=== PATIENT | male | born 1970 | race Caucasian/White ===

== ENCOUNTER 2018-03-13 22:00 | Inpatient (IN) | payer OTHER ==
[2018-03-13] MEDS ORDERED: FUROSEMIDE 40 MG/4 ML INJECTABLE VIAL IVPUSH ONE ×2 (22:33→23:25)
--- NOTE | 2018-03-13 22:40 | PDOC ---
Attending Attestation - HPI HPI: 03/13/18 23:46 The patient is a 47 year old male with past medical history of CHF (dx 4 years ago, not compliant with medication for the past 1 month), COPD (not compliant with treatment for the past 2 days), HTN, HLD, and DM, currently homeless and lives in a skilled nursing for 4 months now presents to the emergency department via EMS with shortness of breath. The patient reports his CHF symptoms are exacerbated during the winter times. The patient indicates the symptoms present 3 days ago, as chest tightness that feels like his muscles getting cold and freezing, that is localized. The patient reports his symptoms were aggravated earlier today when he was walking downhill. The patient reports after that episode, he had a small lunch then was en route to the skilled nursing. The patient reports he was having shortness of breath, and he had to stop after 10 steps to catch his breath then resume walking. The patient reports the symptoms are associated with abdominal discomfort, states he feels like a grapefruit is sitting in his abdomen. Denies productive cough fever, chills, urinary symptoms or changes in bowel habit. Allergies: NKA Social history: None reported. PCP: Samuel Lozano MD - Physicial Exam PE: 03/13/18 23:46 GENERAL: The patient is in no acute distress. Awake, alert, disheveled and malodorous. LUNGS: Bibasilar crackles. Breath sounds equal, clear to auscultation bilaterally. No Wheezes. HEART:Regular rate and rhythm, normal S1 and S2 without murmur, rub or gallop. ABDOMEN: +anasarca. Soft, nontender. No guarding, no rebound. No masses palpable. EXTREMITIES: 3+pitting edema. No clubbing or cyanosis. No erythema, or tenderness. - Medical Decision Making 03/13/18 23:46 Documentation prepared by Estelle Lopez, acting as internist medical doctor md for Jeannine Bagley MD. <Estelle Lopez - Last Filed: 03/13/18 23:46> - Resident Resident Name: Wild Olsen - ED Attending Attestation I have performed the following: I have examined & evaluated the patient, The case was reviewed & discussed with the resident, I agree w/resident's findings & plan, Exceptions are as noted - Critical Care Time Total Critical Care Time: 35 Critical Care Statement: The care of this patient involved high complexity decision making to prevent further life threatening deterioration of the patient 's condition and/or to evaluate & treat vital organ system(s) failure or risk of failure. - Medical Decision Making 03/13/18 23:41 EKG - NSR rate of 83 bpm, right axis deviation, T wave inversion inferiorly and v2-v4 CXR - Cardiomegaly, pulmonary congestion Laboratory Tests 03/13/18 03/13/18 03/13/18 22:28 22:28 22:28 WBC 8.6 Hgb 20.1 H* Hct 60.3 H Plt Count 135 INR 1.08 VBG pH POC VBG pCO2 POC VBG pO2 Sodium 144 Potassium 3.8 Chloride 104 Carbon Dioxide 36 H BUN 19 H Creatinine 1.2 Random Glucose 108 H Creatine Kinase 172 Troponin I 0.06 H B-Natriuretic Peptide 2290.2 H 03/13/18 22:28 WBC Hgb Hct Plt Count INR VBG pH 7.27 L POC VBG pCO2 87.3 H* POC VBG pO2 18.1 L* Sodium Potassium Chloride Carbon Dioxide BUN Creatinine Random Glucose Creatine Kinase Troponin I B-Natriuretic Peptide Lasix ordered Pt placed on BiPAP - hypercarbic + CHF <Jeannine Bagley - Last Filed: 03/17/18 10:55>
[2018-03-13 22:41] LABS: BASO % 0.4 % (0-2.0); EOS % 2.1 % (0-4.5); HEMATOCRIT 60.3 % (35.4-49); LYMPH % 16.9 % (8-40); MCH 31.6 pg (25.7-33.7); MCHC 33.3 g/dl (32.0-35.9); MEAN CELL VOLUME 94.8 fl (80-96); MEAN PLT VOLUME 10.1 fl (7.5-11.1); MONO % 10.2 % (3.8-10.2); NEUT % 70.4 % (42.8-82.8); PLATELET COUNT 135 K/MM3 (134-434); RBC 6.36 M/mm3 (4.00-5.60); RDW 15.4 % (11.9-15.9); WHITE BLOOD COUNT 8.6 K/mm3 (4.0-10.0)
[2018-03-13 22:44] LABS: HEMOGLOBIN 20.1 GM/dL (11.7-16.9)
[2018-03-13 22:45] LABS: VENOUS PH 7.27 (7.32-7.42)
[2018-03-13 22:46] LABS: VENOUS PC02 87.3 mmHg (38-52); VENOUS PO2 18.1 mmHg (28-48)
--- NOTE | 2018-03-13 22:47 | PDOC ---
History of Present Illness - General Chief Complaint: Chest Pain Stated Complaint: chest pain Time Seen by Provider: 03/13/18 22:12 History Source: Patient Exam Limitations: No Limitations - History of Present Illness Initial Comments: 03/13/18 22:38 The patient is a 47M with a PMH of HTN, HLD, DM, CHF who presents to the ER with complaints of worsening SOB. The patient states that for the last month, he has had worsening SOB, especially with exertion. The patient states that he has not taken any of his medications for one month because he has "given up on medication, doctors, and the system". He denies any CP, but admits to productive cough with white sputum and SOB with swelling in his b/l LE and abdomen. He denies any fever, chills, nausea, vomiting, numbness, tingling, and weakness. Past History - Suicide/Smoking/Psychosocial Hx Smoking History: Never smoked Have you smoked in the past 12 months: No Information on smoking cessation initiated: No Hx Alcohol Use: No Drug/Substance Use Hx: No Review of Systems - Review of Systems Able to Perform ROS?: Yes Comments:: 03/13/18 23:03 GENERAL/CONSTITUTIONAL: No fever or chills. No weakness. HEAD, EYES, EARS, NOSE AND THROAT: No change in vision. No ear pain or discharge. No sore throat. CARDIOVASCULAR: No chest pain, palpitations, or lightheadedness. RESPIRATORY: Positive for dyspnea, especially on exertion. No cough, wheezing, or hemoptysis. GASTROINTESTINAL: No nausea, vomiting, diarrhea, constipation, or abdominal pain. GENITOURINARY: No dysuria, frequency, hematuria, or change in urination. MUSCULOSKELETAL: No joint or muscle swelling or pain. No neck or back pain. SKIN: No rash or lesions. NEUROLOGIC: No headache, numbness, tingling, focal weakness, loss of consciousness, or change in strength/sensation. Is the patient limited Hebrew proficient: No *Physical Exam - Vital Signs Last Vital Signs Temp Pulse Resp BP Pulse Ox 97.5 F L 88 22 H 147/85 90 L 03/13/18 22:05 03/13/18 22:05 03/13/18 22:05 03/13/18 22:05 03/13/18 22:05 - Physical Exam Comments: 03/13/18 23:04 GENERAL: Well developed, well nourished. Awake and alert. No acute distress. HEENT: Normocephalic, atraumatic. Hearing grossly normal. Moist mucous membranes. PERRLA, EOMI. No conjunctival pallor. Sclera are non-icteric. NECK: Supple. Full ROM. No JVD. Carotid pulses 2+ and symmetric, without bruits. No thyromegaly. No lymphadenopathy. CARDIOVASCULAR: Regular rate and rhythm. No murmurs, rubs, or gallops. PULMONARY: No evidence of respiratory distress. B/l crackles in lower lobes. ABDOMINAL: Soft. Non-tender. Non-distended. No rebound or guarding. No organomegaly. Normoactive bowel sounds. GENITOURINARY: No CVA tenderness bilaterally. MUSCULOSKELETAL: Normal range of motion at all joints. No bony deformities or tenderness. EXTREMITIES: No cyanosis. No clubbing. 3-4+ pitting edema in b/l LE. No calf tenderness or swelling. SKIN: Warm and dry. Normal capillary refill. No rashes. No jaundice. NEUROLOGICAL: Alert, awake, appropriate. Cranial nerves 2-12 intact. Normal speech. Gait is normal without ataxia. PSYCHIATRIC: Cooperative. Good eye contact. Appropriate mood and affect. Moderate Sedation - Procedure Monitoring Vital Signs: Procedure Monitoring Vital Signs Temperature 97.5 F L 03/13/18 22:05 Pulse Rate 88 03/13/18 22:05 Respiratory Rate 22 H 03/13/18 22:05 Blood Pressure 147/85 03/13/18 22:05 O2 Sat by Pulse Oximetry (%) 90 L 03/13/18 22:05 Heart Score/ECG Review - History History: Moderately suspicious - Electrocardiogram EKG: Non specific repolarization disturbance - Age Age: 45-65 - Risk Factors Risk Factors Heart Score: Yes Hx Hypercholesterolemia, Yes Hx Hypertension, Yes Hx Diabetes Based on the list above the patient has:: >/=3 risk factors or Hx atherosclerotic disease #1 General ECG Interpretation: Normal Rate Compared to previous ECG there are: Previous ECG unavail 03/13/18 23:07 NSR vent rate 80 ND 152 QRS 102 QTc 481 No STD or BESSY T wave inversions in V1-V4 L posterior fascicular block No priors ED Treatment Course - LABORATORY CBC & Chemistry Diagram: 03/13/18 22:28 03/13/18 22:28 - RADIOLOGY Radiology Studies Ordered: Category Date Time Status CHEST X-RAY PORTABLE* [RAD] Stat Radiology 03/13/18 22:19 Taken Medical Decision Making - Medical Decision Making 03/13/18 23:08 The patient is a 47M with MMP, not on medications, who presents to the ER with worsening SOB, especially on exertion concerning for CHF exacerbation vs ACS. Pending labs. CBC significant for hgb of 20.1, likely 2/2 chronic obstructive sleep apnea and hypoxia. Pt is nondomicile and disheveled appearing. Pending troponin. Pt is noted to be hypoxic, not responsive to NC, will place pt on bipap and give lasix. VBG notable for pCO2 of 87.3 and pO2 of 18.1, indicative of hypercapnic respiratory failure. 03/13/18 23:12 Preliminary read of CXR shows cephalization without consolidations or effusions. 03/13/18 23:18 BNP in the s. Will microblog for admission. 03/13/18 23:19 I have endorsed the patient to Dr. Schrader for admission. *DC/Admit/Observation/Transfer Diagnosis at time of Disposition: Acute exacerbation of CHF (congestive heart failure) Qualifiers: Heart failure type: unspecified Qualified Code(s): I50.9 - Heart failure, unspecified Respiratory failure with hypoxia and hypercapnia Qualifiers: Chronicity: unspecified Qualified Code(s): J96.91 - Respiratory failure, unspecified with hypoxia; J96.92 - Respiratory failure, unspecified with hypercapnia - Discharge Dispostion Condition at time of disposition: Guarded Decision to Admit order: Yes - Referrals Referrals: Samuel Hu MD [Primary Care Provider] - - Patient Instructions - Post Discharge Activity
[2018-03-13 22:53] LABS: INR 1.08 (0.83-1.09); PROTHROMBIN TIME (PATIENT) 12.7 SEC (9.7-13.0)
[2018-03-13 23:14] LABS: ALBUMIN 3.3 g/dl (3.4-5.0); ALK PHOS 63 U/L (45-117); ANION GAP 5 MMOL/L (8-16); BILIRUBIN,TOTAL 0.5 mg/dL (0.2-1); BLOOD UREA NITROGEN 19 mg/dL (7-18); CALCIUM 8.5 mg/dL (8.5-10.1); CHLORIDE 104 mmol/L (98-107); CO2 36 mmol/L (21-32); CREATININE 1.2 mg/dL (0.55-1.3); GLUCOSE,RANDOM 108 mg/dL (74-106); N-TERMINAL BNP 2290.2 pg/ml (5-125); POTASSIUM 3.8 mmol/L (3.5-5.1); SGOT/AST 36 U/L (15-37); SGPT/ALT 64 U/L (13-61); SODIUM 144 mmol/L (136-145); TOT PROT 6.3 g/dl (6.4-8.2)
[2018-03-13] MEDS ORDERED: CARVEDILOL 3.125 MG TABLET (FP) PO ONE (23:32)
--- NOTE | 2018-03-13 23:34 | HP ---
CHIEF COMPLAINT: shortness of breath PCP: none HISTORY OF PRESENT ILLNESS: This is a 47 year old male with a history of systolic heart failure as per patient, htn, who is homeless, presenting with worsening shortness of breath and increased bilateal leg swelling and abdominal swelling. He states that he has been prescribed lasix in the past, but has not taken it in a few weeks. HE is a daily smoker, denies alcohol use. Patient is obese, he waked up multipl times throughout the night due to choking sensation, and snoring. HE has never had a sleep study. Denies headache, fever, chills, cough, sputum production, chest pain, abdominal pain, changed in GI or . ER course was notable for:elevated bnp 22,000; trop 0.06; Recent Travel: home less PAST MEDICAL HISTORY: htn, chf PAST SURGICAL HISTORY: Social History: Smoking:yes daily Alcohol:denies Drugs: denies Family History: HOME MEDICATIONS: REVIEW OF SYSTEMS CONSTITUTIONAL: Absent: fever, chills, diaphoresis, generalized weakness, malaise, loss of appetite, weight change HEENT: Absent: rhinorrhea, nasal congestion, throat pain, throat swelling, difficulty swallowing, mouth swelling, ear pain, eye pain, visual changes CARDIOVASCULAR: Positive: peripheral edema Absent: chest pain, syncope, palpitations, irregular heart rate, lightheadedness RESPIRATORY: Ositivel sob; orthopnea ,dyspnea with exertion, Absent: cough, , wheezing, stridor, hemoptysis GASTROINTESTINAL: POSitive: abdominal swelling Absent: abdominal pain, abdominal distension, nausea, vomiting, diarrhea, constipation, melena, hematochezia GENITOURINARY: Absent: dysuria, frequency, urgency, hesitancy, hematuria, flank pain, genital pain MUSCULOSKELETAL: Absent: myalgia, arthralgia, joint swelling, back pain, neck pain SKIN: Absent: rash, itching, pallor HEMATOLOGIC/IMMUNOLOGIC: Absent: easy bleeding, easy bruising, lymphadenopathy, frequent infections ENDOCRINE: Absent: unexplained weight gain, unexplained weight loss, heat intolerance, cold intolerance NEUROLOGIC: Absent: headache, focal weakness or paresthesias, dizziness, unsteady gait, seizure, mental status changes, bladder or bowel incontinence PSYCHIATRIC: Absent: anxiety, depression, suicidal or homicidal ideation, hallucinations. PHYSICAL EXAMINATION Vital Signs - 24 hr 03/13/18 03/13/18 22:05 23:12 Temperature 97.5 F L Pulse Rate 88 Respiratory 22 H Rate Blood Pressure 147/85 O2 Sat by Pulse 90 L 96 Oximetry (%) GENERAL: Obese Awake, alert, and fully oriented, on BiPAP HEAD: Normal with no signs of trauma. LUNGS: decreased breath sounds; bibasilar crackles bases HEART: Regular rate and rhythm, normal S1 and S2 without murmur, rub or gallop. ABDOMEN: obese; with RLQ and LLQ edema UPPER EXTREMITIES: 2+ pulses, warm, well-perfused. No cyanosis. No clubbing. No peripheral edema. LOWER EXTREMITIES: 2+ pulses, warm, well-perfused. No calf tenderness. No peripheral edema. NEUROLOGICAL: Cranial nerves II-XII intact. Normal speech. [id number] Laboratory Results - last 24 hr 03/13/18 03/13/18 03/13/18 22:28 22:28 22:28 WBC 8.6 RBC 6.36 H Hgb 20.1 H* Hct 60.3 H MCV 94.8 MCH 31.6 MCHC 33.3 RDW 15.4 Plt Count 135 MPV 10.1 Absolute Neuts (auto) 6.1 Neutrophils % 70.4 Lymphocytes % 16.9 Monocytes % 10.2 Eosinophils % 2.1 Basophils % 0.4 Nucleated RBC % 0 PT with INR 12.70 INR 1.08 VBG pH POC VBG pCO2 POC VBG pO2 Mixed VBG HCO3 Sodium 144 Potassium 3.8 Chloride 104 Carbon Dioxide 36 H Anion Gap 5 L BUN 19 H Creatinine 1.2 Creat Clearance w eGFR > 60 Random Glucose 108 H Calcium 8.5 Total Bilirubin 0.5 AST 36 ALT 64 H Alkaline Phosphatase 63 Creatine Kinase 172 Creatine Kinase Index 2.3 CK-MB (CK-2) 4.0 H Troponin I 0.06 H B-Natriuretic Peptide 2290.2 H Total Protein 6.3 L Albumin 3.3 L 03/13/18 22:28 WBC RBC Hgb Hct MCV MCH MCHC RDW Plt Count MPV Absolute Neuts (auto) Neutrophils % Lymphocytes % Monocytes % Eosinophils % Basophils % Nucleated RBC % PT with INR INR VBG pH 7.27 L POC VBG pCO2 87.3 H* POC VBG pO2 18.1 L* Mixed VBG HCO3 38.8 H Sodium Potassium Chloride Carbon Dioxide Anion Gap BUN Creatinine Creat Clearance w eGFR Random Glucose Calcium Total Bilirubin AST ALT Alkaline Phosphatase Creatine Kinase Creatine Kinase Index CK-MB (CK-2) Troponin I B-Natriuretic Peptide Total Protein Albumin ASSESSMENT/PLAN: This is a 47 year old obese male that is homeless, who presents to the emergency room with shortness breath and bilateral leg swelling, also with abdominal swelling, in acute exacerbation of CHF with acute respiratory failure. Acute on chronic exacerbation of CHF Acute on chronic hypercapniec respiratory failure Respiratory acidosis with metabolic compensation Obesity -hypoventilation syndrome HTN Tobacco use -120mg IV lasix given in ER and was placed on BiPAP -continue with 80mg IVP bid -vbg with ph 7.27; CO2 in 80s; with elevated HCO3 -stat ABG ; adjust BiPAP acordingly -no hx of COPD,not wheezing; pfts eval as outpatient -bnp, echocardiogram -trend troponin -monitor bmp due to lasix; emelina/arb when appropriate -smoking cessation counseling -most likely MODESTA; obesity hypoventilation; outpatient sleep study --cardio and pulmary consult VTE ppl heparin sq Disposition: monitor tele Visit type - Emergency Visit Emergency Visit: Yes ED Registration Date: 03/13/18 Care time: The patient presented to the Emergency Department on the above date and was hospitalized for further evaluation of their emergent condition. - New Patient This patient is new to me today: Yes Date on this admission: 03/14/18 - Critical Care Critical Care patient: No
--- NOTE | 2018-03-14 00:10 | PN ---
Teaching Attending Note Name of Resident: Belkys Edmondson ATTENDING PHYSICIAN STATEMENT I saw and evaluated the patient. I reviewed the resident's note and discussed the case with the resident. I agree with the resident's findings and plan as documented. SUBJECTIVE: patient admitted for worsening SOB with exertion and anasarca OBJECTIVE: s1 and s2 rrr +4 pitting edema good air entry with bibasilar crackles abdomen obese distended non-tender ASSESSMENT AND PLAN: acute on chronic HFrEF exacerbation: - give 120mg stat of furosemide - then 80mg twice a day of furosemide - adjust dose according to the BUN/Cr ratio switch to oral if patient is improving clinically - cardiology consultation - start carvedilol 3.125mg twice a day - titrate the beta-abdirahman to achieve HR 60-70 - patient might benefit from an MARY-I/ARB - obtain an echocardiogram - smoking cessation encouraged acute Hypercapnic hypoxemic respiratory failure 2/2 CHF exacerbation and obesity hypoventilation syndrome - bipap - pulmonary evaluation Polycythemia: possible 2/2 to smoking hypoxia 2/2 to obesity obesity class II - diet and life style encourage
[2018-03-14] MEDS ORDERED: FUROSEMIDE 40 MG/4 ML INJECTABLE VIAL IVPUSH SCH (06:00)
[2018-03-14] MEDS: HEPARIN NA (PORCINE) 5,000 UNITS/ML 1ML VIAL SQ SCH ×3 (06:25→22:44)
[2018-03-14 07:30] LABS: BASO % 0.7 % (0-2.0); EOS % 2.8 % (0-4.5); HEMATOCRIT 56.4 % (35.4-49); MCH 30.8 pg (25.7-33.7); MEAN CELL VOLUME 96.1 fl (80-96); MEAN PLT VOLUME 10.4 fl (7.5-11.1); MONO % 10.8 % (3.8-10.2); NEUT % 71.7 % (42.8-82.8); PLATELET COUNT 120 K/MM3 (134-434); RBC 5.87 M/mm3 (4.00-5.60); RDW 14.7 % (11.9-15.9); WHITE BLOOD COUNT 8.4 K/mm3 (4.0-10.0)
[2018-03-14 07:41] LABS: INR 1.12 (0.83-1.09); PROTHROMBIN TIME (PATIENT) 13.2 SEC (9.7-13.0)
[2018-03-14 08:03] LABS: ALBUMIN 2.9 g/dl (3.4-5.0); ALK PHOS 60 U/L (45-117); ANION GAP 6 MMOL/L (8-16); BILIRUBIN,TOTAL 0.5 mg/dL (0.2-1); BLOOD UREA NITROGEN 17 mg/dL (7-18); CALCIUM 7.7 mg/dL (8.5-10.1); CHLORIDE 104 mmol/L (98-107); CHOLESTEROL 120 mg/dL (50-200); CO2 35 mmol/L (21-32); GLUCOSE,RANDOM 109 mg/dL (74-106); HDL CHOLESTEROL 23 mg/dL (40-60); PHOSPHOROUS 6.4 mg/dL (2.5-4.9); POTASSIUM 3.7 mmol/L (3.5-5.1); SGOT/AST 33 U/L (15-37); SGPT/ALT 54 U/L (13-61); SODIUM 145 mmol/L (136-145); TOT PROT 5.4 g/dl (6.4-8.2); TRIGLYCERIDES 255 mg/dL (0-150)
--- NOTE | 2018-03-14 10:23 | PN ---
Progress Note (short form) - Note Progress Note: Subjective: No fever of chills. feels his breathing is better. reports Cp yesterday but none today. chest pain feels like pressure across his chest especially right side. no WEBSTER till past 2 days . Objective: Vital Signs: Last Vital Signs Temp Pulse Resp BP Pulse Ox 98.2 F 64 20 146/82 97 03/14/18 04:00 03/14/18 04:00 03/14/18 04:00 03/14/18 04:00 03/14/18 07:35 Laboratory Results - last 24 hr 03/13/18 03/13/18 03/13/18 22:28 22:28 22:28 WBC 8.6 RBC 6.36 H Hgb 20.1 H* Hct 60.3 H MCV 94.8 MCH 31.6 MCHC 33.3 RDW 15.4 Plt Count 135 MPV 10.1 Absolute Neuts (auto) 6.1 Neutrophils % 70.4 Lymphocytes % 16.9 Monocytes % 10.2 Eosinophils % 2.1 Basophils % 0.4 Nucleated RBC % 0 PT with INR 12.70 INR 1.08 VBG pH POC VBG pCO2 POC VBG pO2 Mixed VBG HCO3 Sodium 144 Potassium 3.8 Chloride 104 Carbon Dioxide 36 H Anion Gap 5 L BUN 19 H Creatinine 1.2 Creat Clearance w eGFR > 60 Random Glucose 108 H Hemoglobin A1c % Calcium 8.5 Phosphorus Magnesium Total Bilirubin 0.5 AST 36 ALT 64 H Alkaline Phosphatase 63 Creatine Kinase 172 Creatine Kinase Index 2.3 CK-MB (CK-2) 4.0 H Troponin I 0.06 H B-Natriuretic Peptide 2290.2 H Total Protein 6.3 L Albumin 3.3 L Triglycerides Cholesterol Total LDL Cholesterol HDL Cholesterol 03/13/18 03/14/18 03/14/18 22:28 06:00 06:00 WBC 8.4 RBC 5.87 H Hgb 18.0 H Hct 56.4 H MCV 96.1 H MCH 30.8 MCHC 32.0 RDW 14.7 Plt Count 120 L MPV 10.4 Absolute Neuts (auto) 6.0 Neutrophils % 71.7 Lymphocytes % 14.0 Monocytes % 10.8 H Eosinophils % 2.8 Basophils % 0.7 Nucleated RBC % 0 PT with INR 13.20 H INR 1.12 H VBG pH 7.27 L POC VBG pCO2 87.3 H* POC VBG pO2 18.1 L* Mixed VBG HCO3 38.8 H Sodium Potassium Chloride Carbon Dioxide Anion Gap BUN Creatinine Creat Clearance w eGFR Random Glucose Hemoglobin A1c % Calcium Phosphorus Magnesium Total Bilirubin AST ALT Alkaline Phosphatase Creatine Kinase Creatine Kinase Index CK-MB (CK-2) Troponin I B-Natriuretic Peptide Total Protein Albumin Triglycerides Cholesterol Total LDL Cholesterol HDL Cholesterol 03/14/18 03/14/18 03/14/18 06:00 06:00 06:00 WBC RBC Hgb Hct MCV MCH MCHC RDW Plt Count MPV Absolute Neuts (auto) Neutrophils % Lymphocytes % Monocytes % Eosinophils % Basophils % Nucleated RBC % PT with INR INR VBG pH POC VBG pCO2 POC VBG pO2 Mixed VBG HCO3 Sodium 145 Potassium 3.7 Chloride 104 Carbon Dioxide 35 H Anion Gap 6 L BUN 17 Creatinine 1.0 Creat Clearance w eGFR > 60 Random Glucose 109 H Hemoglobin A1c % 7.7 H Calcium 7.7 L Phosphorus 6.4 H Magnesium 2.0 Total Bilirubin 0.5 AST 33 ALT 54 Alkaline Phosphatase 60 Creatine Kinase Creatine Kinase Index CK-MB (CK-2) Troponin I 0.05 Cancelled B-Natriuretic Peptide Total Protein 5.4 L Albumin 2.9 L Triglycerides 255 H Cholesterol 120 Total LDL Cholesterol 80 HDL Cholesterol 23 L I&O: Intake & Output 03/11/18 03/12/18 03/13/18 03/14/18 23:59 23:59 23:59 23:59 Intake Total 200 Output Total 800 Balance -600 Weight 275 lb 316 lb 4 oz Physical Exam: NAD awake, alert, oriented. took BIPAP off and can speak in full sentences HEENT: MMM Cv: RRR, no MRG Lungs: decreased breath sounds throughout. Abd: obese, soft, ND, TTP in suprapubic area, edematous kin in lower abdomen Ext : 4+ edema on LE . slight erythema. fungal infection in interdigital web 3 on L side Imaging: cxray reviewed. Assessment/Plan: 47 y/o man with h/o CHF, and DM who presented with SOB , he was found to have acute CHF exacerbation 1- Acute hypoxic hypercapnic resp failure due to acute CHF exacerbation, unclear type. - received lasix 120 then 80. - will place on lasix 40 BID though IV, and monitor response. if needed can increased dose - add lisinopril - echo pending - In case he has systolic heart failure, hold off BB pending echo and improvement in volume status. will start later - weight and I&O - dc BIPAP now and check ABG in 15 min - BIPAP PRN and HS . - card eval pending. 2- ELevated trop : likely demand. unable to find EKG. chest pressure resolved. will follow . 3- DM : old. A1c 7.7 - place on SSI - at dc can place on oral agents. avoid metformn in setting of heart failure 4- DVT PX Visit type - Emergency Visit Emergency Visit: Yes ED Registration Date: 03/13/18 Care time: The patient presented to the Emergency Department on the above date and was hospitalized for further evaluation of their emergent condition. - New Patient This patient is new to me today: Yes Date on this admission: 03/14/18 - Critical Care Critical Care patient: No
[2018-03-14 10:49] LABS: ARTERIAL BLD GAS O2 SATURATION 96.6 % (90-98.9); ARTERIAL BLOOD GAS BASE EXCESS 10.6 meq/l (-2-2); ARTERIAL BLOOD GAS PO2 86.7 mmHg (80-100); ARTERIAL BLOOD GAS pH 7.36 (7.35-7.45)
[2018-03-14 10:54] LABS: ALLENS TEST POSITIVE
[2018-03-14 10:57] LABS: ARTERIAL BLOOD GAS PCO2 73.4 mmHg (35-45)
--- NOTE | 2018-03-14 11:02 | CON.CARD ---
Consult Consult Specialty:: Cardiology Referred by:: Hospitalist Medicine Reason for Consultation:: Volume overlad - History of Present Illness Chief Complaint: WEBSTER, anasarca History of Present Illness: This is a 47 year old male with a history of systolic heart failure, htn, who is homeless, presenting with worsening shortness of breath, chest pressure, increased bilateral leg swelling, orthopnea, PND and abdominal swelling. He states that he has been prescribed lasix in the past, but has not taken it in a few weeks. HE is a daily smoker, denies alcohol use. HE has never had a sleep study. Denies headache, fever, chills, cough, sputum production, abdominal pain , changed in GI or . ER course was notable for:elevated bnp 22,000; trop 0.06; - History Source History Provided By: Patient Limitations to Obtaining History: No Limitations - Alcohol/Substance Use Hx Alcohol Use: No - Smoking History Smoking history: Never smoked Have you smoked in the past 12 months: No Home Medications - Allergies Allergies/Adverse Reactions: Allergies Allergy/AdvReac Type Severity Reaction Status Date / Time Penicillins Allergy Hives Verified 03/13/18 23:58 strawberry Allergy Verified 03/13/18 23:58 - Home Medications Home Medications: Ambulatory Orders NK [No Known Home Medication] 03/14/18 Review of Systems - Review of Systems Cardiovascular: reports: Edema, Shortness of Breath Respiratory: reports: Orthopnea, PND, SOB, SOB on Exertion Vital Signs: Vital Signs Temperature 98.2 F 03/14/18 04:00 Pulse Rate 64 03/14/18 04:00 Respiratory Rate 20 03/14/18 04:00 Blood Pressure 146/82 03/14/18 04:00 O2 Sat by Pulse Oximetry (%) 97 03/14/18 07:35 Constitutional: Yes: No Distress, Calm Neck: Yes: Supple Respiratory: Yes: Regular, Diminished, On Nasal O2 Gastrointestinal: Yes: Normal Bowel Sounds, Soft, Abdomen, Obese Cardiovascular: Yes: Regular Rate and Rhythm JVD: No Carotid Bruit: No Heart Sounds: Yes: S1, S2 Edema: Yes Edema: LLE: 2+, RLE: 2+ - Other Data Labs, Other Data: CBC, BMP 03/14/18 06:00 03/14/18 06:00 INR, PTT INR 1.12 (0.83-1.09) H 03/14/18 06:00 Troponin, BNP 03/13/1818 03/14/18 22:28 06:00 06:00 Troponin I 0.06 H 0.05 Cancelled B-Natriuretic Peptide 2290.2 H Troponin, BNP 03/13/1818 03/14/18 22:28 06:00 06:00 Troponin I 0.06 H 0.05 Cancelled B-Natriuretic Peptide 2290.2 H Unavailable for review Imaging - Results Chest X-ray: Report Reviewed (NAD) Problem List - Problems (1) Homelessness Code(s): Z59.0 - HOMELESSNESS (2) Acute exacerbation of CHF (congestive heart failure) Code(s): I50.9 - HEART FAILURE, UNSPECIFIED Qualifiers: Heart failure type: combined systolic and diastolic Qualified Code(s): I50.43 - 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) heart failure (3) Respiratory failure with hypoxia and hypercapnia Code(s): J96.91 - RESPIRATORY FAILURE, UNSPECIFIED WITH HYPOXIA; J96.92 - RESPIRATORY FAILURE, UNSPECIFIED WITH HYPERCAPNIA Qualifiers: Chronicity: acute on chronic Qualified Code(s): J96.21 - Acute and chronic respiratory failure with hypoxia; J96.22 - Acute and chronic respiratory failure with hypercapnia (4) Polycythemia Code(s): D75.1 - SECONDARY POLYCYTHEMIA Assessment/Plan 1. Acute on chronic hypercapneic/hypoxemic respiratory failure 2. Acute on chronic systolic heart failure 3. Polycythemia ? chronic hypoxia 4. Obesity 5. Homelessness P:1. IV diuresis with monitor diuretic response, renal fxn and electrolytes, f/ u echo results 2. Agree with carvedilol 3.125 bid and lisinopril 5 qd with uptitration as tolerated 3. Smoking cessation 4. Homelessness and unstable living situation may preclude us from offering guideline-based therapy long-term, SW consult 5. Thank you for consultative opportunity
--- NOTE | 2018-03-14 12:04 | PN ---
Progress Note (short form) - Note Progress Note: PULMONARY CONSULTATION DICTATED 03/14/18 IMP ACUTE ON CHRONIC HYPOXEMIC/HYPERCAPNEIC RESPIRATORY FAILURE ACUTE ON CHRONIC CHF COPD LIKELY PULMONARY HTN LIKELY OSAS ? OHS SECONDARY ERYTHROCYTOSIS HTN DM TOBACCO ABUSE PLAN IV LASIX O2 NIPPV NEEDED AND Hr SLEEP INHALED BRONCHODILATORS DAILY WT CONSIDER PHLEBOTOMY MONITOR CBC,H+H CHEST CT ECHO OUTPATIENT SLEEP STUDIES PFTS OUTPATIENT F/U ABGS PT WILL LIKELY REQUIRE HOME O2 CHECK O2 SAT PRIOR TO DISCHARGE TO DETERMINE IF PT IS A CANDIDATE FOR HOME O2 SMOKING CESSATION COUNSELED SOCIAL SERVICE CONSULT DR WILDER Problem List - Problems (1) Acute on chronic respiratory failure with hypoxia and hypercapnia Code(s): J96.21 - ACUTE AND CHRONIC RESPIRATORY FAILURE WITH HYPOXIA; J96.22 - ACUTE AND CHRONIC RESPIRATORY FAILURE WITH HYPERCAPNIA (2) Acute exacerbation of CHF (congestive heart failure) Code(s): I50.9 - HEART FAILURE, UNSPECIFIED Qualifiers: Heart failure type: combined systolic and diastolic Qualified Code(s): I50.43 - 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) heart failure (3) Homelessness Code(s): Z59.0 - HOMELESSNESS (4) Polycythemia Code(s): D75.1 - SECONDARY POLYCYTHEMIA (5) Pulmonary HTN Code(s): I27.20 - PULMONARY HYPERTENSION, UNSPECIFIED (6) HTN (hypertension) Code(s): I10 - ESSENTIAL (PRIMARY) HYPERTENSION (7) Diabetes Code(s): E11.9 - TYPE 2 DIABETES MELLITUS WITHOUT COMPLICATIONS (8) Tobacco abuse Code(s): Z72.0 - TOBACCO USE (9) Tobacco abuse counseling Code(s): Z71.6 - TOBACCO ABUSE COUNSELING
[2018-03-14] MEDS: CARVEDILOL 3.125 MG TABLET (FP) PO SCH ×2 (12:19→22:43)
[2018-03-14] MEDS: INSULIN SLIDING SCALE (NOVOLOG) 1 VIAL SQ SCH ×2 (12:45→16:33)
--- NOTE | 2018-03-14 13:32 | CONS ---
DATE OF CONSULTATION: 03/14/2018 REFERRING PHYSICIAN: Mao Abad MD The patient is a 47-year-old white male with past medical history of congestive heart failure, hypertension, longstanding history of tobacco use, approximately 3 packs per day for 30 years, stopped approximately 2 days ago, admitted to [facility] with a complaint of 2-day history of increasing shortness of breath and dyspnea on exertion. Patient states, for the past week or so, he has been developing increasing shortness of breath. Yesterday, he says, when he was ambulating, he developed severe dyspnea, at which time he presented to the emergency room. In the ER, he was note to have an elevated BNP. He was also noted to be hypercapnic on venous blood gas. He was transferred to the telemetry unit for further management and started on BiPAP. Of note, he states that, for the past few days, he has had increasing bilateral lower extremity edema as well as abdominal bloating. He has taken Lasix in the past, but has not taken it in a few weeks. 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 He denies any recent travel. There is no history of DVT or PE in the past. PAST MEDICAL HISTORY: Congestive heart failure, hypertension, diabetes. REVIEW OF SYSTEMS: Shortness of breath with exertion, positive chest tightness. No cough, no hemoptysis. Positive abdominal bloating, positive lower extremity edema. SOCIAL HISTORY: He is currently unemployed and homeless. History of tobacco use, 3 packs per day for 30 years, stopped 3 days ago. No EtOH. CURRENT MEDICATIONS: Heparin; Prinivil; Tylenol; NovoLog; and Lasix. PHYSICAL EXAMINATION: General: The patient is an obese male, awake, alert, in no acute distress. Vital Signs: He is currently afebrile. Blood pressure is 134/79, respiratory rate is 20, O2 saturation is 97%. HEENT: Normocephalic, atraumatic. Neck: Supple. Heart: Regular, S1, S2. Chest: Scattered wheezes. Abdomen: Soft. Bowel sounds are positive. Extremities: Bilateral lower extremity edema. LABORATORIES: Blood gas pH of 7.36, pCO2 of 73, pO2 of 86, bicarbonate of 40, and a saturation of 96 on an unknown quantity of oxygen. Initial WBC is 8.6, hemoglobin 20.1, hematocrit 60.3 with a platelet count of 135,000. Repeat today, WBCs 8.4, hemoglobin 18, hematocrit 56.4 with a platelet count of 120,000. Chemistry: BUN 17, creatinine 1.0. Hemoglobin A1c is 7.7. BNP is 2290. Chest x-ray reveals cardiomegaly with prominent pulmonary arteries. No significant congestion. IMPRESSION: [id number] hypoxemic, hypercapnic respiratory failure secondary to multiple factors. 1. Mild decompensated congestive heart failure. 2. Chronic obstructive pulmonary disease with exacerbation. 3. Likely pulmonary hypertension. 4. Likely obstructive sleep apnea,OHS 5. Secondary erythrocytosis. 6. Hypertension. 7. Diabetes. PLAN: Supplemental O2 and BiPAP as needed and hours of sleep. Continue Lasix, inhaled bronchodilators. Monitor CBC. Consider a Hematology evaluation for possible phlebotomy. Also evaluate patient prior to discharge for home oxygen therapy. Obtain, also, a CT scan of the chest as well as echocardiogram. NORA WILDER M.D. [id number] MTDD
[2018-03-14] MEDS ORDERED: ALBUTEROL SO4 2.5/IPRATROPIUM 0.5 INH SOL 3 ML VIAL.NEB. NEB ONE (13:48)
[2018-03-14] MEDS: FUROSEMIDE 40 MG/4 ML INJECTABLE VIAL IVPUSH SCH (15:49)
[2018-03-15] MEDS: ACETAMINOPHEN 325 MG TABLET (FP) PO PRN (04:05)
[2018-03-15] MEDS: HEPARIN NA (PORCINE) 5,000 UNITS/ML 1ML VIAL SQ SCH ×3 (05:30→21:13)
[2018-03-15] MEDS: FUROSEMIDE 40 MG/4 ML INJECTABLE VIAL IVPUSH SCH ×2 (05:30→13:23)
[2018-03-15] MEDS: ALBUTEROL SO4 2.5/IPRATROPIUM 0.5 INH SOL 3 ML VIAL.NEB. NEB PRN (05:43)
[2018-03-15] MEDS: INSULIN SLIDING SCALE (NOVOLOG) 1 VIAL SQ SCH ×3 (06:20→17:40)
[2018-03-15 06:44] LABS: BASO % 0.4 % (0-2.0); EOS % 3.1 % (0-4.5); HEMATOCRIT 56.7 % (35.4-49); HEMOGLOBIN 17.8 GM/dL (11.7-16.9); LYMPH % 16.6 % (8-40); MCH 30.2 pg (25.7-33.7); MCHC 31.5 g/dl (32.0-35.9); MEAN CELL VOLUME 95.8 fl (80-96); MEAN PLT VOLUME 10.3 fl (7.5-11.1); MONO % 8.8 % (3.8-10.2); NEUT % 71.1 % (42.8-82.8); PLATELET COUNT 106 K/MM3 (134-434); RBC 5.91 M/mm3 (4.00-5.60); RDW 14.6 % (11.9-15.9); WHITE BLOOD COUNT 6.8 K/mm3 (4.0-10.0)
--- NOTE | 2018-03-15 06:57 | PN ---
Physical Exam: SUBJECTIVE: Patient seen and examined at bedside. No acute events overnight. Pt complaining of headache is requesting something stronger than Tylenol. Also admits to persistent substernal chest pain radiating to R side, but unchanged in nature throughout hospital stay. Denies fever/chills, nausea/vomiting, sob. Has good appetite, but no BM yet. Denies urinary symptoms. OBJECTIVE: Vital Signs Period Temp Pulse Resp BP Sys/Garza Pulse Ox Last 24 Hr 97 F-98.5 F 55-67 19-20 120-161/58-100 96-99 GENERAL: NAD. AAOx3. HEENT: AT/NC. EOMI. DELMY. Moist mucus membranes. NECK: Supple, nontender. LUNGS: Decreased breath sounds b/l HEART: Regular rate and rhythm, S1, S2 without murmur, rub or gallop. ABDOMEN: Obese. Soft, ND. mild RUQ tenderness. EXTREMITIES: 2+ pedal edema b/l. NEUROLOGICAL: Facial symmetry noted. Facial muscles intact. PSYCH: Normal mood, normal affect. CBCD WBC 8.4 K/mm3 (4.0-10.0) 03/14/18 06:00 RBC 5.87 M/mm3 (4.00-5.60) H 03/14/18 06:00 Hgb 18.0 GM/dL (11.7-16.9) H 03/14/18 06:00 Hct 56.4 % (35.4-49) H 03/14/18 06:00 MCV 96.1 fl (80-96) H 03/14/18 06:00 MCHC 32.0 g/dl (32.0-35.9) 03/14/18 06:00 RDW 14.7 % (11.9-15.9) 03/14/18 06:00 Plt Count 120 K/MM3 (134-434) L 03/14/18 06:00 MPV 10.4 fl (7.5-11.1) 03/14/18 06:00 CMP Sodium 145 mmol/L (136-145) 03/14/18 06:00 Potassium 3.7 mmol/L (3.5-5.1) 03/14/18 06:00 Chloride 104 mmol/L (98-107) 03/14/18 06:00 Carbon Dioxide 35 mmol/L (21-32) H 03/14/18 06:00 Anion Gap 6 MMOL/L (8-16) L 03/14/18 06:00 BUN 17 mg/dL (7-18) 03/14/18 06:00 Creatinine 1.0 mg/dL (0.55-1.3) 03/14/18 06:00 Creat Clearance w eGFR > 60 (>60) 03/14/18 06:00 Calcium 7.7 mg/dL (8.5-10.1) L 03/14/18 06:00 Total Bilirubin 0.5 mg/dL (0.2-1) 03/14/18 06:00 AST 33 U/L (15-37) 03/14/18 06:00 ALT 54 U/L (13-61) 03/14/18 06:00 Alkaline Phosphatase 60 U/L (45-117) 03/14/18 06:00 Total Protein 5.4 g/dl (6.4-8.2) L 03/14/18 06:00 Albumin 2.9 g/dl (3.4-5.0) L 03/14/18 06:00 Active Medications Acetaminophen (Tylenol -) 650 mg PO Q6H PRN PRN Reason: HEADACHE Last Admin: 03/15/18 04:05 Dose: 650 mg Albuterol/Ipratropium (Duoneb -) 1 amp NEB Q6H PRN PRN Reason: SHORTNESS OF BREATH Last Admin: 03/15/18 05:43 Dose: 1 amp Carvedilol (Coreg -) 3.125 mg PO BID [facility] Last Admin: 03/14/18 22:43 Dose: 3.125 mg Furosemide (Lasix Injection -) 40 mg IVPUSH BID@0600,1400 [facility] Last Admin: 03/15/18 05:30 Dose: 40 mg Heparin Sodium (Porcine) (Heparin -) 5,000 unit SQ TID [facility] Last Admin: 03/15/18 05:30 Dose: 5,000 unit Insulin Aspart (Novolog Vial Sliding Scale -) 1 vial SQ TIDAC [facility]; Protocol Last Admin: 03/15/18 06:20 Dose: Not Given Lisinopril (Prinivil) 5 mg PO DAILY [facility] Pulm- Dr. Kunz Cardio- Dr. Iraida Che- Dr. Lynn ASSESSMENT/PLAN: 47M w/ pmhx of CHF, DM, COPD, erythrycytosis, daily tobacco user who presented with worsening sob, increased b/l leg swelling. #Acute Hypoxic Respiratory Failure; likely 2/2 acute CHF exacerbation, unknown etiology vs. ? MODESTA -Carvedilol 3.125 mg PO BID -Lisinopril 5 PO QD -Lasix 40 mg IVP BID -Duonebs Q6H PRN -O2 NC -Echo ordered; Pt presented with worsening sob, and increased b/l leg swelling, abd swelling. May be component of CHF. Pt states he was previously on Lasix, but has not taken it in a couple of weeks. -Chest CT ordered -Sleep studies outpatient as pt is obese, ABG showed increased pCO2; may have underlying MODESTA -Smoke cessation #Erythrocytosis -Possible phlebotomy needed -Heme consulted, await recs #DM -BGMs TIDAC -ISS TIDAC #Hx of tobacco use -smoking cessation counseling -Chest CT done; pending final results -Duonebs PRN #Prophylaxis DVT: Heparin 5000 SQ TID FEN -no IVfs needed -recheck lytes in AM -Sodium-controlled diet dispo -cont to monitor on med-surg -Pt is homeless. D/w case mgmt regarding dispo Visit type - Emergency Visit Emergency Visit: Yes ED Registration Date: 03/13/18 Care time: The patient presented to the Emergency Department on the above date and was hospitalized for further evaluation of their emergent condition. - New Patient This patient is new to me today: Yes Date on this admission: 03/15/18 - Critical Care Critical Care patient: No
[2018-03-15 07:04] LABS: ANION GAP 4 MMOL/L (8-16); BLOOD UREA NITROGEN 14 mg/dL (7-18); CALCIUM 7.7 mg/dL (8.5-10.1); CHLORIDE 101 mmol/L (98-107); CO2 38 mmol/L (21-32); GLUCOSE,RANDOM 105 mg/dL (74-106); MAGNESIUM 2.3 mg/dL (1.8-2.4); PHOSPHOROUS 4.2 mg/dL (2.5-4.9); POTASSIUM 3.9 mmol/L (3.5-5.1); SODIUM 143 mmol/L (136-145)
[2018-03-15] MEDS ORDERED: LISINOPRIL 5 MG TABLET (FP) PO SCH (10:00)
[2018-03-15] MEDS: CARVEDILOL 3.125 MG TABLET (FP) PO SCH ×2 (10:05→21:13)
--- NOTE | 2018-03-15 10:59 | PN ---
Progress Note, Physician History of Present Illness: Left leg swelling, orthopnea, PND and abdominal swelling improving with diuresis. Reports reproducible constochondral chest tenderness. - Current Medication List Current Medications: Active Medications Acetaminophen (Tylenol -) 650 mg PO Q6H PRN PRN Reason: HEADACHE Last Admin: 03/15/18 04:05 Dose: 650 mg Albuterol/Ipratropium (Duoneb -) 1 amp NEB Q6H PRN PRN Reason: SHORTNESS OF BREATH Last Admin: 03/15/18 05:43 Dose: 1 amp Carvedilol (Coreg -) 3.125 mg PO BID [facility] Last Admin: 03/15/18 10:05 Dose: 3.125 mg Furosemide (Lasix Injection -) 40 mg IVPUSH BID@0600,1400 [facility] Last Admin: 03/15/18 05:30 Dose: 40 mg Heparin Sodium (Porcine) (Heparin -) 5,000 unit SQ TID [facility] Last Admin: 03/15/18 05:30 Dose: 5,000 unit Insulin Aspart (Novolog Vial Sliding Scale -) 1 vial SQ TIDAC [facility]; Protocol Last Admin: 03/15/18 06:20 Dose: Not Given Lisinopril (Prinivil) 5 mg PO DAILY [facility] Last Admin: 03/15/18 10:05 Dose: 5 mg - Objective Vital Signs: Vital Signs Temperature 98.1 F 03/15/18 04:53 Pulse Rate 59 L 03/15/18 04:53 Respiratory Rate 20 03/15/18 04:53 Blood Pressure 137/76 03/15/18 04:53 O2 Sat by Pulse Oximetry (%) 97 03/15/18 08:28 Constitutional: Yes: No Distress, Calm Neck: Yes: Supple Cardiovascular: Yes: Regular Rate and Rhythm Respiratory: Yes: Regular, Diminished Gastrointestinal: Yes: Normal Bowel Sounds, Soft Edema: Yes Edema: LLE: 1+, RLE: 1+ Labs: CBC, BMP 03/15/18 05:30 03/15/18 05:30 INR, PTT INR 1.12 (0.83-1.09) H 03/14/18 06:00 Problem List - Problems (1) Homelessness Code(s): Z59.0 - HOMELESSNESS (2) Acute exacerbation of CHF (congestive heart failure) Code(s): I50.9 - HEART FAILURE, UNSPECIFIED Qualifiers: Heart failure type: combined systolic and diastolic Qualified Code(s): I50.43 - 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) heart failure (3) Respiratory failure with hypoxia and hypercapnia Code(s): J96.91 - RESPIRATORY FAILURE, UNSPECIFIED WITH HYPOXIA; J96.92 - RESPIRATORY FAILURE, UNSPECIFIED WITH HYPERCAPNIA Qualifiers: Chronicity: acute on chronic Qualified Code(s): J96.21 - Acute and chronic respiratory failure with hypoxia; J96.22 - Acute and chronic respiratory failure with hypercapnia (4) Polycythemia Code(s): D75.1 - SECONDARY POLYCYTHEMIA Assessment/Plan 1. Acute on chronic hypercapneic/hypoxemic respiratory failure 2. Acute on chronic systolic heart failure 3. Polycythemia ? chronic hypoxia 4. Obesity with OSAS/OHS 5. Homelessness P:1. IV diuresis with monitor diuretic response, renal fxn and electrolytes, f/ u echo results 2. Agree with carvedilol 3.125 bid and increase lisinopril 10 qd with uptitration as tolerated 3. Smoking cessation, f/u chest CT 4. Homelessness and unstable living situation may preclude us from offering guideline-based therapy long-term, SW consult
[2018-03-15] MEDS ORDERED: LISINOPRIL 5 MG TABLET (FP) PO ONE (11:10)
--- NOTE | 2018-03-15 11:14 | PN ---
Progress Note, Physician History of Present Illness: PULMONARY ALERT,FEELING BETTER,LESS DYSPNEIC - Current Medication List Current Medications: Active Medications Acetaminophen (Tylenol -) 650 mg PO Q6H PRN PRN Reason: HEADACHE Last Admin: 03/15/18 04:05 Dose: 650 mg Albuterol/Ipratropium (Duoneb -) 1 amp NEB Q6H PRN PRN Reason: SHORTNESS OF BREATH Last Admin: 03/15/18 05:43 Dose: 1 amp Carvedilol (Coreg -) 3.125 mg PO BID [facility] Last Admin: 03/15/18 10:05 Dose: 3.125 mg Furosemide (Lasix Injection -) 40 mg IVPUSH BID@0600,1400 [facility] Last Admin: 03/15/18 05:30 Dose: 40 mg Heparin Sodium (Porcine) (Heparin -) 5,000 unit SQ TID [facility] Last Admin: 03/15/18 05:30 Dose: 5,000 unit Insulin Aspart (Novolog Vial Sliding Scale -) 1 vial SQ TIDAC [facility]; Protocol Last Admin: 03/15/18 06:20 Dose: Not Given Lisinopril (Prinivil) 5 mg PO DAILY [facility] Last Admin: 03/15/18 10:05 Dose: 5 mg - Objective Vital Signs: Vital Signs Temperature 98.1 F 03/15/18 04:53 Pulse Rate 59 L 03/15/18 04:53 Respiratory Rate 20 03/15/18 04:53 Blood Pressure 137/76 03/15/18 04:53 O2 Sat by Pulse Oximetry (%) 97 03/15/18 08:28 Constitutional: Yes: Well Nourished, Calm Eyes: Yes: WNL HENT: Yes: WNL Neck: Yes: WNL Cardiovascular: Yes: Regular Rate and Rhythm, S1, S2 Respiratory: Yes: Diminished Gastrointestinal: Yes: Normal Bowel Sounds, Soft Extremities: Yes: WNL Edema: Yes Labs: CBC, BMP 03/15/18 05:30 03/15/18 05:30 INR, PTT INR 1.12 (0.83-1.09) H 03/14/18 06:00 Problem List - Problems (1) Acute on chronic respiratory failure with hypoxia and hypercapnia Code(s): J96.21 - ACUTE AND CHRONIC RESPIRATORY FAILURE WITH HYPOXIA; J96.22 - ACUTE AND CHRONIC RESPIRATORY FAILURE WITH HYPERCAPNIA (2) Acute exacerbation of CHF (congestive heart failure) Code(s): I50.9 - HEART FAILURE, UNSPECIFIED Qualifiers: Qualified Code(s): I50.43 - Acute on chronic combined systolic (congestive) and diastolic (congestive) heart failure (3) Homelessness Code(s): Z59.0 - HOMELESSNESS (4) Polycythemia Code(s): D75.1 - SECONDARY POLYCYTHEMIA (5) Pulmonary HTN Code(s): I27.20 - PULMONARY HYPERTENSION, UNSPECIFIED (6) HTN (hypertension) Code(s): I10 - ESSENTIAL (PRIMARY) HYPERTENSION (7) Diabetes Code(s): E11.9 - TYPE 2 DIABETES MELLITUS WITHOUT COMPLICATIONS (8) Tobacco abuse Code(s): Z72.0 - TOBACCO USE (9) Tobacco abuse counseling Code(s): Z71.6 - TOBACCO ABUSE COUNSELING Assessment/Plan IMP ACUTE ON CHRONIC HYPOXEMIC/HYPERCAPNEIC RESPIRATORY FAILURE CLINICALLY IMPROVING ACUTE ON CHRONIC CHF CLINICALLY IMPROVING COPD LIKELY PULMONARY HTN LIKELY OSAS ? OHS SECONDARY ERYTHROCYTOSIS HTN DM TOBACCO ABUSE PLAN IV LASIX O2 NIPPV NEEDED AND Hr SLEEP INHALED BRONCHODILATORS DAILY WT CONSIDER PHLEBOTOMY MONITOR CBC,H+H ECHO PENDING OUTPATIENT SLEEP STUDIES PFTS OUTPATIENT F/U ABGS PT WILL LIKELY REQUIRE HOME O2 CHECK O2 SAT PRIOR TO DISCHARGE TO DETERMINE IF PT IS A CANDIDATE FOR HOME O2 SMOKING CESSATION COUNSELED DR WILDER Problem List - Problems (1) Acute on chronic respiratory failure with hypoxia and hypercapnia Code(s): J96.21 - ACUTE AND CHRONIC RESPIRATORY FAILURE WITH HYPOXIA; J96.22 - ACUTE AND CHRONIC RESPIRATORY FAILURE WITH HYPERCAPNIA (2) Acute exacerbation of CHF (congestive heart failure) Code(s): I50.9 - HEART FAILURE, UNSPECIFIED Qualifiers: Heart failure type: combined systolic and diastolic Qualified Code(s): I50.43 - 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) heart failure (3) Homelessness Code(s): Z59.0 - HOMELESSNESS (4) Polycythemia Code(s): D75.1 - SECONDARY POLYCYTHEMIA (5) Pulmonary HTN Code(s): I27.20 - PULMONARY HYPERTENSION, UNSPECIFIED (6) HTN (hypertension) Code(s): I10 - ESSENTIAL (PRIMARY) HYPERTENSION (7) Diabetes Code(s): E11.9 - TYPE 2 DIABETES MELLITUS WITHOUT COMPLICATIONS (8) Tobacco abuse Code(s): Z72.0 - TOBACCO USE (9) Tobacco abuse counseling Code(s): Z71.6 - TOBACCO ABUSE COUNSELING
--- NOTE | 2018-03-15 12:50 | PN ---
Teaching Attending Note Name of Resident: Diana Field ATTENDING PHYSICIAN STATEMENT I saw and evaluated the patient. I reviewed the resident's note and discussed the case with the resident. I agree with the resident's findings and plan as documented. SUBJECTIVE: No fever or chills. SOB is slightly better . LE edema is better and he was ambulating . sued BIPAP all night last night OBJECTIVE: NAD Cv: RRR, no MRG Lungs: decreased breath sounds at bases Abd: obese, soft, ND, TTP in suprapubic area, edematous skin in lower abdomen Ext : 3+ edema on LE . slight erythema. Assessment/Plan: 47 y/o man with h/o CHF, and DM who presented with SOB , he was found to have acute CHF exacerbation 1- Acute hypoxic hypercapnic resp failure due to acute CHF exacerbation - cont lasix , > 1 L net neg yesterday . cvolume status improved - cont ACEI, dose increased. - cont coreg - BIPAP at night - echo pending 2- DM : - cont SSI 3- chromic smoking : - CT of chest reviewed, final read pendign . - Nebs as needed 4- DVT PX
--- NOTE | 2018-03-15 14:12 | ECHO ---
Name: EMILIANO BATRES Exam:Adult Echocardiogram Study Date: 03/15/2018 08:34 AM Age: 47 yrs Reason For Study: acute respiratory failure Height: 72 in Weight: 305 lb BSA: 2.5 m2 MMode/2D Measurements & Calculations IVSd: 1.2 cm Ao root diam: 4.0 cm LVIDd: 6.8 cm LA dimension: 4.2 cm LVIDs: 4.2 cm ACS: 2.0 cm LVPWd: 1.1 cm IVSs: 1.6 cm LVPWs: 1.4 cm EDV(Teich): 243.2 ml ESV(Roberto): 77.6 ml LVOT diam: 2.4 cm Doppler Measurements & Calculations MV E max eddie: 87.1 cm/sec Ao V2 max: 184.2 cm/sec MV A max eddie: 82.4 cm/sec Ao max P.6 mmHg MV E/A: 1.1 Ao V2 mean: 123.8 cm/sec Ao mean P.9 mmHg Ao V2 VTI: 34.5 cm JANN(I,D): 3.1 cm2 JANN(V,D): 2.8 cm2 LV V1 max P.6 mmHg SV(LVOT): 107.2 ml LV V1 mean P.1 mmHg LV V1 max: 118.5 cm/sec LV V1 mean: 79.8 cm/sec LV V1 VTI: 24.7 cm TR max eddie: 288.6 cm/sec Med Peak E' Eddie: 5.3 cm/sec TR max P.4 mmHg Med E/e': 16.6 Lat Peak E' Eddie: 4.8 cm/sec Lat E/e': 18.1 Procedure A complete two-dimensional transthoracic echocardiogram was performed (2D, M-mode, Doppler and color flow Doppler). Left Ventricle The left ventricle is normal in size. There is mild concentric left ventricular hypertrophy. Left guilherme tricular systolic function is normal. Ejection Fraction = 60-65%. Diastolic dysfunction, Grade II, consistent with elevated left atrial pressure. No regional wall motion abnormalities noted. Right Ventricle The right ventricle is normal size. The right ventricular systolic function is normal. Atria The left atrium is mildly dilated. Right atrial size is normal. Mitral Valve The mitral valve is normal in structure and function. There is no mitral regurgitation noted. Tricuspid Valve The tricuspid valve is normal in structure and function. There is mild tricuspid regurgitation. Pulmo nary artery systolic pressure is at least 65 mmHg assuming RA pressure of 15 mmHg (dilated IVC and <50% co llapse). Aortic Valve The aortic valve is normal in structure and function. No aortic regurgitation is present. Pulmonic Valve The pulmonic valve is not well visualized. Great Vessels Mild aortic root dilatation. Pericardium/Pleura There is no pericardial effusion. Interpretation Summary The left ventricle is normal in size. There is mild concentric left ventricular hypertrophy. Left ventricular systolic function is normal. No regional wall motion abnormalities noted. Ejection Fraction = 60-65%. Diastolic dysfunction, Grade II, consistent with elevated left atrial pressure. The right ventricular systolic function is normal. The left atrium is mildly dilated. Right atrial size is normal. There is mild tricuspid regurgitation. Pulmonary artery systolic pressure is at least 65 mmHg assuming RA pressure of 15 mmHg (dilated IVC a nd <50% collapse) Mild aortic root dilatation. There is no pericardial effusion. Previous study is not available for comparison Gerardo Khoury MD 03/15/2018 02:12 PM
[2018-03-15] MEDS ORDERED: SODIUM CHLORIDE 0.9% 500 ML INFUS.BAG IV ONE (16:37)
--- NOTE | 2018-03-15 16:44 | PROC ---
Procedure Note Procedure: Phlebotomy - consent obtained - left upper arm cleaned with chlorhexadine - 17G needle inserted and 50cc of blood drawn, 14G catheter inserted and additional 350cc of blood drawn, total 400cc removed BP prior to procedure: 41935, HR 67 BP durin/89, HR 76 BP post procedure: 36208, HR 77 ordered 250cc of NS @125cc/hr post procedure Patient tolerated procedure well.
--- NOTE | 2018-03-15 18:44 | PN ---
Teaching Attending Note Name of Resident: Seamus Ramos ATTENDING PHYSICIAN STATEMENT I saw and evaluated the patient. I reviewed the resident's note and discussed the case with the resident. I agree with the resident's findings and plan as documented. ASSESSMENT AND PLAN: 47 y/o with HTN, CHF, smoker, comes in with SOB. Being diuresed for dCHF. ??? COPD Erythrocytosis --? secondary check LDH/uric acid/erythropoietin level. will check JAK2 mutation phlebotomized 400ml blood for HCT cof 57%
[2018-03-15] MEDS ORDERED: PT OWN MED DRAWER 7, Y5N ONE (20:46)
[2018-03-15] MEDS: NYSTATIN 100,000 UNIT/GM TOPICAL CREAM 15 GM TUBE TP SCH (21:13)
[2018-03-16] MEDS: HEPARIN NA (PORCINE) 5,000 UNITS/ML 1ML VIAL SQ SCH ×3 (05:54→21:36)
[2018-03-16] MEDS: FUROSEMIDE 40 MG/4 ML INJECTABLE VIAL IVPUSH SCH ×2 (05:54→13:16)
[2018-03-16] MEDS: ACETAMINOPHEN 325 MG TABLET (FP) PO PRN (05:59)
[2018-03-16] MEDS: ALBUTEROL SO4 2.5/IPRATROPIUM 0.5 INH SOL 3 ML VIAL.NEB. NEB PRN (06:13)
[2018-03-16] MEDS: INSULIN SLIDING SCALE (NOVOLOG) 1 VIAL SQ SCH ×3 (06:28→17:05)
[2018-03-16 07:02] LABS: BASO % 0.5 % (0-2.0); EOS % 2.7 % (0-4.5); HEMATOCRIT 53.9 % (35.4-49); HEMOGLOBIN 18.5 GM/dL (11.7-16.9); LYMPH % 18.2 % (8-40); MCH 31.7 pg (25.7-33.7); MCHC 34.4 g/dl (32.0-35.9); MEAN CELL VOLUME 92.2 fl (80-96); MEAN PLT VOLUME 10.1 fl (7.5-11.1); MONO % 9.5 % (3.8-10.2); NEUT % 69.1 % (42.8-82.8); PLATELET COUNT 125 K/MM3 (134-434); RBC 5.85 M/mm3 (4.00-5.60); RDW 14.6 % (11.9-15.9); WHITE BLOOD COUNT 7.1 K/mm3 (4.0-10.0)
[2018-03-16 07:47] LABS: ALK PHOS 59 U/L (45-117); ANION GAP 4 MMOL/L (8-16); BILIRUBIN,TOTAL 0.7 mg/dL (0.2-1); BLOOD UREA NITROGEN 13 mg/dL (7-18); CALCIUM 7.8 mg/dL (8.5-10.1); CHLORIDE 100 mmol/L (98-107); CO2 38 mmol/L (21-32); GLUCOSE,RANDOM 113 mg/dL (74-106); LDH 192 U/L (87-246); POTASSIUM 3.5 mmol/L (3.5-5.1); SGOT/AST 33 U/L (15-37); SGPT/ALT 55 U/L (13-61); SODIUM 142 mmol/L (136-145); TOT PROT 5.8 g/dl (6.4-8.2)
[2018-03-16] MEDS ORDERED: ALBUTEROL SO4 8 GM HFA INHALER IH PRN (08:53)
--- NOTE | 2018-03-16 09:00 | PN ---
Teaching Attending Note Name of Resident: Lizz Damon ATTENDING PHYSICIAN STATEMENT I saw and evaluated the patient. I reviewed the resident's note and discussed the case with the resident. I agree with the resident's findings and plan as documented. SUBJECTIVE: No fever or chills . SOB has not changed. does not like DuoNebs and wants albuterol inhaler OBJECTIVE: NAD Cv: RRR, no MRG Lungs: decreased breath sounds at bases Ext : 3+ edema on LE . varicose veins Assessment/Plan: 47 y/o man with h/o CHF, and DM who presented with SOB , he was found to have acute CHF exacerbation 1- Acute hypoxic hypercapnic resp failure due to acute CHF exacerbation - net neg for 300 cc yesterday only. no weight this am . - increase lasix to 60 BID . will d/w card - cont ACEI - cont coreg - BIPAP at night - echo reviewed. severe pulm hypertension . might need oxygen and further treatment 2- Tobacco abuse: - declines duo-Nebs . will change to inhaler -add advair - pre-post close to dc - CT chest pending 3- Erythrocytosis: likey secondary to smoking . s/p 400 cc phlebotomy yesterday - cont to monitor - follow heme blood work 4- DM : - cont SSI 5- DVT PX dispo : HLOC
[2018-03-16] MEDS: NYSTATIN 100,000 UNIT/GM TOPICAL CREAM 15 GM TUBE TP SCH ×2 (09:24→21:37)
[2018-03-16] MEDS: LISINOPRIL 5 MG TABLET (FP) PO SCH (09:25)
[2018-03-16] MEDS: CARVEDILOL 3.125 MG TABLET (FP) PO SCH ×2 (09:25→21:36)
--- NOTE | 2018-03-16 11:21 | PN ---
Physical Exam: SUBJECTIVE: Patient seen and examined a bedside. Pt complains of R sided headache only in the morning after waking up. Pt also says he is able to ambulate alone, but still with sob. Admits to persistent substernal chest pain radiating to the R side that worsens with positional changes; unchanged throughout hospital stay. Tolerating PO intake. Denies dizziness, lightheadedness, abd pain, urinary/bowel symptoms. Per nurse, no acute events overnight. Pt tolerating BiPAP at night. OBJECTIVE: Vital Signs Temperature 98 F 03/16/18 09:00 Pulse Rate 56 L 03/16/18 09:00 Respiratory Rate 18 03/16/18 09:00 Blood Pressure 150/76 03/16/18 09:00 O2 Sat by Pulse Oximetry (%) 92 L 03/16/18 09:00 GENERAL: NAD. AAOx3. HEENT: AT/NC. EOMI. DELMY. Moist mucus membranes. NECK: Supple, nontender. LUNGS: Decreased breath sounds b/l. B/l crackles. HEART: Regular rate and rhythm, S1, S2 without murmur, rub or gallop. ABDOMEN: Obese. Soft, ND. mild RUQ tenderness. EXTREMITIES: 2+ pedal edema b/l. NEUROLOGICAL: Facial symmetry noted. Facial muscles intact. PSYCH: Normal mood, normal affect. CBCD WBC 7.1 K/mm3 (4.0-10.0) 03/16/18 05:50 RBC 5.85 M/mm3 (4.00-5.60) H 03/16/18 05:50 Hgb 18.5 GM/dL (11.7-16.9) H 03/16/18 05:50 Hct 53.9 % (35.4-49) H 03/16/18 05:50 MCV 92.2 fl (80-96) 03/16/18 05:50 MCHC 34.4 g/dl (32.0-35.9) 03/16/18 05:50 RDW 14.6 % (11.9-15.9) 03/16/18 05:50 Plt Count 125 K/MM3 (134-434) L 03/16/18 05:50 MPV 10.1 fl (7.5-11.1) 03/16/18 05:50 CMP Sodium 142 mmol/L (136-145) 03/16/18 05:50 Potassium 3.5 mmol/L (3.5-5.1) 03/16/18 05:50 Chloride 100 mmol/L (98-107) 03/16/18 05:50 Carbon Dioxide 38 mmol/L (21-32) H 03/16/18 05:50 Anion Gap 4 MMOL/L (8-16) L 03/16/18 05:50 BUN 13 mg/dL (7-18) 03/16/18 05:50 Creatinine 1.0 mg/dL (0.55-1.3) 03/16/18 05:50 Creat Clearance w eGFR > 60 (>60) 03/16/18 05:50 Calcium 7.8 mg/dL (8.5-10.1) L 03/16/18 05:50 Total Bilirubin 0.7 mg/dL (0.2-1) 03/16/18 05:50 AST 33 U/L (15-37) 03/16/18 05:50 ALT 55 U/L (13-61) 03/16/18 05:50 Alkaline Phosphatase 59 U/L (45-117) 03/16/18 05:50 Total Protein 5.8 g/dl (6.4-8.2) L 03/16/18 05:50 Albumin 3.0 g/dl (3.4-5.0) L 03/16/18 05:50 Active Medications Acetaminophen (Tylenol -) 650 mg PO Q6H PRN PRN Reason: HEADACHE Last Admin: 03/16/18 05:59 Dose: 650 mg Albuterol Sulfate (Ventolin Hfa Inhaler -) 2 puff IH Q4H PRN PRN Reason: SHORT OF BREATH/WHEEZING Carvedilol (Coreg -) 3.125 mg PO BID [facility] Last Admin: 03/16/18 09:25 Dose: 3.125 mg Furosemide (Lasix Injection -) 60 mg IVPUSH BID@0600,1400 [facility] Heparin Sodium (Porcine) (Heparin -) 5,000 unit SQ TID [facility] Last Admin: 03/16/18 05:54 Dose: 5,000 unit Insulin Aspart (Novolog Vial Sliding Scale -) 1 vial SQ TIDAC [facility]; Protocol Last Admin: 03/16/18 06:28 Dose: Not Given Lisinopril (Prinivil) 10 mg PO DAILY [facility] Last Admin: 03/16/18 09:25 Dose: 10 mg Nystatin (Mycostatin Cream -) 1 applic TP BID [facility] Last Admin: 03/16/18 09:24 Dose: 1 applic Sodium Chloride (Normal Saline -) 250 ml IV ONCE ONE Stop: 03/15/18 16:38 CONSULT: Chinedu- Dr. Lynn Pulm- Dr. Kunz Cardio- Dr. Khoury IMAGING: * CXR (03/13/18): lungs are clear, angles are sharp, bones and soft tissues are intact. * Chest CT: Mild chronic lung dz w/ R lung nodularity for which [address] followup is now recommended. No acute pathology seen within chest. * ECHO: (03/15/18): LV normal in size. Mild concentric LVH. No regional wall abnormalities noted. EF 60-65%. Diastolic dysfxn, grade II, c/w elevated L atrial pressure. RV systolic fxn normal. LA mildly dilated. RA size is normal. Mild TR. Pulm artery systolic pressure is at least 65 mmHg assuming RA pressure of 15 mmHg. Mild aortic root dilatation. No pericardial effusion. ASSESSMENT/PLAN: 47M w/ pmhx of CHF, DM, COPD, erythrycytosis, daily tobacco user who presented with worsening sob, increased b/l leg swelling. #Acute Hypoxic Respiratory Failure; likely 2/2 acute CHF exacerbation, w/ preserved EF 60-65% vs. Pulm HTN vs. ? MODESTA -Carvedilol 3.125 mg PO BID -Lisinopril 5 PO QD -Increase dosage to Lasix 60 mg IVP BID; monitor strict I/Os closely -Duonebs Q6H PRN -Ventolin Q4H PRN -Echo showed EF 60-65%, diastolic dysfxn, grade II. Pulm artery systolic pressure is 65 mmHg. -Sleep studies outpatient as pt is obese, ABG showed increased pCO2; may have underlying MODESTA -BiPAP at night -Tylenol 650 mg PO Q6H PRN for headache #Erythrocytosis; likely due to significant smoking hx, ddx also includes polycythemia vera -Hgb 18.5 after phlebotomy, 400mL removed on 03/15; prior Hgb was 17.8 -Heme following; JAK2 mutation ordered to assess for polycythemia vera #DM -BGMs TIDAC -ISS TIDAC #Hx of tobacco use -smoking cessation counseling -Chest CT results showed R lung nodularity. F/u outpatient for repeat CT in 6 months. -Pt declining Duonebs at this time. Symbicort inhaler ordered as alternative. -Per pulm, Solumedrol 40 mg IVP Q6H -Check O2 sat prior to d/c to see if pt is candidate for home O2 #Prophylaxis DVT: Heparin 5000 SQ TID FEN -no IVfs needed -recheck lytes in AM -Sodium-controlled diet dispo -cont to monitor on med-surg -Pt is homeless. D/w case mgmt regarding dispo Visit type - Emergency Visit Emergency Visit: Yes ED Registration Date: 03/13/18 Care time: The patient presented to the Emergency Department on the above date and was hospitalized for further evaluation of their emergent condition. - New Patient This patient is new to me today: No - Critical Care Critical Care patient: No
--- NOTE | 2018-03-16 12:22 | PN ---
Progress Note, Physician History of Present Illness: [id number] ALERT,+ COUGH,LESS DYSPNEIC - Current Medication List Current Medications: Active Medications Acetaminophen (Tylenol -) 650 mg PO Q6H PRN PRN Reason: HEADACHE Last Admin: 03/16/18 05:59 Dose: 650 mg Albuterol Sulfate (Ventolin Hfa Inhaler -) 2 puff IH Q4H PRN PRN Reason: SHORT OF BREATH/WHEEZING Carvedilol (Coreg -) 3.125 mg PO BID [facility] Last Admin: 03/16/18 09:25 Dose: 3.125 mg Furosemide (Lasix Injection -) 60 mg IVPUSH BID@0600,1400 [facility] Heparin Sodium (Porcine) (Heparin -) 5,000 unit SQ TID [facility] Last Admin: 03/16/18 05:54 Dose: 5,000 unit Insulin Aspart (Novolog Vial Sliding Scale -) 1 vial SQ TIDAC [facility]; Protocol Last Admin: 03/16/18 12:06 Dose: Not Given Lisinopril (Prinivil) 10 mg PO DAILY [facility] Last Admin: 03/16/18 09:25 Dose: 10 mg Nystatin (Mycostatin Cream -) 1 applic TP BID [facility] Last Admin: 03/16/18 09:24 Dose: 1 applic Sodium Chloride (Normal Saline -) 250 ml IV ONCE ONE Stop: 03/15/18 16:38 - Objective Vital Signs: Vital Signs Temperature 98 F 03/16/18 09:00 Pulse Rate 56 L 03/16/18 09:00 Respiratory Rate 18 03/16/18 09:00 Blood Pressure 150/76 03/16/18 09:00 O2 Sat by Pulse Oximetry (%) 92 L 03/16/18 09:00 Constitutional: Yes: Calm, Obese Eyes: Yes: WNL HENT: Yes: WNL Neck: Yes: WNL Cardiovascular: Yes: Regular Rate and Rhythm, S1, S2 Respiratory: Yes: Wheezes (SCATTERED FARRAH WHEEZES) Gastrointestinal: Yes: Normal Bowel Sounds, Soft Extremities: Yes: WNL Edema: Yes Labs: CBC, BMP 03/16/18 05:50 03/16/18 05:50 INR, PTT INR 1.12 (0.83-1.09) H 03/14/18 06:00 Problem List - Problems (1) Acute on chronic respiratory failure with hypoxia and hypercapnia Code(s): J96.21 - ACUTE AND CHRONIC RESPIRATORY FAILURE WITH HYPOXIA; J96.22 - ACUTE AND CHRONIC RESPIRATORY FAILURE WITH HYPERCAPNIA (2) Acute exacerbation of CHF (congestive heart failure) Code(s): I50.9 - HEART FAILURE, UNSPECIFIED Qualifiers: Heart failure type: combined systolic and diastolic Qualified Code(s): I50.43 - 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) heart failure (3) Homelessness Code(s): Z59.0 - HOMELESSNESS (4) Polycythemia Code(s): D75.1 - SECONDARY POLYCYTHEMIA (5) Pulmonary HTN Code(s): I27.20 - PULMONARY HYPERTENSION, UNSPECIFIED (6) HTN (hypertension) Code(s): I10 - ESSENTIAL (PRIMARY) HYPERTENSION (7) Diabetes Code(s): E11.9 - TYPE 2 DIABETES MELLITUS WITHOUT COMPLICATIONS (8) Tobacco abuse Code(s): Z72.0 - TOBACCO USE (9) Tobacco abuse counseling Code(s): Z71.6 - TOBACCO ABUSE COUNSELING Assessment/Plan IMP ACUTE ON CHRONIC HYPOXEMIC/HYPERCAPNEIC RESPIRATORY FAILURE CLINICALLY IMPROVING ACUTE ON CHRONIC CHF CLINICALLY IMPROVING COPD LIKELY PULMONARY HTN LIKELY OSAS ? OHS SECONDARY ERYTHROCYTOSIS HTN DM TOBACCO ABUSE PLAN IV LASIX O2 NIPPV NEEDED AND Hr SLEEP INHALED BRONCHODILATORS SYMBICORT MEDROL X 24HRS DAILY WT MONITOR CBC,H+H OUTPATIENT SLEEP STUDIES PFTS OUTPATIENT F/U ABGS PT WILL LIKELY REQUIRE HOME O2 CHECK O2 SAT PRIOR TO DISCHARGE TO DETERMINE IF PT IS A CANDIDATE FOR HOME O2 SMOKING CESSATION COUNSELED DR WILDER Problem List - Problems (1) Acute on chronic respiratory failure with hypoxia and hypercapnia Code(s): J96.21 - ACUTE AND CHRONIC RESPIRATORY FAILURE WITH HYPOXIA; J96.22 - ACUTE AND CHRONIC RESPIRATORY FAILURE WITH HYPERCAPNIA (2) Acute exacerbation of CHF (congestive heart failure) Code(s): I50.9 - HEART FAILURE, UNSPECIFIED Qualifiers: Heart failure type: combined systolic and diastolic Qualified Code(s): I50.43 - 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) heart failure (3) Homelessness Code(s): Z59.0 - HOMELESSNESS (4) Polycythemia Code(s): D75.1 - SECONDARY POLYCYTHEMIA (5) Pulmonary HTN Code(s): I27.20 - PULMONARY HYPERTENSION, UNSPECIFIED (6) HTN (hypertension) Code(s): I10 - ESSENTIAL (PRIMARY) HYPERTENSION (7) Diabetes Code(s): E11.9 - TYPE 2 DIABETES MELLITUS WITHOUT COMPLICATIONS (8) Tobacco abuse Code(s): Z72.0 - TOBACCO USE (9) Tobacco abuse counseling Code(s): Z71.6 - TOBACCO ABUSE COUNSELING
--- NOTE | 2018-03-16 12:56 | PN ---
Progress Note, Physician Chief Complaint: Events noted Intermittent dyspnea with exertion History of Present Illness: Patient was seen and examined. Awake and alert. Chart was reviewed Denies chest pain or palpitations. Intermittent SOB. - Current Medication List Current Medications: Active Medications Acetaminophen (Tylenol -) 650 mg PO Q6H PRN PRN Reason: HEADACHE Last Admin: 03/16/18 05:59 Dose: 650 mg Albuterol Sulfate (Ventolin Hfa Inhaler -) 2 puff IH Q4H PRN PRN Reason: SHORT OF BREATH/WHEEZING Budesonide/Formoterol Fumarate (Symbicort 160/4.5mcg -) 2 puff IH BID [facility] Carvedilol (Coreg -) 3.125 mg PO BID [facility] Last Admin: 03/16/18 09:25 Dose: 3.125 mg Furosemide (Lasix Injection -) 60 mg IVPUSH BID@0600,1400 [facility] Heparin Sodium (Porcine) (Heparin -) 5,000 unit SQ TID [facility] Last Admin: 03/16/18 05:54 Dose: 5,000 unit Insulin Aspart (Novolog Vial Sliding Scale -) 1 vial SQ TIDAC [facility]; Protocol Last Admin: 03/16/18 12:06 Dose: Not Given Lisinopril (Prinivil) 10 mg PO DAILY [facility] Last Admin: 03/16/18 09:25 Dose: 10 mg Methylprednisolone Sodium Succinate (Solu-Medrol -) 40 mg IVPUSH Q6H-IV [facility] Nystatin (Mycostatin Cream -) 1 applic TP BID [facility] Last Admin: 03/16/18 09:24 Dose: 1 applic Sodium Chloride (Normal Saline -) 250 ml IV ONCE ONE Stop: 03/15/18 16:38 - Objective Vital Signs: Vital Signs Temperature 98 F 03/16/18 09:00 Pulse Rate 56 L 03/16/18 09:00 Respiratory Rate 18 03/16/18 09:00 Blood Pressure 150/76 03/16/18 09:00 O2 Sat by Pulse Oximetry (%) 92 L 03/16/18 09:00 Eyes: Yes: PERRL HENT: Yes: Atraumatic Neck: Yes: Supple Cardiovascular: Yes: Regular Rate and Rhythm, S1, S2 Respiratory: Yes: Diminished Gastrointestinal: Yes: Normal Bowel Sounds, Soft. No: Tenderness Edema: Yes Edema: LLE: Trace, RLE: Trace Labs: CBC, BMP 03/16/18 05:50 03/16/18 05:50 INR, PTT INR 1.12 (0.83-1.09) H 03/14/18 06:00 Problem List - Problems (1) Acute exacerbation of CHF (congestive heart failure) Code(s): I50.9 - HEART FAILURE, UNSPECIFIED Qualifiers: Heart failure type: combined systolic and diastolic Qualified Code(s): I50.43 - 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) heart failure (2) Acute on chronic respiratory failure with hypoxia and hypercapnia Code(s): J96.21 - ACUTE AND CHRONIC RESPIRATORY FAILURE WITH HYPOXIA; J96.22 - ACUTE AND CHRONIC RESPIRATORY FAILURE WITH HYPERCAPNIA (3) Diabetes Code(s): E11.9 - TYPE 2 DIABETES MELLITUS WITHOUT COMPLICATIONS (4) HTN (hypertension) Code(s): I10 - ESSENTIAL (PRIMARY) HYPERTENSION (5) Homelessness Code(s): Z59.0 - HOMELESSNESS (6) Polycythemia Code(s): D75.1 - SECONDARY POLYCYTHEMIA (7) Pulmonary HTN Code(s): I27.20 - PULMONARY HYPERTENSION, UNSPECIFIED (8) Respiratory failure with hypoxia and hypercapnia Code(s): J96.91 - RESPIRATORY FAILURE, UNSPECIFIED WITH HYPOXIA; J96.92 - RESPIRATORY FAILURE, UNSPECIFIED WITH HYPERCAPNIA Qualifiers: Chronicity: acute on chronic Qualified Code(s): J96.21 - Acute and chronic respiratory failure with hypoxia; J96.22 - Acute and chronic respiratory failure with hypercapnia Assessment/Plan 1. Acute on chronic hypercapneic/hypoxemic respiratory failure 2. Acute on chronic systolic heart failure 3. Polycythemia ? chronic hypoxia 4. Obesity with OSAS 5. Social issue with homelessness PLAN: 1. IV diuresis with monitor renal function and electrolytes 2. Echocardiography reviewed 3. Continue Carvedilol 3.125 bid and Lisinopril 10 qd with uptitration as tolerated 4. Smoking cessation 5. Social work evaluation and assistance Further plans are to follow Gerardo Khoury MD
[2018-03-16] MEDS: methylPREDNISolone NA SUCC 40 MG/1 ML VIAL IVPUSH SCH ×3 (13:16→21:36)
[2018-03-16] MEDS: BUDESONIDE/FORMETEROL FUMARATE 160/4.5 mcg INHALER IH SCH ×2 (14:43→21:37)
[2018-03-16] MEDS: NICOTINE 21 MG/24 HOURS TOPICAL PATCH TD SCH (14:44)
[2018-03-17] MEDS: methylPREDNISolone NA SUCC 40 MG/1 ML VIAL IVPUSH SCH ×4 (03:15→22:15)
[2018-03-17] MEDS: HEPARIN NA (PORCINE) 5,000 UNITS/ML 1ML VIAL SQ SCH ×3 (06:22→22:15)
[2018-03-17] MEDS: FUROSEMIDE 40 MG/4 ML INJECTABLE VIAL IVPUSH SCH ×2 (06:22→15:00)
[2018-03-17] MEDS: INSULIN SLIDING SCALE (NOVOLOG) 1 VIAL SQ SCH ×3 (06:23→17:58)
[2018-03-17 06:44] LABS: HEMATOCRIT 57.7 % (35.4-49); HEMOGLOBIN 18.4 GM/dL (11.7-16.9); MCH 29.8 pg (25.7-33.7); MCHC 31.8 g/dl (32.0-35.9); MEAN CELL VOLUME 93.5 fl (80-96); MEAN PLT VOLUME 10.3 fl (7.5-11.1); PLATELET COUNT 116 K/MM3 (134-434); RBC 6.17 M/mm3 (4.00-5.60); RDW 14.6 % (11.9-15.9); WHITE BLOOD COUNT 8.3 K/mm3 (4.0-10.0)
[2018-03-17 07:34] LABS: ANION GAP 6 MMOL/L (8-16); BLOOD UREA NITROGEN 12 mg/dL (7-18); CALCIUM 8.3 mg/dL (8.5-10.1); CHLORIDE 100 mmol/L (98-107); CO2 36 mmol/L (21-32); CREATININE 0.9 mg/dL (0.55-1.3); GLUCOSE,RANDOM 174 mg/dL (74-106); POTASSIUM 4.1 mmol/L (3.5-5.1); SODIUM 142 mmol/L (136-145)
--- NOTE | 2018-03-17 08:16 | PN ---
Physical Exam: SUBJECTIVE: Patient seen and examined at bedside. No acute events overnight. Pt states he only slept a few hours overnight due to commotion in the hallway. Otherwise, no other complaints. Headache is improved from yesterday. Tolerating PO intake. Denies f/c, n/v, abd pain, urinary/bowel symptoms. +BM overnight, nonbloody. OBJECTIVE: Vital Signs Temp 98.2 F 03/17/18 05:00 Pulse 55 L 03/17/18 05:00 Resp 18 03/17/18 05:00 BP 146/65 03/17/18 05:00 Pulse Ox 96 03/16/18 22:21 Intake & Output 03/16/18 03/17/18 03/17/18 23:59 11:59 23:59 Intake Total 20 20 Output Total 1200 Balance -1180 20 Weight 133.81 kg Intake: IVPB 20 20 Output: Urine 1200 Void 1200 Other: Voiding Method Urinal Weight Measurement Method Standing Scale GENERAL: NAD. AAOx3. HEENT: AT/NC. EOMI. DELMY. Moist mucus membranes. NECK: Supple, nontender. LUNGS: Decreased breath sounds b/l. B/l wheezes. HEART: Regular rate and rhythm, S1, S2 without murmur, rub or gallop. ABDOMEN: Obese. Soft, NT/ND. +BS in all 4Qs. EXTREMITIES: 1+ pedal edema b/l, improved. 5/5 muscle strength in u/l b/l extremities. NEUROLOGICAL: Normal speech. Facial symmetry noted. Facial muscles intact. Responds to commands. PSYCH: Normal mood, normal affect. CBCD WBC 8.3 K/mm3 (4.0-10.0) 03/17/18 05:30 RBC 6.17 M/mm3 (4.00-5.60) H 03/17/18 05:30 Hgb 18.4 GM/dL (11.7-16.9) H 03/17/18 05:30 Hct 57.7 % (35.4-49) H 03/17/18 05:30 MCV 93.5 fl (80-96) 03/17/18 05:30 MCHC 31.8 g/dl (32.0-35.9) L 03/17/18 05:30 RDW 14.6 % (11.9-15.9) 03/17/18 05:30 Plt Count 116 K/MM3 (134-434) L 03/17/18 05:30 MPV 10.3 fl (7.5-11.1) 03/17/18 05:30 CMP Sodium 142 mmol/L (136-145) 03/17/18 05:30 Potassium 4.1 mmol/L (3.5-5.1) 03/17/18 05:30 Chloride 100 mmol/L (98-107) 03/17/18 05:30 Carbon Dioxide 36 mmol/L (21-32) H 03/17/18 05:30 Anion Gap 6 MMOL/L (8-16) L 03/17/18 05:30 BUN 12 mg/dL (7-18) 03/17/18 05:30 Creatinine 0.9 mg/dL (0.55-1.3) 03/17/18 05:30 Creat Clearance w eGFR > 60 (>60) 03/17/18 05:30 Calcium 8.3 mg/dL (8.5-10.1) L 03/17/18 05:30 Total Bilirubin 0.7 mg/dL (0.2-1) 03/16/18 05:50 AST 33 U/L (15-37) 03/16/18 05:50 ALT 55 U/L (13-61) 03/16/18 05:50 Alkaline Phosphatase 59 U/L (45-117) 03/16/18 05:50 Total Protein 5.8 g/dl (6.4-8.2) L 03/16/18 05:50 Albumin 3.0 g/dl (3.4-5.0) L 03/16/18 05:50 Active Medications Acetaminophen (Tylenol -) 650 mg PO Q6H PRN PRN Reason: HEADACHE Last Admin: 03/16/18 05:59 Dose: 650 mg Albuterol Sulfate (Ventolin Hfa Inhaler -) 2 puff IH Q4H PRN PRN Reason: SHORT OF BREATH/WHEEZING Budesonide/Formoterol Fumarate (Symbicort 160/4.5mcg -) 2 puff IH BID [facility] Last Admin: 03/16/18 21:37 Dose: 2 puff Carvedilol (Coreg -) 3.125 mg PO BID [facility] Last Admin: 03/16/18 21:36 Dose: 3.125 mg Furosemide (Lasix Injection -) 60 mg IVPUSH BID@0600,1400 [facility] Last Admin: 03/17/18 06:22 Dose: 60 mg Heparin Sodium (Porcine) (Heparin -) 5,000 unit SQ TID [facility] Last Admin: 03/17/18 06:22 Dose: 5,000 unit Insulin Aspart (Novolog Vial Sliding Scale -) 1 vial SQ TIDAC [facility]; Protocol Last Admin: 03/17/18 06:23 Dose: 6 unit Lisinopril (Prinivil) 10 mg PO DAILY [facility] Last Admin: 03/16/18 09:25 Dose: 10 mg Methylprednisolone Sodium Succinate (Solu-Medrol -) 40 mg IVPUSH Q6H-IV [facility] Last Admin: 03/17/18 03:15 Dose: 40 mg Nicotine (Nicoderm Patch -) 21 mg TD DAILY [facility] Last Admin: 03/16/18 14:44 Dose: 21 mg Nystatin (Mycostatin Cream -) 1 applic TP BID [facility] Last Admin: 03/16/18 21:37 Dose: 1 applic Sodium Chloride (Normal Saline -) 250 ml IV ONCE ONE Stop: 03/15/18 16:38 CONSULT: Chinedu- Dr. Lynn Pulm- Dr. Kunz Cardio- Dr. Khoury IMAGING: * CXR (03/13/18): lungs are clear, angles are sharp, bones and soft tissues are intact. * Chest CT: Mild chronic lung dz w/ R lung nodularity for which [address] followup is now recommended. No acute pathology seen within chest. * ECHO: (03/15/18): LV normal in size. Mild concentric LVH. No regional wall abnormalities noted. EF 60-65%. Diastolic dysfxn, grade II, c/w elevated L atrial pressure. RV systolic fxn normal. LA mildly dilated. RA size is normal. Mild TR. Pulm artery systolic pressure is at least 65 mmHg assuming RA pressure of 15 mmHg. Mild aortic root dilatation. No pericardial effusion. ASSESSMENT/PLAN: 47M w/ pmhx of CHF, DM, COPD, erythrycytosis, daily tobacco user who presented with worsening sob, increased b/l leg swelling. #Acute Hypoxic Respiratory Failure; likely 2/2 acute CHF exacerbation, w/ preserved EF 60-65% vs. Pulm HTN vs. ? MODESTA -Carvedilol 3.125 mg PO BID -Lisinopril 5 PO QD -cont Lasix 60 mg IVP BID; monitor strict I/Os closely. 139 kg > today 133 kg. Cont to monitor weights to assess adequate diuresis. -Duonebs Q6H PRN -Ventolin Q4H PRN -Echo showed EF 60-65%, diastolic dysfxn, grade II. Pulm artery systolic pressure is 65 mmHg. -Sleep studies outpatient as pt is obese, ABG showed increased pCO2; may have underlying MODESTA -BiPAP at night -Tylenol 650 mg PO Q6H PRN for headache -Pre and post ordered #Erythrocytosis; likely due to significant smoking hx, ddx also includes polycythemia vera -Hgb 18.5 after phlebotomy, 400mL removed on 03/15; prior Hgb was 17.8 -Heme following; JAK2 mutation ordered to assess for polycythemia vera -F/u heme recs, if phlebotomy needed again #DM -BGMs TIDAC -ISS TIDAC #Hx of tobacco use -smoking cessation counseling -Chest CT results showed R lung nodularity. F/u outpatient for repeat CT in 6 months. -Pt declining Duonebs at this time. Symbicort inhaler ordered as alternative. -Per pulm, Solumedrol 40 mg IVP Q6H -Check O2 sat prior to d/c to see if pt is candidate for home O2 #Prophylaxis DVT: Heparin 5000 SQ TID FEN -no IVfs needed -recheck lytes in AM -Sodium-controlled diet dispo -cont to monitor on med-surg -Pt currently lives in a [facility]. D/w case mgmt regarding dispo.. Visit type - Emergency Visit Emergency Visit: Yes ED Registration Date: 03/13/18 Care time: The patient presented to the Emergency Department on the above date and was hospitalized for further evaluation of their emergent condition. - New Patient This patient is new to me today: No - Critical Care Critical Care patient: No
--- NOTE | 2018-03-17 08:30 | PN ---
Teaching Attending Note Name of Resident: Lizz Damon ATTENDING PHYSICIAN STATEMENT I saw and evaluated the patient. I reviewed the resident's note and discussed the case with the resident. I agree with the resident's findings and plan as documented. SUBJECTIVE: Patient is feeling better with no acute distress. No shortness of breath, no chest pain. OBJECTIVE: Vital Signs Temperature 98.2 F 03/17/18 05:00 Pulse Rate 55 L 03/17/18 05:00 Respiratory Rate 18 03/17/18 05:00 Blood Pressure 146/65 03/17/18 05:00 O2 Sat by Pulse Oximetry (%) 96 03/16/18 22:21 GENERAL: NAD. AAOx3. HEENT: AT/NC. EOMI. DELMY. Moist mucus membranes. NECK: Supple, nontender. LUNGS: Decreased breath sounds b/l. B/l wheezes. HEART: Regular rate and rhythm, S1, S2 without murmur, rub or gallop. ABDOMEN: Obese. Soft, ND. NT. EXTREMITIES: 1 plus edema b/l. NEUROLOGICAL: Facial symmetry noted. Facial muscles are intact. PSYCH: Normal mood, normal affect. CBCD WBC 8.3 K/mm3 (4.0-10.0) 03/17/18 05:30 RBC 6.17 M/mm3 (4.00-5.60) H 03/17/18 05:30 Hgb 18.4 GM/dL (11.7-16.9) H 03/17/18 05:30 Hct 57.7 % (35.4-49) H 03/17/18 05:30 MCV 93.5 fl (80-96) 03/17/18 05:30 MCHC 31.8 g/dl (32.0-35.9) L 03/17/18 05:30 RDW 14.6 % (11.9-15.9) 03/17/18 05:30 Plt Count 116 K/MM3 (134-434) L 03/17/18 05:30 MPV 10.3 fl (7.5-11.1) 03/17/18 05:30 CMP Sodium 142 mmol/L (136-145) 03/17/18 05:30 Potassium 4.1 mmol/L (3.5-5.1) 03/17/18 05:30 Chloride 100 mmol/L (98-107) 03/17/18 05:30 Carbon Dioxide 36 mmol/L (21-32) H 03/17/18 05:30 Anion Gap 6 MMOL/L (8-16) L 03/17/18 05:30 BUN 12 mg/dL (7-18) 03/17/18 05:30 Creatinine 0.9 mg/dL (0.55-1.3) 03/17/18 05:30 Creat Clearance w eGFR > 60 (>60) 03/17/18 05:30 Random Glucose 174 mg/dL (74-106) H 03/17/18 05:30 Calcium 8.3 mg/dL (8.5-10.1) L 03/17/18 05:30 Total Bilirubin 0.7 mg/dL (0.2-1) 03/16/18 05:50 AST 33 U/L (15-37) 03/16/18 05:50 ALT 55 U/L (13-61) 03/16/18 05:50 Alkaline Phosphatase 59 U/L (45-117) 03/16/18 05:50 Total Protein 5.8 g/dl (6.4-8.2) L 03/16/18 05:50 Albumin 3.0 g/dl (3.4-5.0) L 03/16/18 05:50 CARDIAC ENZYMES Creatine Kinase 172 IU/L (26-308) 03/13/18 22:28 Troponin I 0.05 ng/ml (0.00-0.05) 03/14/18 06:00 Current Medications Generic Name Dose Route Start Last Admin Trade Name Freq PRN Reason Stop Dose Admin Acetaminophen 650 mg 03/14/18 10:14 03/16/18 05:59 Tylenol - PO 650 mg Q6H PRN Administration HEADACHE Albuterol Sulfate 2 puff 03/16/18 08:53 Ventolin Hfa Inhaler - IH Q4H PRN SHORT OF BREATH/WHEEZING Budesonide/Formoterol Fumarate 2 puff 03/16/18 12:30 03/16/18 21:37 Symbicort 160/4.5mcg - IH 2 puff BID [facility] Administration Carvedilol 3.125 mg 03/14/18 11:15 03/16/18 21:36 Coreg - PO 3.125 mg BID [facility] Administration Furosemide 60 mg 03/16/18 09:01 03/17/18 06:22 Lasix Injection - IVPUSH 60 mg BID@0600,1400 [facility] Administration Heparin Sodium (Porcine) 5,000 unit 03/14/18 06:00 03/17/18 06:22 Heparin - SQ 5,000 unit TID [facility] Administration Insulin Aspart 1 vial 03/14/18 11:00 03/17/18 06:23 Novolog Vial Sliding Scale - SQ 6 unit TIDAC [facility] Administration Protocol Lisinopril 10 mg 03/15/18 11:10 03/16/18 09:25 Prinivil PO 10 mg DAILY [facility] Administration Methylprednisolone Sodium Succinate 40 mg 03/16/18 12:30 03/17/18 03:15 Solu-Medrol - IVPUSH 40 mg Q6H-IV [facility] Administration Nicotine 21 mg 03/16/18 14:15 03/16/18 14:44 Nicoderm Patch - TD 21 mg DAILY [facility] Administration Nystatin 1 applic 03/15/18 22:00 03/16/18 21:37 Mycostatin Cream - TP 1 applic BID [facility] Administration Sodium Chloride 250 ml 03/15/18 16:37 Normal Saline - IV 03/15/18 16:38 ONCE ONE Home Medications Medication Instructions Recorded NK [No Known Home Medication] 03/14/18 Examination of the mediastinum demonstrates slightly enlarged lymph nodes scattered throughout the mediastinal chains. The largest node is in the anterior mediastinum measuring 1.7 cm. There are additional 11 and 12 mm lymph nodes in the right paratracheal chain. The etiology and significance of this mild adenopathy is uncertain. The heart is slightly enlarged with a small pericardial effusion present. The lung peacock are free of pulmonary masses, areas of acute consolidation or pleural effusions. There are increased interstitial markings diffusely indicative of chronic lung disease. There are also a few scattered nodules within the right lung. The largest of these measures 5 mm with in the right middle lobe anteriorly. Six-month CT follow-up is now recommended. Evaluation of the upper abdomen demonstrates no acute abnormalities. There is no evidence of acute bony pathology. IMPRESSION: Mild chronic lung disease with right lung nodularity for which [address] follow-up is now recommended. No acute pathology within the chest. Please see above discussion. Reported By: Fredis Tyler MD 03/16/18 2198 ASSESSMENT AND PLAN: Patient is a 47 yo man with hx of diastolic of CHF, and DM who presented with SOB , he was found to have acute diastolic CHF exacerbation # Acute hypoxic hypercapnic respiratory failure due to acute exacerbation of diastolic CHF. continue with lasix to 60 BID . cont ACEI/coreg BIPAP at night. echo reviewed. severe pulm hypertension+ 65mmhg . continue current therapy, Inhalers continue # Tobacco abuse: cessation of tobacco suggested. Nicoderm patch daily. # Mild chronic lung disease with right lung nodularity. 6 months follow up is needed. Pulmonary on the case. # Erythrocytosis:trending down, likely secondary to smoking s/p 400 cc phlebotomy yesterday. cont to monitor # T2DM : cont SSI DVT PX: Heparin sq
[2018-03-17 10:28] LABS: ARTERIAL BLD GAS O2 SATURATION 93.8 % (90-98.9); ARTERIAL BLOOD GAS BASE EXCESS 9.7 meq/l (-2-2); ARTERIAL BLOOD GAS PCO2 54.7 mmHg (35-45); ARTERIAL BLOOD GAS PO2 70.5 mmHg (80-100); ARTERIAL BLOOD GAS pH 7.44 (7.35-7.45)
[2018-03-17 10:31] LABS: ALLENS TEST POSITIVE
[2018-03-17] MEDS: NYSTATIN 100,000 UNIT/GM TOPICAL CREAM 15 GM TUBE TP SCH ×2 (10:39→22:16)
[2018-03-17] MEDS: NICOTINE 21 MG/24 HOURS TOPICAL PATCH TD SCH (10:39)
[2018-03-17] MEDS: CARVEDILOL 3.125 MG TABLET (FP) PO SCH ×2 (10:39→22:15)
[2018-03-17] MEDS: LISINOPRIL 5 MG TABLET (FP) PO SCH (10:39)
[2018-03-17] MEDS: BUDESONIDE/FORMETEROL FUMARATE 160/4.5 mcg INHALER IH SCH ×2 (10:40→22:16)
--- NOTE | 2018-03-17 10:44 | PN ---
Progress Note, Physician History of Present Illness: Dyspnea, LE swelling, orthopnea, PND and abdominal swelling improving with diuresis. - Current Medication List Current Medications: Active Medications Acetaminophen (Tylenol -) 650 mg PO Q6H PRN PRN Reason: HEADACHE Last Admin: 03/16/18 05:59 Dose: 650 mg Albuterol Sulfate (Ventolin Hfa Inhaler -) 2 puff IH Q4H PRN PRN Reason: SHORT OF BREATH/WHEEZING Budesonide/Formoterol Fumarate (Symbicort 160/4.5mcg -) 2 puff IH BID [facility] Last Admin: 03/16/18 21:37 Dose: 2 puff Carvedilol (Coreg -) 3.125 mg PO BID [facility] Last Admin: 03/16/18 21:36 Dose: 3.125 mg Furosemide (Lasix Injection -) 60 mg IVPUSH BID@0600,1400 [facility] Last Admin: 03/17/18 06:22 Dose: 60 mg Heparin Sodium (Porcine) (Heparin -) 5,000 unit SQ TID [facility] Last Admin: 03/17/18 06:22 Dose: 5,000 unit Insulin Aspart (Novolog Vial Sliding Scale -) 1 vial SQ TIDAC [facility]; Protocol Last Admin: 03/17/18 06:23 Dose: 6 unit Lisinopril (Prinivil) 10 mg PO DAILY [facility] Last Admin: 03/16/18 09:25 Dose: 10 mg Methylprednisolone Sodium Succinate (Solu-Medrol -) 40 mg IVPUSH Q6H-IV [facility] Last Admin: 03/17/18 03:15 Dose: 40 mg Nicotine (Nicoderm Patch -) 21 mg TD DAILY [facility] Last Admin: 03/16/18 14:44 Dose: 21 mg Nystatin (Mycostatin Cream -) 1 applic TP BID [facility] Last Admin: 03/16/18 21:37 Dose: 1 applic Sodium Chloride (Normal Saline -) 250 ml IV ONCE ONE Stop: 03/15/18 16:38 - Objective Vital Signs: Vital Signs Temperature 98.2 F 03/17/18 05:00 Pulse Rate 55 L 03/17/18 05:00 Respiratory Rate 18 03/17/18 05:00 Blood Pressure 146/65 03/17/18 05:00 O2 Sat by Pulse Oximetry (%) 96 03/16/18 22:21 Constitutional: Yes: No Distress, Calm Neck: Yes: Supple Cardiovascular: Yes: Regular Rate and Rhythm Respiratory: Yes: Regular, Diminished, On Nasal O2 Gastrointestinal: Yes: Normal Bowel Sounds, Soft Edema: Yes Edema: LLE: Trace, RLE: Trace Labs: CBC, BMP 03/17/18 05:30 03/17/18 05:30 INR, PTT INR 1.12 (0.83-1.09) H 03/14/18 06:00 Problem List - Problems (1) Homelessness Code(s): Z59.0 - HOMELESSNESS (2) Acute exacerbation of CHF (congestive heart failure) Code(s): I50.9 - HEART FAILURE, UNSPECIFIED Qualifiers: Heart failure type: combined systolic and diastolic Qualified Code(s): I50.43 - 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) heart failure (3) Respiratory failure with hypoxia and hypercapnia Code(s): J96.91 - RESPIRATORY FAILURE, UNSPECIFIED WITH HYPOXIA; J96.92 - RESPIRATORY FAILURE, UNSPECIFIED WITH HYPERCAPNIA Qualifiers: Chronicity: acute on chronic Qualified Code(s): J96.21 - Acute and chronic respiratory failure with hypoxia; J96.22 - Acute and chronic respiratory failure with hypercapnia (4) Polycythemia Code(s): D75.1 - SECONDARY POLYCYTHEMIA Assessment/Plan 03/15/2018 Echo: Normal LV szie with mild cLVHwith normal LV fxn LVEF 60-65%, Grade II diastolic dysfunction c/w increased LA pressire, mild LAE, mild TR, RVSP 65 mmHg, mild ao dilatation 03/14/[address]: Mild lung dz with right lung nodularity 1. Acute on chronic hypercapneic/hypoxemic respiratory failure 2. Acute on chronic diastolic heart failure 3. Polycythemia ? chronic hypoxia 4. Obesity with OSAS/OHS 5. Homelessness P:1. Decrease IV diuresis with monitor diuretic response, renal fxn and electrolytes 2. Agree with carvedilol 3.125 bid and lisinopril 10 qd with uptitration as tolerated 3. Smoking cessation, f/u chest CT 6 months 4. Homelessness and unstable living situation may preclude us from offering guideline-based therapy long-term, SW consult
--- NOTE | 2018-03-17 10:45 | PN ---
Progress Note, Physician History of Present Illness: pulmonary alert,feeling better,less dyspneic. echo - Severe Pulmonary Htn 65mmhg - Current Medication List Current Medications: Active Medications Acetaminophen (Tylenol -) 650 mg PO Q6H PRN PRN Reason: HEADACHE Last Admin: 03/16/18 05:59 Dose: 650 mg Albuterol Sulfate (Ventolin Hfa Inhaler -) 2 puff IH Q4H PRN PRN Reason: SHORT OF BREATH/WHEEZING Budesonide/Formoterol Fumarate (Symbicort 160/4.5mcg -) 2 puff IH BID [facility] Last Admin: 03/16/18 21:37 Dose: 2 puff Carvedilol (Coreg -) 3.125 mg PO BID [facility] Last Admin: 03/16/18 21:36 Dose: 3.125 mg Furosemide (Lasix Injection -) 60 mg IVPUSH BID@0600,1400 [facility] Last Admin: 03/17/18 06:22 Dose: 60 mg Heparin Sodium (Porcine) (Heparin -) 5,000 unit SQ TID [facility] Last Admin: 03/17/18 06:22 Dose: 5,000 unit Insulin Aspart (Novolog Vial Sliding Scale -) 1 vial SQ TIDAC [facility]; Protocol Last Admin: 03/17/18 06:23 Dose: 6 unit Lisinopril (Prinivil) 10 mg PO DAILY [facility] Last Admin: 03/16/18 09:25 Dose: 10 mg Methylprednisolone Sodium Succinate (Solu-Medrol -) 40 mg IVPUSH Q6H-IV [facility] Last Admin: 03/17/18 03:15 Dose: 40 mg Nicotine (Nicoderm Patch -) 21 mg TD DAILY [facility] Last Admin: 03/16/18 14:44 Dose: 21 mg Nystatin (Mycostatin Cream -) 1 applic TP BID [facility] Last Admin: 03/16/18 21:37 Dose: 1 applic Sodium Chloride (Normal Saline -) 250 ml IV ONCE ONE Stop: 03/15/18 16:38 - Objective Vital Signs: Vital Signs Temperature 98.2 F 03/17/18 05:00 Pulse Rate 55 L 03/17/18 05:00 Respiratory Rate 18 03/17/18 05:00 Blood Pressure 146/65 03/17/18 05:00 O2 Sat by Pulse Oximetry (%) 96 03/16/18 22:21 Constitutional: Yes: Well Nourished, Calm Eyes: Yes: WNL HENT: Yes: WNL Neck: Yes: WNL Cardiovascular: Yes: Regular Rate and Rhythm, S1, S2 Respiratory: Yes: Wheezes (scattered rowan wheezes) Gastrointestinal: Yes: Normal Bowel Sounds, Soft Extremities: Yes: WNL Edema: Yes Labs: CBC, BMP 03/17/18 05:30 03/17/18 05:30 INR, PTT INR 1.12 (0.83-1.09) H 03/14/18 06:00 Laboratory Tests 03/17/18 09:14 ABG pH 7.44 ABG pCO2 at Pt Temp 54.7 H D ABG pO2 at Pt Temp 70.5 L ABG HCO3 36.3 H ABG O2 Sat (Measured) 93.8 Problem List - Problems (1) Acute on chronic respiratory failure with hypoxia and hypercapnia Code(s): J96.21 - ACUTE AND CHRONIC RESPIRATORY FAILURE WITH HYPOXIA; J96.22 - ACUTE AND CHRONIC RESPIRATORY FAILURE WITH HYPERCAPNIA (2) Acute exacerbation of CHF (congestive heart failure) Code(s): I50.9 - HEART FAILURE, UNSPECIFIED Qualifiers: Heart failure type: combined systolic and diastolic Qualified Code(s): I50.43 - 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) heart failure (3) Homelessness Code(s): Z59.0 - HOMELESSNESS (4) Polycythemia Code(s): D75.1 - SECONDARY POLYCYTHEMIA (5) Pulmonary HTN Code(s): I27.20 - PULMONARY HYPERTENSION, UNSPECIFIED (6) HTN (hypertension) Code(s): I10 - ESSENTIAL (PRIMARY) HYPERTENSION (7) Diabetes Code(s): E11.9 - TYPE 2 DIABETES MELLITUS WITHOUT COMPLICATIONS (8) Tobacco abuse Code(s): Z72.0 - TOBACCO USE (9) Tobacco abuse counseling Code(s): Z71.6 - TOBACCO ABUSE COUNSELING Assessment/Plan IMP ACUTE ON CHRONIC HYPOXEMIC/HYPERCAPNEIC RESPIRATORY FAILURE CLINICALLY IMPROVING ACUTE ON CHRONIC CHF CLINICALLY IMPROVING COPD SEVERE PULMONARY HTN LIKELY OSAS SECONDARY ERYTHROCYTOSIS HTN DM TOBACCO ABUSE PLAN IV LASIX O2 NIPPV NEEDED AND Hr SLEEP INHALED BRONCHODILATORS SYMBICORT MEDROL X 24HRS DAILY WT MONITOR CBC,H+H OUTPATIENT SLEEP STUDIES PFTS OUTPATIENT PHLEBOTOMY PT WILL LIKELY REQUIRE HOME O2 CHECK O2 SAT PRIOR TO DISCHARGE TO DETERMINE IF PT IS A CANDIDATE FOR HOME O2 SMOKING CESSATION COUNSELED CONSIDER TRILOGY DEVICE POST DISCHARGE DR WILDER Problem List - Problems (1) Acute on chronic respiratory failure with hypoxia and hypercapnia Code(s): J96.21 - ACUTE AND CHRONIC RESPIRATORY FAILURE WITH HYPOXIA; J96.22 - ACUTE AND CHRONIC RESPIRATORY FAILURE WITH HYPERCAPNIA (2) Acute exacerbation of CHF (congestive heart failure) Code(s): I50.9 - HEART FAILURE, UNSPECIFIED Qualifiers: Heart failure type: combined systolic and diastolic Qualified Code(s): I50.43 - 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) heart failure (3) Homelessness Code(s): Z59.0 - HOMELESSNESS (4) Polycythemia Code(s): D75.1 - SECONDARY POLYCYTHEMIA (5) Pulmonary HTN Code(s): I27.20 - PULMONARY HYPERTENSION, UNSPECIFIED (6) HTN (hypertension) Code(s): I10 - ESSENTIAL (PRIMARY) HYPERTENSION (7) Diabetes Code(s): E11.9 - TYPE 2 DIABETES MELLITUS WITHOUT COMPLICATIONS (8) Tobacco abuse Code(s): Z72.0 - TOBACCO USE (9) Tobacco abuse counseling Code(s): Z71.6 - TOBACCO ABUSE COUNSELING
--- NOTE | 2018-03-17 13:35 | EKG ---
Test Reason : Blood Pressure : / mmHG Vent. Rate : 080 BPM Atrial Rate : 080 BPM P-R Int : 142 ms QRS Dur : 102 ms QT Int : 408 ms P-R-T Axes : 048 117 -77 degrees QTc Int : 470 ms NORMAL SINUS RHYTHM LEFT POSTERIOR FASCICULAR BLOCK ANTERIOR INFARCT , AGE UNDETERMINED ABNORMAL ECG NO PREVIOUS ECGS AVAILABLE Confirmed by ANA RODRIGUEZ MD ([id number]) on 03/17/2018 1:35:21 PM Referred By: Confirmed By:ANA RODRIGUEZ MD
[2018-03-18] MEDS: methylPREDNISolone NA SUCC 40 MG/1 ML VIAL IVPUSH SCH ×3 (02:36→15:19)
[2018-03-18] MEDS: FUROSEMIDE 40 MG/4 ML INJECTABLE VIAL IVPUSH SCH ×2 (05:40→13:00)
[2018-03-18] MEDS: HEPARIN NA (PORCINE) 5,000 UNITS/ML 1ML VIAL SQ SCH ×3 (05:43→21:22)
[2018-03-18] MEDS: INSULIN SLIDING SCALE (NOVOLOG) 1 VIAL SQ SCH ×3 (06:00→17:50)
[2018-03-18 06:46] LABS: BASO % 0.1 % (0-2.0); HEMATOCRIT 56.9 % (35.4-49); HEMOGLOBIN 19.3 GM/dL (11.7-16.9); LYMPH % 4.4 % (8-40); MCH 31.5 pg (25.7-33.7); MCHC 33.9 g/dl (32.0-35.9); MEAN CELL VOLUME 92.9 fl (80-96); MEAN PLT VOLUME 11.2 fl (7.5-11.1); MONO % 2.7 % (3.8-10.2); NEUT % 92.8 % (42.8-82.8); PLATELET COUNT 125 K/MM3 (134-434); RBC 6.13 M/mm3 (4.00-5.60); RDW 14.7 % (11.9-15.9); WHITE BLOOD COUNT 11.5 K/mm3 (4.0-10.0)
[2018-03-18 07:16] LABS: ALBUMIN 3.3 g/dl (3.4-5.0); ALK PHOS 62 U/L (45-117); ANION GAP 6 MMOL/L (8-16); BILIRUBIN,TOTAL 0.7 mg/dL (0.2-1); BLOOD UREA NITROGEN 19 mg/dL (7-18); CALCIUM 8.9 mg/dL (8.5-10.1); CHLORIDE 100 mmol/L (98-107); CO2 34 mmol/L (21-32); GLUCOSE,RANDOM 240 mg/dL (74-106); POTASSIUM 4.1 mmol/L (3.5-5.1); SGOT/AST 36 U/L (15-37); SGPT/ALT 63 U/L (13-61); SODIUM 140 mmol/L (136-145); TOT PROT 6.3 g/dl (6.4-8.2)
--- NOTE | 2018-03-18 08:55 | PN ---
Teaching Attending Note Name of Resident: Lizz Damon ATTENDING PHYSICIAN STATEMENT I saw and evaluated the patient. I reviewed the resident's note and discussed the case with the resident. I agree with the resident's findings and plan as documented. SUBJECTIVE: Parient is comfortable on 2L oxygen. Has facial flushing, turns red. OBJECTIVE: Vital Signs Temperature 97.7 F 03/18/18 05:00 Pulse Rate 65 03/18/18 05:00 Respiratory Rate 17 03/18/18 05:00 Blood Pressure 162/80 03/18/18 05:00 O2 Sat by Pulse Oximetry (%) 93 L 03/17/18 21:00 GENERAL: NAD. AAOx3. HEENT: AT/NC. EOMI. DELMY. Moist mucus membranes. NECK: Supple, nontender. LUNGS: Decreased breath sounds b/l. B/l wheezes improved since yesterday. HEART: Regular rate and rhythm, S1, S2 without murmur, rub or gallop. ABDOMEN: Obese. Soft, ND. NT. EXTREMITIES: trace edema b/l. NEUROLOGICAL: Facial symmetry noted. Facial muscles are intact. PSYCH: Normal mood, normal affect.CBCD WBC 8.3 K/mm3 (4.0-10.0) 03/17/18 05:30 RBC 6.17 M/mm3 (4.00-5.60) H 03/17/18 05:30 Hgb 18.4 GM/dL (11.7-16.9) H 03/17/18 05:30 Hct 57.7 % (35.4-49) H 03/17/18 05:30 MCV 93.5 fl (80-96) 03/17/18 05:30 MCHC 31.8 g/dl (32.0-35.9) L 03/17/18 05:30 RDW 14.6 % (11.9-15.9) 03/17/18 05:30 Plt Count 116 K/MM3 (134-434) L 03/17/18 05:30 MPV 10.3 fl (7.5-11.1) 03/17/18 05:30 CMP Sodium 140 mmol/L (136-145) 03/18/18 05:30 Potassium 4.1 mmol/L (3.5-5.1) 03/18/18 05:30 Chloride 100 mmol/L (98-107) 03/18/18 05:30 Carbon Dioxide 34 mmol/L (21-32) H 03/18/18 05:30 Anion Gap 6 MMOL/L (8-16) L 03/18/18 05:30 BUN 19 mg/dL (7-18) H 03/18/18 05:30 Creatinine 1.0 mg/dL (0.55-1.3) 03/18/18 05:30 Creat Clearance w eGFR > 60 (>60) 03/18/18 05:30 Random Glucose 240 mg/dL (74-106) H 03/18/18 05:30 Calcium 8.9 mg/dL (8.5-10.1) 03/18/18 05:30 Total Bilirubin 0.7 mg/dL (0.2-1) 03/18/18 05:30 AST 36 U/L (15-37) 03/18/18 05:30 ALT 63 U/L (13-61) H 03/18/18 05:30 Alkaline Phosphatase 62 U/L (45-117) 03/18/18 05:30 Total Protein 6.3 g/dl (6.4-8.2) L 03/18/18 05:30 Albumin 3.3 g/dl (3.4-5.0) L 03/18/18 05:30 CARDIAC ENZYMES Creatine Kinase 172 IU/L (26-308) 03/13/18 22:28 Troponin I 0.05 ng/ml (0.00-0.05) 03/14/18 06:00 Current Medications Generic Name Dose Route Start Last Admin Trade Name Freq PRN Reason Stop Dose Admin Acetaminophen 650 mg 03/14/18 10:14 03/16/18 05:59 Tylenol - PO 650 mg Q6H PRN Administration HEADACHE Albuterol Sulfate 2 puff 03/16/18 08:53 Ventolin Hfa Inhaler - IH Q4H PRN SHORT OF BREATH/WHEEZING Budesonide/Formoterol Fumarate 2 puff 03/16/18 12:30 03/17/18 22:16 Symbicort 160/4.5mcg - IH 2 puff BID [facility] Administration Carvedilol 3.125 mg 03/14/18 11:15 03/17/18 22:15 Coreg - PO 3.125 mg BID [facility] Administration Furosemide 60 mg 03/16/18 09:01 03/18/18 05:40 Lasix Injection - IVPUSH 60 mg BID@0600,1400 [facility] Administration Heparin Sodium (Porcine) 5,000 unit 03/14/18 06:00 03/18/18 05:43 Heparin - SQ 5,000 unit TID [facility] Administration Insulin Aspart 1 vial 03/14/18 11:00 03/18/18 06:00 Novolog Vial Sliding Scale - SQ 4 unit TIDAC [facility] Administration Protocol Lisinopril 10 mg 03/15/18 11:10 03/17/18 10:39 Prinivil PO 10 mg DAILY [facility] Administration Methylprednisolone Sodium Succinate 40 mg 03/16/18 12:30 03/18/18 02:36 Solu-Medrol - IVPUSH 40 mg Q6H-IV [facility] Administration Nicotine 21 mg 03/16/18 14:15 03/17/18 10:39 Nicoderm Patch - TD 21 mg DAILY [facility] Administration Nystatin 1 applic 03/15/18 22:00 03/17/18 22:16 Mycostatin Cream - TP 1 applic BID [facility] Administration Sodium Chloride 250 ml 03/15/18 16:37 Normal Saline - IV 03/15/18 16:38 ONCE ONE Home Medications Medication Instructions Recorded NK [No Known Home Medication] 03/14/18 Examination of the mediastinum demonstrates slightly enlarged lymph nodes scattered throughout the mediastinal chains. The largest node is in the anterior mediastinum measuring 1.7 cm. There are additional 11 and 12 mm lymph nodes in the right paratracheal chain. The etiology and significance of this mild adenopathy is uncertain. The heart is slightly enlarged with a small pericardial effusion present. The lung peacock are free of pulmonary masses, areas of acute consolidation or pleural effusions. There are increased interstitial markings diffusely indicative of chronic lung disease. There are also a few scattered nodules within the right lung. The largest of these measures 5 mm with in the right middle lobe anteriorly. Six-month CT follow-up is now recommended. Evaluation of the upper abdomen demonstrates no acute abnormalities. There is no evidence of acute bony pathology. IMPRESSION: Mild chronic lung disease with right lung nodularity for which [address] follow-up is now recommended. No acute pathology within the chest. Please see above discussion. Reported By: Fredis Tyler MD 03/16/18 1078 ASSESSMENT AND PLAN: Patient is a 47 yo man with hx of diastolic of CHF, and DM who presented with SOB , he was found to have acute diastolic CHF exacerbation # Acute hypoxic hypercapnic respiratory failure due to acute exacerbation of diastolic CHF. continue with lasix IV 60 BID . cont ACEI/coreg BIPAP at night. echo reviewed. severe pulm hypertension+ 65mmhg . continue current therapy, Inhalers continue.Pulmonary and cardio on the case. # Tobacco abuse: cessation of tobacco suggested. Nicoderm patch daily. # Mild chronic lung disease with right lung nodularity. 6 months follow up is needed. Pulmonary on the case. # Erythrocytosis: trending down, likely secondary to smoking s/p 400 cc phlebotomy yesterday. cont to monitor, cannot r/o Polycytemia vera, fely get Hematology consult. Laboratory Tests 03/13/18 03/14/18 03/15/18 22:28 06:00 05:30 Hgb 20.1 H* 18.0 H 17.8 H Erythropoietin 03/16/18 03/16/18 03/17/18 05:50 05:50 05:30 Hgb 18.5 H 18.4 H Erythropoietin 3.9 # T2DM : cont SSI DVT PX: Heparin sq
--- NOTE | 2018-03-18 10:00 | PN ---
Progress Note, Physician History of Present Illness: Dyspnea, LE swelling, orthopnea, PND and abdominal swelling improving with diuresis. - Current Medication List Current Medications: Active Medications Acetaminophen (Tylenol -) 650 mg PO Q6H PRN PRN Reason: HEADACHE Last Admin: 03/16/18 05:59 Dose: 650 mg Albuterol Sulfate (Ventolin Hfa Inhaler -) 2 puff IH Q4H PRN PRN Reason: SHORT OF BREATH/WHEEZING Budesonide/Formoterol Fumarate (Symbicort 160/4.5mcg -) 2 puff IH BID [facility] Last Admin: 03/17/18 22:16 Dose: 2 puff Carvedilol (Coreg -) 3.125 mg PO BID [facility] Last Admin: 03/17/18 22:15 Dose: 3.125 mg Furosemide (Lasix Injection -) 60 mg IVPUSH BID@0600,1400 [facility] Last Admin: 03/18/18 05:40 Dose: 60 mg Heparin Sodium (Porcine) (Heparin -) 5,000 unit SQ TID [facility] Last Admin: 03/18/18 05:43 Dose: 5,000 unit Insulin Aspart (Novolog Vial Sliding Scale -) 1 vial SQ TIDAC [facility]; Protocol Last Admin: 03/18/18 06:00 Dose: 4 unit Lisinopril (Prinivil) 10 mg PO DAILY [facility] Last Admin: 03/17/18 10:39 Dose: 10 mg Methylprednisolone Sodium Succinate (Solu-Medrol -) 40 mg IVPUSH Q6H-IV [facility] Last Admin: 03/18/18 02:36 Dose: 40 mg Nicotine (Nicoderm Patch -) 21 mg TD DAILY [facility] Last Admin: 03/17/18 10:39 Dose: 21 mg Nystatin (Mycostatin Cream -) 1 applic TP BID [facility] Last Admin: 03/17/18 22:16 Dose: 1 applic Sodium Chloride (Normal Saline -) 250 ml IV ONCE ONE Stop: 03/15/18 16:38 - Objective Vital Signs: Vital Signs Temperature 97.7 F 03/18/18 05:00 Pulse Rate 65 03/18/18 05:00 Respiratory Rate 17 03/18/18 05:00 Blood Pressure 162/80 03/18/18 05:00 O2 Sat by Pulse Oximetry (%) 93 L 03/17/18 21:00 Constitutional: Yes: No Distress, Calm Neck: Yes: Supple Cardiovascular: Yes: Regular Rate and Rhythm Respiratory: Yes: Regular, Diminished, On Nasal O2 Gastrointestinal: Yes: Normal Bowel Sounds, Soft Edema: No Labs: CBC, BMP 03/18/18 05:30 03/18/18 05:30 INR, PTT INR 1.12 (0.83-1.09) H 03/14/18 06:00 - ....Imaging EKG: Report Reviewed (Tele: NSR) Problem List - Problems (1) Homelessness Code(s): Z59.0 - HOMELESSNESS (2) Acute exacerbation of CHF (congestive heart failure) Code(s): I50.9 - HEART FAILURE, UNSPECIFIED Qualifiers: Heart failure type: combined systolic and diastolic Qualified Code(s): I50.43 - 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) heart failure (3) Respiratory failure with hypoxia and hypercapnia Code(s): J96.91 - RESPIRATORY FAILURE, UNSPECIFIED WITH HYPOXIA; J96.92 - RESPIRATORY FAILURE, UNSPECIFIED WITH HYPERCAPNIA Qualifiers: Chronicity: acute on chronic Qualified Code(s): J96.21 - Acute and chronic respiratory failure with hypoxia; J96.22 - Acute and chronic respiratory failure with hypercapnia (4) Polycythemia Code(s): D75.1 - SECONDARY POLYCYTHEMIA Assessment/Plan 03/15/2018 Echo: Normal LV szie with mild cLVHwith normal LV fxn LVEF 60-65%, Grade II diastolic dysfunction c/w increased LA pressire, mild LAE, mild TR, RVSP 65 mmHg, mild ao dilatation 03/14/[address]: Mild lung dz with right lung nodularity 1. Acute on chronic hypercapneic/hypoxemic respiratory failure 2. Acute on chronic diastolic heart failure 3. Polycythemia ? chronic hypoxia 4. Obesity with OSAS/OHS 5. Homelessness P:1. Decrease IV diuresis with monitor diuretic response, renal fxn and electrolytes 2. Increase carvedilol 6.25 bid and lisinopril 10 qd with uptitration as tolerated 3. Smoking cessation, f/u chest CT 6 months 4. Homelessness and unstable living situation may preclude us from offering guideline-based therapy long-term, SW input appreciated
[2018-03-18] MEDS: NICOTINE 21 MG/24 HOURS TOPICAL PATCH TD SCH (10:12)
[2018-03-18] MEDS: LISINOPRIL 5 MG TABLET (FP) PO SCH (10:12)
[2018-03-18] MEDS: CARVEDILOL 3.125 MG TABLET (FP) PO SCH ×3 (10:15→21:24)
[2018-03-18] MEDS: NYSTATIN 100,000 UNIT/GM TOPICAL CREAM 15 GM TUBE TP SCH ×2 (11:18→21:29)
[2018-03-18] MEDS: BUDESONIDE/FORMETEROL FUMARATE 160/4.5 mcg INHALER IH SCH ×2 (11:18→21:27)
[2018-03-18] MEDS: ACETAMINOPHEN 325 MG TABLET (FP) PO PRN (12:06)
[2018-03-18 12:19] LABS: ANISOCYTOSIS 1+; MACROCYTOSIS 1+; PLATELET ESTIMATE DECREASED; TEAR DROP CELLS 1+
--- NOTE | 2018-03-18 12:19 | PN ---
Progress Note (short form) - Note Progress Note: PULMONARY States breathing is improving with diuresis. Had episode of chest pain earlier now resolved. Occasional nonproductive cough. Vital Signs Period Temp Pulse Resp BP Sys/Garza Pulse Ox Last 24 Hr 97.7 F-98.3 F 59-65 17-20 130-162/64-88 93 Gen: NAD at rest Heart: RRR Lung: decreased breath sounds at the bases Abd: soft, nontender Ext: trace edema CBC, BMP 03/18/18 05:30 03/18/18 05:30 Active Medications Acetaminophen (Tylenol -) 650 mg PO Q6H PRN PRN Reason: HEADACHE Last Admin: 03/18/18 12:06 Dose: 650 mg Albuterol Sulfate (Ventolin Hfa Inhaler -) 2 puff IH Q4H PRN PRN Reason: SHORT OF BREATH/WHEEZING Budesonide/Formoterol Fumarate (Symbicort 160/4.5mcg -) 2 puff IH BID [facility] Last Admin: 03/18/18 11:18 Dose: 2 puff Carvedilol (Coreg -) 6.25 mg PO BID [facility] Last Admin: 03/18/18 12:06 Dose: 6.25 mg Furosemide (Lasix Injection -) 40 mg IVPUSH BID@0600,1400 [facility] Heparin Sodium (Porcine) (Heparin -) 5,000 unit SQ TID [facility] Last Admin: 03/18/18 05:43 Dose: 5,000 unit Insulin Aspart (Novolog Vial Sliding Scale -) 1 vial SQ TIDAC [facility]; Protocol Last Admin: 03/18/18 06:00 Dose: 4 unit Lisinopril (Prinivil) 10 mg PO DAILY [facility] Last Admin: 03/18/18 10:12 Dose: 10 mg Methylprednisolone Sodium Succinate (Solu-Medrol -) 40 mg IVPUSH Q6H-IV [facility] Last Admin: 03/18/18 10:12 Dose: 40 mg Nicotine (Nicoderm Patch -) 21 mg TD DAILY [facility] Last Admin: 03/18/18 10:12 Dose: 21 mg Nystatin (Mycostatin Cream -) 1 applic TP BID [facility] Last Admin: 03/18/18 11:18 Dose: 1 applic Sodium Chloride (Normal Saline -) 250 ml IV ONCE ONE Stop: 03/15/18 16:38 A/P Acute on Chronic Hypoxic and Hypercapneic Respiratory Failure Acute on Chronic Diastolic Heart Failure Pulmonary HTN COPD Morbid Obesity Likely MODESTA/OHS Polycythemia likely from Chronic Hypoxia Lung Nodules - continue lasix - monitor urine output, creatinine - O2 to keep SpO2 >90% - inhaled bronchodilators - can d/c steroids - PFTs, PSG as outpt - outpt f/u of CT chest - DVT prophylaxis - when ready for discharge, will need to check ambulatory SpO2 on room air to assess for home O2 and ABG to assess for home PAP device
[2018-03-18] MEDS ORDERED: INSULIN (NOVOLOG) ASPART 100 UNITS/ML 10ML VIAL ONE (13:03)
--- NOTE | 2018-03-18 17:14 | PN ---
Physical Exam: SUBJECTIVE: Patient seen and examined at bedside. No acute events overnight. Pt states headache is resolved. Oneal PO diet. Still has persistent chest pain, sob, but unchanged. OBJECTIVE: Vital Signs Temperature 98.6 F 03/18/18 15:20 Pulse Rate 78 03/18/18 15:20 Respiratory Rate 22 H 03/18/18 15:20 Blood Pressure 150/86 03/18/18 15:20 O2 Sat by Pulse Oximetry (%) 93 L 03/17/18 21:00 GENERAL: NAD. AAOx3. HEENT: AT/NC. EOMI. DELMY. Moist mucus membranes. NECK: Supple, nontender. LUNGS: Decreased breath sounds b/l. B/l wheezes. HEART: Regular rate and rhythm, S1, S2 without murmur, rub or gallop. ABDOMEN: Obese. Soft, NT/ND. +BS in all 4Qs. EXTREMITIES: 1+ pedal edema b/l, improved. 5/5 muscle strength in u/l b/l extremities. NEUROLOGICAL: Normal speech. Facial symmetry noted. Facial muscles intact. Responds to commands. PSYCH: Normal mood, normal affect. CBCD WBC 11.5 K/mm3 (4.0-10.0) H 03/18/18 05:30 RBC 6.13 M/mm3 (4.00-5.60) H 03/18/18 05:30 Hgb 19.3 GM/dL (11.7-16.9) H 03/18/18 05:30 Hct 56.9 % (35.4-49) H 03/18/18 05:30 MCV 92.9 fl (80-96) 03/18/18 05:30 MCHC 33.9 g/dl (32.0-35.9) 03/18/18 05:30 RDW 14.7 % (11.9-15.9) 03/18/18 05:30 Plt Count 125 K/MM3 (134-434) L 03/18/18 05:30 MPV 11.2 fl (7.5-11.1) H 03/18/18 05:30 CMP Sodium 140 mmol/L (136-145) 03/18/18 05:30 Potassium 4.1 mmol/L (3.5-5.1) 03/18/18 05:30 Chloride 100 mmol/L (98-107) 03/18/18 05:30 Carbon Dioxide 34 mmol/L (21-32) H 03/18/18 05:30 Anion Gap 6 MMOL/L (8-16) L 03/18/18 05:30 BUN 19 mg/dL (7-18) H 03/18/18 05:30 Creatinine 1.0 mg/dL (0.55-1.3) 03/18/18 05:30 Creat Clearance w eGFR > 60 (>60) 03/18/18 05:30 Calcium 8.9 mg/dL (8.5-10.1) 03/18/18 05:30 Total Bilirubin 0.7 mg/dL (0.2-1) 03/18/18 05:30 AST 36 U/L (15-37) 03/18/18 05:30 ALT 63 U/L (13-61) H 03/18/18 05:30 Alkaline Phosphatase 62 U/L (45-117) 03/18/18 05:30 Total Protein 6.3 g/dl (6.4-8.2) L 03/18/18 05:30 Albumin 3.3 g/dl (3.4-5.0) L 03/18/18 05:30 Active Medications Acetaminophen (Tylenol -) 650 mg PO Q6H PRN PRN Reason: HEADACHE Last Admin: 03/18/18 12:06 Dose: 650 mg Albuterol Sulfate (Ventolin Hfa Inhaler -) 2 puff IH Q4H PRN PRN Reason: SHORT OF BREATH/WHEEZING Budesonide/Formoterol Fumarate (Symbicort 160/4.5mcg -) 2 puff IH BID [facility] Last Admin: 03/18/18 11:18 Dose: 2 puff Carvedilol (Coreg -) 6.25 mg PO BID [facility] Last Admin: 03/18/18 12:06 Dose: 6.25 mg Furosemide (Lasix Injection -) 40 mg IVPUSH BID@0600,1400 [facility] Last Admin: 03/18/18 13:00 Dose: 40 mg Heparin Sodium (Porcine) (Heparin -) 5,000 unit SQ TID [facility] Last Admin: 03/18/18 13:46 Dose: 5,000 unit Insulin Aspart (Novolog Vial Sliding Scale -) 1 vial SQ TIDAC [facility]; Protocol Last Admin: 03/18/18 13:08 Dose: 4 unit Lisinopril (Prinivil) 10 mg PO DAILY [facility] Last Admin: 03/18/18 10:12 Dose: 10 mg Methylprednisolone Sodium Succinate (Solu-Medrol -) 40 mg IVPUSH Q6H-IV [facility] Last Admin: 03/18/18 15:19 Dose: 40 mg Nicotine (Nicoderm Patch -) 21 mg TD DAILY [facility] Last Admin: 03/18/18 10:12 Dose: 21 mg Nystatin (Mycostatin Cream -) 1 applic TP BID [facility] Last Admin: 03/18/18 11:18 Dose: 1 applic Sodium Chloride (Normal Saline -) 250 ml IV ONCE ONE Stop: 03/15/18 16:38 CONSULTS: Heme- Dr. Lynn Pulm- Dr. Kunz Cardio- Dr. Khoury IMAGING: * CXR (03/13/18): lungs are clear, angles are sharp, bones and soft tissues are intact. * Chest CT: Mild chronic lung dz w/ R lung nodularity for which [address] followup is now recommended. No acute pathology seen within chest. * ECHO: (03/15/18): LV normal in size. Mild concentric LVH. No regional wall abnormalities noted. EF 60-65%. Diastolic dysfxn, grade II, c/w elevated L atrial pressure. RV systolic fxn normal. LA mildly dilated. RA size is normal. Mild TR. Pulm artery systolic pressure is at least 65 mmHg assuming RA pressure of 15 mmHg. Mild aortic root dilatation. No pericardial effusion. ASSESSMENT/PLAN: 47M w/ pmhx of CHF, DM, COPD, erythrycytosis, daily tobacco user who presented with worsening sob, increased b/l leg swelling. #Acute Hypoxic Respiratory Failure; likely 2/2 acute CHF exacerbation, w/ preserved EF 60-65% vs. Pulm HTN vs. ? MODESTA -Increase Carvedilol 3.125 mg PO BID to Carvedilol 6.5 mg PO BID -Lisinopril 5 PO QD -Decrease Lasix 60 mg IVP BID to Lasix 40 mg BID; monitor strict I/Os closely. 139 kg > 133 kg > 131 today. Cont to monitor weights to assess adequate diuresis. -Duonebs Q6H PRN -Ventolin Q4H PRN -Echo showed EF 60-65%, diastolic dysfxn, grade II. Pulm artery systolic pressure is 65 mmHg. -Sleep studies outpatient as pt is obese, ABG showed increased pCO2; may have underlying MODESTA; PFTs and PSG as outpatient as well -BiPAP at night -Tylenol 650 mg PO Q6H PRN for headache -Pre- and post showed pt desat at 87% during ambulation; will need home O2. #Erythrocytosis; likely due to significant smoking hx, ddx also includes polycythemia vera -Hgb 18.5 after phlebotomy, 400mL removed on 03/15; prior Hgb was 17.8 -Heme following; JAK2 mutation ordered to assess for polycythemia vera -D/w heme. Repeat phlebotomy not indicated at this time; recommended weekly during outpatient followup. #DM -BGMs TIDAC -ISS TIDAC #Hx of tobacco use -smoking cessation counseling -Chest CT results showed R lung nodularity. F/u outpatient for repeat CT in 6 months. -Symbicort -d/c Solumedrol per pulm recs #Prophylaxis DVT: Heparin 5000 SQ TID [facility] -no IVfs needed -recheck lytes in AM -Sodium-controlled diet dispo -cont to monitor on med-surg -Pt currently lives in a correction. D/w case mgmt regarding dispo.. Visit type - Emergency Visit Emergency Visit: Yes ED Registration Date: 03/13/18 Care time: The patient presented to the Emergency Department on the above date and was hospitalized for further evaluation of their emergent condition. - New Patient This patient is new to me today: No - Critical Care Critical Care patient: No
--- NOTE | 2018-03-18 19:16 | PN ---
Progress Note (short form) - Note Progress Note: PAtient seen and examined Still with some shortness of breath AFVSS Cor: RSR, No murmurs, No gallops Lungs:b/l scattered wheezes Abd: Soft, Normal bowel sounds, No organomegaly Ext:No significant edema LAbs/MEds reviewed A/P 47 y/o with HTN, CHF, smoker, comes in with SOB. Being diuresed for dCHF. ?? COPD Erythrocytosis --most likely secondary due to lung disease Erythropoietin level is 3.9 normal. LDH normal will check JAK2 mutation/bcr;abl phlebotomized 400ml blood for HCT cof 57% on 03/15/18 home O2 evaluation
[2018-03-18 19:41] VITALS: BMI 38.2
[2018-03-19] MEDS: FUROSEMIDE 40 MG/4 ML INJECTABLE VIAL IVPUSH SCH (06:04)
[2018-03-19] MEDS: HEPARIN NA (PORCINE) 5,000 UNITS/ML 1ML VIAL SQ SCH ×2 (06:04→14:47)
[2018-03-19 07:27] LABS: HEMATOCRIT 57.8 % (35.4-49); HEMOGLOBIN 19.2 GM/dL (11.7-16.9); MCH 31.1 pg (25.7-33.7); MCHC 33.3 g/dl (32.0-35.9); MEAN CELL VOLUME 93.3 fl (80-96); MEAN PLT VOLUME 10.7 fl (7.5-11.1); PLATELET COUNT 127 K/MM3 (134-434); RBC 6.19 M/mm3 (4.00-5.60); RDW 14.6 % (11.9-15.9); WHITE BLOOD COUNT 11.5 K/mm3 (4.0-10.0)
[2018-03-19 07:51] LABS: ANION GAP 6 MMOL/L (8-16); BLOOD UREA NITROGEN 23 mg/dL (7-18); CALCIUM 8.8 mg/dL (8.5-10.1); CHLORIDE 96 mmol/L (98-107); CO2 37 mmol/L (21-32); CREATININE 1.1 mg/dL (0.55-1.3); GLUCOSE,RANDOM 215 mg/dL (74-106); SODIUM 139 mmol/L (136-145); URIC ACID 5.3 mg/dL (2.6-7.2)
--- NOTE | 2018-03-19 09:53 | PN ---
Teaching Attending Note Name of Resident: Lizz Damon ATTENDING PHYSICIAN STATEMENT I saw and evaluated the patient. I reviewed the resident's note and discussed the case with the resident. I agree with the resident's findings and plan as documented. SUBJECTIVE: Patient is doing better with no acute distress. OBJECTIVE: Vital Signs Temperature 97.9 F 03/19/18 02:00 Pulse Rate 55 L 03/19/18 02:00 Respiratory Rate 20 03/19/18 02:00 Blood Pressure 152/93 03/19/18 02:00 O2 Sat by Pulse Oximetry (%) 93 L 03/17/18 21:00 GENERAL: NAD. AAOx3. HEENT: AT/NC. EOMI. DELMY. Moist mucus membranes. NECK: Supple, nontender. LUNGS: Decreased breath sounds b/l. B/l wheezes improved HEART: Regular rate and rhythm, S1, S2 without murmur, rub or gallop. ABDOMEN: Obese. Soft, ND. NT. EXTREMITIES: trace edema b/l. NEUROLOGICAL: Facial symmetry noted. Facial muscles are intact. PSYCH: Normal mood, normal affect. CBCD WBC 11.5 K/mm3 (4.0-10.0) H 03/19/18 06:28 RBC 6.19 M/mm3 (4.00-5.60) H 03/19/18 06:28 Hgb 19.2 GM/dL (11.7-16.9) H 03/19/18 06:28 Hct 57.8 % (35.4-49) H 03/19/18 06:28 MCV 93.3 fl (80-96) 03/19/18 06:28 MCHC 33.3 g/dl (32.0-35.9) 03/19/18 06:28 RDW 14.6 % (11.9-15.9) 03/19/18 06:28 Plt Count 127 K/MM3 (134-434) L 03/19/18 06:28 MPV 10.7 fl (7.5-11.1) 03/19/18 06:28 CMP Sodium 139 mmol/L (136-145) 03/19/18 06:28 Potassium 4.0 mmol/L (3.5-5.1) 03/19/18 06:28 Chloride 96 mmol/L (98-107) L 03/19/18 06:28 Carbon Dioxide 37 mmol/L (21-32) H 03/19/18 06:28 Anion Gap 6 MMOL/L (8-16) L 03/19/18 06:28 BUN 23 mg/dL (7-18) H 03/19/18 06:28 Creatinine 1.1 mg/dL (0.55-1.3) 03/19/18 06:28 Creat Clearance w eGFR > 60 (>60) 03/19/18 06:28 Random Glucose 215 mg/dL (74-106) H 03/19/18 06:28 Calcium 8.8 mg/dL (8.5-10.1) 03/19/18 06:28 Total Bilirubin 0.7 mg/dL (0.2-1) 03/18/18 05:30 AST 36 U/L (15-37) 03/18/18 05:30 ALT 63 U/L (13-61) H 03/18/18 05:30 Alkaline Phosphatase 62 U/L (45-117) 03/18/18 05:30 Total Protein 6.3 g/dl (6.4-8.2) L 03/18/18 05:30 Albumin 3.3 g/dl (3.4-5.0) L 03/18/18 05:30 CARDIAC ENZYMES Creatine Kinase 172 IU/L (26-308) 03/13/18 22:28 Troponin I 0.05 ng/ml (0.00-0.05) 03/14/18 06:00 Home Medications Medication Instructions Recorded NK [No Known Home Medication] 03/14/18 Examination of the mediastinum demonstrates slightly enlarged lymph nodes scattered throughout the mediastinal chains. The largest node is in the anterior mediastinum measuring 1.7 cm. There are additional 11 and 12 mm lymph nodes in the right paratracheal chain. The etiology and significance of this mild adenopathy is uncertain. The heart is slightly enlarged with a small pericardial effusion present. The lung peacock are free of pulmonary masses, areas of acute consolidation or pleural effusions. There are increased interstitial markings diffusely indicative of chronic lung disease. There are also a few scattered nodules within the right lung. The largest of these measures 5 mm with in the right middle lobe anteriorly. Six-month CT follow-up is now recommended. Evaluation of the upper abdomen demonstrates no acute abnormalities. There is no evidence of acute bony pathology. IMPRESSION: Mild chronic lung disease with right lung nodularity for which [address] follow-up is now recommended. No acute pathology within the chest. Please see above discussion. Reported By: Fredis Tyler MD 03/16/18 [id number] ASSESSMENT AND PLAN: Patient is a 47 yo man with hx of diastolic of CHF, and DM who presented with SOB , he was found to have acute diastolic CHF exacerbation # Acute hypoxic hypercapnic respiratory failure due to acute exacerbation of diastolic CHF. IV lasix changed to po lasix 40mg po daily. cont ACEI/coreg BIPAP at night. echo reviewed. severe pulm hypertension+ 65mmhg . continue current therapy, Inhalers continue.Pulmonary and cardio on the case. # Erythrocytosis: trending down, likely secondary to smoking s/p 400 cc phlebotomy . follow with in a week. cannot r/o Polycytemia vera, patient needs to follow up with Hematology consult. # Tobacco abuse: cessation of tobacco suggested. Nicoderm patch daily. # Mild chronic lung disease with right lung nodularity. 6 months follow up is needed. Pulmonary on the case. patient is going to snf
--- NOTE | 2018-03-19 10:04 | PN ---
Progress Note, Physician History of Present Illness: Dyspnea, LE swelling, orthopnea, PND and abdominal swelling improving with diuresis. - Current Medication List Current Medications: Active Medications Acetaminophen (Tylenol -) 650 mg PO Q6H PRN PRN Reason: HEADACHE Last Admin: 03/18/18 12:06 Dose: 650 mg Albuterol Sulfate (Ventolin Hfa Inhaler -) 2 puff IH Q4H PRN PRN Reason: SHORT OF BREATH/WHEEZING Budesonide/Formoterol Fumarate (Symbicort 160/4.5mcg -) 2 puff IH BID [facility] Last Admin: 03/18/18 21:27 Dose: 2 puff Carvedilol (Coreg -) 6.25 mg PO BID [facility] Last Admin: 03/18/18 21:24 Dose: 6.25 mg Furosemide (Lasix Injection -) 40 mg IVPUSH BID@0600,1400 [facility] Last Admin: 03/19/18 06:04 Dose: 40 mg Heparin Sodium (Porcine) (Heparin -) 5,000 unit SQ TID [facility] Last Admin: 03/19/18 06:04 Dose: 5,000 unit Insulin Aspart (Novolog Vial Sliding Scale -) 1 vial SQ TIDAC [facility]; Protocol Last Admin: 03/18/18 17:50 Dose: 6 unit Lisinopril (Prinivil) 10 mg PO DAILY [facility] Last Admin: 03/18/18 10:12 Dose: 10 mg Nicotine (Nicoderm Patch -) 21 mg TD DAILY [facility] Last Admin: 03/18/18 10:12 Dose: 21 mg Nystatin (Mycostatin Cream -) 1 applic TP BID [facility] Last Admin: 03/18/18 21:29 Dose: 1 applic Sodium Chloride (Normal Saline -) 250 ml IV ONCE ONE Stop: 03/15/18 16:38 - Objective Vital Signs: Vital Signs Temperature 97.9 F 03/19/18 02:00 Pulse Rate 55 L 03/19/18 02:00 Respiratory Rate 20 03/19/18 02:00 Blood Pressure 152/93 03/19/18 02:00 O2 Sat by Pulse Oximetry (%) 93 L 03/17/18 21:00 Constitutional: Yes: No Distress, Calm Neck: Yes: Supple, Tenderness Respiratory: Yes: Regular, Diminished Gastrointestinal: Yes: Normal Bowel Sounds, Soft Edema: No Labs: CBC, BMP 03/19/18 06:28 03/19/18 06:28 INR, PTT INR 1.12 (0.83-1.09) H 03/14/18 06:00 Problem List - Problems (1) Homelessness Code(s): Z59.0 - HOMELESSNESS (2) Acute exacerbation of CHF (congestive heart failure) Code(s): I50.9 - HEART FAILURE, UNSPECIFIED Qualifiers: Heart failure type: combined systolic and diastolic Qualified Code(s): I50.43 - 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) heart failure (3) Respiratory failure with hypoxia and hypercapnia Code(s): J96.91 - RESPIRATORY FAILURE, UNSPECIFIED WITH HYPOXIA; J96.92 - RESPIRATORY FAILURE, UNSPECIFIED WITH HYPERCAPNIA Qualifiers: Chronicity: acute on chronic Qualified Code(s): J96.21 - Acute and chronic respiratory failure with hypoxia; J96.22 - Acute and chronic respiratory failure with hypercapnia (4) Polycythemia Code(s): D75.1 - SECONDARY POLYCYTHEMIA Assessment/Plan 03/15/2018 Echo: Normal LV szie with mild cLVHwith normal LV fxn LVEF 60-65%, Grade II diastolic dysfunction c/w increased LA pressire, mild LAE, mild TR, RVSP 65 mmHg, mild ao dilatation 03/14/[address]: Mild lung dz with right lung nodularity 1. Acute on chronic hypercapneic/hypoxemic respiratory failure 2. Acute on chronic diastolic heart failure 3. Polycythemia ? chronic hypoxia 4. Obesity with OSAS/OHS, lung nodules 5. Homelessness P:1. Change to oral diuresis with monitor diuretic response, renal fxn and electrolytes 2. Continue carvedilol 6.25 bid and lisinopril 10 qd with uptitration as tolerated 3. Smoking cessation, f/u chest CT 6 months 4. Homelessness and unstable living situation may preclude us from offering guideline-based therapy long-term, SW input appreciated
[2018-03-19] MEDS: LISINOPRIL 5 MG TABLET (FP) PO SCH (10:17)
[2018-03-19] MEDS: NICOTINE 21 MG/24 HOURS TOPICAL PATCH TD SCH (10:17)
[2018-03-19] MEDS: CARVEDILOL 3.125 MG TABLET (FP) PO SCH (10:17)
[2018-03-19] MEDS: BUDESONIDE/FORMETEROL FUMARATE 160/4.5 mcg INHALER IH SCH (10:17)
[2018-03-19] MEDS: NYSTATIN 100,000 UNIT/GM TOPICAL CREAM 15 GM TUBE TP SCH (10:18)
[2018-03-19] MEDS: INSULIN SLIDING SCALE (NOVOLOG) 1 VIAL SQ SCH (12:14)
[2018-03-19 14:07] VITALS: BP 135/70; PULSE 59; TEMP 98.3
[2018-03-20] MEDS ORDERED: FUROSEMIDE 40 MG TABLET (FP) PO SCH (10:00)
--- NOTE | 2018-03-22 17:36 | PATH ---
Surgical Pathology Report Patient Name: EMILIANO BATRES III [facility]. Rec. #: [id number] /Age/Gender: 1970 (Age: 47) / M Account: [id number] Location: 4 W TELEMETRY U Taken: 03/19/2018 Received: 03/19/2018 Reported: 03/22/2018 Physicians: Mamie Osuna M.D. Specimen(s) Received 2 LAVENDER & 2 GREEN TOP TUBES Clinical History Erythrocytosis Final Diagnosis MYELODYSPLASIA FISH PANEL performed and interpreted at [place], [place] ([id number]) shows the following: INTERPRETATION: No evidence of deletion 7q or monosomy 7 is present. No evidence of trisomy 8 (+8) is present. No evidence of deletion 20q12 is present No BCR/ABL1 t(9;22) translocation is detected. BCR-ABL Gene Rearrangement (IS) Analysis performed and interpreted at [place], [place] ([id number]) shows the following: RESULTS: Negative BCR/ABL Major breakpoints (b2a2 and b3a2): Not Detected BCR/ABL Minor breakpoint (e1a2): Not Detected INTERPRETATION: No BCR-ABL translocation was detected in this sample. See [facility] report ([id number] and [id number]) for additional details. Electronically Signed Abraham Schuler M.D. Addendum Reported: 03/24/2018 Addendum Diagnosis COMPREHENSIVE FLOW PANEL performed and interpreted at [facility] [place], [place] ([id number]) shows the following: INTERPRETATION: In the samples analyzed, there is no evidence of B or T-cell proliferative disorders or increased blasts. COMMENT: Correlation with the results of the molecular studies (JAK2, CALR) is essential in order to assess for peripheral blood involvement by a myeloproliferative process. See [facility] report ([id number]) for additional details. Abraham Schuler M.D. Addendum Reported: 03/26/2018 Addendum Diagnosis JAK2 (V617F) MUTATION ANALYSIS BY PCR performed and interpreted at [facility] [place], [place] ([id number]) shows the following: RESULTS: Only the wild-type JAK2 sequence was detected. INTERPRETATION: Negative for JAK2 (V617F) Mutation. See [facility] report ([id number]) for additional details. Loree Carlos M.D.
--- NOTE | 2018-03-26 07:10 | DS ---
Physical Exam: SUBJECTIVE: Patient seen and examined at bedside, no acute events overnight. OBJECTIVE: PHYSICAL EXAM GENERAL: NAD. AAOx3. HEENT: AT/NC. EOMI. DELMY. Moist mucus membranes. NECK: Supple, nontender. LUNGS: Decreased breath sounds b/l. B/l wheezes. HEART: Regular rate and rhythm, S1, S2 without murmur, rub or gallop. ABDOMEN: Obese. Soft, NT/ND. +BS in all 4Qs. EXTREMITIES: 1+ pedal edema b/l, improved. 5/5 muscle strength in u/l b/l extremities. NEUROLOGICAL: Normal speech. Facial symmetry noted. Facial muscles intact. Responds to commands. PSYCH: Normal mood, normal affect. LABS HOSPITAL COURSE: Date of Admission:03/13/18 IMAGING: * CXR (03/13/18): lungs are clear, angles are sharp, bones and soft tissues are intact. * Chest CT: Mild chronic lung dz w/ R lung nodularity for which [address] followup is now recommended. No acute pathology seen within chest. * ECHO: (03/15/18): LV normal in size. Mild concentric LVH. No regional wall abnormalities noted. EF 60-65%. Diastolic dysfxn, grade II, c/w elevated L atrial pressure. RV systolic fxn normal. LA mildly dilated. RA size is normal. Mild TR. Pulm artery systolic pressure is at least 65 mmHg assuming RA pressure of 15 mmHg. Mild aortic root dilatation. No pericardial effusion. 47M w/ pmhx systolic HF and HTN presented to the hospital with complaints of worsening sob, b/l leg swelling, and abdominal swelling admitted for acute on chronic CHF exacerbation. Pt was given Lasix, Coreg, Lisinopril, and put on BiPAP due to acute hypoxic resp failure. Pt's O2 sat was found to be low on RA and as a result, pulm was consulted. Upon pulm eval, pulm recommended outpatient sleep studies to assess for MODESTA, with likely need for pt to require home oxygen. Echo was done that showed normal EF 60-65%, with severe diastolic dysfxn, grade II. Labs were done that showed significantly elevated H/H after which heme was subsequently consulted. Pt was phlebotomized and H/H trended. Pt' s symptoms of sob, and b/l leg and abd swelling improved throughout the duration of the hospital stay. Due to pt's homelessness, social work arranged placement at [facility] for pt in order to obtain home oxygen. Pt's symptoms improved markedly and was discharged to SNF and advised to take Lasix, Coreg, Lisinopril, Albuterol, Symbicort. He was also advised to see his PCP, bottoming machine operator to assess lung function, and glass mould cleaner for repeat blood work to assess CBC. Date of Discharge: 03/19/18 Minutes to complete discharge: 40 Discharge Summary Reason For Visit: ACUTE ON CHRONIC CONGESTIVE HEART FAILURE Current Active Problems COPD exacerbation (Acute) Scrotal abscess (Acute) Condition: Improved - Instructions Diet, Activity, Other Instructions: You were seen in the hospital for complaints of worsening shortness of breath and lower extremity edema. In the hospital, you were evaluated by a automation and controls instructor. An echocardiogram was done and you were found to have congestive heart failure. You were given diuretics to treat this condition. Additionally, you were seen by the bottoming machine operator (lung doctor) to assess your breathing. You were found to have lung disease that also has been affecting your breathing. Throughout your hospital stay, your symptoms improved. [facility] are being [facility] for [facility] of care. MEDICAL RECOMMENDATIONS Please take the following medications as prescribed: Lasix 40 mg by mouth daily Carvedilol 6.25 mg by mouth daily Lisinopril 10 mg by mouth daily Albuterol Inhaler 2 puff every 4 hours as needed. Symbicort inhaler 2 puffs twice a day as needed. It is also important that you stop smoking as this can cause worsening breathing problems and can negatively affect your heart. Potential complications that can result from tobacco use can be very debilitating. Please repeat CBC twice weekly to check hemoglobin and hematocrit levels. Please continue using a nicotine patch daily and use nicotine gum as needed. [address] follow-up is recommended since you have lung nodules on CT scan that was done in the hospital. repeat CBC with in a week period. CONSULT RECOMMENDATIONS Please follow up with your primary care physician within 1 week. You have been given a referral to make an appointment at the [facility] residency clinic. You may make an appointment with Dr. Lizz Damon. Please follow up with your bottoming machine operator, Dr. Kunz to further evaluation of your sleep apnea. You will need sleep studies during your outpatient follow up. You were also need further studies to evaluate your lung function. Please follow up with Dr. Mamie Fitch within 2 weeks. You will need further evaluation of your high red blood cell count and may need phlebotomy treatments in the future. If you experience worsening shortness of breath, difficulty breathing, persistent chest pain, difficulty walking or other associated symptoms, please proceed to your nearest emergency room immediately. [place] [facility] [facility] [Provider Group] - 1 Week Lizz Damon RES [Resident] - 1 Week Dayton Kunz MD [Staff Physician] - 1 Week Mamie Osuna MD [Staff Physician] - 1 Week Samuel Hu MD [Staff Physician] - 1 Week Disposition: ALF FACILITY - Home Medications Comprehensive Discharge Medication List: Ambulatory Orders Albuterol Sulfate Inhaler - [Ventolin HFA Inhaler -] 2 puff IH Q4H PRN inhaler 03/19/18 Budesonide/Formeterol Fumarate [SYMBICORT 160/4.5mcg -] 2 puff IH BID inhaler 03/19/18 Carvedilol [Coreg -] 6.25 mg PO BID tablet 03/19/18 Furosemide [Lasix -] 40 mg PO DAILY tablet 03/19/18 Lisinopril [Prinivil] 10 mg PO DAILY tablet 03/19/18 Nicotine Patch [Nicoderm Patch -] 21 mg TD DAILY patch 03/19/18 Nystatin Cream [Mycostatin Cream -] 1 applic TP BID applic 03/19/18 This patient is new to me today: No Emergency Visit: Yes ED Registration Date: 03/13/18 Care time: The patient presented to the Emergency Department on the above date and was hospitalized for further evaluation of their emergent condition. Critical Care patient: No - Discharge Referral Referred to [facility] No
== END 2018-03-19 15:54 | DRG 133 ==
LOC: JER 22:00 → JERBED 23:22 → J4W 03-14 01:30
PROVIDERS: ADMIT Internal Medicine; ATTEND Internal Medicine
PROC: 5A09557 Assistance with Respiratory Ventilation, Greater than 96 Consecutive Hours, Continuous Positive Airway Pressure (ICD-10-PCS; principal; 2018-03-13)
DX: J96.02 Acute respiratory failure with hypercapnia (principal); J96.21 Acute and chronic respiratory failure with hypoxia; E87.2 Acidosis; I11.0 Hypertensive heart disease with heart failure; I50.23 Acute on chronic systolic (congestive) heart failure; E66.2 Morbid (severe) obesity with alveolar hypoventilation; J44.1 Chronic obstructive pulmonary disease with (acute) exacerbation; D75.1 Secondary polycythemia; I27.20 Pulmonary hypertension, unspecified; E11.9 Type 2 diabetes mellitus without complications; Z91.14 Patient's other noncompliance with medication regimen; Z59.0 Homelessness; J96.22 Acute and chronic respiratory failure with hypercapnia; Z88.0 Allergy status to penicillin; E78.5 Hyperlipidemia, unspecified; Z68.38 Body mass index [BMI] 38.0-38.9, adult; R91.1 Solitary pulmonary nodule
CPT/HCPCS: 36415; 36600; 71045-TC-FY; 71250-TC; 80048; 80053; 80061; 82550; 82553; 82668; 82803; 82962; 83036; 83615; 83721; 83735; 83880; 84100; 84443; 84484; 84550; 85025; 85027; 85610; 88300-TC; 93005; 93010; 93306-TC; 94640; 94660; 94761; 97116-GP; 97161-GP; 99283-25; J1644

== ENCOUNTER 2018-03-25 23:28 | Inpatient (IN) | payer OTHER ==
--- NOTE | 2018-03-25 23:48 | PDOC ---
History of Present Illness - General History Source: Patient Exam Limitations: No Limitations - History of Present Illness Initial Comments: 03/26/18 00:11 The patient is a 47 year old male with a significant past medical history of HTN , HLD, DM, CHF who presents to the ED with complaints of chest pain, shortness of breath and bilateral ankle swelling and pain. He states he signed himself out of [facility] yesterday and has been living in a senior living since. He states he was walking to the bus in [facility] today when he developed 7/10, sharp, chest pain requiring him to sit on the sit down. He states the pain is now a 2/ 10. He denies pain radiation. He states he has been increasingly more short of breath since leaving [facility] and not having O2. He also reports his bilateral ankles have been swelling more and reports intense pain to his medial ankles bilaterally with pressure and weight bearing. Secondarily, he reports a tingling numbness to his inner right thigh. The patient denies headache and dizziness. The patient denies fever, chills, nausea, vomit, diarrhea and constipation. The patient denies dysuria, frequency , urgency and hematuria. Allergies: Penicillins Social history: current daily tobacco. <Juanis Mckeon - Last Filed: 03/26/18 01:44> <Leisa Gonsalez - Last Filed: 03/26/18 01:59> - General Chief Complaint: Shortness of Breath Stated Complaint: DIFFICULTY BREATHING Time Seen by Provider: 03/25/18 23:46 Past History <Juanis Mckeon - Last Filed: 03/26/18 01:44> - Past Medical History Diabetes: Yes HTN: Yes Hypercholesterolemia: Yes - Suicide/Smoking/Psychosocial Hx Smoking History: Unknown if ever smoked Have you smoked in the past 12 months: No Hx Alcohol Use: No Drug/Substance Use Hx: No Substance Use Type: None Hx Substance Use Treatment: No <Leisa Gonsalez - Last Filed: 03/26/18 01:59> - Past Medical History Allergies/Adverse Reactions: Allergies Allergy/AdvReac Type Severity Reaction Status Date / Time Penicillins Allergy Hives Verified 03/13/18 23:58 strawberry Allergy Verified 03/13/18 23:58 Home Medications: Ambulatory Orders Albuterol Sulfate Inhaler - [Ventolin HFA Inhaler -] 2 puff IH Q4H PRN inhaler 03/19/18 Budesonide/Formeterol Fumarate [SYMBICORT 160/4.5mcg -] 2 puff IH BID inhaler 03/19/18 Carvedilol [Coreg -] 6.25 mg PO BID tablet 03/19/18 Furosemide [Lasix -] 40 mg PO DAILY tablet 03/19/18 Lisinopril [Prinivil] 10 mg PO DAILY tablet 03/19/18 Nicotine Patch [Nicoderm Patch -] 21 mg TD DAILY patch 03/19/18 Nystatin Cream [Mycostatin Cream -] 1 applic TP BID applic 03/19/18 Review of Systems - Review of Systems Able to Perform ROS?: Yes Comments:: 03/26/18 00:12 GENERAL/CONSTITUTIONAL: No fever or chills. No weakness. HEAD, EYES, EARS, NOSE AND THROAT: No change in vision. No ear pain or discharge. No sore throat. GASTROINTESTINAL: No nausea, vomiting, diarrhea or constipation. GENITOURINARY: No dysuria, frequency, or change in urination. CARDIOVASCULAR: (+) chest pain, shortness of breath. RESPIRATORY: No cough, wheezing, or hemoptysis. MUSCULOSKELETAL: (+) bilateral ankle pain and swelling. No neck or back pain. SKIN: No rash NEUROLOGIC: No headache, vertigo, loss of consciousness, or change in strength/ sensation. ENDOCRINE: No increased thirst. No abnormal weight change. HEMATOLOGIC/LYMPHATIC: No anemia, easy bleeding, or history of blood clots. ALLERGIC/IMMUNOLOGIC: No hives or skin allergy. <Juanis Mckeon - Last Filed: 03/26/18 01:44> *Physical Exam - Vital Signs Last Vital Signs Temp Pulse Resp BP Pulse Ox 98.9 F 86 22 H 110/76 92 L 03/25/18 23:39 03/25/18 23:39 03/25/18 23:39 03/25/18 23:39 03/25/18 23:39 - Physical Exam Comments: 03/26/18 00:11 Constitutional: Awake, alert, oriented. No acute distress. Head: Normocephalic. Atraumatic Eyes: PERRL. EOMI. Conjunctivae are not pale. ENT: Mucous membranes are moist and intact. Posterior pharynx without exudates or erythema. Uvula midline. Neck: Supple. Full ROM. No lymphadenopathy. Cardiovascular: Regular rate. Regular rhythm. S1, S2 regular. Distal pulses are 2+ and symmetric. Pulmonary/Chest: (+) Diminished breath sounds at bases, end expiratory wheezes to upper lung peacock. No evidence of respiratory distress. Clear to auscultation bilaterally No wheezing, rales or rhonchi. Abdominal: Soft and non-distended. There is no tenderness. No rebound, guarding or rigidity. No organomegaly. No palpable masses. Good bowel sounds. Back: No CVA tenderness. Musculoskeletal: (+) 1+ pitting edema to bilateral lower extremities. Bilateral medial malleolus pain. Pedial pulses intact. Negative anterior drawer of the ankles. No cyanosis. No clubbing. Full range of motion in all extremities. Nocalf tenderness. Radial/pedal pulses are intact and 2+ bilaterally Skin: Skin is warm and dry. No petechiae. No purpura. Neurological: Alert and oriented to person, place, and time. Cranial nerves II -XII are grossly intact. Normal speech. Strength is grossly symmetric. No sensory deficits. Psychiatric: Good eye contact. Normal interaction, affect and behavior. <Juanis Mckeon - Last Filed: 03/26/18 01:44> - Vital Signs Last Vital Signs Temp Pulse Resp BP Pulse Ox 98.9 F 86 22 H 110/76 92 L 03/25/18 23:39 03/25/18 23:39 03/25/18 23:39 03/25/18 23:39 03/25/18 23:39 <Leisa Gonsalez - Last Filed: 03/26/18 01:59> Moderate Sedation - Procedure Monitoring Vital Signs: Procedure Monitoring Vital Signs Temperature 98.9 F 03/25/18 23:39 Pulse Rate 86 03/25/18 23:39 Respiratory Rate 22 H 03/25/18 23:39 Blood Pressure 110/76 03/25/18 23:39 O2 Sat by Pulse Oximetry (%) 92 L 03/25/18 23:39 <Juanis Mckeon - Last Filed: 03/26/18 01:44> - Procedure Monitoring Vital Signs: Procedure Monitoring Vital Signs Temperature 98.9 F 03/25/18 23:39 Pulse Rate 86 03/25/18 23:39 Respiratory Rate 22 H 03/25/18 23:39 Blood Pressure 110/76 03/25/18 23:39 O2 Sat by Pulse Oximetry (%) 92 L 03/25/18 23:39 <Leisa Gonsalez - Last Filed: 03/26/18 01:59> ED Treatment Course - LABORATORY CBC & Chemistry Diagram: 03/26/18 00:06 03/26/18 00:06 - RADIOLOGY Radiograph Interpretation: EXAM: ULTRASOUND SCROTUM and DUPLEX SCROTAL CONTENTS (INCLUDES ARTERIAL AND VENOUS IMAGING) 1.5 x 1.4 x 0.9 cm heterogeneously hypoechoic focus in left scrotum, located lateral to the testis, with nearby hypervascular soft tissues. Findings may represent a small abscess. No testicular torsion bilaterally. Appropriate arterial and venous waveforms present. Unremarkable epididymides. Small right hydrocele. THIS DOCUMENT HAS BEEN ELECTRONICALLY SIGNED Margo Lockwood M.D. 03/26/2018 01:31 EST <Juanis Mckeon - Last Filed: 03/26/18 01:44> - LABORATORY CBC & Chemistry Diagram: 03/26/18 00:06 03/26/18 00:06 <Leisa Gonsalez - Last Filed: 03/26/18 01:59> Medical Decision Making - Medical Decision Making 03/26/18 01:44 Dr. Srinivasan was paged via phone answering service requesting a call back for doctor to doctor consult. Dr. Reyna tookt he call and the patient's case was discussed at this time. <Juanis Mckeon - Last Filed: 03/26/18 01:44> - Medical Decision Making 03/26/18 00:03 a/p: 47yo male who [facility] out of [facility] yesterday. States he slept in a senior living last night. Today was walking around and developed cp and sob and b/l ankle pain -pt with wheezing on exam and diminished bs -concern for copd vs chf exacerbation and pedal edema causing ankle pain -no cp at this time in the Ed -will send labs, cxr, ekg -will start nebs -will monitor and reassess 03/26/18 00:21 R knee parethesias- sensation intact to b/l LE, R knee mild redness, no warmth, normal ROM of the knee. no effusion palpated c/o L scrotal pain - testicular exam performed with a shaperone - about a quarter size L scrotal indurated region -ttp, no erythema 03/26/18 01:49 pt with a scrotal asbcess - case discussed with Dr. Reyna who will see the patient in consult case discussed with Dr. Leyva who accepts pt to service pt with a copd exacebration will admit for further eval 03/26/18 01:58 pt updated on ultrasound results agrees to stay for further eval feels better after nebulizer treatments <Leisa Gonsalez - Last Filed: 03/26/18 01:59> *DC/Admit/Observation/Transfer - Attestations Scribe Attestion: 03/26/18 00:12 Documentation prepared by Juanis Mckeon, acting as medical record administrator for Leisa Gonsalez DO <Juanis Mckeon - Last Filed: 03/26/18 01:44> - Discharge Dispostion Decision to Admit order: Yes - Attestations Physician Attestion: 03/26/18 01:50 I, Dr. Leisa Gonsalez DO, attest that this document has been prepared under my direction and personally reviewed by me in its entirety. I further attest, that it accurately reflects all work, treatment, procedures and medical decision -making performed by me. <Leisa Gonsalez - Last Filed: 03/26/18 01:59> Diagnosis at time of Disposition: COPD exacerbation, Scrotal abscess - Discharge Dispostion Condition at time of disposition: Fair - Referrals Referrals: Samuel Hu MD [Primary Care Provider] -
[2018-03-25] MEDS ORDERED: ALBUTEROL SO4 2.5/IPRATROPIUM 0.5 INH SOL 3 ML VIAL.NEB. NEB ONE (23:56)
[2018-03-26 00:24] LABS: VENOUS PC02 57.9 mmHg (38-52); VENOUS PH 7.35 (7.32-7.42); VENOUS PO2 64.6 mmHg (28-48)
[2018-03-26 00:25] LABS: HEMATOCRIT 52.3 % (35.4-49); HEMOGLOBIN 17.9 GM/dL (11.7-16.9); MCH 31.4 pg (25.7-33.7); MCHC 34.2 g/dl (32.0-35.9); NEUT % 72.2 % (42.8-82.8)
[2018-03-26 00:29] LABS: BASO % 0.9 % (0-2.0); EOS % 2.3 % (0-4.5); LYMPH % 15.7 % (8-40); MEAN CELL VOLUME 91.7 fl (80-96); MEAN PLT VOLUME 10.4 fl (7.5-11.1); MONO % 8.9 % (3.8-10.2); PLATELET COUNT 139 K/MM3 (134-434); RDW 14.3 % (11.9-15.9); WHITE BLOOD COUNT 11.4 K/mm3 (4.0-10.0)
[2018-03-26 00:49] LABS: ALBUMIN 3.1 g/dl (3.4-5.0); ALK PHOS 63 U/L (45-117); ANION GAP 4 MMOL/L (8-16); BILIRUBIN,TOTAL 0.4 mg/dL (0.2-1); BLOOD UREA NITROGEN 22 mg/dL (7-18); CALCIUM 8.1 mg/dL (8.5-10.1); CHLORIDE 103 mmol/L (98-107); CO2 31 mmol/L (21-32); CREATININE 1.2 mg/dL (0.55-1.3); POTASSIUM 4.4 mmol/L (3.5-5.1); SGOT/AST 24 U/L (15-37); SGPT/ALT 55 U/L (13-61); SODIUM 139 mmol/L (136-145); TOT PROT 5.8 g/dl (6.4-8.2)
[2018-03-26 00:51] LABS: GLUCOSE,RANDOM 391 mg/dL (74-106)
[2018-03-26] MEDS ORDERED: SODIUM CHLORIDE 0.9% 1000 ML INFUS.BAG IV ONE (01:18)
[2018-03-26] MEDS ORDERED: ACETAMINOPHEN 1000 MG/100 ML VIAL (NON FORMULARY) IVPB ONE (01:18)
[2018-03-26] MEDS ORDERED: ALBUTEROL SO4 2.5/IPRATROPIUM 0.5 INH SOL 3 ML VIAL.NEB. NEB ONE (01:38)
[2018-03-26] MEDS ORDERED: ACETAMINOPHEN INJECTION 100 ML IVPB ONE (01:38)
[2018-03-26] MEDS ORDERED: AZTREONAM 1 GM in DEXTROSE 5%-WATER - 50 ML IVPB ONE (01:47)
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
--- NOTE | 2018-03-26 03:13 | HP ---
CHIEF COMPLAINT: SOB PCP: Samuel Hu HISTORY OF PRESENT ILLNESS: 47 y/o M with PMHx of Diastolic CHF, HTN, DM, Erythrocytosis presents with SOB. Patient was recently discharged on 03/19 to [facility] from [facility] after being treated for a CHF Exacerbation. Since discharge patient has not followed up with the recommended outpatient physicians. Yesterday, Patient signed out of [facility] and [facility] the night in the jail. This afternoon while walker, patient experienced sudden onset of 10/10 midsternal chest pain that became diffuse over both left and right sides. The pain did not radiate to his jaw or arm but was accompanied by SOB and diaphoresis. Once patient sat down, the pain improved to a 2/10 and EMS arrived. Patient had not taken his home meds since signing out of [facility]. Patient is unable to identify any triggering factors but mentions improvement with breathing tx in the ED. Additionally, patient complains of 10/10, Sharp, R>L Medial ankle pain that radiates towards his mid-calf. This is the first time he has experienced this pain and it worsens with Plantarflexion. He is able to bare weight but complains of severe pain with ambulation. Patient is unable to identify any triggering factors and denies any recent trauma. He mentions a hx of fractures that were managed conservatively without surgery. Lastly, patient is having a stabbing pressure in his left groin area. He is unable to identify when it first started but mentions today the pain has increased significantly. Pain is described as a 10/10 stabbing pressure, without radiation, similar to Groin cysts he has had in the past. Denies any new sexual partners, dysuria or hematuria. Denies any recent fevers, chills, nausea, vomiting, diarrhea, constipation, palpitations. ER course was notable for: (1) Scrotal US, Urology consult (2) Светлана Reese (3) Recent Travel: Denies PAST MEDICAL HISTORY: Diastolic CHF, HTN, DM, Erythrocytosis PAST SURGICAL HISTORY: Denies Social History: Smokinppd since age 14, stopped about month ago, now few cigarrettes daily Alcohol: Denies Drugs: Denies Ambulation: Cane, walker Residence: Currently Homeless Family History: Denies Allergies Penicillins Allergy (Verified 03/13/18 23:58) Hives strawberry Allergy (Verified 03/13/18 23:58) HOME MEDICATIONS: Home Medications Medication Instructions Recorded Albuterol Sulfate Inhaler - 2 puff IH Q4H PRN inhaler 03/19/18 [Ventolin HFA Inhaler -] Budesonide/Formeterol Fumarate 2 puff IH BID inhaler 03/19/18 [SYMBICORT 160/4.5mcg -] Carvedilol [Coreg -] 6.25 mg PO BID tablet 03/19/18 Furosemide [Lasix -] 40 mg PO DAILY tablet 03/19/18 Lisinopril [Prinivil] 10 mg PO DAILY tablet 03/19/18 Nicotine Patch [Nicoderm Patch -] 21 mg TD DAILY patch 03/19/18 Nystatin Cream [Mycostatin Cream -] 1 applic TP BID applic 03/19/18 REVIEW OF SYSTEMS As per HPI PHYSICAL EXAMINATION Vital Signs - 24 hr 03/25/18 23:39 Temperature 98.9 F Pulse Rate 86 Respiratory 22 H Rate Blood Pressure 110/76 O2 Sat by Pulse 92 L Oximetry (%) GENERAL: A&Ox3, Mild distress, Diaphoretic HEAD: NCAT EYES: PERRL, EOMI, Conjunctival injection EARS, NOSE, THROAT: Oropharynx clear without exudates. Moist mucous membranes. NECK: No JVD LUNGS: Decreased bibasilar breath sounds, diffuse wheezes, no crackles. No accessory muscle use. HEART: Regular rate and rhythm, normal S1 and S2 without murmur ABDOMEN: Obese, Soft, Tender to palpation on the Right, not distended, + bowel sounds, no guarding, no rebound MUSCULOSKELETAL: B/L Medial ankle tenderness when plantarflexed, No point tenderness, No overlying erythema. No CVA tenderness. EXTREMITIES: 2+ pulses, Varicose veins in the b/l LE, 1+ edema. NEUROLOGICAL: Cranial nerves II-XII intact. Normal speech. L4-S1 Gross sensation intact. 4/5 muscle strength to Hip flexion, plantar flexion and dorsi flexion. Laboratory Results - last 24 hr 03/26/18 03/26/18 03/26/18 00:06 00:06 00:06 WBC 11.4 H RBC 5.70 H Hgb 17.9 H Hct 52.3 H MCV 91.7 MCH 31.4 MCHC 34.2 RDW 14.3 Plt Count 139 MPV 10.4 Absolute Neuts (auto) 8.2 H Neutrophils % 72.2 D Lymphocytes % 15.7 D Monocytes % 8.9 D Eosinophils % 2.3 D Basophils % 0.9 D Nucleated RBC % 0 VBG pH 7.35 POC VBG pCO2 57.9 H D POC VBG pO2 64.6 H D Mixed VBG HCO3 31.2 H Sodium 139 Potassium 4.4 Chloride 103 Carbon Dioxide 31 Anion Gap 4 L BUN 22 H Creatinine 1.2 Creat Clearance w eGFR > 60 Random Glucose 391 H* Calcium 8.1 L Magnesium Total Bilirubin 0.4 AST 24 ALT 55 Alkaline Phosphatase 63 Creatine Kinase 100 Troponin I 0.03 B-Natriuretic Peptide Total Protein 5.8 L Albumin 3.1 L 03/26/18 03/26/18 00:06 00:06 WBC RBC Hgb Hct MCV MCH MCHC RDW Plt Count MPV Absolute Neuts (auto) Neutrophils % Lymphocytes % Monocytes % Eosinophils % Basophils % Nucleated RBC % VBG pH POC VBG pCO2 POC VBG pO2 Mixed VBG HCO3 Sodium Potassium Chloride Carbon Dioxide Anion Gap BUN Creatinine Creat Clearance w eGFR Random Glucose Calcium Magnesium 1.9 Total Bilirubin AST ALT Alkaline Phosphatase Creatine Kinase Troponin I B-Natriuretic Peptide 162.7 H Total Protein Albumin ASSESSMENT/PLAN: 47 y/o M with PMHx of Diastolic CHF, HTN, DM, Erythrocytosis presents with SOB. #SOB likely due to Mild COPD Exacerbation -Patient continues to smoke daily, has not had outpatient PFTs or Sleep study since last D/C -Saturating well on RA today -Chest CT 03/14 reveals Mild chronic lung disease with right lung nodularity, No acute pathology -CXR Today does not reveal an infiltrate or effusions, pending official read -VBG reveals normal pH and chronic respiratory acidosis with metabolic compensation -Albuterol PRN, Symbicort Daily #Stable Angina -EKG NSR, No BESSY/STD, VR 70, QTc 460; Repeat EKG -Trop 0.03, Trend Trops -BNP 162.7 -Lipids, A1c, TSH were done last visit -ASA daily, Restart home dose Lasix, Carvedilol, Lisinopril -Consider Cardiology for possible stress test #R Ankle Pain -CRP, ESR Pending -R Ankle XRay ordered -Physical therapy requested #?Scrotal Abscess -Scrotal US: 1.5x1.4x0.9cm heterogeneous hypoechoic focus that may represent a small abscess -Urology (Dr. Reyna) consulted by ED -Aztreonam 1gm given in ED -Started on Ceftriaxone and Doxycycline until urology consult -Benadryl to be given prior to ceftriaxone -Gonorrhoea, Chlamydia lab test ordered #IDDM -Novolog 6 units now -ISS BGMs ACHS #Hx of Diastolic CHF -Echo 03/14 reveals LVEF 60-65%, No regional wall motion abnormalities, Diastolic dysfunction grade 2, Mild TR -I&Os, Daily weights -Continue home meds, will need med-rec #HTN -Normotensive, Continue home meds #Erythrocytosis -Likely due to smoking -Continue to monitor, will need outpatient follow up with hematology #FEN -PO Fluids -Lytes WNL -Diabetic, Low sodium, Low cholesterol diet #PPx -DVT: Lovenox Dispo: Obs, will need med-rec Visit type - Emergency Visit Emergency Visit: Yes ED Registration Date: 03/26/18 Care time: The patient presented to the Emergency Department on the above date and was hospitalized for further evaluation of their emergent condition. - New Patient This patient is new to me today: Yes Date on this admission: 03/28/18 - Critical Care Critical Care patient: No
[2018-03-26] MEDS ORDERED: ALBUTEROL SO4 0.083% IH SOL 2.5 MG/3 ML VIAL.NEB. NEB PRN (03:48)
[2018-03-26] MEDS ORDERED: INSULIN (NOVOLOG) ASPART 100 UNITS/ML 10ML VIAL SQ ONE (03:50)
[2018-03-26] MEDS ORDERED: GABAPENTIN 100 MG CAPSULE (FP) PO ONE (03:51)
[2018-03-26] MEDS ORDERED: diphenhydrAMINE HCL 25 MG CAPSULE (FP) PO PRN (06:10)
[2018-03-26] MEDS: INSULIN SLIDING SCALE (NOVOLOG) 1 VIAL SQ SCH ×4 (06:45→22:58)
[2018-03-26 08:16] VITALS: BMI 39.2
[2018-03-26 09:18] LABS: BASO % 0.7 % (0-2.0); EOS % 2.7 % (0-4.5); HEMATOCRIT 54.8 % (35.4-49); HEMOGLOBIN 17.7 GM/dL (11.7-16.9); LYMPH % 18.4 % (8-40); MCH 30.2 pg (25.7-33.7); MCHC 32.3 g/dl (32.0-35.9); MEAN CELL VOLUME 93.5 fl (80-96); MEAN PLT VOLUME 9.7 fl (7.5-11.1); MONO % 8.5 % (3.8-10.2); NEUT % 69.7 % (42.8-82.8); PLATELET COUNT 105 K/MM3 (134-434); RBC 5.86 M/mm3 (4.00-5.60); RDW 14.2 % (11.9-15.9)
--- NOTE | 2018-03-26 09:40 | EKG ---
Test Reason : Blood Pressure : / mmHG Vent. Rate : 070 BPM Atrial Rate : 070 BPM P-R Int : 132 ms QRS Dur : 112 ms QT Int : 426 ms P-R-T Axes : 021 079 016 degrees QTc Int : 460 ms NORMAL SINUS RHYTHM T WAVE ABNORMALITY, CONSIDER ANTERIOR ISCHEMIA PROLONGED QT ABNORMAL ECG WHEN COMPARED WITH ECG OF 13-MAR-2018 22:16, LEFT POSTERIOR FASCICULAR BLOCK IS NO LONGER PRESENT ST NO LONGER DEPRESSED IN INFERIOR LEADS T WAVE INVERSION NO LONGER EVIDENT IN INFERIOR LEADS Confirmed by JENNIFER BLANTON, ANA ([id number]) on 03/26/2018 9:40:07 AM Referred By: Confirmed By:ANA RODRIGUEZ MD
[2018-03-26 09:57] LABS: ALBUMIN 3.2 g/dl (3.4-5.0); ALK PHOS 58 U/L (45-117); ANION GAP 6 MMOL/L (8-16); BILIRUBIN,TOTAL 0.4 mg/dL (0.2-1); BLOOD UREA NITROGEN 15 mg/dL (7-18); CALCIUM 8.1 mg/dL (8.5-10.1); CHLORIDE 109 mmol/L (98-107); CO2 29 mmol/L (21-32); CREATININE 0.8 mg/dL (0.55-1.3); GLUCOSE,RANDOM 190 mg/dL (74-106); MAGNESIUM 2.1 mg/dL (1.8-2.4); PHOSPHOROUS 3.6 mg/dL (2.5-4.9); POTASSIUM 4.2 mmol/L (3.5-5.1); PREALBUMIN 29.8 mg/dl (20-40); SGOT/AST 15 U/L (15-37); SGPT/ALT 49 U/L (13-61); SODIUM 144 mmol/L (136-145); TOT PROT 5.7 g/dl (6.4-8.2)
[2018-03-26] MEDS ORDERED: CEFTRIAXONE 1 GM in DEXTROSE 5%-WATER - 50 ML IVPB SCH (10:00)
[2018-03-26] MEDS ORDERED: DOXYCYCLINE INJECTION 100 MG in DEXTROSE 5%-WATER - 100 ML IVPB SCH (10:00)
[2018-03-26] MEDS ORDERED: DEXTROSE 5%-WATER - 50 ML IVPB ONE (10:48)
[2018-03-26] MEDS ORDERED: cefTRIAXone SODIUM 1 GM VIAL ONE (10:48)
[2018-03-26] MEDS: ENOXAPARIN NA (PORCINE) 40 MG/0.4 ML DISP.SYRIN SQ SCH (11:05)
[2018-03-26] MEDS: LISINOPRIL 10 MG TABLET (FP) PO SCH (11:05)
[2018-03-26] MEDS: CARVEDILOL 6.25 MG TABLET (FP) PO SCH ×2 (11:05→22:55)
[2018-03-26] MEDS: FUROSEMIDE 40 MG TABLET (FP) PO SCH (11:05)
[2018-03-26] MEDS: ASPIRIN COATED 81 MG TABLET.EC PO SCH (11:05)
[2018-03-26 11:44] LABS: ERYTHROCYTE SEDIMENTATION RATE 2 mm/hr (0-10)
[2018-03-26] MEDS: BUDESONIDE/FORMETEROL FUMARATE 160/4.5 mcg INHALER IH SCH ×2 (12:17→22:59)
--- NOTE | 2018-03-26 13:10 | PN ---
Physical Exam: SUBJECTIVE: Patient seen and examined at bedside. No acute events overnight. Denies chest pain, but has mild ankle pain. No other complaints. OBJECTIVE: Vital Signs Temperature 97.9 F 03/26/18 11:01 Pulse Rate 75 03/26/18 11:01 Respiratory Rate 19 03/26/18 11:01 Blood Pressure 140/77 03/26/18 11:01 O2 Sat by Pulse Oximetry (%) 98 03/26/18 08:24 GENERAL: A&Ox3, Mild distress, Diaphoretic HEAD: NCAT EYES: PERRL, EOMI, Conjunctival injection EARS, NOSE, THROAT: Oropharynx clear without exudates. Moist mucous membranes. NECK: No JVD LUNGS: Decreased bibasilar breath sounds, diffuse wheezes, no crackles. No accessory muscle use. HEART: Regular rate and rhythm, normal S1 and S2 without murmur ABDOMEN: Obese, Soft, Tender to palpation on the Right, not distended, + bowel sounds, no guarding, no rebound MUSCULOSKELETAL: B/L Medial ankle tenderness when plantarflexed, No point tenderness, No overlying erythema. No CVA tenderness. EXTREMITIES: 2+ pulses, Varicose veins in the b/l LE, 1+ edema. NEUROLOGICAL: Cranial nerves II-XII intact. Normal speech. L4-S1 Gross sensation intact. 4/5 muscle strength to Hip flexion, plantar flexion and dorsi flexion. CBCD WBC 9.0 K/mm3 (4.0-10.0) 03/26/18 08:50 RBC 5.86 M/mm3 (4.00-5.60) H 03/26/18 08:50 Hgb 17.7 GM/dL (11.7-16.9) H 03/26/18 08:50 Hct 54.8 % (35.4-49) H 03/26/18 08:50 MCV 93.5 fl (80-96) 03/26/18 08:50 MCHC 32.3 g/dl (32.0-35.9) 03/26/18 08:50 RDW 14.2 % (11.9-15.9) 03/26/18 08:50 Plt Count 105 K/MM3 (134-434) L D 03/26/18 08:50 MPV 9.7 fl (7.5-11.1) 03/26/18 08:50 CMP Sodium 144 mmol/L (136-145) 03/26/18 08:50 Potassium 4.2 mmol/L (3.5-5.1) 03/26/18 08:50 Chloride 109 mmol/L (98-107) H 03/26/18 08:50 Carbon Dioxide 29 mmol/L (21-32) 03/26/18 08:50 Anion Gap 6 MMOL/L (8-16) L 03/26/18 08:50 BUN 15 mg/dL (7-18) 03/26/18 08:50 Creatinine 0.8 mg/dL (0.55-1.3) 03/26/18 08:50 Creat Clearance w eGFR > 60 (>60) 03/26/18 08:50 Calcium 8.1 mg/dL (8.5-10.1) L 03/26/18 08:50 Total Bilirubin 0.4 mg/dL (0.2-1) 03/26/18 08:50 AST 15 U/L (15-37) 03/26/18 08:50 ALT 49 U/L (13-61) 03/26/18 08:50 Alkaline Phosphatase 58 U/L (45-117) 03/26/18 08:50 Total Protein 5.7 g/dl (6.4-8.2) L 03/26/18 08:50 Albumin 3.2 g/dl (3.4-5.0) L 03/26/18 08:50 Active Medications Albuterol Sulfate (Ventolin 0.083% Nebulizer Soln -) 1 amp NEB Q4H PRN PRN Reason: SHORT OF BREATH/WHEEZING Aspirin (Ecotrin -) 81 mg PO DAILY [facility] Last Admin: 03/26/18 11:05 Dose: 81 mg Budesonide/Formoterol Fumarate (Symbicort 160/4.5mcg -) 2 puff IH BID [facility] Last Admin: 03/26/18 12:17 Dose: Not Given Carvedilol (Coreg -) 6.25 mg PO BID [facility] Last Admin: 03/26/18 11:05 Dose: 6.25 mg Enoxaparin Sodium (Lovenox -) 40 mg SQ DAILY [facility] Last Admin: 03/26/18 11:05 Dose: 40 mg Furosemide (Lasix -) 40 mg PO DAILY [facility] Last Admin: 03/26/18 11:05 Dose: 40 mg Gabapentin (Neurontin -) 300 mg PO HS CONY Ceftriaxone Sodium 1 gm/ (Dextrose) 50 mls @ 100 mls/hr IVPB DAILY [facility]; Protocol Last Admin: 03/26/18 11:10 Dose: 100 mls/hr Doxycycline Hyclate 100 mg/ (Dextrose) 100 mls @ 50 mls/hr IVPB BID [facility] Last Admin: 03/26/18 11:10 Dose: 50 mls/hr Insulin Aspart (Novolog Vial Sliding Scale -) 1 vial SQ ACHS [facility]; Protocol Last Admin: 03/26/18 12:17 Dose: 2 units Lisinopril (Prinivil) 10 mg PO DAILY [facility] Last Admin: 03/26/18 11:05 Dose: 10 mg ASSESSMENT/PLAN: 47 y/o M with PMHx of Diastolic CHF, HTN, DM, Erythrocytosis presents with SOB. #L scrotal abscess; tender, but not cellulitic, no warmth or visible drainage -Uro consult ordered -Per ID, await recs for abx tx -GC pending #Hx of CHF w/ preserved EF Cont home meds: -Lasix 40 mg PO QD -Coreg 6.25 mg PO BID #Chest pain -Pt recently discharged to [facility], but left AMA; likely noncompliant with meds. -Chest CT 03/14 reveals Mild chronic lung disease with right lung nodularity, No acute pathology -CXR noted; no infiltrate or effusions, pending official read -Albuterol PRN, Symbicort Daily #Stable Angina -EKG NSR, No BESSY/STD, VR 70, QTc 460 -Trops neg x2 -BNP 162.7 -Lipids, A1c, TSH were done last visit -ASA daily, Restart home dose Lasix, Carvedilol, Lisinopril -Consider Cardiology for possible stress test #R Ankle Pain -CRP, ESR Pending -R Ankle XRay showed no acute pathology -Physical therapy #IDDM -Novolog 6 units now -ISS BGMs ACHS #HTN -Normotensive, Continue home meds #Erythrocytosis -Likely due to smoking -Continue to monitor, will need outpatient follow up with hematology #FEN -PO Fluids -Lytes WNL -Diabetic, Low sodium, Low cholesterol diet #PPx -DVT: Lovenox Dispo -cont to monitor on obs -medications reconciled Visit type - Emergency Visit Emergency Visit: Yes ED Registration Date: 03/26/18 Care time: The patient presented to the Emergency Department on the above date and was hospitalized for further evaluation of their emergent condition. - New Patient This patient is new to me today: Yes Date on this admission: 03/26/18 - Critical Care Critical Care patient: No
[2018-03-26 13:20] LABS: URINE APPEARANCE CLEAR; URINE BILIRUBIN NEGATIVE (<2.0 mg/dL); URINE COLOR YELLOW; URINE GLUCOSE (UA) 2+ (NEGATIVE); URINE KETONE NEGATIVE (NEGATIVE); URINE LEUK ESTERASE NEGATIVE (NEGATIVE); URINE NITRITE NEGATIVE (NEGATIVE); URINE PROTEIN 1+ (NEGATIVE)
[2018-03-26 13:43] LABS: URINE MUCUS RARE
--- NOTE | 2018-03-26 14:39 | PN ---
Teaching Attending Note Name of Resident: Luzmaria Galvin ATTENDING PHYSICIAN STATEMENT I saw and evaluated the patient. I reviewed the resident's note and discussed the case with the resident. I agree with the resident's findings and plan as documented. SUBJECTIVE: No fever or chills. No CP or SOB. denies CP . has pain in L scrotal area. no dysuria, no urethral discharge. No h/o STD s. reports a history of a skin abscesses in genital area and anal areas in past ( 20 years ago) OBJECTIVE: NAD Cv: RRR, no MRG Lungs: CTAB Ext : varicose veins. no edema. TTP over R medial malleolus . no erythema, no edema around ankles. : NL testicles, no tenderness of epididymis . nl skin over the scrotum. 2 cm tender area anteriorly superior to the L scrotum , slight increased warmth no lymphadenopathy in L groin . no discharge from penis Assessment/Plan: 47 y/o man with h/o diastolic CHF, and DM who presented with ankle pain, CP, and L scrotal pain after leaving rehab AMA 1- L scrotal abscess: US reviewed. no signs of sepsis . UA with no signs of UTI. - GC testing pending - urology consult pending - ID consult for Abx . ceftriaxone and doxy for now 2- H/o diastolic CHF: not in exacerbation . last echo reviewed. - resume home lasix, and BB 3- HTN: resume lisinopril 4- CP: EKG with TWI in anterior lead, and improved compared to previous EKG. Nl trop. no more CP . fu with card as out pt 5- b/l ankle pain : possibly due to OA . no signs of infection or inflammation . he declined tylenol and ibuprofen. monitor 6- Dispo : HLOC
--- NOTE | 2018-03-26 14:49 | CON.GU ---
Consult Consult Specialty:: Referred by:: medicine Reason for Consultation:: sabaceous scrotal cyst - History of Present Illness Chief Complaint: sabaceous scrotal cyst History of Present Illness: 47 year old male who is admitted for unrelated reasons. He told the ER staff that he has a recurrent sabaceous cyst in his perineum. He has no other urinary complaints. - History Source History Provided By: Patient Limitations to Obtaining History: No Limitations - Alcohol/Substance Use Hx Alcohol Use: No - Smoking History Smoking history: Former smoker Have you smoked in the past 12 months: Yes Home Medications - Allergies Allergies/Adverse Reactions: Allergies Allergy/AdvReac Type Severity Reaction Status Date / Time Penicillins Allergy Hives Verified 03/13/18 23:58 strawberry Allergy Verified 03/13/18 23:58 - Home Medications Home Medications: Ambulatory Orders Albuterol Sulfate Inhaler - [Ventolin HFA Inhaler -] 2 puff IH Q4H PRN inhaler 03/19/18 Budesonide/Formeterol Fumarate [SYMBICORT 160/4.5mcg -] 2 puff IH BID inhaler 03/19/18 Carvedilol [Coreg -] 6.25 mg PO BID tablet 03/19/18 Furosemide [Lasix -] 40 mg PO DAILY tablet 03/19/18 Lisinopril [Prinivil] 10 mg PO DAILY tablet 03/19/18 Nicotine Patch [Nicoderm Patch -] 21 mg TD DAILY patch 03/19/18 Nystatin Cream [Mycostatin Cream -] 1 applic TP BID applic 03/19/18 Review of Systems - Review of Systems Gastrointestinal: reports: Other (perineum sabaceous cyst) Physical Exam- Vital Signs: Vital Signs Temperature 97.9 F 03/26/18 11:01 Pulse Rate 75 03/26/18 11:01 Respiratory Rate 19 03/26/18 11:01 Blood Pressure 140/77 03/26/18 11:01 O2 Sat by Pulse Oximetry (%) 98 03/26/18 08:24 Renal/: Yes: Other (perineum sabaceous cyst) Labs: CBC, BMP 03/26/18 08:50 03/26/18 08:50 Problem List - Problems (1) Sebaceous cyst Code(s): L72.3 - SEBACEOUS CYST
--- NOTE | 2018-03-26 15:19 | PN ---
Progress Note (short form) - Note Progress Note: ID consult dictated imp/reccd d/w urology ?infected sebaceous cyst left scrotum- but no real erythema or warmth pharyngitis- exudates/vesicles noted pen allergy culture for strep throat pen allergy not sexually active doubt this is std warm compresses can switch to po clindamycin 300 tid to complete total 10 days now day #1 d/w hospitalist please call back if needed Problem List - Problems (1) Infected sebaceous cyst Code(s): L72.3 - SEBACEOUS CYST; L08.9 - LOCAL INFECTION OF THE SKIN AND SUBCUTANEOUS TISSUE, UNSP (2) Pharyngitis Code(s): J02.9 - ACUTE PHARYNGITIS, UNSPECIFIED (3) Penicillin allergy Code(s): Z88.0 - ALLERGY STATUS TO PENICILLIN
--- NOTE | 2018-03-26 15:32 | PN ---
Physical Exam: SUBJECTIVE: Patient seen and examined OBJECTIVE: Vital Signs GENERAL: The patient is awake, alert, and fully oriented, in no acute distress. HEAD: Normal with no signs of trauma. EYES: PERRL, extraocular movements intact, sclera anicteric, conjunctiva clear. No ptosis. ENT: Ears normal, nares patent, oropharynx clear without exudates, moist mucous membranes. NECK: Trachea midline, full range of motion, supple. LUNGS: Breath sounds equal, clear to auscultation bilaterally, no wheezes, no crackles, no accessory muscle use. HEART: Regular rate and rhythm, S1, S2 without murmur, rub or gallop. ABDOMEN: Soft, nontender, nondistended, normoactive bowel sounds, no guarding, no rebound, no hepatosplenomegaly, no masses. EXTREMITIES: 2+ pulses, warm, well-perfused, no edema. NEUROLOGICAL: Cranial nerves II through XII grossly intact. Normal speech, gait not observed. PSYCH: Normal mood, normal affect. SKIN: Warm, dry, normal turgor, no rashes or lesions noted CBCD WBC 9.0 K/mm3 (4.0-10.0) 03/26/18 08:50 RBC 5.86 M/mm3 (4.00-5.60) H 03/26/18 08:50 Hgb 17.7 GM/dL (11.7-16.9) H 03/26/18 08:50 Hct 54.8 % (35.4-49) H 03/26/18 08:50 MCV 93.5 fl (80-96) 03/26/18 08:50 MCHC 32.3 g/dl (32.0-35.9) 03/26/18 08:50 RDW 14.2 % (11.9-15.9) 03/26/18 08:50 Plt Count 105 K/MM3 (134-434) L D 03/26/18 08:50 MPV 9.7 fl (7.5-11.1) 03/26/18 08:50 CMP Sodium 144 mmol/L (136-145) 03/26/18 08:50 Potassium 4.2 mmol/L (3.5-5.1) 03/26/18 08:50 Chloride 109 mmol/L (98-107) H 03/26/18 08:50 Carbon Dioxide 29 mmol/L (21-32) 03/26/18 08:50 Anion Gap 6 MMOL/L (8-16) L 03/26/18 08:50 BUN 15 mg/dL (7-18) 03/26/18 08:50 Creatinine 0.8 mg/dL (0.55-1.3) 03/26/18 08:50 Creat Clearance w eGFR > 60 (>60) 03/26/18 08:50 Calcium 8.1 mg/dL (8.5-10.1) L 03/26/18 08:50 Total Bilirubin 0.4 mg/dL (0.2-1) 03/26/18 08:50 AST 15 U/L (15-37) 03/26/18 08:50 ALT 49 U/L (13-61) 03/26/18 08:50 Alkaline Phosphatase 58 U/L (45-117) 03/26/18 08:50 Total Protein 5.7 g/dl (6.4-8.2) L 03/26/18 08:50 Albumin 3.2 g/dl (3.4-5.0) L 03/26/18 08:50 Active Medications Generic Name Dose Route Start Last Admin Trade Name Freq PRN Reason Stop Dose Admin Albuterol Sulfate 1 amp 03/26/18 03:48 Ventolin 0.083% Nebulizer Soln - NEB Q4H PRN SHORT OF BREATH/WHEEZING Aspirin 81 mg 03/26/18 10:00 03/26/18 11:05 Ecotrin - PO 81 mg DAILY CONY Administration Budesonide/Formoterol Fumarate 2 puff 03/26/18 10:00 03/26/18 12:17 Symbicort 160/4.5mcg - IH Not Given BID CONY Carvedilol 6.25 mg 03/26/18 10:00 03/26/18 11:05 Coreg - PO 6.25 mg BID CONY Administration Enoxaparin Sodium 40 mg 03/26/18 10:00 03/26/18 11:05 Lovenox - SQ 40 mg DAILY [facility]Y Administration Furosemide 40 mg 03/26/18 10:00 03/26/18 11:05 Lasix - PO 40 mg DAILY [facility]Y Administration Gabapentin 300 mg 03/26/18 22:00 Neurontin - PO HS CONY Ceftriaxone Sodium 1 gm/ 50 mls @ 100 mls/hr 03/26/18 10:00 03/26/18 11:10 Dextrose IVPB 100 mls/hr DAILY [facility]Y Administration Protocol Doxycycline Hyclate 100 mg/ 100 mls @ 50 mls/hr 03/26/18 10:00 03/26/18 11:10 Dextrose IVPB 50 mls/hr BID CONY Administration Insulin Aspart 1 vial 03/26/18 07:00 03/26/18 12:17 Novolog Vial Sliding Scale - SQ 2 units ACHS [facility]Y Administration Protocol Lisinopril 10 mg 03/26/18 10:00 03/26/18 11:05 Prinivil PO 10 mg DAILY [facility]Y Administration ASSESSMENT/PLAN:
--- NOTE | 2018-03-26 16:05 | CONS ---
INFECTIOUS DISEASE CONSULTATION DATE OF CONSULTATION: 03/26/2018 REQUESTING PHYSICIAN: Hospitalist service. This is a 47-year-old man who was recently hospitalized from the to the 19 of March with worsening shortness of breath and lower extremity edema. He was found to have congestive heart failure. He was seen by Cardiology and Pulmonary and felt to have COPD as well. He was discharged to a senior care where he left, and he comes back to the hospital on the with complaints of chest pain, shortness of breath. He incidentally notes that he has a small scrotal mass. He has had them before, and they have spontaneously drained. He has no fevers or chills. He is not sexually active. He has no dysuria or hematuria. He received a dose of Azactam in the emergency room. This morning, got ceftriaxone and doxycycline. PAST MEDICAL HISTORY: Notable for heart failure, COPD, hypertension, diabetes, erythrocytosis. SURGICAL HISTORY: Negative. FAMILY HISTORY: Unremarkable. ALLERGIES: He is allergic to PENICILLIN and STRAWBERRIES. SOCIAL HISTORY: He is a cigarette smoker. No history of alcohol or substance use. He is currently homeless. MEDICATIONS: His medications at the time of his last discharge were albuterol, Symbicort, Coreg, Lasix, Prinivil, and Mycostatin cream. He was not taking medications at the time of admission. REVIEW OF SYSTEMS: He notes he has had these sores before, and they usually spontaneously drain. He complains of sore throat. PHYSICAL EXAMINATION: General: He is awake and alert. Vital Signs: Temperature is 98. Pulse is 70, blood pressure 149/76, respiratory rate 22. He is saturating 98% on room air. HEENT: He is normocephalic. His eyes are anicteric. His pharynx: Both his tonsils, he has exudative, vesicular lesions. Neck: Supple. He has no adenopathy. Lungs: Clear to auscultation. Heart: Regular rate and rhythm. Abdomen: Soft, nontender. Genitalia: He has a 2-cm soft mass in his left scrotum. Extremities: Without edema. White count is 9. Hemoglobin is 17.7. Platelets are 105. His BUN is 15 and creatinine 0.8. LFTs are normal. Urinalysis is negative. He was seen by Urology who feels this is most likely a sebaceous cyst. He had a scrotal ultrasound done as well which was notable for a normal testicular exam and a possible small subcutaneous abscess in the left hemiscrotum. In summary, this is a 47-year-old man with possibly an infected sebaceous cyst, left scrotum, but there is no real warmth or erythema associated with this. He does have some mild discomfort when examined. As well, he has evidence of pharyngitis, but has been started on antibiotics already. Could be viral, but would need to rule out strep. He is PENICILLIN allergic, but tolerating his current antibiotics. He is not sexually active. I doubt this is a STD. I would suggest warm compresses. Can switch to oral clindamycin 300 t.i.d. to complete total of 10 days. This would treat both the possibility of an infected sebaceous cyst. It would cover MRSA as well as routine staph and strep as most likely this is a skin-related problem and there is no evidence that this is actually a scrotal issue, as well as group A strep pharyngitis in a PENICILLIN allergic patient. This was discussed with the hospitalist. Please call back if needed. DAVID MORRISSEY M.D. [id number]
[2018-03-26] MEDS ORDERED: PT OWN MED DRAWER 7, Y5N ONE (22:54)
[2018-03-26] MEDS: CLINDAMYCIN HCL 150 MG CAPSULE (FP) PO SCH (22:55)
[2018-03-26] MEDS: GABAPENTIN 300 MG CAPSULE (FP) PO SCH (22:55)
[2018-03-27] MEDS: CLINDAMYCIN HCL 150 MG CAPSULE (FP) PO SCH ×3 (06:31→21:43)
[2018-03-27] MEDS: INSULIN SLIDING SCALE (NOVOLOG) 1 VIAL SQ SCH ×4 (06:31→22:31)
[2018-03-27] MEDS ORDERED: PT OWN MED DRAWER 7, Y5N ONE ×2 (07:14→09:26)
[2018-03-27] MEDS: CARVEDILOL 6.25 MG TABLET (FP) PO SCH ×2 (09:29→22:31)
[2018-03-27] MEDS: ASPIRIN COATED 81 MG TABLET.EC PO SCH (09:29)
[2018-03-27] MEDS: FUROSEMIDE 40 MG TABLET (FP) PO SCH (09:29)
[2018-03-27] MEDS: LISINOPRIL 10 MG TABLET (FP) PO SCH (09:29)
[2018-03-27] MEDS: ENOXAPARIN NA (PORCINE) 40 MG/0.4 ML DISP.SYRIN SQ SCH (09:29)
[2018-03-27] MEDS: BUDESONIDE/FORMETEROL FUMARATE 160/4.5 mcg INHALER IH SCH (09:29)
--- NOTE | 2018-03-27 11:21 | PN ---
Teaching Attending Note Name of Resident: Lizz Damon ATTENDING PHYSICIAN STATEMENT I saw and evaluated the patient. I reviewed the resident's note and discussed the case with the resident. I agree with the resident's findings and plan as documented. SUBJECTIVE: no fever or chills. no abd pain, no CP , no OSB. slept well. pain in L groin improved OBJECTIVE: NAD . oropharynx with erythema and exudate . Cv: RRR, no MRG Lungs: CTAB Ext : varicose veins. no edema. TTP over R medial malleolus . no erythema, no edema around ankles. : 1 cm tender area anteriorly superior to the L scrotum , ( size decreased compared to yesterday ) no lymphadenopathy in L groin . no discharge from penis Assessment/Plan: 47 y/o man with h/o diastolic CHF, and DM who presented with ankle pain, CP, and L scrotal pain after leaving rehab AMA 1- Infected L inguinal sebaceous cyst: - improved. size decreased. - cont clinda - GC testing pending - appreciate uro and ID help 2- H/o diastolic CHF: not in exacerbation . - cont lasix, and BB 3- Pharyngitis: cont clinda . day 210 4- CP: EKG with TWI in anterior lead, and improved compared to previous EKG. Nl trop. no more CP . fu with card as out pt 5- HTN: cont lisinopril 6- b/l ankle pain : possibly due to OA . no signs of infection or inflammation . 6- Dispo : pending dc to [facility]. SW was updated yesterday
--- NOTE | 2018-03-27 12:10 | PN ---
Physical Exam: SUBJECTIVE: Patient seen and examined OBJECTIVE: Vital Signs Temperature 98.6 F 03/27/18 06:00 Pulse Rate 70 03/27/18 10:01 Respiratory Rate 20 03/27/18 06:00 Blood Pressure 158/84 03/27/18 06:00 O2 Sat by Pulse Oximetry (%) 94 L 03/27/18 10:01 GENERAL: The patient is awake, alert, and fully oriented, in no acute distress. HEAD: Normal with no signs of trauma. EYES: PERRL, extraocular movements intact, sclera anicteric, conjunctiva clear. No ptosis. ENT: Ears normal, nares patent, oropharynx clear without exudates, moist mucous membranes. NECK: Trachea midline, full range of motion, supple. LUNGS: Breath sounds equal, clear to auscultation bilaterally, no wheezes, no crackles, no accessory muscle use. HEART: Regular rate and rhythm, S1, S2 without murmur, rub or gallop. ABDOMEN: Soft, nontender, nondistended, normoactive bowel sounds, no guarding, no rebound, no hepatosplenomegaly, no masses. EXTREMITIES: 2+ pulses, warm, well-perfused, no edema. NEUROLOGICAL: Cranial nerves II through XII grossly intact. Normal speech, gait not observed. PSYCH: Normal mood, normal affect. SKIN: Warm, dry, normal turgor, no rashes or lesions noted CBCD WBC 9.0 K/mm3 (4.0-10.0) 03/26/18 08:50 RBC 5.86 M/mm3 (4.00-5.60) H 03/26/18 08:50 Hgb 17.7 GM/dL (11.7-16.9) H 03/26/18 08:50 Hct 54.8 % (35.4-49) H 03/26/18 08:50 MCV 93.5 fl (80-96) 03/26/18 08:50 MCHC 32.3 g/dl (32.0-35.9) 03/26/18 08:50 RDW 14.2 % (11.9-15.9) 03/26/18 08:50 Plt Count 105 K/MM3 (134-434) L D 03/26/18 08:50 MPV 9.7 fl (7.5-11.1) 03/26/18 08:50 CMP Sodium 144 mmol/L (136-145) 03/26/18 08:50 Potassium 4.2 mmol/L (3.5-5.1) 03/26/18 08:50 Chloride 109 mmol/L (98-107) H 03/26/18 08:50 Carbon Dioxide 29 mmol/L (21-32) 03/26/18 08:50 Anion Gap 6 MMOL/L (8-16) L 03/26/18 08:50 BUN 15 mg/dL (7-18) 03/26/18 08:50 Creatinine 0.8 mg/dL (0.55-1.3) 03/26/18 08:50 Creat Clearance w eGFR > 60 (>60) 03/26/18 08:50 Calcium 8.1 mg/dL (8.5-10.1) L 03/26/18 08:50 Total Bilirubin 0.4 mg/dL (0.2-1) 03/26/18 08:50 AST 15 U/L (15-37) 03/26/18 08:50 ALT 49 U/L (13-61) 03/26/18 08:50 Alkaline Phosphatase 58 U/L (45-117) 03/26/18 08:50 Total Protein 5.7 g/dl (6.4-8.2) L 03/26/18 08:50 Albumin 3.2 g/dl (3.4-5.0) L 03/26/18 08:50 Active Medications Albuterol Sulfate (Ventolin 0.083% Nebulizer Soln -) 1 amp NEB Q4H PRN PRN Reason: SHORT OF BREATH/WHEEZING Last Admin: 03/26/18 21:20 Dose: 1 amp Aspirin (Ecotrin -) 81 mg PO DAILY [facility] Last Admin: 03/27/18 09:29 Dose: 81 mg Budesonide/Formoterol Fumarate (Symbicort 160/4.5mcg -) 2 puff IH BID [facility] Last Admin: 03/27/18 09:29 Dose: Not Given Carvedilol (Coreg -) 6.25 mg PO BID [facility] Last Admin: 03/27/18 09:29 Dose: 6.25 mg Clindamycin HCl (Cleocin -) 300 mg PO TID [facility] Last Admin: 12/29/18 06:31 Dose: 300 mg Enoxaparin Sodium (Lovenox -) 40 mg SQ DAILY [facility] Last Admin: 03/27/18 09:29 Dose: 40 mg Furosemide (Lasix -) 40 mg PO DAILY [facility] Last Admin: 03/27/18 09:29 Dose: 40 mg Gabapentin (Neurontin -) 300 mg PO HS [facility] Last Admin: 03/26/18 22:55 Dose: 300 mg Insulin Aspart (Novolog Vial Sliding Scale -) 1 vial SQ [facility]; Protocol Last Admin: 03/27/18 11:46 Dose: Not Given Lisinopril (Prinivil) 10 mg PO DAILY [facility] Last Admin: 03/27/18 09:29 Dose: 10 mg IMAGING: * Scrotal U/S: Normal; no evidence of torsion or acute pathology. Possible small SQ abscess L hemiscrotum * CXR: Some mild central congestive changes as before. * L foot xray: No sign of fx or subluxation. ASSESSMENT/PLAN: 47 y/o M with PMHx of Diastolic CHF, HTN, DM, Erythrocytosis presents with SOB. #L scrotal abscess; tender, but not cellulitic, no warmth or visible drainag, improving today; likely infected sebaceous cyst -Per ID, Clindamycin 300 mg PO TID x14 days (started 03/26) -Per uro, no intervention needed at this time -GC pending #Hx of CHF w/ preserved EF; stable, no exacerbation. Cont home meds: -Lasix 40 mg PO QD -Coreg 6.25 mg PO BID #Pharyngitis. Improved -Rapid strep neg -Cont Clinda #Chest pain; Resolved. Likely 2/2 stable angina -Trops neg x2, EKG showed TWI in anterior lead -Needs cardio outpatient f/u Cont home meds: -Lasix 40 mg PO QD -Coreg 6.25 mg PO BID -Lisinopril 10 mg PO QD -Aspirin 81 mg PO QD #R Ankle Pain; improved today. No signs of infection or swelling. -R Ankle XRay showed no acute pathology -PT #IDDM -ISS BGMs ACHS #HTN -Normotensive, Continue home meds #Erythrocytosis -Likely due to smoking -Continue to monitor, will need outpatient follow up with hematology #FEN -PO Fluids -Lytes WNL -Diabetic, Low sodium, Low cholesterol diet #PPx -DVT: Lovenox Dispo -cont to monitor on obs -medications reconciled -Discussed with SW to start SILVIA and paperwork to discharge to [facility]; await response Visit type - Emergency Visit Emergency Visit: Yes ED Registration Date: 03/26/18 Care time: The patient presented to the Emergency Department on the above date and was hospitalized for further evaluation of their emergent condition. - New Patient This patient is new to me today: No - Critical Care Critical Care patient: No
[2018-03-27] MEDS: GABAPENTIN 300 MG CAPSULE (FP) PO SCH (21:43)
[2018-03-28] MEDS: BUDESONIDE/FORMETEROL FUMARATE 160/4.5 mcg INHALER IH SCH ×3 (02:07→21:54)
[2018-03-28] MEDS ORDERED: ACETAMINOPHEN 325 MG TABLET (FP) PO PRN (04:41)
[2018-03-28] MEDS: CLINDAMYCIN HCL 150 MG CAPSULE (FP) PO SCH ×3 (06:52→21:11)
[2018-03-28] MEDS: INSULIN SLIDING SCALE (NOVOLOG) 1 VIAL SQ SCH ×4 (06:56→21:31)
[2018-03-28] MEDS ORDERED: PT OWN MED DRAWER 7, Y5N ONE (09:23)
[2018-03-28] MEDS: ASPIRIN COATED 81 MG TABLET.EC PO SCH (09:30)
[2018-03-28] MEDS: FUROSEMIDE 40 MG TABLET (FP) PO SCH (09:30)
[2018-03-28] MEDS: CARVEDILOL 6.25 MG TABLET (FP) PO SCH ×2 (09:30→21:11)
[2018-03-28] MEDS: LISINOPRIL 10 MG TABLET (FP) PO SCH (09:31)
[2018-03-28] MEDS: ENOXAPARIN NA (PORCINE) 40 MG/0.4 ML DISP.SYRIN SQ SCH (09:31)
--- NOTE | 2018-03-28 18:13 | PN ---
Progress Note (short form) - Note Progress Note: Subjective: feels much better . ambulating and has no ankle pain . has diarrhea Objective: Vital Signs: Last Vital Signs Temp Pulse Resp BP Pulse Ox 98.3 F 61 19 143/80 95 03/28/18 14:00 03/28/18 14:00 03/28/18 14:00 03/28/18 14:00 03/28/18 11:00 Laboratory Results - last 24 hr 03/27/18 03/28/18 03/28/18 22:25 06:54 11:43 POC Glucometer 158 172 184 03/28/18 17:03 POC Glucometer 189 Physical Exam: NAD. Cv: RRR, no MRG Lungs: CTAB Ext : varicose veins. no edema. : 1 cm tender area anteriorly superior to the L scrotum , ( size cont to decrease ) Assessment/Plan: 47 y/o man with h/o diastolic CHF, and DM who presented with ankle pain, CP, and L scrotal pain after leaving rehab AMA 1- Infected L inguinal sebaceous cyst: - improved - cont clinda - GC testing was not done . will cancel. 2- H/o diastolic CHF: not in exacerbation . - cont lasix, and BB 3- Pharyngitis: swab neg due to being on abx .cont clinda . day 06/06 4- CP: EKG with TWI in anterior lead, and improved compared to previous EKG. fu with card as out pt 5- HTN: cont lisinopril 6- b/l ankle pain : possibly due to OA . 7- Diarrhea : check c diff Dispo : pending dc to [facility]. D/W Visit type - Emergency Visit Emergency Visit: Yes ED Registration Date: 03/26/18 Care time: The patient presented to the Emergency Department on the above date and was hospitalized for further evaluation of their emergent condition. - New Patient This patient is new to me today: No - Critical Care Critical Care patient: No
[2018-03-28] MEDS: GABAPENTIN 300 MG CAPSULE (FP) PO SCH (21:10)
[2018-03-29] MEDS: CLINDAMYCIN HCL 150 MG CAPSULE (FP) PO SCH ×3 (06:12→21:31)
[2018-03-29] MEDS: INSULIN SLIDING SCALE (NOVOLOG) 1 VIAL SQ SCH ×4 (06:15→21:35)
--- NOTE | 2018-03-29 07:30 | PN ---
Physical Exam: SUBJECTIVE: Patient seen and examined at bedside. No complaints overnight. Denies chest pain, abd pain, n/v, urinary/bowel symptoms. OBJECTIVE: Vital Signs Temperature 98.0 F 03/29/18 06:00 Pulse Rate 60 03/29/18 06:00 Respiratory Rate 18 03/29/18 06:00 Blood Pressure 149/88 03/29/18 06:00 O2 Sat by Pulse Oximetry (%) 95 03/29/18 03:00 GENERAL: A&Ox3, Mild distress, Diaphoretic HEAD: NCAT EYES: PERRL, EOMI, Conjunctival injection EARS, NOSE, THROAT: Oropharynx clear without exudates. Moist mucous membranes. NECK: No JVD LUNGS: Decreased bibasilar breath sounds, diffuse wheezes, no crackles. No accessory muscle use. HEART: Regular rate and rhythm, normal S1 and S2 without murmur ABDOMEN: Obese, Soft, Tender to palpation on the Right, not distended, + bowel sounds, no guarding, no rebound MUSCULOSKELETAL: B/L Medial ankle tenderness when plantarflexed, No point tenderness, No overlying erythema. No CVA tenderness. EXTREMITIES: 2+ pulses, Varicose veins in the b/l LE, 1+ edema. NEUROLOGICAL: Cranial nerves II-XII intact. Normal speech. L4-S1 Gross sensation intact. 4/5 muscle strength to Hip flexion, plantar flexion and dorsi flexion. Laboratory Results - last 24 hr 03/28/18 03/28/18 03/28/18 11:43 17:03 21:30 POC Glucometer 184 189 165 03/29/18 06:14 POC Glucometer 221 Active Medications Acetaminophen (Tylenol -) 650 mg PO Q6H PRN PRN Reason: Fever Or Pain Albuterol Sulfate (Ventolin 0.083% Nebulizer Soln -) 1 amp NEB Q4H PRN PRN Reason: SHORT OF BREATH/WHEEZING Last Admin: 03/26/18 21:20 Dose: 1 amp Aspirin (Ecotrin -) 81 mg PO DAILY [facility] Last Admin: 03/28/18 09:30 Dose: 81 mg Budesonide/Formoterol Fumarate (Symbicort 160/4.5mcg -) 2 puff IH BID [facility] Last Admin: 03/28/18 21:54 Dose: Not Given Carvedilol (Coreg -) 6.25 mg PO BID [facility] Last Admin: 03/28/18 21:11 Dose: 6.25 mg Clindamycin HCl (Cleocin -) 300 mg PO TID [facility] Last Admin: 03/29/18 06:12 Dose: 300 mg Enoxaparin Sodium (Lovenox -) 40 mg SQ DAILY [facility] Last Admin: 03/28/18 09:31 Dose: 40 mg Furosemide (Lasix -) 40 mg PO DAILY [facility] Last Admin: 03/28/18 09:30 Dose: 40 mg Gabapentin (Neurontin -) 300 mg PO HS [facility] Last Admin: 03/28/18 21:10 Dose: 300 mg Insulin Aspart (Novolog Vial Sliding Scale -) 1 vial SQ ACHS [facility]; Protocol Last Admin: 03/29/18 06:15 Dose: 4 units Lisinopril (Prinivil) 10 mg PO DAILY [facility] Last Admin: 03/28/18 09:31 Dose: 10 mg IMAGING: * Scrotal U/S: Normal; no evidence of torsion or acute pathology. Possible small SQ abscess L hemiscrotum * CXR: Some mild central congestive changes as before. * L foot xray: No sign of fx or subluxation. ASSESSMENT/PLAN: 47 y/o M with PMHx of Diastolic CHF, HTN, DM, Erythrocytosis presents with SOB. #Infected L inguinal sebaceous cyst; tender, but not cellulitic, no warmth or visible drainag, improving today; likely infected sebaceous cyst -Per ID, Clindamycin 300 mg PO TID x14 days (started 03/26) -Per uro, no intervention needed at this time -GC canceled #Hx of CHF w/ preserved EF; stable, no exacerbation. Cont home meds: -Lasix 40 mg PO QD -Coreg 6.25 mg PO BID #Pharyngitis. Improved -Rapid strep neg, Cont Clinda #Chest pain; Resolved. Likely 2/2 stable angina -Trops neg x2, EKG showed TWI in anterior lead -Needs cardio outpatient f/u Cont home meds: -Lasix 40 mg PO QD -Coreg 6.25 mg PO BID -Lisinopril 10 mg PO QD -Aspirin 81 mg PO QD #R Ankle Pain; improved today. No signs of infection or swelling. -R Ankle XRay showed no acute pathology -PT #IDDM -ISS BGMs ACHS #HTN -Normotensive, Continue home meds #Erythrocytosis -Likely due to smoking -Continue to monitor, will need outpatient follow up with hematology #FEN -PO Fluids -Lytes WNL -Diabetic, Low sodium, Low cholesterol diet #PPx -DVT: Lovenox Dispo -cont to monitor on obs -medications reconciled -Discussed with SW to start SILVIA and paperwork to discharge to [facility]; referral sent to [facility] Visit type - Emergency Visit Emergency Visit: Yes ED Registration Date: 03/26/18 Care time: The patient presented to the Emergency Department on the above date and was hospitalized for further evaluation of their emergent condition. - New Patient This patient is new to me today: No - Critical Care Critical Care patient: No
[2018-03-29] MEDS: FUROSEMIDE 40 MG TABLET (FP) PO SCH (09:49)
[2018-03-29] MEDS: ENOXAPARIN NA (PORCINE) 40 MG/0.4 ML DISP.SYRIN SQ SCH (09:49)
[2018-03-29] MEDS: ASPIRIN COATED 81 MG TABLET.EC PO SCH (09:49)
[2018-03-29] MEDS: LISINOPRIL 10 MG TABLET (FP) PO SCH (09:49)
[2018-03-29] MEDS: CARVEDILOL 6.25 MG TABLET (FP) PO SCH ×2 (09:49→21:31)
[2018-03-29] MEDS: BUDESONIDE/FORMETEROL FUMARATE 160/4.5 mcg INHALER IH SCH (09:54)
--- NOTE | 2018-03-29 11:45 | PN ---
Teaching Attending Note Name of Resident: Lizz Damon ATTENDING PHYSICIAN STATEMENT I saw and evaluated the patient. I reviewed the resident's note and discussed the case with the resident. I agree with the resident's findings and plan as documented. SUBJECTIVE: No fever or chills . No abd pain, nO CP . no SOB. he is depressed and frustrated with his family OBJECTIVE: tearful, swearing . Cv: RRR, no MRG Lungs: CTAB Ext: varicose veins. no edema. :deferred today Assessment/Plan: 47 y/o man with h/o diastolic CHF, and DM who presented with ankle pain, CP, and L scrotal pain after leaving rehab AMA 1- Infected L inguinal sebaceous cyst: - cont clinda - GC testing was not done . will cancel. 2- H/o diastolic CHF: not in exacerbation . - cont lasix, and BB 3- Pharyngitis: cont clinda . day 4/10 4- CP: EKG with TWI in anterior lead, and improved compared to previous EKG. fu with card as out pt 5- HTN: cont lisinopril 6- b/l ankle pain : possibly due to OA . 7- Diarrhea :resolved. c diff pending Dispo : pending dc to rehab vs other ( he changes his mind frequently )
[2018-03-29] MEDS: GABAPENTIN 300 MG CAPSULE (FP) PO SCH (21:31)
[2018-03-29] MEDS ORDERED: INSULIN (NOVOLOG) ASPART 100 UNITS/ML 10ML VIAL ONE (21:34)
[2018-03-30] MEDS: BUDESONIDE/FORMETEROL FUMARATE 160/4.5 mcg INHALER IH SCH ×3 (00:51→21:36)
[2018-03-30] MEDS: CLINDAMYCIN HCL 150 MG CAPSULE (FP) PO SCH ×3 (05:49→21:35)
[2018-03-30] MEDS: INSULIN SLIDING SCALE (NOVOLOG) 1 VIAL SQ SCH ×4 (06:03→21:36)
[2018-03-30] MEDS ORDERED: PT OWN MED DRAWER 7, Y5N ONE ×2 (10:06→21:32)
[2018-03-30] MEDS: ENOXAPARIN NA (PORCINE) 40 MG/0.4 ML DISP.SYRIN SQ SCH (10:11)
[2018-03-30] MEDS: ASPIRIN COATED 81 MG TABLET.EC PO SCH (10:12)
[2018-03-30] MEDS: LISINOPRIL 10 MG TABLET (FP) PO SCH (10:12)
[2018-03-30] MEDS: FUROSEMIDE 40 MG TABLET (FP) PO SCH (10:12)
[2018-03-30] MEDS: CARVEDILOL 6.25 MG TABLET (FP) PO SCH ×2 (10:12→21:35)
--- NOTE | 2018-03-30 15:24 | PN ---
Progress Note (short form) - Note Progress Note: Subjective:no fever or chills. No pain., his breathing is worse today. L groin lesion drained over night Objective: Vital Signs: Last Vital Signs Temp Pulse Resp BP Pulse Ox 98.3 F 63 18 167/99 95 03/30/18 15:14 03/30/18 15:14 03/30/18 15:14 03/30/18 15:14 03/29/18 19:00 Laboratory Results - last 24 hr 03/29/18 03/29/18 03/30/18 17:23 21:33 05:48 POC Glucometer 217 199 184 03/30/18 12:23 POC Glucometer 170 Physical Exam: NAD Cv: RRR, no MRG Lungs: b/l wheezing Ext: varicose veins. no edema. :no drainage form open L groin sebaceous cyst . No erythema . slight tenderness Assessment/Plan: 47 y/o man with h/o diastolic CHF, and DM who presented with ankle pain, CP, and L scrotal pain after leaving rehab AMA 1- Infected L inguinal sebaceous cyst: spontaneously drained - cont clinda 2- H/o diastolic CHF: today he is wheezing and more SOB. ? fluids vs mild copd exacerbation - give extra dose of lasix 40 mg. try breathing treatment - cont lasix at 40 daily , and BB - if he continues to wheeze, then can start a short course of prednisone which can cont as out pt . 3- Pharyngitis: cont clinda . day 08/06 4- CP: EKG with TWI in anterior lead, and improved compared to previous EKG. fu with card as out pt 5- HTN: cont lisinopril 6- b/l ankle pain: possibly due to OA . 7- Diarrhea :neg c diff. probably due to abx Dispo : pending dc to rehab Visit type - Emergency Visit Emergency Visit: Yes ED Registration Date: 03/26/18 Care time: The patient presented to the Emergency Department on the above date and was hospitalized for further evaluation of their emergent condition. - New Patient This patient is new to me today: No - Critical Care Critical Care patient: No
[2018-03-30] MEDS: GABAPENTIN 300 MG CAPSULE (FP) PO SCH (21:35)
[2018-03-31] MEDS: CLINDAMYCIN HCL 150 MG CAPSULE (FP) PO SCH ×3 (06:51→22:39)
[2018-03-31] MEDS: INSULIN SLIDING SCALE (NOVOLOG) 1 VIAL SQ SCH ×4 (06:52→22:39)
[2018-03-31] MEDS: BUDESONIDE/FORMETEROL FUMARATE 160/4.5 mcg INHALER IH SCH ×2 (09:22→22:43)
[2018-03-31] MEDS: LISINOPRIL 10 MG TABLET (FP) PO SCH (09:22)
[2018-03-31] MEDS: CARVEDILOL 6.25 MG TABLET (FP) PO SCH ×2 (09:22→22:39)
[2018-03-31] MEDS: ENOXAPARIN NA (PORCINE) 40 MG/0.4 ML DISP.SYRIN SQ SCH (09:22)
[2018-03-31] MEDS: ASPIRIN COATED 81 MG TABLET.EC PO SCH (09:22)
[2018-03-31] MEDS: FUROSEMIDE 40 MG TABLET (FP) PO SCH (09:22)
--- NOTE | 2018-03-31 12:05 | PN ---
Physical Exam: SUBJECTIVE: Patient seen and examined at bedside. No acute events overnight. OBJECTIVE: Vital Signs Temperature 98.2 F 03/31/18 09:28 Pulse Rate 60 03/31/18 09:28 Respiratory Rate 18 03/31/18 09:28 Blood Pressure 153/89 03/31/18 09:28 O2 Sat by Pulse Oximetry (%) 98 03/31/18 03:00 GENERAL: A&Ox3, Mild distress, Diaphoretic HEAD: NCAT EYES: PERRL, EOMI, Conjunctival injection EARS, NOSE, THROAT: Oropharynx clear without exudates. Moist mucous membranes. NECK: No JVD LUNGS: Decreased bibasilar breath sounds, diffuse wheezes, no crackles. No accessory muscle use. HEART: Regular rate and rhythm, normal S1 and S2 without murmur ABDOMEN: Obese, Soft, Tender to palpation on the Right, not distended, + bowel sounds, no guarding, no rebound MUSCULOSKELETAL: B/L Medial ankle tenderness when plantarflexed, No point tenderness, No overlying erythema. No CVA tenderness. EXTREMITIES: 2+ pulses, Varicose veins in the b/l LE, 1+ edema. NEUROLOGICAL: Cranial nerves II-XII intact. Normal speech. L4-S1 Gross sensation intact. 4/5 muscle strength to Hip flexion, plantar flexion and dorsi flexion. Laboratory Results - last 24 hr 03/30/18 03/30/18 03/30/18 12:23 16:42 21:29 POC Glucometer 170 172 214 03/31/18 06:52 POC Glucometer 173 Active Medications Acetaminophen (Tylenol -) 650 mg PO Q6H PRN PRN Reason: Fever Or Pain Aspirin (Ecotrin -) 81 mg PO DAILY [facility] Last Admin: 03/31/18 09:22 Dose: 81 mg Budesonide/Formoterol Fumarate (Symbicort 160/4.5mcg -) 2 puff IH BID [facility] Last Admin: 03/31/18 09:22 Dose: 2 puff Carvedilol (Coreg -) 6.25 mg PO BID [facility] Last Admin: 03/31/18 09:22 Dose: 6.25 mg Clindamycin HCl (Cleocin -) 300 mg PO TID [facility] Last Admin: 03/31/18 06:51 Dose: 300 mg Enoxaparin Sodium (Lovenox -) 40 mg SQ DAILY [facility] Last Admin: 03/31/18 09:22 Dose: 40 mg Furosemide (Lasix -) 40 mg PO DAILY [facility] Last Admin: 03/31/18 09:22 Dose: 40 mg Gabapentin (Neurontin -) 300 mg PO HS [facility] Last Admin: 03/30/18 21:35 Dose: 300 mg Insulin Aspart (Novolog Vial Sliding Scale -) 1 vial SQ ACHS [facility]; Protocol Last Admin: 03/31/18 06:52 Dose: 2 units Lisinopril (Prinivil) 10 mg PO DAILY [facility] Last Admin: 03/31/18 09:22 Dose: 10 mg IMAGING: * Scrotal U/S: Normal; no evidence of torsion or acute pathology. Possible small SQ abscess L hemiscrotum * CXR: Some mild central congestive changes as before. * L foot xray: No sign of fx or subluxation. ASSESSMENT/PLAN: 47 y/o M with PMHx of Diastolic CHF, HTN, DM, Erythrocytosis presents with SOB. #Infected L inguinal sebaceous cyst -Spontaneous drainage yesterday. Improved today, no visible drainage. Minimal tenderness. -Per ID, Clindamycin 300 mg PO TID x14 days (started 03/26) -Per uro, no intervention needed at this time #Hx of CHF w/ preserved EF; stable, no exacerbation. Cont home meds: -Lasix 40 mg PO QD -Coreg 6.25 mg PO BID #Pharyngitis. Improved -Rapid strep neg, Cont Clinda #Chest pain; Resolved. Likely 2/2 stable angina -Trops neg x2, EKG showed TWI in anterior lead -Needs cardio outpatient f/u Cont home meds: -Lasix 40 mg PO QD -Coreg 6.25 mg PO BID -Lisinopril 10 mg PO QD -Aspirin 81 mg PO QD #R Ankle Pain; Asymptomatic. -R Ankle X-Ray showed no acute pathology -PT #IDDM -ISS BGMs ACHS #HTN -Normotensive, Continue home meds #Erythrocytosis -Likely due to smoking -Continue to monitor, will need outpatient follow up with hematology #FEN -PO Fluids -Lytes WNL -Diabetic, Low sodium, Low cholesterol diet #PPx -DVT: Lovenox Dispo -cont to monitor on obs -medications reconciled -Authorization request sent to [facility]; awaiting callback. f/u SW Visit type - Emergency Visit Emergency Visit: Yes ED Registration Date: 03/31/18 Care time: The patient presented to the Emergency Department on the above date and was hospitalized for further evaluation of their emergent condition. - New Patient This patient is new to me today: No - Critical Care Critical Care patient: No
--- NOTE | 2018-03-31 19:02 | PN ---
Teaching Attending Note Name of Resident: Lizz Damon ATTENDING PHYSICIAN STATEMENT I saw and evaluated the patient. I reviewed the resident's note and discussed the case with the resident. I agree with the resident's findings and plan as documented. SUBJECTIVE: patient is feeling better. OBJECTIVE: Vital Signs Temperature 98.1 F 03/31/18 13:30 Pulse Rate 64 03/31/18 13:30 Respiratory Rate 18 03/31/18 13:30 Blood Pressure 148/80 03/31/18 13:30 O2 Sat by Pulse Oximetry (%) 98 03/31/18 11:00 GENERAL: AAOx3, NAD HEAD: NCAT, NECK: No JVD, supple EYES: PERRL, EOMI, Conjunctival injection EARS, NOSE, THROAT: Oropharynx clear without exudates.MMM.. LUNGS: Decreased bibasilar breath sounds, diffuse wheezes, no crackles. No accessory muscle use. HEART: Regular rate and rhythm, normal S1 and S2 without murmur ABDOMEN: Obese, Soft, ND, positive for BS , no guarding, no rebound EXTREMITIES: 2+ pulses, Varicose veins in the b/l LE,positive for edema. NEUROLOGICAL: Cranial nerves II-XII intact. Normal speech. CBCD WBC 9.0 K/mm3 (4.0-10.0) 03/26/18 08:50 RBC 5.86 M/mm3 (4.00-5.60) H 03/26/18 08:50 Hgb 17.7 GM/dL (11.7-16.9) H 03/26/18 08:50 Hct 54.8 % (35.4-49) H 03/26/18 08:50 MCV 93.5 fl (80-96) 03/26/18 08:50 MCHC 32.3 g/dl (32.0-35.9) 03/26/18 08:50 RDW 14.2 % (11.9-15.9) 03/26/18 08:50 Plt Count 105 K/MM3 (134-434) L D 03/26/18 08:50 MPV 9.7 fl (7.5-11.1) 03/26/18 08:50 CMP Sodium 144 mmol/L (136-145) 03/26/18 08:50 Potassium 4.2 mmol/L (3.5-5.1) 03/26/18 08:50 Chloride 109 mmol/L (98-107) H 03/26/18 08:50 Carbon Dioxide 29 mmol/L (21-32) 03/26/18 08:50 Anion Gap 6 MMOL/L (8-16) L 03/26/18 08:50 BUN 15 mg/dL (7-18) 03/26/18 08:50 Creatinine 0.8 mg/dL (0.55-1.3) 03/26/18 08:50 Creat Clearance w eGFR > 60 (>60) 03/26/18 08:50 Random Glucose 190 mg/dL (74-106) H 03/26/18 08:50 Calcium 8.1 mg/dL (8.5-10.1) L 03/26/18 08:50 Total Bilirubin 0.4 mg/dL (0.2-1) 03/26/18 08:50 AST 15 U/L (15-37) 03/26/18 08:50 ALT 49 U/L (13-61) 03/26/18 08:50 Alkaline Phosphatase 58 U/L (45-117) 03/26/18 08:50 Total Protein 5.7 g/dl (6.4-8.2) L 03/26/18 08:50 Albumin 3.2 g/dl (3.4-5.0) L 03/26/18 08:50 CARDIAC ENZYMES Creatine Kinase 100 IU/L (26-308) 03/26/18 00:06 Troponin I 0.02 ng/ml (0.00-0.05) 03/26/18 08:50 Current Medications Generic Name Dose Route Start Last Admin Trade Name Freq PRN Reason Stop Dose Admin Acetaminophen 650 mg 03/28/18 04:41 Tylenol - PO Q6H PRN Fever Or Pain Aspirin 81 mg 03/26/18 10:00 03/31/18 09:22 Ecotrin - PO 81 mg DAILY CONY Administration Budesonide/Formoterol Fumarate 2 puff 03/26/18 10:00 03/31/18 09:22 Symbicort 160/4.5mcg - IH 2 puff BID CONY Administration Carvedilol 6.25 mg 03/27/18 22:06 03/31/18 09:22 Coreg - PO 6.25 mg BID CONY Administration Clindamycin HCl 300 mg 03/26/18 22:00 03/31/18 15:00 Cleocin - PO 300 mg TID CONY Administration Enoxaparin Sodium 40 mg 03/26/18 10:00 03/31/18 09:22 Lovenox - SQ 40 mg DAILY CONY Administration Furosemide 40 mg 03/26/18 10:00 03/31/18 09:22 Lasix - PO 40 mg DAILY CONY Administration Gabapentin 300 mg 03/26/18 22:00 03/30/18 21:35 Neurontin - PO 300 mg HS CONY Administration Insulin Aspart 1 vial 03/26/18 07:00 03/31/18 18:24 Novolog Vial Sliding Scale - SQ 4 units ACHS CONY Administration Protocol Lisinopril 10 mg 03/26/18 10:00 03/31/18 09:22 Prinivil PO 10 mg DAILY CONY Administration Home Medications Medication Instructions Recorded Albuterol Sulfate Inhaler - 2 puff IH Q4H PRN inhaler 03/19/18 [Ventolin HFA Inhaler -] Budesonide/Formeterol Fumarate 2 puff IH BID inhaler 03/19/18 [SYMBICORT 160/4.5mcg -] Carvedilol [Coreg -] 6.25 mg PO BID tablet 03/19/18 Furosemide [Lasix -] 40 mg PO DAILY tablet 03/19/18 Lisinopril [Prinivil] 10 mg PO DAILY tablet 03/19/18 Nicotine Patch [Nicoderm Patch -] 21 mg TD DAILY patch 03/19/18 Nystatin Cream [Mycostatin Cream -] 1 applic TP BID applic 03/19/18 ASSESSMENT AND PLAN: Patient is a 47yo man with PMHx of diastolic CHF, and T2DM who presented to ED. with ankle pain, CP, and L scrotal pain after leaving rehab AMA. # Acute left inguinal sebaceous cyst: drianing spontaneously, on Clindamycin continue, will add Bacid to his regimen # H/o diastolic CHF: on lasix /coreg/ prinivil. ecotrin continue . # acute Pharyngitis: cont clinda . day 09/06 #acute CP resolved : EKG with TWI in anterior lead, and improved compared to previous EKG. outpatient follow up as out pt # HTN: cont lisinopril # BL ankle pain: most likely due to OA . # Diarrhea :neg c diff. will monitor Dispo : pending dc to rehab
[2018-03-31] MEDS ORDERED: PT OWN MED DRAWER 7, Y5N ONE (22:22)
[2018-03-31] MEDS: LACTOBACILLUS ACIDOPHILUS 1 TABLET PO SCH (22:39)
[2018-03-31] MEDS: GABAPENTIN 300 MG CAPSULE (FP) PO SCH (22:39)
[2018-04-01] MEDS: CLINDAMYCIN HCL 150 MG CAPSULE (FP) PO SCH ×2 (06:39→14:47)
[2018-04-01] MEDS: INSULIN SLIDING SCALE (NOVOLOG) 1 VIAL SQ SCH ×3 (06:42→16:57)
--- NOTE | 2018-04-01 09:27 | PN ---
Teaching Attending Note Name of Resident: Lizz Damon ATTENDING PHYSICIAN STATEMENT I saw and evaluated the patient. I reviewed the resident's note and discussed the case with the resident. I agree with the resident's findings and plan as documented. SUBJECTIVE: Patient is doing better with no acute distress, no shortness of breath, saturating 97%. OBJECTIVE: Vital Signs Temperature 97.3 F L 04/01/18 06:00 Pulse Rate 60 04/01/18 06:00 Respiratory Rate 20 04/01/18 06:00 Blood Pressure 147/82 04/01/18 06:00 O2 Sat by Pulse Oximetry (%) 98 03/31/18 19:00 GENERAL: AAOx3, NAD, HEAD: NCAT, NECK: No JVD, supple EYES: PERRL, EOMI, Conjunctival injection EARS, NOSE, THROAT: Oropharynx clear without exudates.MMM.. LUNGS: GAI BL, no wheezing, no crackles. No accessory muscle use. HEART: Regular rate and rhythm, normal S1 and S2 without murmur ABDOMEN: Obese, Soft, ND, positive for BS , no guarding, no rebound EXTREMITIES: 2+ pulses, Varicose veins in the b/l LE, positive for trace edema bl. NEUROLOGICAL: Cranial nerves II-XII intact. Normal speech. CBCD WBC 9.0 K/mm3 (4.0-10.0) 03/26/18 08:50 RBC 5.86 M/mm3 (4.00-5.60) H 03/26/18 08:50 Hgb 17.7 GM/dL (11.7-16.9) H 03/26/18 08:50 Hct 54.8 % (35.4-49) H 03/26/18 08:50 MCV 93.5 fl (80-96) 03/26/18 08:50 MCHC 32.3 g/dl (32.0-35.9) 03/26/18 08:50 RDW 14.2 % (11.9-15.9) 03/26/18 08:50 Plt Count 105 K/MM3 (134-434) L D 03/26/18 08:50 MPV 9.7 fl (7.5-11.1) 03/26/18 08:50 CMP Sodium 144 mmol/L (136-145) 03/26/18 08:50 Potassium 4.2 mmol/L (3.5-5.1) 03/26/18 08:50 Chloride 109 mmol/L (98-107) H 03/26/18 08:50 Carbon Dioxide 29 mmol/L (21-32) 03/26/18 08:50 Anion Gap 6 MMOL/L (8-16) L 03/26/18 08:50 BUN 15 mg/dL (7-18) 03/26/18 08:50 Creatinine 0.8 mg/dL (0.55-1.3) 03/26/18 08:50 Creat Clearance w eGFR > 60 (>60) 03/26/18 08:50 Random Glucose 190 mg/dL (74-106) H 03/26/18 08:50 Calcium 8.1 mg/dL (8.5-10.1) L 03/26/18 08:50 Total Bilirubin 0.4 mg/dL (0.2-1) 03/26/18 08:50 AST 15 U/L (15-37) 03/26/18 08:50 ALT 49 U/L (13-61) 03/26/18 08:50 Alkaline Phosphatase 58 U/L (45-117) 03/26/18 08:50 Total Protein 5.7 g/dl (6.4-8.2) L 03/26/18 08:50 Albumin 3.2 g/dl (3.4-5.0) L 03/26/18 08:50 CARDIAC ENZYMES Creatine Kinase 100 IU/L (26-308) 03/26/18 00:06 Troponin I 0.02 ng/ml (0.00-0.05) 03/26/18 08:50 Current Medications Generic Name Dose Route Start Last Admin Trade Name Freq PRN Reason Stop Dose Admin Acetaminophen 650 mg 03/28/18 04:41 Tylenol - PO Q6H PRN Fever Or Pain Aspirin 81 mg 03/26/18 10:00 03/31/18 09:22 Ecotrin - PO 81 mg DAILY CONY Administration Budesonide/Formoterol Fumarate 2 puff 03/26/18 10:00 03/31/18 22:43 Symbicort 160/4.5mcg - IH Not Given BID CONY Carvedilol 6.25 mg 03/27/18 22:06 01/02/19 22:39 Coreg - PO 6.25 mg BID CONY Administration Clindamycin HCl 300 mg 03/26/18 22:00 04/01/18 06:39 Cleocin - PO 300 mg TID CONY Administration Enoxaparin Sodium 40 mg 03/26/18 10:00 03/31/18 09:22 Lovenox - SQ 40 mg DAILY CONY Administration Furosemide 40 mg 03/26/18 10:00 03/31/18 09:22 Lasix - PO 40 mg DAILY CONY Administration Gabapentin 300 mg 03/26/18 22:00 03/31/18 22:39 Neurontin - PO 300 mg HS CONY Administration Insulin Aspart 1 vial 03/26/18 07:00 04/01/18 06:42 Novolog Vial Sliding Scale - SQ 2 units ACHS CONY Administration Protocol Lactobacillus Acidophilus 1 tab 03/31/18 22:00 03/31/18 22:39 Bacid - PO 1 tab BID CONY Administration Lisinopril 10 mg 03/26/18 10:00 03/31/18 09:22 Prinivil PO 10 mg DAILY CONY Administration Home Medications Medication Instructions Recorded Albuterol Sulfate Inhaler - 2 puff IH Q4H PRN inhaler 03/19/18 [Ventolin HFA Inhaler -] Budesonide/Formeterol Fumarate 2 puff IH BID inhaler 03/19/18 [SYMBICORT 160/4.5mcg -] Carvedilol [Coreg -] 6.25 mg PO BID tablet 03/19/18 Furosemide [Lasix -] 40 mg PO DAILY tablet 03/19/18 Lisinopril [Prinivil] 10 mg PO DAILY tablet 03/19/18 Nicotine Patch [Nicoderm Patch -] 21 mg TD DAILY patch 03/19/18 Nystatin Cream [Mycostatin Cream -] 1 applic TP BID applic 03/19/18 ASSESSMENT AND PLAN: Patient is a 47yo man with PMHx of diastolic CHF, and T2DM who presented to ED. with ankle pain, CP, and L scrotal pain after leaving rehab AMA. # Acute left inguinal sebaceous cyst: continues to drain , will discharge the patient on 7 more days of Oral antibiotics, Clindamycin 10/10 , with Bacid to his regimen # H/o diastolic CHF: on lasix /coreg/ prinivil. ecotrin continue . # acute Pharyngitis: cont clinda . day 09/06 #acute CP resolved : EKG with TWI in anterior lead, and improved compared to previous EKG. outpatient follow up as out pt # HTN: cont lisinopril # BL ankle pain: most likely due to OA . # Diarrhea :neg c diff. will monitor will discharge the patient home, does not want to go to rehab. will give follow up appointment with outpatient clinic.
[2018-04-01] MEDS ORDERED: PT OWN MED DRAWER 7, Y5N ONE (09:44)
[2018-04-01] MEDS: CARVEDILOL 6.25 MG TABLET (FP) PO SCH (09:46)
[2018-04-01] MEDS: ASPIRIN COATED 81 MG TABLET.EC PO SCH (09:46)
[2018-04-01] MEDS: ENOXAPARIN NA (PORCINE) 40 MG/0.4 ML DISP.SYRIN SQ SCH (09:46)
[2018-04-01] MEDS: LISINOPRIL 10 MG TABLET (FP) PO SCH (09:46)
[2018-04-01] MEDS: FUROSEMIDE 40 MG TABLET (FP) PO SCH (09:46)
[2018-04-01] MEDS: BUDESONIDE/FORMETEROL FUMARATE 160/4.5 mcg INHALER IH SCH (09:46)
[2018-04-01] MEDS: LACTOBACILLUS ACIDOPHILUS 1 TABLET PO SCH (09:46)
[2018-04-01 14:21] VITALS: BP 118/73; PULSE 67; TEMP 97.7
--- NOTE | 2018-04-01 14:50 | PN ---
Physical Exam: SUBJECTIVE: Patient seen and examined OBJECTIVE: Vital Signs Temperature 97.7 F 04/01/18 14:20 Pulse Rate 67 04/01/18 14:20 Respiratory Rate 20 04/01/18 14:20 Blood Pressure 118/73 04/01/18 14:20 O2 Sat by Pulse Oximetry (%) 98 03/31/18 19:00 GENERAL: A&Ox3. HEAD: NCAT EYES: PERRL, EOMI, Conjunctival injection EARS, NOSE, THROAT: Oropharynx clear without exudates. Moist mucous membranes. NECK: No JVD LUNGS: Decreased bibasilar breath sounds, diffuse wheezes, no crackles. No accessory muscle use. HEART: Regular rate and rhythm, normal S1 and S2 without murmur ABDOMEN: Obese, Soft, Tender to palpation on the Right, not distended, + bowel sounds, no guarding, no rebound : Scrotal cyst. tender s/p drainage. MUSCULOSKELETAL: B/L Medial ankle tenderness when plantarflexed, No point tenderness, No overlying erythema. No CVA tenderness. EXTREMITIES: 2+ pulses, Varicose veins in the b/l LE, 1+ edema. NEUROLOGICAL: Cranial nerves II-XII intact. Normal speech. L4-S1 Gross sensation intact. 4/5 muscle strength to Hip flexion, plantar flexion and dorsi flexion. Laboratory Results - last 24 hr 03/31/18 03/31/18 04/01/18 18:23 22:38 06:41 POC Glucometer 230 281 159 04/01/18 11:54 POC Glucometer 225 Active Medications Acetaminophen (Tylenol -) 650 mg PO Q6H PRN PRN Reason: Fever Or Pain Aspirin (Ecotrin -) 81 mg PO DAILY [facility] Last Admin: 04/01/18 09:46 Dose: 81 mg Budesonide/Formoterol Fumarate (Symbicort 160/4.5mcg -) 2 puff IH BID [facility] Last Admin: 04/01/18 09:46 Dose: 2 puff Carvedilol (Coreg -) 6.25 mg PO BID [facility] Last Admin: 04/01/18 09:46 Dose: 6.25 mg Clindamycin HCl (Cleocin -) 300 mg PO TID [facility] Last Admin: 04/01/18 06:39 Dose: 300 mg Enoxaparin Sodium (Lovenox -) 40 mg SQ DAILY [facility] Last Admin: 04/01/18 09:46 Dose: 40 mg Furosemide (Lasix -) 40 mg PO DAILY [facility] Last Admin: 04/01/18 09:46 Dose: 40 mg Gabapentin (Neurontin -) 300 mg PO HS [facility] Last Admin: 03/31/18 22:39 Dose: 300 mg Insulin Aspart (Novolog Vial Sliding Scale -) 1 vial SQ ACHS [facility]; Protocol Last Admin: 04/01/18 12:14 Dose: 4 units Lactobacillus Acidophilus (Bacid -) 1 tab PO BID [facility] Last Admin: 04/01/18 09:46 Dose: 1 tab Lisinopril (Prinivil) 10 mg PO DAILY [facility] Last Admin: 04/01/18 09:46 Dose: 10 mg IMAGING: * Scrotal U/S: Normal; no evidence of torsion or acute pathology. Possible small SQ abscess L hemiscrotum * CXR: Some mild central congestive changes as before. * L foot xray: No sign of fx or subluxation. ASSESSMENT/PLAN: 47 y/o M with PMHx of Diastolic CHF, HTN, DM, Erythrocytosis presents with SOB. #Infected L inguinal sebaceous cyst -Improved today, no visible drainage. Minimal tenderness. -Per ID, Clindamycin 300 mg PO TID x14 days (started 03/26) -Per uro, no intervention needed at this time. #Hx of CHF w/ preserved EF; stable, no exacerbation. Cont home meds: -Lasix 40 mg PO QD -Coreg 6.25 mg PO BID #Pharyngitis. Improved -Rapid strep neg, Cont Clinda #Chest pain; Resolved. Likely 2/2 stable angina -Trops neg x2, EKG showed TWI in anterior lead -Needs cardio outpatient f/u Cont home meds: -Lasix 40 mg PO QD -Coreg 6.25 mg PO BID -Lisinopril 10 mg PO QD -Aspirin 81 mg PO QD #R Ankle Pain; Asymptomatic. -R Ankle X-Ray showed no acute pathology -PT #IDDM -ISS BGMs ACHS #HTN -Normotensive, Continue home meds #Erythrocytosis -Likely due to smoking -Continue to monitor, will need outpatient follow up with hematology #FEN -PO Fluids -Lytes WNL -Diabetic, Low sodium, Low cholesterol diet #PPx -DVT: Lovenox Dispo -cont to monitor on obs -medications reconciled -Pending SNF placement; recently at [facility], but left AMA. F/u SW Visit type - Emergency Visit Emergency Visit: Yes ED Registration Date: 03/31/18 Care time: The patient presented to the Emergency Department on the above date and was hospitalized for further evaluation of their emergent condition. - New Patient This patient is new to me today: No - Critical Care Critical Care patient: No
--- NOTE | 2018-04-01 17:46 | DS ---
Physical Exam: SUBJECTIVE: Patient seen and examined at bedside. No acute events overnight. OBJECTIVE: Vital Signs Period Temp Pulse Resp BP Sys/Garza Pulse Ox Last 24 Hr 97.3 F-97.8 F 60-68 18-20 118-170/73-91 97-98 PHYSICAL EXAM GENERAL: A&Ox3. HEAD: NCAT EYES: PERRL, EOMI, Conjunctival injection EARS, NOSE, THROAT: Oropharynx clear without exudates. Moist mucous membranes. NECK: No JVD LUNGS: Decreased bibasilar breath sounds, diffuse wheezes, no crackles. No accessory muscle use. HEART: Regular rate and rhythm, normal S1 and S2 without murmur ABDOMEN: Obese, Soft, Tender to palpation on the Right, not distended, + bowel sounds, no guarding, no rebound : Scrotal cyst. tender s/p drainage. MUSCULOSKELETAL: B/L Medial ankle tenderness when plantarflexed, No point tenderness, No overlying erythema. No CVA tenderness. EXTREMITIES: 2+ pulses, Varicose veins in the b/l LE, 1+ edema. NEUROLOGICAL: Cranial nerves II-XII intact. Normal speech. L4-S1 Gross sensation intact. 4/5 muscle strength to Hip flexion, plantar flexion and dorsi flexion. LABS Laboratory Results - last 24 hr 03/31/18 03/31/18 04/01/18 18:23 22:38 06:41 POC Glucometer 230 281 159 04/01/18 11:54 POC Glucometer 225 HOSPITAL COURSE: Date of Admission:03/31/18 IMAGING: * Scrotal U/S: Normal; no evidence of torsion or acute pathology. Possible small SQ abscess L hemiscrotum * CXR: Some mild central congestive changes as before. * R foot xray: No sign of fx or subluxation. 47M with pmhx of Diastolic CHF, HTN, DM, Erythrocytosis presents with SOB. Patient was recently discharged on 03/19 to [facility] from [facility] after being treated for a CHF Exacerbation and presented to the hospital with complaints of sob, R ankle pain, chest pain, and scrotal tenderness. Upon admission, pt's home meds were continued (Ventolin inhaler, Symbicort inhaler, Coreg, Lasix, Lisinopril) and his symptoms of shortness of breath and chest pain improved. Scrotal U/S was done that showed abscess on the L hemiscrotum. He was evaluated by ID as well as urology and found to have an infected sebaceous cyst. During pt 's hospital stay, he was given Clindamycin for treatment. The cyst spontaneously drained and subsequently, pt's scrotal tenderness improved after drainage. Additionally, pt had R foot xray done that did not show any acute pathology. Throughout the admission, pt's R ankle pain improved. Pt was discharged with recommendation to follow up with his primary care physician and to continue taking Clindamycin for the infected sebaceous scrotal cyst. Date of Discharge: 04/01/18 Minutes to complete discharge: 40 Discharge Summary Reason For Visit: ABSCESS OF SCROTUM/ACUTE EXACERBATION OF CHRONIC Condition: Improved - Instructions Diet, Activity, Other Instructions: You were seen in the hospital for complaints of chest pain, shortness of breath , and ankle pain. In the hospital, you were given your home medications and your symptoms of shortness of breath and chest pain improved. Additionally, you complained of scrotal tenderness and you were found to have an infected sebaceous cyst. You were seen by the infectious disease doctor and prescribed antibiotics for the cyst. You were also assessed by urologist and no urological intervention was needed at this time. You are being discharged home. MEDICAL RECOMMENDATIONS Please continue to take Clindamycin 300 mg by mouth three times a day for 7 more days starting tomorrow, 04/02/18 for your infected sebaceous cyst. Please also start taking Bacid 1 tab twice a day by mouth. Please continue taking all of your home medications as prescribed. CONSULT RECOMMENDATIONS Please follow up with your primary care physician within 1 week. You have been given a referral to make an appointment at the [facility] residency clinic. You may make an appointment with Dr. Damon. If you feel worsening shortness of breath, chest pain, fever/chills, nausea/ vomiting, difficulty breathing, please proceed to your nearest emergency room immediately. Referrals: [facility] [place] [Provider Group] - 1 Week Lizz Damon RES [Resident] - 1 Week Samuel Hu MD [Primary Care Provider] - 1 Week Disposition: HOME - Home Medications Comprehensive Discharge Medication List: Ambulatory Orders Albuterol Sulfate Inhaler - [Ventolin HFA Inhaler -] 2 puff IH Q4H PRN inhaler 03/19/18 Budesonide/Formeterol Fumarate [SYMBICORT 160/4.5mcg -] 2 puff IH BID inhaler 03/19/18 Carvedilol [Coreg -] 6.25 mg PO BID tablet 03/19/18 Furosemide [Lasix -] 40 mg PO DAILY tablet 03/19/18 Lisinopril [Prinivil] 10 mg PO DAILY tablet 03/19/18 Nicotine Patch [Nicoderm Patch -] 21 mg TD DAILY patch 03/19/18 Clindamycin [Cleocin -] 300 mg PO TID #21 capsule 04/01/18 Lactobacillus Acidophilus [Bacid -] 1 each PO BID #60 capsule 04/01/18 This patient is new to me today: No Emergency Visit: Yes ED Registration Date: 03/31/18 Care time: The patient presented to the Emergency Department on the above date and was hospitalized for further evaluation of their emergent condition. Critical Care patient: No - Discharge Referral Referred to [facility] Med [facility] No
== END 2018-04-01 16:48 | disposition home or self-care (01) | DRG 140 ==
LOC: JER 23:28 → JERBED 03-26 01:50 → INTOOBSV 03-26 01:50 → J5S 03-26 06:07 → OBSVTOIN 03-31 12:03
PROVIDERS: ADMIT Internal Medicine; ATTEND Internal Medicine
PROC: 3E0F7GC Introduction of Other Therapeutic Substance into Respiratory Tract, Via Natural or Artificial Opening (ICD-10-PCS; principal; 2018-03-31)
DX: J44.1 Chronic obstructive pulmonary disease with (acute) exacerbation (principal); J96.10 Chronic respiratory failure, unspecified whether with hypoxia or hypercapnia; E87.4 Mixed disorder of acid-base balance; I11.0 Hypertensive heart disease with heart failure; I50.32 Chronic diastolic (congestive) heart failure; I27.20 Pulmonary hypertension, unspecified; E11.65 Type 2 diabetes mellitus with hyperglycemia; E88.09 Other disorders of plasma-protein metabolism, not elsewhere classified; D75.1 Secondary polycythemia; Z68.38 Body mass index [BMI] 38.0-38.9, adult; L72.3 Sebaceous cyst; G47.33 Obstructive sleep apnea (adult) (pediatric); I20.8 Other forms of angina pectoris; Z79.4 Long term (current) use of insulin; M19.071 Primary osteoarthritis, right ankle and foot; M19.072 Primary osteoarthritis, left ankle and foot; J02.9 Acute pharyngitis, unspecified; N49.2 Inflammatory disorders of scrotum; F17.210 Nicotine dependence, cigarettes, uncomplicated; R91.1 Solitary pulmonary nodule; E66.9 Obesity, unspecified; Z59.0 Homelessness; R19.7 Diarrhea, unspecified; I83.90 Asymptomatic varicose veins of unspecified lower extremity; Z88.0 Allergy status to penicillin; R07.9 Chest pain, unspecified
CPT/HCPCS: 36415; 71045-TC-FY; 73610-TC-RT-FY; 76870-TC; 80053; 81003; 81015; 82550; 82803; 82962; 83735; 83880; 84100; 84134; 84484; 85025; 85651; 86140; 87070; 87324; 87449; 87880; 93005; 93010; 94640; 94761; 97116-GP; 97161-GP; 99283-25; G0378; J0131; J7030

== ENCOUNTER 2019-05-24 11:00 | Inpatient (IN) | payer OTHER ==
[2019-05-24] MEDS ORDERED: DEXAMETHASONE SOD PHOSPHATE 10 MG/1 ML VIAL ONE (11:17)
--- NOTE | 2019-05-24 11:56 | PDOC ---
History of Present Illness - General Chief Complaint: Congestive Heart Failure Stated Complaint: SHORTNESS OF BREATH Time Seen by Provider: 05/24/19 11:30 Past History - Past Medical History Allergies/Adverse Reactions: Allergies Allergy/AdvReac Type Severity Reaction Status Date / Time Penicillins Allergy Hives Verified 05/24/19 12:48 strawberry Allergy Verified 05/24/19 12:48 Home Medications: Ambulatory Orders NK [No Known Home Medication] 05/24/19 Anemia: No Asthma: No Cancer: No Cardiac Disorders: Yes CVA: No COPD: No CHF: Yes Dementia: No Diabetes: Yes GI Disorders: No Disorders: No HTN: Yes Hypercholesterolemia: Yes Liver Disease: No Seizures: No Thyroid Disease: No - Psycho Social/Smoking Cessation Hx Smoking History: Current every day smoker Have you smoked in the past 12 months: Yes Number of Cigarettes Smoked Daily: 10 Information on smoking cessation initiated: No 'Breaking Loose' booklet given: 03/26/18 Hx Alcohol Use: No Drug/Substance Use Hx: No Substance Use Type: None Hx Substance Use Treatment: No *Physical Exam - Vital Signs Last Vital Signs Temp Pulse Resp BP Pulse Ox 98.3 F 73 22 H 166/120 H 93 L 05/24/19 11:06 05/24/19 11:06 05/24/19 11:06 05/24/19 11:06 05/24/19 11:06 05/24/19 12:05 49 y/o male PMH HTN, HLD, DM, CHF, asthma, chronic bronchitis, formerly non- domiciled BIBEMS c/o CP and SOB. This has happened many times before. He admits to medication and medical care non-adherence (likely secondary to mental health given schizotypal conversation). He states that while walking to his sister's home he experienced chest pain and SOB. The chest pain was sudden, worsened with activity, cold in character, non- radiating, and 10/10 at the time. He reports it is very similar to his previous hospital admissions. SOB after walking 6 blocks. Just prior to admission he experienced SOB at rest. He is normally able to climb 4 flights of steps w/o concern but over last week is unable to go 1 flight to his apartment w SOB. He uses 3 pillows at night and this has not changed. Denies PND. He does endorse bendopnea. He is an active smoker 1/2 ppd for 30 years. He is in pre-contemplative state and does not want to think about quitting now. No recent illness, no sick contacts, no new meds/herbs/supplements No recent travel and no calf pain Denies fever, nausea, vomiting, diarrhea, constipation, chills REVIEW OF SYSTEMS CONSTITUTIONAL: Absent: fever, chills, diaphoresis, generalized weakness, malaise, loss of appetite, weight change HEENT: Absent: rhinorrhea, nasal congestion, throat pain, throat swelling, difficulty swallowing, mouth swelling, ear pain, eye pain, visual changes CARDIOVASCULAR: Absent: chest pain, syncope, palpitations, irregular heart rate, lightheadedness , peripheral edema RESPIRATORY: Absent: cough, shortness of breath, dyspnea with exertion, orthopnea, wheezing, stridor, hemoptysis GASTROINTESTINAL: Absent: abdominal pain, abdominal distension, nausea, vomiting, diarrhea, constipation, melena, hematochezia GENITOURINARY: Absent: dysuria, frequency, urgency, hesitancy, hematuria, flank pain, genital pain MUSCULOSKELETAL: Absent: myalgia, arthralgia, joint swelling, back pain, neck pain SKIN: Absent: rash, itching, pallor HEMATOLOGIC/IMMUNOLOGIC: Absent: easy bleeding, easy bruising, lymphadenopathy, frequent infections ENDOCRINE: Absent: unexplained weight gain, unexplained weight loss, heat intolerance, cold intolerance NEUROLOGIC: Absent: headache, focal weakness or paresthesias, dizziness, unsteady gait, seizure, mental status changes, bladder or bowel incontinence PSYCHIATRIC: Absent: anxiety, depression, suicidal or homicidal ideation, hallucinations. GENERAL: AOx3, anxious, in no acute distress, unkempt HEAD: NCAT EYES: MICHELLE, EOMI, conjunctiva clear. ENT: Ears normal, nares patent, oropharynx clear without exudates. Moist mucous membranes. NECK: Normal range of motion, supple without lymphadenopathy, JVD, or masses. LUNGS: Diffuse crackles in all lung peacock ant+post. No accessory muscle use. HEART: RRR s1 s2 ABDOMEN: Soft, BS present in all 4 quadrants, non-distended, no JVD, MUSCULOSKELETAL: No bony deformities or tenderness. No CVA tenderness. UPPER EXTREMITIES: 2+ pulses, warm, well-perfused. No cyanosis. No clubbing. No peripheral edema. LOWER EXTREMITIES: 2+ pulses, warm, well-perfused. No calf tenderness. No peripheral edema. NEUROLOGICAL: No focal deficits. Cranial nerves II-XII intact. Normal speech. Gait not appreciated. PSYCHIATRIC: Tangential. Odd comments. Cooperative. Good eye contact. Appropriate mood and affect. SKIN: RIGHT forearm tattoo of demon. Onychauxis BL LE. Warm, dry, normal turgor , no rashes or lesions noted, normal capillary refill. EKG with NSR, reg rate, prolonged QTc, new inferior lead TWI, old precordial TWI CURB 65 - awaiting labs # Acute resp failure 2/2 CHF vs COPD # Abdominal panus lyphadema VS cellulitis # Possible bipolar depression # Schizotypal - CBC, CMP, UA, U cx, TSH, EKG, cardiac profile (trop/BMP), BNP - Lasix 40 mg IV and strict i/o - ASA 325 mg once - ABG 05/24/19 13:15 2L of urine output s/p 40 IV lasix, SOB improving 05/24/19 14:02 Spoke to ROSANA Becker for admission to [facility] under Dr. Bailey for respiratory failure 2/2 acute CHF exacerbation ED Treatment Course - LABORATORY CBC & Chemistry Diagram: 05/26/19 06:10 05/26/19 06:10 Discharge - Discharge Information Problems reviewed: Yes Clinical Impression/Diagnosis: CHF (congestive heart failure) Qualifiers: Heart failure type: other Qualified Code(s): I50.9 - Heart failure, unspecified Acute exacerbation of CHF (congestive heart failure) Qualifiers: Heart failure type: unspecified Qualified Code(s): I50.9 - Heart failure, unspecified Condition: Stable - Admission Yes - Follow up/Referral - Patient Discharge Instructions - Post Discharge Activity
[2019-05-24] MEDS ORDERED: FUROSEMIDE 40 MG/4 ML INJECTABLE VIAL IVPUSH ONE (11:57)
[2019-05-24] MEDS ORDERED: ASPIRIN 325 MG ENTERIC COATED TABLET (FP) PO ONE (11:59)
[2019-05-24 12:00] LABS: EOS % 2.4 % (0-4.5); HEMATOCRIT 57.6 % (35.4-49); HEMOGLOBIN 19.3 GM/dL (11.7-16.9); LYMPH % 8.3 % (8-40); MCH 31.3 pg (25.7-33.7); MCHC 33.5 g/dl (32.0-35.9); MEAN CELL VOLUME 93.4 fl (80-96); MEAN PLT VOLUME 10.1 fl (7.5-11.1); MONO % 4.9 % (3.8-10.2); NEUT % 83.4 % (42.8-82.8); PLATELET COUNT 111 K/MM3 (134-434); RBC 6.16 M/mm3 (4.00-5.60); RDW 15.2 % (11.9-15.9); WHITE BLOOD COUNT 7.1 K/mm3 (4.0-10.0)
[2019-05-24] MEDS ORDERED: ASPIRIN 325 MG ENTERIC COATED TABLET (FP) ONE (12:04)
[2019-05-24] MEDS ORDERED: FUROSEMIDE 40 MG/4 ML INJECTABLE VIAL ONE (12:05)
[2019-05-24 12:25] LABS: ALBUMIN 3.3 g/dl (3.4-5.0); BILIRUBIN,TOTAL 0.8 mg/dL (0.2-1); BLOOD UREA NITROGEN 16.4 mg/dL (7-18); CALCIUM 8.5 mg/dL (8.5-10.1); MAGNESIUM 2.4 mg/dL (1.8-2.4); POTASSIUM 4.4 mmol/L (3.5-5.1); TOT PROT 6.1 g/dl (6.4-8.2)
[2019-05-24 12:48] LABS: EPI CELLS 0.3 /HPF (0-5/HPF); HYALINE CASTS 2 /lpf (0-8); PH,URINE 5.5 (5.0-8.0); URINE APPEARANCE CLEAR; URINE BACTERIA 2.6 /hpf (NEGATIVE); URINE BILIRUBIN NEGATIVE (NEGATIVE); URINE COLOR YELLOW; URINE GLUCOSE (UA) NEGATIVE (NEGATIVE); URINE KETONE NEGATIVE (NEGATIVE); URINE LEUK ESTERASE NEGATIVE (NEGATIVE); URINE NITRITE NEGATIVE (NEGATIVE); URINE PROTEIN 3+ (NEGATIVE); URINE RBC 1 /hpf (0-4); URINE WBC 1 /hpf (0-5)
--- NOTE | 2019-05-24 13:22 | PDOC ---
Attending Attestation - Resident Resident Name: Herberth Cummings - ED Attending Attestation I have performed the following: I have examined & evaluated the patient, The case was reviewed & discussed with the resident, I agree w/resident's findings & plan - HPI HPI: 05/24/19 13:17 49-year-old male with multiple medical problems including history of CHF, noncompliance with medications at least for the last 6 months when he self DC'd his meds because he "did not need them" presents now with 2 to 3 months of progressive dyspnea on exertion, orthopnea, worsening edema. Slight chest pain today, prompting the ED visit. - Physicial Exam PE: 05/24/19 13:19 Hypertensive, slight tachycardia, slight hypoxia Otherwise seated comfortably in stretcher speaking full sentences Morbidly obese, slightly unkempt, slightly eccentric Pupils equal round reactive to light, no obvious JVD Heart is regular with systolic ejection murmur Bibasilar inspiratory and expiratory crackles, decreased breath sounds at the left base Abdomen is soft/nondistended. Abdominal wall edema with rubor Bilateral 2-3+ pitting edema - Medical Decision Making 05/24/19 13:20 49-year-old male with history of CHF and medication noncompliance presents with anasarca and pulmonary edema with episode of chest pain today, consistent with progressive CHF and volume overload, chest pain concerning for ACS. labs including trop and bnp cxr, ekg diurese admit Heart Score/ECG Review #1 ECG reviewed & interpreted by me at: 11:08 General ECG Interpretation: Sinus Rhythm, Normal Rate (75), Normal Intervals ( qtc 484, RBBB), No acute ischemic changes (inf/lat TWI,) Compared to previous ECG there are: Changes noted (c/w 03/16, inferior TWI are new)
[2019-05-24 13:49] LABS: PHOSPHOROUS 3.9 mg/dL (2.5-4.9)
[2019-05-24 14:04] LABS: ANISOCYTOSIS 1+; MACROCYTOSIS 0; PLATELET ESTIMATE DECREASED
--- NOTE | 2019-05-24 15:41 | HP ---
Admitting History and Physical - Primary Care Physician PCP: Samuel Hu - Admission Chief Complaint: sob and chest pain 01/06 History of Present Illness: 49 year old male with PMH HTN, HLD, DM, CHF, Asthma, chronic bronchitis, current smoker presents to the ED via ambulance for SOB while walking to his sisters apartment. he is tangential. he states microwaves [place] causing his CHF. he was told he had chf approximately 5 years ago but hates [facility] washer/PAs and MDs so he stopped following, he stopped medications because he didnt feel they were helpful, he still woke up every day feeling like he was drowning. he reports being in and out of hospitals, nobody can help him. hes homeless, his children think "hes crazy." he is going from very angry, to tearful during this interview. he states the ED physician asked him if he was suicidal but hes not, he also denies depressive feelings as well. He states this all started 4-5 years ago, but has been bad since thanks. when his landlord abandoned him and he went out on the streets. he states thats when his abd started getting larger/fluid filled. his feet are swollen. he reports smoking is the only thing that helps him even though everyone has told him to quit. he feels that once "he takes a drag, the fluid starts circulating and he doesnt feel hes drowning anymore." he does not want xanax, that made him loopy in the past. he does not wear home oxygen. on exam he denies chest pains, pressure, n/v/d. he states he feels great. History Source: Patient Limitations to Obtaining History: No Limitations - Past Medical History Cardiovascular: Yes: CHF, HTN, Hyperlipdemia Pulmonary: Yes: Asthma, Bronchitis Endocrine: Yes: Diabetes Mellitus - Past Surgical History Past Surgical History: Yes: None - Smoking History Smoking history: Current every day smoker Have you smoked in the past 12 months: Yes Aproximately how many cigarettes per day: 10 - Alcohol/Substance Use Hx Alcohol Use: No - Social History Usual Living Arrangement: Yes: Alone History of Recent Travel: No Home Medications - Allergies Allergies/Adverse Reactions: Allergies Allergy/AdvReac Type Severity Reaction Status Date / Time Penicillins Allergy Hives Verified 05/24/19 12:48 strawberry Allergy Verified 05/24/19 12:48 Family Medical History Family History: Unable to Obtain Review of Systems - Review of Systems Constitutional: reports: Lethargy Eyes: reports: No Symptoms HENT: reports: No Symptoms Neck: reports: No Symptoms Cardiovascular: reports: Chest Pain, Edema, Shortness of Breath Respiratory: reports: Cough, Orthopnea, SOB, SOB on Exertion Gastrointestinal: reports: Abdominal Pain Genitourinary: reports: Testicular Swelling Musculoskeletal: reports: Extremity Pain, Muscle Weakness Psychiatric: reports: Anxiety, Depression, Paranoia Physical Examination Vital Signs: Vital Signs Temperature 98.3 F 05/24/19 11:06 Pulse Rate 74 05/24/19 11:52 Respiratory Rate 22 H 05/24/19 11:06 Blood Pressure 166/120 H 05/24/19 11:06 O2 Sat by Pulse Oximetry (%) 92 L 05/24/19 11:52 Constitutional: Yes: Well Nourished, No Distress HENT: Yes: Atraumatic, Normocephalic Neck: Yes: Supple Cardiovascular: Yes: Regular Rate and Rhythm Respiratory: Yes: Other (crackles) Gastrointestinal: Yes: Normal Bowel Sounds, Abdomen, Obese Musculoskeletal: Yes: Muscle Pain, Muscle Weakness Edema: LLE: 2+, RLE: 2+ Neurological: Yes: Alert Psychiatric: Yes: Agitated, Other (paranoid, personality disorder) Labs: CBC, BMP 05/24/19 11:43 05/24/19 11:43 Imaging - Results Chest X-ray: Report Reviewed, Image Reviewed EKG: Report Reviewed, Image Reviewed Problem List - Problems (1) HTN (hypertension) Assessment/Plan: meds not reconciled wasnt taking medications prior repeat blood pressure now Code(s): I10 - ESSENTIAL (PRIMARY) HYPERTENSION (2) HLD (hyperlipidemia) Assessment/Plan: check lipid profile Code(s): E78.5 - HYPERLIPIDEMIA, UNSPECIFIED (3) Diabetes Assessment/Plan: sliding scale check a1c Code(s): E11.9 - TYPE 2 DIABETES MELLITUS WITHOUT COMPLICATIONS Qualifiers: Diabetes mellitus type: type 2 Diabetes mellitus ocean transportation intermediary insulin use: without halfway use (4) Tobacco dependence due to cigarettes Assessment/Plan: nicotine patch cessation strongly advised Code(s): F17.210 - NICOTINE DEPENDENCE, CIGARETTES, UNCOMPLICATED (5) Paranoid behavior Assessment/Plan: psych consult denies SI Code(s): F22 - DELUSIONAL DISORDERS (6) Acute exacerbation of CHF (congestive heart failure) Assessment/Plan: cardiology consult tele monitoring IV lasix I & O daily weights 2gm, 2l Code(s): I50.9 - HEART FAILURE, UNSPECIFIED Qualifiers: Heart failure type: unspecified Qualified Code(s): I50.9 - Heart failure, unspecified (7) Homelessness Assessment/Plan: social work consult Code(s): Z59.0 - HOMELESSNESS (8) Acute on chronic respiratory failure with hypoxia and hypercapnia Assessment/Plan: oxygen via nasal cannula monitor sats maintain oxygen sat > 92% Code(s): J96.21 - ACUTE AND CHRONIC RESPIRATORY FAILURE WITH HYPOXIA; J96.22 - ACUTE AND CHRONIC RESPIRATORY FAILURE WITH HYPERCAPNIA
[2019-05-24] MEDS: NICOTINE 14 MG/24 HOURS TOPICAL PATCH TD SCH (17:14)
[2019-05-24 17:48] LABS: ARTERIAL BLD GAS O2 SATURATION 94.3 % (95-98); ARTERIAL BLOOD GAS BASE EXCESS 6.3 meq/l (-2-2); ARTERIAL BLOOD GAS PCO2 60.9 mmHg (35-45); ARTERIAL BLOOD GAS pH 7.37 (7.35-7.45); CARBOXYHEMOGLOBIN 10.3 % (0-2)
[2019-05-24 17:49] LABS: ALLENS TEST POSITIVE
[2019-05-24 20:07] LABS: INR 1.17 (0.83-1.09); PROTHROMBIN TIME (PATIENT) 13.8 SEC (9.7-13.0)
[2019-05-24 20:10] LABS: ACTIVATED PTT 31.3 SECONDS (25.2-36.5)
[2019-05-24] MEDS: INSULIN SLIDING SCALE (NOVOLOG) 1 VIAL SQ SCH (22:45)
[2019-05-24] MEDS ORDERED: HEPARIN NA (PORCINE) 5,000 UNITS/ML 1ML VIAL ONE (23:25)
[2019-05-24] MEDS: HEPARIN NA (PORCINE) 5,000 UNITS/ML 1ML VIAL SQ SCH (23:28)
--- NOTE | 2019-05-25 03:07 | HOSP ---
Subjective - Review of Symptoms Events since last encounter: Called to see patient as he is unhappy with his care, upset that he has been in the ED for 14hours and has only received one dose of lasix. RN reports patient beligerent, spitting and exposing himself. Upon examination pt reports abdominal pain and mild SOB. Denies chest pain, palpitations. Physical Examination Vital Signs: Vital Signs Temperature 98.3 F 05/24/19 11:06 Pulse Rate 71 05/25/19 02:42 Respiratory Rate 05/25/19 02:44 Blood Pressure 133/84 05/25/19 02:42 O2 Sat by Pulse Oximetry (%) 93 L 05/25/19 02:44 Constitutional: Yes: Obese (morbidly) Cardiovascular: Yes: Regular Rate and Rhythm, S1, S2 Respiratory: Yes: Wheezes Gastrointestinal: Yes: Normal Bowel Sounds, Other (lower abdomen tender to palpation, hot, erythematous, + pitting edema, peau d'orange appearance) Edema: LLE: 1+, RLE: 1+ Labs: CBC, BMP 05/24/19 11:43 05/24/19 11:43 Hospitalist Encounter Assessment: cellulitis lower abdomen/pannus - clindamycin 600mg IV x 1 - rec ID consult, defer to PCP in am - oxycodone 10mg x 1 now for pain. CHF exacerbation - lasix 40mg x 1 now (patient reports initial response to dose yesterday but no recent urine output) Asthma - albuterol/atrovent nebs - s/p dexamethasone 10mg in ED
[2019-05-25] MEDS ORDERED: CLINDAMYCIN 600MG PREMIX IVPB 600 MG/50 ML BAG IVPB ONE (03:23)
[2019-05-25] MEDS ORDERED: ALBUTEROL SO4 0.083% IH SOL 2.5 MG/3 ML VIAL.NEB. NEB ONE ×2 (03:24→03:58)
[2019-05-25] MEDS ORDERED: FUROSEMIDE 40 MG/4 ML INJECTABLE VIAL IVPUSH ONE (03:24)
[2019-05-25] MEDS ORDERED: oxyCODONE HCL 5 MG TABLET PO ONE (03:24)
[2019-05-25] MEDS ORDERED: IPRATROPIUM BR 0.02% 0.5 MG/2.5 ML VIAL.NEB. NEB ONE (03:24)
[2019-05-25 06:42] LABS: HEMATOCRIT 54.1 % (35.4-49); HEMOGLOBIN 18.1 GM/dL (11.7-16.9); MCH 31.3 pg (25.7-33.7); MCHC 33.4 g/dl (32.0-35.9); MEAN CELL VOLUME 93.6 fl (80-96); MEAN PLT VOLUME 10.1 fl (7.5-11.1); PLATELET COUNT 102 K/MM3 (134-434); RBC 5.78 M/mm3 (4.00-5.60); RDW 14.9 % (11.9-15.9); WHITE BLOOD COUNT 7.6 K/mm3 (4.0-10.0)
[2019-05-25] MEDS: INSULIN SLIDING SCALE (NOVOLOG) 1 VIAL SQ SCH ×4 (06:51→22:54)
[2019-05-25 07:23] LABS: BILIRUBIN,TOTAL 0.9 mg/dL (0.2-1); BLOOD UREA NITROGEN 16.1 mg/dL (7-18); CALCIUM 7.9 mg/dL (8.5-10.1); MAGNESIUM 2.1 mg/dL (1.8-2.4); TOT PROT 5.9 g/dl (6.4-8.2)
[2019-05-25] MEDS: HEPARIN NA (PORCINE) 5,000 UNITS/ML 1ML VIAL SQ SCH ×2 (09:15→22:53)
[2019-05-25] MEDS: ASPIRIN 81 MG CHEWABLE TABLETS PO SCH (09:15)
--- NOTE | 2019-05-25 09:57 | PN ---
Progress Note, Physician Chief Complaint: AWAKE ALERT AGITATED BREATHING BETTER TODAY ON NC - Current Medication List Current Medications: Active Medications Aspirin (Asa -) 81 mg PO DAILY [facility] Last Admin: 05/25/19 09:15 Dose: 81 mg Furosemide (Lasix Injection -) 40 mg IVPUSH DAILY [facility] Last Admin: 05/25/19 09:14 Dose: 40 mg Heparin Sodium (Porcine) (Heparin -) 5,000 unit SQ BID [facility] Last Admin: 05/25/19 09:15 Dose: 5,000 unit Insulin Aspart (Novolog Vial Sliding Scale -) 1 vial SQ ACHS [facility]; Protocol Last Admin: 05/25/19 06:51 Dose: Not Given Nicotine (Nicoderm Patch -) 14 mg TD DAILY [facility] Last Admin: 05/24/19 17:14 Dose: Not Given - Objective Vital Signs: Vital Signs Temperature 98.0 F 05/25/19 08:26 Pulse Rate 70 05/25/19 08:26 Respiratory Rate 18 05/25/19 08:26 Blood Pressure 160/97 05/25/19 08:26 O2 Sat by Pulse Oximetry (%) 94 L 05/25/19 05:22 Constitutional: Yes: Mild Distress Eyes: Yes: WNL HENT: Yes: WNL Neck: Yes: WNL Cardiovascular: Yes: Regular Rate and Rhythm Respiratory: Yes: Diminished, On Nasal O2, Wheezes Gastrointestinal: Yes: Soft, Abdomen, Obese Genitourinary: Yes: WNL Musculoskeletal: Yes: WNL Extremities: Yes: WNL Edema: Yes Edema: LLE: 2+, RLE: 2+ Integumentary: Yes: Rash, Onychomycosis, Venous Stasis Changes Psychiatric: Yes: Agitated Labs: CBC, BMP 05/25/19 06:09 05/25/19 06:09 INR, PTT INR 1.17 (0.83-1.09) H 05/24/19 18:50 Problem List - Problems (1) CHF (congestive heart failure) Code(s): I50.9 - HEART FAILURE, UNSPECIFIED Qualifiers: Heart failure type: other Qualified Code(s): I50.9 - Heart failure, unspecified (2) Diabetes Code(s): E11.9 - TYPE 2 DIABETES MELLITUS WITHOUT COMPLICATIONS Qualifiers: Diabetes mellitus type: type 2 Diabetes mellitus chcf insulin use: without chcf use (3) HLD (hyperlipidemia) Code(s): E78.5 - HYPERLIPIDEMIA, UNSPECIFIED (4) HTN (hypertension) Code(s): I10 - ESSENTIAL (PRIMARY) HYPERTENSION (5) Paranoid behavior Code(s): F22 - DELUSIONAL DISORDERS (6) Tobacco dependence due to cigarettes Code(s): F17.210 - NICOTINE DEPENDENCE, CIGARETTES, UNCOMPLICATED (7) Acute exacerbation of CHF (congestive heart failure) Code(s): I50.9 - HEART FAILURE, UNSPECIFIED Qualifiers: Heart failure type: unspecified Qualified Code(s): I50.9 - Heart failure, unspecified (8) Polycythemia Code(s): D75.1 - SECONDARY POLYCYTHEMIA (9) Acute on chronic respiratory failure with hypoxia and hypercapnia Code(s): J96.21 - ACUTE AND CHRONIC RESPIRATORY FAILURE WITH HYPOXIA; J96.22 - ACUTE AND CHRONIC RESPIRATORY FAILURE WITH HYPERCAPNIA Assessment/Plan CHF PROTOCOL WATER RESTRICTION DAILY WEIGHTS LASIX IV FOR DIURESIS 02 SUPPORT OOB TO CHAIR ECHO COMPLIANCE DISCUSSED AND IMPORTANCE OF LOW SALT ADA DIET AND WATER 2LITER RESTRICTION. PSYCHIATRY EVAL NICOTINE PATCH NUTRITION EVAL FOR EDUCATION DVT PROPHYLAXIS
[2019-05-25] MEDS ORDERED: FUROSEMIDE 40 MG/4 ML INJECTABLE VIAL IVPUSH SCH (10:00)
[2019-05-25] MEDS: NICOTINE 14 MG/24 HOURS TOPICAL PATCH TD SCH (11:36)
[2019-05-25] MEDS: LISINOPRIL 5 MG TABLET (FP) PO SCH (11:36)
--- NOTE | 2019-05-25 11:44 | CON.CARD ---
Consult Consult Specialty:: cardiology Referred by:: Dr. Bailey Reason for Consultation:: SOB, chf - History of Present Illness Chief Complaint: sob, edema History of Present Illness: 49 year old man with pmh smoker,polycthemia, chronic respiratory failure, chronic diastolic chf and severe pulm htn, obesity, dianne, non-adherent with medical follow up and medications admitted with progressively worsening sob and edema. pt seen and examined today in [facility]. states he is feeling better since admission yesterday. states he has had worsening sob and edema since january. he does not follow with doctors as he "does not trust them" denies chest pain or palpitations. prior admissions for acute on chronic diastolic chf 03/15/2018 Echo: Normal LV szie with mild cLVH with normal LV fxn LVEF 60-65%, Grade II diastolic dysfunction c/w increased LA pressire, mild LAE, mild TR, RVSP 65 mmHg, mild ao dilatation - History Source History Provided By: Patient, Medical Record Limitations to Obtaining History: Poor Historian - Past Medical History Cardio/Vascular: Yes: CHF, HTN, Hyperlipdemia Pulmonary: Yes: Asthma, Bronchitis Endocrine: Yes: Diabetes Mellitus - Past Surgical History Past Surgical History: Yes: None - Alcohol/Substance Use Hx Alcohol Use: No - Smoking History Smoking history: Current every day smoker Have you smoked in the past 12 months: Yes Aproximately how many cigarettes per day: 10 - Social History History of Recent Travel: No Home Medications - Allergies Allergies/Adverse Reactions: Allergies Allergy/AdvReac Type Severity Reaction Status Date / Time Penicillins Allergy Hives Verified 05/24/19 12:48 strawberry Allergy Verified 05/24/19 12:48 - Home Medications Home Medications: Ambulatory Orders NK [No Known Home Medication] 05/24/19 Family Medical History Family History: Denies Review of Systems - Review of Systems Constitutional: denies: No Symptoms, Chills, Diaphoresis, Fever, Lethargy, Loss of Appetite, Malaise, Night Sweats, Unintentional Wgt. Loss, Weakness, Other Eyes: denies: No Symptoms, Blind Spots, Blurred Vision, Double Vision, Eye Pain , Floaters, Photophobia, Recent Change in Vision, Other HENT: denies: No Symptoms, Difficult Swallowing, Ear Discharge, Ear Pain, Epistaxis, Gingival Bleeding, Hearing Loss, Mouth Swelling, Nasal Congestion, Ocular Prosthesis, Throat Pain, Toothache, Ringing in Ears, Other Neck: denies: No Symptoms, Decreased ROM, Lumps, Pain on Movement, Stiffness, Swollen Glands, Tenderness, Other Cardiovascular: reports: Edema, Shortness of Breath. denies: No Symptoms, Chest Pain, Palpitations, Other Respiratory: reports: Exercise Intolerance, Orthopnea, PND, SOB, SOB on Exertion , Wheezing. denies: No Symptoms, Cough, Hemoptysis, Snoring, Other Gastrointestinal: denies: No Symptoms, Abdominal Pain, Bloating, Constipation, Diarrhea, Dysphagia, Indigestion, Melena, Nausea, Rectal Bleeding, Vomiting, Vomiting Blood, Other Genitourinary: denies: No Symptoms, Burning, Discharge, Dysuria, Flank Pain, Frequency, Hematuria, Incontinence, Lesions, Menses, Pain, Testicular Mass, Testicular Pain, Testicular Swelling, Urgency, Vaginal Bleeding, Other Breasts: denies: No Symptoms Reported, See HPI, Breast Implants, Discharge from Nipple, Lumps, Pain, Skin Changes, Other Musculoskeletal: denies: No Symptoms, Back Pain, Crepitus, Decreased ROM, Extremity Pain, Joint Pain, Joint Swelling, Muscle Pain, Muscle Cramps, Muscle Weakness, Other Integumentary: denies: No Symptoms, Blister, Bruising, Change in Color, Eczema, Erythema, Incision, Lesions, Lump, Pallor, Pruritis, Rash, Wound, Other Neurological: denies: No Symptoms, Change in LOC, Change in Speech, Confusion, Dizziness, Headache, Incoordination, Numbness, Parasthesia, Pre-Existing Deficit , Seizure, Syncope, Tremors, Unsteady Gait, Weakness, Other Endocrine: denies: No Symptoms, Excessive Sweating, Flushing, Increased Hunger, Increased Thirst, Intolerance to Cold, Intolerance to Heat, Unexplained Weight Gain, Unexplained Weight Loss, Other Hematology/Lymphatic: denies: No Symptoms, Easily Bruised, Excessive Bleeding, Swollen Glands, Other Psychiatric: denies: No Symptoms, Altered Sleep Pattern, Anxiety, Depression, Hallucinations, Panic, Paranoia, Suicidal, Other - Risk Factors Known Risk Factors: Yes: Smoking Vital Signs: Vital Signs Temperature 98.0 F 05/25/19 08:26 Pulse Rate 70 05/25/19 08:26 Respiratory Rate 18 05/25/19 08:26 Blood Pressure 160/97 05/25/19 08:26 O2 Sat by Pulse Oximetry (%) 94 L 05/25/19 05:22 Constitutional: Yes: No Distress, Calm, Obese Eyes: Yes: Conjunctiva Clear, EOM Intact HENT: Yes: Atraumatic, Normocephalic Neck: Yes: Supple, Trachea Midline Respiratory: Yes: Regular, Diminished, Rhonchi, Wheezes. No: Rales, SOB Gastrointestinal: Yes: Normal Bowel Sounds, Soft. No: Distention, Tenderness Cardiovascular: Yes: Regular Rate and Rhythm. No: Bradycardia, Tachycardia, Pulse Irregular, Gallop, Rub, Varicosities JVD: No Carotid Bruit: No PMI: Non-Displaced Heart Sounds: Yes: S1, S2. No: Split S2, S3, S4, Clicks, Gallop, Rub, Bruit Murmur: No: Systolic Murmur, Diastolic Murmur Musculoskeletal: Yes: WNL Extremities: Yes: WNL Edema: Yes Edema: LLE: 2+, RLE: 2+ Peripheral Pulses WNL: Yes Neurological: Yes: Alert, Oriented Psychiatric: Yes: Alert, Oriented - Other Data Labs, Other Data: CBC, BMP 05/25/19 06:09 05/25/19 06:09 INR, PTT INR 1.17 (0.83-1.09) H 05/24/19 18:50 Troponin, BNP 05/24/19 05/24/19 05/24/19 11:43 11:43 18:50 Troponin I 0.04 0.03 B-Natriuretic Peptide 2256.3 H 05/25/19 06:09 Troponin I 0.03 B-Natriuretic Peptide Troponin, BNP 05/24/19 05/24/19 05/24/19 11:43 11:43 18:50 Troponin I 0.04 0.03 B-Natriuretic Peptide 2256.3 H 05/25/19 06:09 Troponin I 0.03 B-Natriuretic Peptide nsr Imaging - Results Chest X-ray: Report Reviewed, Image Reviewed EKG: Report Reviewed, Image Reviewed Other: Report Reviewed, Image Reviewed (tele-no sig arrhythmias) Assessment/Plan 49 year old man with pmh smoker,polycthemia, chronic respiratory failure, chronic diastolic chf and severe pulm htn, obesity, dianne, non-adherent with medical follow up and medications admitted with progressively worsening sob and edema. pt [facility] examined [facility]. states he is feeling better since admission yesterday. states he has had worsening sob and edema since january. he does not follow with doctors as he "does not trust them" denies chest pain or palpitations. prior admissions for acute on chronic diastolic chf 03/15/2018 Echo: Normal LV szie with mild cLVH with normal LV fxn LVEF 60-65%, Grade II diastolic dysfunction c/w increased LA pressire, mild LAE, mild TR, RVSP 65 mmHg, mild ao dilatation SOB-multifactorial, AE COPD, continued smoking, acute on chronic diastolic chf, severe PAH -currently wheezing -pulm edema and peripheral edema improving -cont IV lasix, would increase to BID -monitor strict I/os and daily weights -monitor bun/creat, electrolytes and replete as needed -fup repeat echo -[facility] pulm evaluation for COPD pt needs to establish consistent outpatient care on discharge
[2019-05-25] MEDS ORDERED: AMMONIUM LACTATE 12% LOTION 225 GM BOTTLE TP PRN (13:21)
--- NOTE | 2019-05-25 13:21 | CONSULT ---
Consult Consult Specialty:: Podiatry Reason for Consultation:: Xerotic feet b/l with painful fungus toe nails x 10. - Past Medical History Cardio/Vascular: Yes: CHF, HTN, Hyperlipdemia Pulmonary: Yes: Asthma, Bronchitis Endocrine: Yes: Diabetes Mellitus - Past Surgical History Past Surgical History: Yes: None - Alcohol/Substance Use Hx Alcohol Use: No - Smoking History Smoking history: Current every day smoker Have you smoked in the past 12 months: Yes Aproximately how many cigarettes per day: 10 - Social History History of Recent Travel: No Home Medications - Allergies Allergies/Adverse Reactions: Allergies Allergy/AdvReac Type Severity Reaction Status Date / Time Penicillins Allergy Hives Verified 05/24/19 12:48 strawberry Allergy Verified 05/24/19 12:48 - Home Medications Home Medications: Ambulatory Orders NK [No Known Home Medication] 05/24/19 Physical Exam Vital Signs: Vital Signs Temperature 98.0 F 05/25/19 08:26 Pulse Rate 70 05/25/19 08:26 Respiratory Rate 18 05/25/19 08:26 Blood Pressure 160/97 05/25/19 08:26 O2 Sat by Pulse Oximetry (%) 94 L 05/25/19 05:22 Extremities: Yes: Other (nvsgi, +tender dystrophic mycotic nails with subungual debris, +inflammed nail beds, +distal seperation of nails from bed, +xerosis b/ l soles of feet) Labs: CBC, BMP 05/25/19 06:09 05/25/19 06:09 Assessment/Plan onychomycosis pain xerosis Ammonium lactae b/l feet and legs BID. Will debride nails tomorrow with proper instruments. Will follow.
[2019-05-25] MEDS ORDERED: ACETAMINOPHEN 1000 MG/100 ML VIAL (NON FORMULARY) IVPB ONE (14:15)
[2019-05-25] MEDS ORDERED: PT OWN MED DRAWER 7, Y5N ONE ×2 (16:13→23:01)
[2019-05-25] MEDS: ALBUTEROL SO4 HFA INHALER IH PRN (16:18)
--- NOTE | 2019-05-25 16:47 | EKG ---
Test Reason : Blood Pressure : / mmHG Vent. Rate : 075 BPM Atrial Rate : 075 BPM P-R Int : 158 ms QRS Dur : 104 ms QT Int : 434 ms P-R-T Axes : 028 142 -71 degrees QTc Int : 484 ms NORMAL SINUS RHYTHM POSSIBLE LEFT ATRIAL ENLARGEMENT INCOMPLETE RIGHT BUNDLE BRANCH BLOCK LEFT POSTERIOR FASCICULAR BLOCK T WAVE ABNORMALITY, CONSIDER INFERIOR ISCHEMIA T WAVE ABNORMALITY, CONSIDER ANTEROLATERAL ISCHEMIA PROLONGED QT ABNORMAL ECG Confirmed by MD CAR, JUAN CARLOS ([id number]) on 05/25/2019 4:47:34 PM Referred By: Confirmed By:JUAN CARLOS YOON MD
[2019-05-25] MEDS ORDERED: ALBUTEROL SO4 2.5/IPRATROPIUM 0.5 INH SOL 3 ML VIAL.NEB. NEB PRN (17:52)
[2019-05-25] MEDS ORDERED: CLOTRIMAZOLE/BETAMET DIPROP 15 GM TUBE TP SCH (22:00)
[2019-05-25] MEDS: CLOTRIMAZOLE/BETAMET DIPROP 15 GM TUBE TP SCH (22:53)
[2019-05-26] MEDS ORDERED: oxyCODONE HCL 5 MG TABLET PO ONE (04:12)
[2019-05-26] MEDS: FUROSEMIDE 40 MG/4 ML INJECTABLE VIAL IVPUSH SCH ×2 (06:16→14:47)
[2019-05-26] MEDS: INSULIN SLIDING SCALE (NOVOLOG) 1 VIAL SQ SCH ×4 (06:17→22:46)
[2019-05-26 06:52] LABS: HEMOGLOBIN 17.8 GM/dL (11.7-16.9); MCH 31.1 pg (25.7-33.7); MCHC 33.1 g/dl (32.0-35.9); MEAN PLT VOLUME 10.4 fl (7.5-11.1); PLATELET COUNT 111 K/MM3 (134-434); RBC 5.74 M/mm3 (4.00-5.60)
[2019-05-26 07:25] LABS: BLOOD UREA NITROGEN 19.2 mg/dL (7-18); CALCIUM 7.8 mg/dL (8.5-10.1); CREATININE 1.1 mg/dL (0.55-1.3); MAGNESIUM 2.2 mg/dL (1.8-2.4); POTASSIUM 3.4 mmol/L (3.5-5.1)
[2019-05-26] MEDS: LISINOPRIL 5 MG TABLET (FP) PO SCH (09:33)
[2019-05-26] MEDS: HEPARIN NA (PORCINE) 5,000 UNITS/ML 1ML VIAL SQ SCH ×2 (09:33→22:46)
[2019-05-26] MEDS: ASPIRIN 81 MG CHEWABLE TABLETS PO SCH (09:33)
[2019-05-26] MEDS: NICOTINE 14 MG/24 HOURS TOPICAL PATCH TD SCH (09:33)
[2019-05-26] MEDS: ALBUTEROL SO4 HFA INHALER IH PRN (09:35)
[2019-05-26] MEDS: CLOTRIMAZOLE/BETAMET DIPROP 15 GM TUBE TP SCH ×2 (09:35→22:47)
[2019-05-26] MEDS ORDERED: POTASSIUM CHLORIDE TABS 10 MEQ TABLET.ER (FP) PO ONE (10:01)
[2019-05-26] MEDS ORDERED: ACETAMINOPHEN 325 MG TABLET (FP) PO PRN (10:25)
--- NOTE | 2019-05-26 10:30 | PN ---
Progress Note, Physician Chief Complaint: AWAKE ALERT C/O HEADACHE SOB CONTINUES - Current Medication List Current Medications: Active Medications Acetaminophen (Tylenol -) 650 mg PO Q6H PRN PRN Reason: PAIN Albuterol Sulfate (Ventolin Hfa Inhaler -) 2 puff IH Q4H PRN PRN Reason: SHORT OF BREATH/WHEEZING Last Admin: 05/26/19 09:35 Dose: 2 puff Albuterol/Ipratropium (Duoneb -) 1 amp NEB Q6H PRN PRN Reason: SHORTNESS OF BREATH Last Admin: 05/25/19 18:40 Dose: 1 amp Amlodipine Besylate (Norvasc -) 5 mg PO DAILY [facility] Aspirin (Asa -) 81 mg PO DAILY [facility] Last Admin: 05/26/19 09:33 Dose: 81 mg Clotrimazole (Lotrisone Cream (Small Tube)) 1 applic TP BID [facility] Last Admin: 05/26/19 09:35 Dose: 1 applic Furosemide (Lasix Injection -) 40 mg IVPUSH BIDLASIX [facility] Last Admin: 05/26/19 06:16 Dose: 40 mg Heparin Sodium (Porcine) (Heparin -) 5,000 unit SQ BID [facility] Last Admin: 05/26/19 09:33 Dose: 5,000 unit Levofloxacin (Levaquin 500 Mg Premixed Ivpb -) 500 mg in 100 mls @ 100 mls/hr IVPB DAILY [facility]; Protocol Last Admin: 05/26/19 09:33 Dose: 100 mls/hr Insulin Aspart (Novolog Vial Sliding Scale -) 1 vial SQ ACHS [facility]; Protocol Last Admin: 05/26/19 06:17 Dose: Not Given Lactic Acid (Lac-Hydrin 12) 1 applic TP DAILY PRN PRN Reason: xerosis Last Admin: 05/26/19 09:33 Dose: 1 applic Lisinopril (Prinivil) 5 mg PO DAILY [facility] Last Admin: 05/26/19 09:33 Dose: 5 mg Nicotine (Nicoderm Patch -) 14 mg TD DAILY [facility] Last Admin: 05/26/19 09:33 Dose: Not Given - Objective Vital Signs: Vital Signs Temperature 98.8 F 05/26/19 08:08 Pulse Rate 65 05/26/19 08:08 Respiratory Rate 18 05/26/19 08:08 Blood Pressure 158/108 H 05/26/19 08:08 O2 Sat by Pulse Oximetry (%) 95 05/25/19 21:00 Constitutional: Yes: Mild Distress Cardiovascular: Yes: Regular Rate and Rhythm Respiratory: Yes: Diminished, On Nasal O2, Rhonchi Gastrointestinal: Yes: Soft, Abdomen, Obese Genitourinary: Yes: WNL Musculoskeletal: Yes: Back Pain Edema: Yes Edema: LLE: 2+, RLE: 2+ Integumentary: Yes: Erythema, Pressure Ulcer, Rash, Onychomycosis, Venous Stasis Changes Wound/Incision: Yes: Open to air (ABDOMINAL ERYTHEMA WITH CELLULITIS) Neurological: Yes: Pre-Existing Deficit ...Motor Strength: LLE, RLE Psychiatric: Yes: Agitated, Other Labs: CBC, BMP 05/26/19 06:10 05/26/19 06:10 INR, PTT INR 1.17 (0.83-1.09) H 05/24/19 18:50 Problem List - Problems (1) CHF (congestive heart failure) Code(s): I50.9 - HEART FAILURE, UNSPECIFIED Qualifiers: Heart failure type: other Qualified Code(s): I50.9 - Heart failure, unspecified (2) Diabetes Code(s): E11.9 - TYPE 2 DIABETES MELLITUS WITHOUT COMPLICATIONS Qualifiers: Diabetes mellitus type: type 2 Diabetes mellitus fci insulin use: without fci use (3) HLD (hyperlipidemia) Code(s): E78.5 - HYPERLIPIDEMIA, UNSPECIFIED (4) HTN (hypertension) Code(s): I10 - ESSENTIAL (PRIMARY) HYPERTENSION (5) Paranoid behavior Code(s): F22 - DELUSIONAL DISORDERS (6) Tobacco dependence due to cigarettes Code(s): F17.210 - NICOTINE DEPENDENCE, CIGARETTES, UNCOMPLICATED (7) Acute exacerbation of CHF (congestive heart failure) Code(s): I50.9 - HEART FAILURE, UNSPECIFIED Qualifiers: Heart failure type: unspecified Qualified Code(s): I50.9 - Heart failure, unspecified (8) Polycythemia Code(s): D75.1 - SECONDARY POLYCYTHEMIA (9) Acute on chronic respiratory failure with hypoxia and hypercapnia Code(s): J96.21 - ACUTE AND CHRONIC RESPIRATORY FAILURE WITH HYPOXIA; J96.22 - ACUTE AND CHRONIC RESPIRATORY FAILURE WITH HYPERCAPNIA Assessment/Plan CHF PROTOCOL WATER RESTRICTION LEVAQUIN IV DAILY [facility] LASIX IV FOR DIURESIS 02 SUPPORT OOB TO CHAIR ECHO COMPLIANCE DISCUSSED AND IMPORTANCE OF LOW SALT ADA DIET AND WATER 2LITER RESTRICTION. PSYCHIATRY EVAL NICOTINE PATCH NUTRITION EVAL FOR EDUCATION DVT PROPHYLAXIS
[2019-05-26] MEDS: amLODIPine BESYLATE 5 MG TABLET (FP) PO SCH (11:06)
--- NOTE | 2019-05-26 13:44 | CON.PSY ---
Psychiatry Consult Chief Complaint: staff report panic and anxirty attacks and non compliant some times. getting tests today. No psych history , on no p[sych meds. Symptoms: reports: Anxiety - Previous Psychiatric Treatment Outpatient: None Inpatient: None - Previous Substance Abuse Treatment Outpatient: None Inpatient: None - Current Medications Current Medications: Active Medications Acetaminophen (Tylenol -) 650 mg PO Q6H PRN PRN Reason: PAIN Albuterol Sulfate (Ventolin Hfa Inhaler -) 2 puff IH Q4H PRN PRN Reason: SHORT OF BREATH/WHEEZING Last Admin: 05/26/19 09:35 Dose: 2 puff Albuterol/Ipratropium (Duoneb -) 1 amp NEB Q6H PRN PRN Reason: SHORTNESS OF BREATH Last Admin: 05/25/19 18:40 Dose: 1 amp Amlodipine Besylate (Norvasc -) 5 mg PO DAILY [facility] Last Admin: 05/26/19 11:06 Dose: 5 mg Aspirin (Asa -) 81 mg PO DAILY [facility] Last Admin: 05/26/19 09:33 Dose: 81 mg Clotrimazole (Lotrisone Cream (Small Tube)) 1 applic TP BID [facility] Last Admin: 05/26/19 09:35 Dose: 1 applic Furosemide (Lasix Injection -) 40 mg IVPUSH BIDLASIX [facility] Last Admin: 05/26/19 06:16 Dose: 40 mg Heparin Sodium (Porcine) (Heparin -) 5,000 unit SQ BID [facility] Last Admin: 05/26/19 09:33 Dose: 5,000 unit Levofloxacin (Levaquin 500 Mg Premixed Ivpb -) 500 mg in 100 mls @ 100 mls/hr IVPB DAILY [facility]; Protocol Last Admin: 05/26/19 09:33 Dose: 100 mls/hr Insulin Aspart (Novolog Vial Sliding Scale -) 1 vial SQ ACHS [facility]; Protocol Last Admin: 05/26/19 11:18 Dose: Not Given Lactic Acid (Lac-Hydrin 12) 1 applic TP DAILY PRN PRN Reason: xerosis Last Admin: 05/26/19 09:33 Dose: 1 applic Lisinopril (Prinivil) 5 mg PO DAILY [facility] Last Admin: 05/26/19 09:33 Dose: 5 mg Nicotine (Nicoderm Patch -) 14 mg TD DAILY [facility] Last Admin: 05/26/19 09:33 Dose: Not Given - Allergies Allergies: Allergies Allergy/AdvReac Type Severity Reaction Status Date / Time Penicillins Allergy Hives Verified 05/24/19 12:48 strawberry Allergy Verified 05/24/19 12:48 - Current Living Status Usual Living Arrangement: Alone - Current Mental Status Evaluation Appearance: Well Groomed, Disheveled Attitude: Cooperative - Affect Affect: Constrictive Appropriateness: Appropriate to Content - Mood Mood: Anxious - Speech/Language Expressive: Coherent - Psychomotor Activity Psychomotor Activity: Hyperactive - Thought Process Thought Process: Intact - Thought Content Hallucinations: Absent Delusions: Absent - Self Perception Self Perception: No Impairment - Cognition Attention: Alert Orientation: Time Memory, Immediate Recall: Intact Memory, Short Term: 3/3 Memory, Remote with Promptin/3 - Concentration Serial Sevens Intact: Yes Simple Calculations Intact: Yes - Abstraction Proverb Interpretation: Intact Judgement: Intact - Insight Insight: Intact - Impulse Control Impulse Control: Minimally Impaired - Suicidal Ideation Suicidal Ideation: No - Homicidal Ideation Homicidal Ideation: No Assessment/Plan 1) Ativan PRN
--- NOTE | 2019-05-26 14:52 | ECHO ---
Name: EMILIANO BATRES, III Exam:Adult Echocardiogram Study Date: 05/26/2019 01:44 PM Age: 49 yrs Reason For Study: chf, assess lv function Height: 73 in Weight: 230 lb BSA: 2.3 m2 MMode/2D Measurements & Calculations IVSd: 1.2 cm Ao root diam: 2.9 cm LVIDd: 4.0 cm LA dimension: 4.1 cm LVIDs: 3.0 cm LVPWd: 2.2 cm LVPWs: 2.8 cm EDV(Teich): 70.7 ml ESV(Teich): 35.9 ml LVOT diam: 2.0 cm RV S Eddie: 9.7 cm/sec Doppler Measurements & Calculations MV E max eddie: 88.8 cm/sec Ao V2 max: 196.0 cm/sec MV A max eddie: 59.7 cm/sec Ao max P.4 mmHg MV E/A: 1.5 MV dec time: 0.26 sec JANN(V,D): 2.5 cm2 LV V1 max P.3 mmHg TR max eddie: 346.1 cm/sec LV V1 max: 152.4 cm/sec TR max P.9 mmHg PA V2 max: 120.1 cm/sec Med Peak E' Eddie: 5.0 cm/sec PA max P.8 mmHg Med E/e': 17.7 Lat Peak E' Eddie: 7.0 cm/sec Lat E/e': 12.8 Procedure A complete two-dimensional transthoracic echocardiogram was performed (2D, M-mode, Doppler and color flow Doppler). Left Ventricle The left ventricular size, thickness and function are normal. The left ventricular ejection fraction is normal. Ejection Fraction = 60-65%. The left ventricular wall motion is normal. Right Ventricle The right ventricle is normal in size and function. Atria Normal left and right atrial size and function. Mitral Valve There is no mitral regurgitation noted. Tricuspid Valve There is trace tricuspid regurgitation. Right ventricular systolic pressure is elevated at 40-50mmHg. Aortic Valve No hemodynamically significant valvular aortic stenosis. No aortic regurgitation is present. Pulmonic Valve There is no pulmonic valvular regurgitation. Great Vessels The aortic root is normal size. Pericardium/Pleura There is no pericardial effusion. Interpretation Summary The left ventricular size, thickness and function are normal The right ventricle is normal in size and function. There is trace tricuspid regurgitation. Right ventricular systolic pressure is elevated at 40-50mmHg. MD Shaq Sheikh 05/26/2019 02:51 PM
[2019-05-26 15:17] VITALS: BMI 40.1
--- NOTE | 2019-05-26 16:42 | PN ---
Progress Note, Physician History of Present Illness: seen and examined today in [facility]. states still feels sob, le edema improved. still wheezing and cough. - Current Medication List Current Medications: Active Medications Acetaminophen (Tylenol -) 650 mg PO Q6H PRN PRN Reason: PAIN Albuterol Sulfate (Ventolin Hfa Inhaler -) 2 puff IH Q4H PRN PRN Reason: SHORT OF BREATH/WHEEZING Last Admin: 05/26/19 09:35 Dose: 2 puff Albuterol/Ipratropium (Duoneb -) 1 amp NEB Q6H PRN PRN Reason: SHORTNESS OF BREATH Last Admin: 05/25/19 18:40 Dose: 1 amp Amlodipine Besylate (Norvasc -) 5 mg PO DAILY [facility] Last Admin: 05/26/19 11:06 Dose: 5 mg Aspirin (Asa -) 81 mg PO DAILY [facility] Last Admin: 05/26/19 09:33 Dose: 81 mg Clotrimazole (Lotrisone Cream (Small Tube)) 1 applic TP BID [facility] Last Admin: 05/26/19 09:35 Dose: 1 applic Furosemide (Lasix Injection -) 40 mg IVPUSH BIDLASIX [facility] Last Admin: 05/26/19 14:47 Dose: 40 mg Heparin Sodium (Porcine) (Heparin -) 5,000 unit SQ BID [facility] Last Admin: 05/26/19 09:33 Dose: 5,000 unit Levofloxacin (Levaquin 500 Mg Premixed Ivpb -) 500 mg in 100 mls @ 100 mls/hr IVPB DAILY [facility]; Protocol Last Admin: 05/26/19 09:33 Dose: 100 mls/hr Insulin Aspart (Novolog Vial Sliding Scale -) 1 vial SQ ACHS [facility]; Protocol Last Admin: 05/26/19 16:25 Dose: Not Given Lactic Acid (Lac-Hydrin 12) 1 applic TP DAILY PRN PRN Reason: xerosis Last Admin: 05/26/19 09:33 Dose: 1 applic Lisinopril (Prinivil) 5 mg PO DAILY [facility] Last Admin: 05/26/19 09:33 Dose: 5 mg Lorazepam (Ativan Injection -) 1 mg IM TID PRN PRN Reason: ANXIETY Nicotine (Nicoderm Patch -) 14 mg TD DAILY [facility] Last Admin: 05/26/19 09:33 Dose: Not Given - Objective Vital Signs: Vital Signs Temperature 98.2 F 05/26/19 13:26 Pulse Rate 68 05/26/19 13:26 Respiratory Rate 18 05/26/19 13:26 Blood Pressure 148/98 05/26/19 13:26 O2 Sat by Pulse Oximetry (%) 95 05/26/19 09:00 Constitutional: Yes: No Distress, Calm Eyes: Yes: Conjunctiva Clear, EOM Intact HENT: Yes: Atraumatic, Normocephalic Neck: Yes: Supple, Trachea Midline Cardiovascular: Yes: Regular Rate and Rhythm, S1, S2. No: Bradycardia, Tachycardia, Pulse Irregular, Bruit, JVD, Gallop, Murmur, Rub, S3, S4 Respiratory: Yes: Regular, Rhonchi, Wheezes. No: On Nasal O2, Rales, SOB Gastrointestinal: Yes: Normal Bowel Sounds, Soft. No: Distention, Tenderness Edema: Yes Edema: LLE: 1+, RLE: 1+ Peripheral Pulses: Left Doralis Pedis: 2+, Right Dorsalis Pedis: 2+ Neurological: Yes: Alert, Oriented Psychiatric: Yes: Alert, Oriented Labs: CBC, BMP 05/26/19 06:10 05/26/19 06:10 INR, PTT INR 1.17 (0.83-1.09) H 05/24/19 18:50 - ....Imaging Chest X-ray: Report Reviewed, Image Reviewed EKG: Report Reviewed, Image Reviewed Other: Report Reviewed, Image Reviewed (tele-no sig arrhythmias) Assessment/Plan 49 year old man with pmh smoker,polycthemia, chronic respiratory failure, chronic diastolic chf and severe pulm htn, obesity, dianne, non-adherent with medical follow up and medications admitted with progressively worsening sob and edema. pt seen and examined today in [facility]. states he is feeling better since admission yesterday. states he has had worsening sob and edema since january. he does not follow with doctors as he "does not trust them" denies chest pain or palpitations. prior admissions for acute on chronic diastolic chf 03/15/2018 Echo: Normal LV szie with mild cLVH with normal LV fxn LVEF 60-65%, Grade II diastolic dysfunction c/w increased LA pressire, mild LAE, mild TR, RVSP 65 mmHg, mild ao dilatation SOB-multifactorial, AE COPD, continued smoking, acute on chronic diastolic chf, severe PAH -currently wheezing with minimal pulm edema on exam -pulm edema and peripheral edema improving -cont IV lasix, can increase to 60mg BID for today -likely transition to po lasix tomorrow -monitor strict I/os and daily weights -monitor bun/creat, electrolytes and replete as needed -ECHO showed normal LV and RV function, mild PAH, mild valvular abnl -[facility] pulm evaluation for COPD pt needs to establish consistent outpatient care on discharge
--- NOTE | 2019-05-26 17:59 | PN ---
Progress Note (short form) - Note Progress Note: Painful elongated thickened toe nails in shoe gear and ambulation. Dry skin b/l feet +tender dystrophic mycotic nails with subungual debris, +inflammed nail beds, + distal seperation of nails from bed, +scaling dry skin onychomycosis pain xerosis Debride nails x 10. Foot care q 8 weeks. Ammonium lactate BID to feet and legs. Will follow.
[2019-05-27] MEDS: INSULIN SLIDING SCALE (NOVOLOG) 1 VIAL SQ SCH ×4 (06:08→20:59)
[2019-05-27] MEDS: FUROSEMIDE 40 MG/4 ML INJECTABLE VIAL IVPUSH SCH ×2 (06:09→13:28)
[2019-05-27] MEDS ORDERED: IBUPROFEN 200 MG TABLET PO ONE (06:17)
[2019-05-27] MEDS ORDERED: NAPROXEN 250 MG TABLET PO ONE (06:20)
[2019-05-27] MEDS: LORazepam 2 MG/ML SDV VIAL IM PRN ×2 (06:25→20:53)
--- NOTE | 2019-05-27 08:10 | PN ---
Progress Note, Physician Chief Complaint: Acute on Chronic CHF Exacerbation History of Present Illness: Previous notes and events reviewed awake and alert NAD complains of productive cough with white colored phlegm denies chest pain or palpitations - Current Medication List Current Medications: Active Medications Acetaminophen (Tylenol -) 650 mg PO Q6H PRN PRN Reason: PAIN Albuterol Sulfate (Ventolin Hfa Inhaler -) 2 puff IH Q4H PRN PRN Reason: SHORT OF BREATH/WHEEZING Last Admin: 05/26/19 09:35 Dose: 2 puff Albuterol/Ipratropium (Duoneb -) 1 amp NEB Q6H PRN PRN Reason: SHORTNESS OF BREATH Last Admin: 05/25/19 18:40 Dose: 1 amp Amlodipine Besylate (Norvasc -) 5 mg PO DAILY [facility] Last Admin: 05/26/19 11:06 Dose: 5 mg Aspirin (Asa -) 81 mg PO DAILY [facility] Last Admin: 05/26/19 09:33 Dose: 81 mg Clotrimazole (Lotrisone Cream (Small Tube)) 1 applic TP BID [facility] Last Admin: 05/26/19 22:47 Dose: 1 applic Furosemide (Lasix Injection -) 40 mg IVPUSH BIDLASIX [facility] Last Admin: 05/27/19 06:09 Dose: 40 mg Heparin Sodium (Porcine) (Heparin -) 5,000 unit SQ BID [facility] Last Admin: 05/26/19 22:46 Dose: 5,000 unit Levofloxacin (Levaquin 500 Mg Premixed Ivpb -) 500 mg in 100 mls @ 100 mls/hr IVPB DAILY [facility]; Protocol Last Admin: 05/26/19 09:33 Dose: 100 mls/hr Insulin Aspart (Novolog Vial Sliding Scale -) 1 vial SQ ACHS [facility]; Protocol Last Admin: 05/27/19 06:08 Dose: Not Given Lactic Acid (Lac-Hydrin 12) 1 applic TP DAILY PRN PRN Reason: xerosis Last Admin: 05/26/19 09:33 Dose: 1 applic Lisinopril (Prinivil) 5 mg PO DAILY [facility] Last Admin: 05/26/19 09:33 Dose: 5 mg Lorazepam (Ativan Injection -) 1 mg IM TID PRN PRN Reason: ANXIETY Last Admin: 05/27/19 06:25 Dose: 1 mg Nicotine (Nicoderm Patch -) 14 mg TD DAILY [facility] Last Admin: 05/26/19 09:33 Dose: Not Given - Objective Vital Signs: Vital Signs Temperature 98.3 F 05/27/19 01:49 Pulse Rate 72 05/27/19 01:49 Respiratory Rate 20 05/27/19 01:49 Blood Pressure 136/87 05/27/19 01:49 O2 Sat by Pulse Oximetry (%) 92 L 05/26/19 22:00 Constitutional: Yes: No Distress, Calm Eyes: Yes: Conjunctiva Clear HENT: Yes: Atraumatic Cardiovascular: Yes: Regular Rate and Rhythm Respiratory: Yes: Regular, Cough, On Nasal O2, Rhonchi Gastrointestinal: Yes: Normal Bowel Sounds, Soft Musculoskeletal: Yes: Muscle Weakness Extremities: Yes: WNL Edema: Yes Edema: LLE: 3+, RLE: 2+ Neurological: Yes: Alert, Oriented Psychiatric: Yes: Alert, Oriented Labs: CBC, BMP 05/26/19 06:10 INR, PTT INR 1.17 (0.83-1.09) H 05/24/19 18:50 Microbiology 05/24/19 12:25 Urine - Urine Clean Catch Urine Culture - Final NO GROWTH OBTAINED Problem List - Problems (1) Diabetes Assessment/Plan: BGM ACHS ISS low Na/diabetic diet HgA1c 6.3% Code(s): E11.9 - TYPE 2 DIABETES MELLITUS WITHOUT COMPLICATIONS Qualifiers: Diabetes mellitus type: type 2 Diabetes mellitus snf insulin use: without director long term care use (2) HLD (hyperlipidemia) Assessment/Plan: lipid panel reviewed Code(s): E78.5 - HYPERLIPIDEMIA, UNSPECIFIED (3) HTN (hypertension) Assessment/Plan: Amlodipine, Lisinopril low Na/diabetic diet Code(s): I10 - ESSENTIAL (PRIMARY) HYPERTENSION (4) Paranoid behavior Assessment/Plan: Psych consult Ativan prn Code(s): F22 - DELUSIONAL DISORDERS (5) Tobacco dependence due to cigarettes Assessment/Plan: Nicotine patch Code(s): F17.210 - NICOTINE DEPENDENCE, CIGARETTES, UNCOMPLICATED (6) Acute exacerbation of CHF (congestive heart failure) Assessment/Plan: Cardiology on board Furosemide BNP 2256.3 Low Na diet stricy I&Os fluid restriction Code(s): I50.9 - HEART FAILURE, UNSPECIFIED Qualifiers: Heart failure type: unspecified Qualified Code(s): I50.9 - Heart failure, unspecified (7) Polycythemia Assessment/Plan: RBC 5.74, Hg 17.8, Hct 54.0 Renal US shows incidental finding of possible enlarged spleen, will order Abdominal US Code(s): D75.1 - SECONDARY POLYCYTHEMIA (8) Homelessness Assessment/Plan: SW consult Code(s): Z59.0 - HOMELESSNESS Assessment/Plan see problem list dvt ppx
[2019-05-27 08:41] LABS: CALCIUM 7.8 mg/dL (8.5-10.1); CREATININE 1.3 mg/dL (0.55-1.3); POTASSIUM 3.4 mmol/L (3.5-5.1)
[2019-05-27] MEDS ORDERED: PT OWN MED DRAWER 7, Y5N ONE (09:21)
[2019-05-27] MEDS: amLODIPine BESYLATE 5 MG TABLET (FP) PO SCH (09:27)
[2019-05-27] MEDS: ASPIRIN 81 MG CHEWABLE TABLETS PO SCH (09:27)
[2019-05-27] MEDS: LISINOPRIL 5 MG TABLET (FP) PO SCH (09:27)
[2019-05-27] MEDS: HEPARIN NA (PORCINE) 5,000 UNITS/ML 1ML VIAL SQ SCH ×2 (09:27→20:59)
[2019-05-27] MEDS: CLOTRIMAZOLE/BETAMET DIPROP 15 GM TUBE TP SCH ×2 (09:34→20:59)
[2019-05-27] MEDS: NICOTINE 14 MG/24 HOURS TOPICAL PATCH TD SCH (09:35)
[2019-05-27] MEDS ORDERED: POTASSIUM CHLORIDE ORAL LIQUID 20 MEQ/15 ML PO ONE (11:15)
--- NOTE | 2019-05-27 16:52 | PN ---
Progress Note, Physician History of Present Illness: seen and examined today in nad. heavy cigarette smell in room, pt must have recently smoked in room. states he feels about the same. - Current Medication List Current Medications: Active Medications Acetaminophen (Tylenol -) 650 mg PO Q6H PRN PRN Reason: PAIN Albuterol Sulfate (Ventolin Hfa Inhaler -) 2 puff IH Q4H PRN PRN Reason: SHORT OF BREATH/WHEEZING Last Admin: 05/26/19 09:35 Dose: 2 puff Albuterol/Ipratropium (Duoneb -) 1 amp NEB Q6H PRN PRN Reason: SHORTNESS OF BREATH Last Admin: 05/25/19 18:40 Dose: 1 amp Amlodipine Besylate (Norvasc -) 5 mg PO DAILY [facility] Last Admin: 05/27/19 09:27 Dose: 5 mg Aspirin (Asa -) 81 mg PO DAILY [facility] Last Admin: 05/27/19 09:27 Dose: 81 mg Clotrimazole (Lotrisone Cream (Small Tube)) 1 applic TP BID [facility] Last Admin: 05/27/19 09:34 Dose: 1 applic Furosemide (Lasix Injection -) 40 mg IVPUSH BIDLASIX [facility] Last Admin: 05/27/19 13:28 Dose: 40 mg Heparin Sodium (Porcine) (Heparin -) 5,000 unit SQ BID [facility] Last Admin: 05/27/19 09:27 Dose: 5,000 unit Levofloxacin (Levaquin 500 Mg Premixed Ivpb -) 500 mg in 100 mls @ 100 mls/hr IVPB DAILY [facility]; Protocol Last Admin: 05/27/19 09:27 Dose: 100 mls/hr Insulin Aspart (Novolog Vial Sliding Scale -) 1 vial SQ ACHS [facility]; Protocol Last Admin: 05/27/19 11:10 Dose: Not Given Lactic Acid (Lac-Hydrin 12) 1 applic TP DAILY PRN PRN Reason: xerosis Last Admin: 05/26/19 09:33 Dose: 1 applic Lisinopril (Prinivil) 5 mg PO DAILY [facility] Last Admin: 05/27/19 09:27 Dose: 5 mg Lorazepam (Ativan Injection -) 1 mg IM TID PRN PRN Reason: ANXIETY Last Admin: 05/27/19 06:25 Dose: 1 mg Nicotine (Nicoderm Patch -) 14 mg TD DAILY [facility] Last Admin: 05/27/19 09:35 Dose: Not Given - Objective Vital Signs: Vital Signs Temperature 98.2 F 05/27/19 14:35 Pulse Rate 86 05/27/19 14:35 Respiratory Rate 20 05/27/19 14:35 Blood Pressure 156/84 05/27/19 14:35 O2 Sat by Pulse Oximetry (%) 92 L 05/27/19 09:00 Constitutional: Yes: No Distress, Calm Eyes: Yes: Conjunctiva Clear, EOM Intact HENT: Yes: Atraumatic, Normocephalic Neck: Yes: Supple, Trachea Midline Cardiovascular: Yes: Regular Rate and Rhythm, S1, S2. No: Bradycardia, Tachycardia, Pulse Irregular, Bruit, JVD, Gallop, Murmur, Rub, S3, S4, Varicosities Respiratory: Yes: Regular, Wheezes. No: Rales, Rhonchi, SOB Gastrointestinal: Yes: Normal Bowel Sounds, Soft. No: Distention, Tenderness Edema: Yes Edema: LLE: 1+, RLE: 1+ Peripheral Pulses WNL: Yes Neurological: Yes: Alert, Oriented Psychiatric: Yes: Alert, Oriented Labs: CBC, BMP 05/26/19 06:10 05/27/19 07:40 INR, PTT INR 1.17 (0.83-1.09) H 05/24/19 18:50 - ....Imaging Chest X-ray: Report Reviewed, Image Reviewed EKG: Report Reviewed, Image Reviewed Other: Report Reviewed, Image Reviewed (tele-no sig arrhythmias) Assessment/Plan 49 year old man with pmh smoker,polycthemia, chronic respiratory failure, chronic diastolic chf and severe pulm htn, obesity, dianne, non-adherent with medical follow up and medications admitted with progressively worsening sob and edema. pt seen and examined today in nad. states he is feeling better since admission yesterday. states he has had worsening sob and edema since january. he does not follow with doctors as he "does not trust them" denies chest pain or palpitations. prior admissions for acute on chronic diastolic chf 03/15/2018 Echo: Normal LV szie with mild cLVH with normal LV fxn LVEF 60-65%, Grade II diastolic dysfunction c/w increased LA pressire, mild LAE, mild TR, RVSP 65 mmHg, mild ao dilatation SOB-multifactorial, AE COPD, continued smoking, acute on chronic diastolic chf, severe PAH -primary issue currently is AE COPD -pt continues to smoke including likely in hospital room -recc Pulmonary evaluation for COPD -no sig residual pulmonary edema on exam -peripheral edema improving -cont IV lasix today -change to Torsemide 40mg po daily tomorrow -monitor strict I/os and daily weights -monitor bun/creat, electrolytes and replete as needed -ECHO showed normal LV and RV function, mild PAH, mild valvular abnl -[facility] pulm evaluation for COPD -dc tele pt needs to establish consistent outpatient care on discharge no additional inpatient cardiac work up is needed. will see prn. please call with any additional questions.
[2019-05-28] MEDS ORDERED: ALBUTEROL SO4 HFA INHALER IH PRN (00:40)
[2019-05-28] MEDS ORDERED: ACETAMINOPHEN 325 MG TABLET (FP) PO PRN (00:40)
[2019-05-28] MEDS ORDERED: ALBUTEROL SO4 2.5/IPRATROPIUM 0.5 INH SOL 3 ML VIAL.NEB. NEB PRN (00:40)
[2019-05-28] MEDS ORDERED: AMMONIUM LACTATE 12% LOTION 225 GM BOTTLE TP PRN (00:40)
[2019-05-28] MEDS: INSULIN SLIDING SCALE (NOVOLOG) 1 VIAL SQ SCH ×4 (05:59→22:00)
[2019-05-28] MEDS ORDERED: FUROSEMIDE 40 MG/4 ML INJECTABLE VIAL IVPUSH SCH (06:00)
[2019-05-28 07:33] LABS: HEMOGLOBIN 19.8 GM/dL (11.7-16.9); MCH 31.4 pg (25.7-33.7); MCHC 33.1 g/dl (32.0-35.9); MEAN CELL VOLUME 94.8 fl (80-96); MEAN PLT VOLUME 9.9 fl (7.5-11.1); PLATELET COUNT 117 K/MM3 (134-434); RBC 6.32 M/mm3 (4.00-5.60); RDW 14.9 % (11.9-15.9)
[2019-05-28 07:48] LABS: ALBUMIN 3.5 g/dl (3.4-5.0); BILIRUBIN,TOTAL 0.8 mg/dL (0.2-1); BLOOD UREA NITROGEN 22.8 mg/dL (7-18); CALCIUM 8.2 mg/dL (8.5-10.1); CREATININE 1.2 mg/dL (0.55-1.3); POTASSIUM 3.9 mmol/L (3.5-5.1); TOT PROT 6.3 g/dl (6.4-8.2)
--- NOTE | 2019-05-28 08:25 | PN ---
Progress Note, Physician Chief Complaint: Acute on Chronic CHF Exacerbation History of Present Illness: Previous notes and events reviewed awake and alert NAD complains of productive cough with white colored phlegm denies chest pain or palpitations lower extremity edema improving complain of non-bloody diarrhea room smells of cigarettes - Current Medication List Current Medications: Active Medications Acetaminophen (Tylenol -) 650 mg PO Q6H PRN PRN Reason: PAIN 1-5 Albuterol Sulfate (Ventolin Hfa Inhaler -) 2 puff IH Q4H PRN PRN Reason: SHORT OF BREATH/WHEEZING Albuterol/Ipratropium (Duoneb -) 1 amp NEB Q6H PRN PRN Reason: SHORTNESS OF BREATH Amlodipine Besylate (Norvasc -) 5 mg PO DAILY [facility] Aspirin (Asa -) 81 mg PO DAILY [facility] Clotrimazole (Lotrisone Cream (Small Tube)) 1 applic TP BID [facility] Furosemide (Lasix Injection -) 40 mg IVPUSH BIDLASIX [facility] Last Admin: 05/28/19 05:59 Dose: 40 mg Heparin Sodium (Porcine) (Heparin -) 5,000 unit SQ BID [facility] Levofloxacin (Levaquin 500 Mg Premixed Ivpb -) 500 mg in 100 mls @ 100 mls/hr IVPB DAILY [facility]; Protocol Insulin Aspart (Novolog Vial Sliding Scale -) 1 vial SQ ACHS [facility]; Protocol Last Admin: 05/28/19 05:59 Dose: Not Given Lactic Acid (Lac-Hydrin 12) 1 applic TP DAILY PRN PRN Reason: xerosis Lisinopril (Prinivil) 5 mg PO DAILY [facility] Lorazepam (Ativan Injection -) 1 mg IM TID PRN PRN Reason: ANXIETY Nicotine (Nicoderm Patch -) 14 mg TD DAILY [facility] - Objective Vital Signs: Vital Signs Temperature 98 F 05/28/19 06:01 Pulse Rate 97 H 05/28/19 06:01 Respiratory Rate 20 05/28/19 06:01 Blood Pressure 155/88 05/28/19 06:01 O2 Sat by Pulse Oximetry (%) 94 L 05/27/19 21:00 Constitutional: Yes: No Distress, Calm Eyes: Yes: Conjunctiva Clear HENT: Yes: Atraumatic Cardiovascular: Yes: Regular Rate and Rhythm Respiratory: Yes: Regular, Cough, Rhonchi Gastrointestinal: Yes: Normal Bowel Sounds, Soft Musculoskeletal: Yes: WNL Extremities: Yes: WNL Edema: Yes Edema: LLE: 1+, RLE: Trace Integumentary: Yes: Erythema (lower abdomen) Neurological: Yes: Alert, Oriented Psychiatric: Yes: Alert, Oriented Labs: CBC, BMP 05/28/19 06:57 05/28/19 06:57 INR, PTT INR 1.17 (0.83-1.09) H 05/24/19 18:50 Microbiology 05/24/19 12:25 Urine - Urine Clean Catch Urine Culture - Final NO GROWTH OBTAINED Problem List - Problems (1) Diabetes Assessment/Plan: BGM ACHS ISS low Na/diabetic diet HgA1c 6.3% Code(s): E11.9 - TYPE 2 DIABETES MELLITUS WITHOUT COMPLICATIONS Qualifiers: Diabetes mellitus type: type 2 Diabetes mellitus skilled nursing insulin use: without skilled nursing use (2) HLD (hyperlipidemia) Assessment/Plan: lipid panel reviewed Code(s): E78.5 - HYPERLIPIDEMIA, UNSPECIFIED (3) HTN (hypertension) Assessment/Plan: Amlodipine, Lisinopril low Na/diabetic diet Code(s): I10 - ESSENTIAL (PRIMARY) HYPERTENSION (4) Paranoid behavior Assessment/Plan: Psych consult Ativan prn Code(s): F22 - DELUSIONAL DISORDERS (5) Tobacco dependence due to cigarettes Assessment/Plan: Nicotine patch Code(s): F17.210 - NICOTINE DEPENDENCE, CIGARETTES, UNCOMPLICATED (6) Acute exacerbation of CHF (congestive heart failure) Assessment/Plan: Cardiology on board Furosemide discontinued and started on Torsemide 40mg daily BNP 2256.3 Low Na diet stricy I&Os fluid restriction Code(s): I50.9 - HEART FAILURE, UNSPECIFIED Qualifiers: Heart failure type: unspecified Qualified Code(s): I50.9 - Heart failure, unspecified (7) Polycythemia Assessment/Plan: RBC 5.74, Hg 17.8, Hct 54.0 Renal US shows incidental finding of possible enlarged spleen, will order Abdominal US Hematolog consult Abdominal US shows splenomegaly Code(s): D75.1 - SECONDARY POLYCYTHEMIA (8) Homelessness Assessment/Plan: SW consult Code(s): Z59.0 - HOMELESSNESS (9) Cellulitis, abdominal wall Assessment/Plan: Levaquin IVPB-switch to PO tomorrow no leukocytosis afebrile Code(s): L03.311 - CELLULITIS OF ABDOMINAL WALL (10) Diarrhea Assessment/Plan: Lactobacillus C-diff, stool culture, stool O&P ordered low fiber, lactose free diet Code(s): R19.7 - DIARRHEA, UNSPECIFIED Assessment/Plan see problem list dvt ppx
[2019-05-28] MEDS: LORazepam 2 MG/ML SDV VIAL IM PRN ×2 (08:54→18:28)
[2019-05-28] MEDS: TORSEMIDE 20 MG TABLET (FP) PO SCH (10:30)
[2019-05-28] MEDS: ASPIRIN 81 MG CHEWABLE TABLETS PO SCH (10:30)
[2019-05-28] MEDS: HEPARIN NA (PORCINE) 5,000 UNITS/ML 1ML VIAL SQ SCH ×2 (10:31→21:59)
[2019-05-28] MEDS: CLOTRIMAZOLE/BETAMET DIPROP 15 GM TUBE TP SCH ×2 (10:35→22:00)
[2019-05-28] MEDS: amLODIPine BESYLATE 5 MG TABLET (FP) PO SCH (10:40)
[2019-05-28] MEDS: NICOTINE 14 MG/24 HOURS TOPICAL PATCH TD SCH (10:40)
[2019-05-28] MEDS: LISINOPRIL 5 MG TABLET (FP) PO SCH (10:41)
--- NOTE | 2019-05-28 19:48 | CONSULT ---
Consult Consult Specialty:: Heme Referred by:: Dr. Bailey Reason for Consultation:: Erythrocytosis - History of Present Illness Chief Complaint: sob History of Present Illness: 49M with obesity, HTN, HLD, DM, CHF, COPD, current smoker admitted with SOB and LE edema. Being treated for COPD and CHF exacerbation. Consulted for polycythemia Hgb 19.8. Has been high since at least 02/2018. At that time was evaluated by hematology. EPO level was 3.9. JAK2 testing was recommended but unable to find the result. Pt denies CONRAD, blurry vision, weakness, paresthesias, pruritis, erythromelalgia. Abd sono with hepatomegaly and splenomegaly (17 cm). - Past Medical History Cardio/Vascular: Yes: CHF, HTN, Hyperlipdemia Pulmonary: Yes: Asthma, Bronchitis Endocrine: Yes: Diabetes Mellitus - Past Surgical History Past Surgical History: Yes: None - Alcohol/Substance Use Hx Alcohol Use: No - Smoking History Smoking history: Current every day smoker Have you smoked in the past 12 months: Yes Aproximately how many cigarettes per day: 10 - Social History Usual Living Arrangement: Alone History of Recent Travel: No Home Medications - Allergies Allergies/Adverse Reactions: Allergies Allergy/AdvReac Type Severity Reaction Status Date / Time Penicillins Allergy Hives Verified 05/24/19 12:48 strawberry Allergy Verified 05/24/19 12:48 - Home Medications Home Medications: Ambulatory Orders NK [No Known Home Medication] 05/24/19 Review of Systems - Review of Systems Constitutional: reports: No Symptoms Eyes: reports: No Symptoms Cardiovascular: reports: Shortness of Breath Respiratory: reports: SOB, SOB on Exertion Gastrointestinal: reports: No Symptoms Hematology/Lymphatic: reports: No Symptoms Physical Exam Vital Signs: Vital Signs Temperature 98.4 F 05/28/19 18:00 Pulse Rate 87 05/28/19 18:00 Respiratory Rate 20 05/28/19 18:00 Blood Pressure 156/89 05/28/19 18:00 O2 Sat by Pulse Oximetry (%) 94 L 05/28/19 09:00 Constitutional: Yes: No Distress, Calm Eyes: Yes: Conjunctiva Clear Neck: No: Lymphadenopathy Cardiovascular: Yes: Regular Rate and Rhythm Respiratory: Yes: Regular, Rales, Wheezes Gastrointestinal: Yes: Soft, Abdomen, Obese. No: Distention, Tenderness Edema: LLE: 2+, RLE: 2+ Labs: CBC, BMP 05/28/19 06:57 05/28/19 06:57 Imaging - Results Ultrasound: Report Reviewed Assessment/Plan 49M with obesity, CHF, COPD, current smoker admitted with CHF exacerbation. Has had erythrocytosis since at least 02/2018. Now 19.8. EPO low normal. Peripheral smear without obvious e/o leukoerythroblastosis or dysplasia. Suspect secondary polycythemia 2/2 CHF, COPD, and active smoking but will check JAK2 to eval for MPN given splenomegaly that is likely the cause of mild thrombocytopenia. Recommend therapeutic phlebotomy with Hct goal <55 as high Hct can theoretically increase blood viscosity. Would remove 500 cc. Will follow.
[2019-05-29 03:59] VITALS: BP 156/91; PULSE 100; TEMP 98
[2019-05-29] MEDS: LORazepam 2 MG/ML SDV VIAL IM PRN (05:40)
[2019-05-29] MEDS: INSULIN SLIDING SCALE (NOVOLOG) 1 VIAL SQ SCH (06:02)
[2019-05-29 08:06] LABS: HEMATOCRIT 54.3 % (35.4-49); HEMOGLOBIN 18.2 GM/dL (11.7-16.9); MCH 31.4 pg (25.7-33.7); MCHC 33.6 g/dl (32.0-35.9); MEAN CELL VOLUME 93.5 fl (80-96); MEAN PLT VOLUME 9.4 fl (7.5-11.1); PLATELET COUNT 110 K/MM3 (134-434); RBC 5.81 M/mm3 (4.00-5.60); RDW 15.3 % (11.9-15.9); WHITE BLOOD COUNT 7.4 K/mm3 (4.0-10.0)
[2019-05-29 08:34] LABS: ALBUMIN 3.3 g/dl (3.4-5.0); BILIRUBIN,TOTAL 0.8 mg/dL (0.2-1); BLOOD UREA NITROGEN 21.8 mg/dL (7-18); CALCIUM 8.2 mg/dL (8.5-10.1); CREATININE 1.1 mg/dL (0.55-1.3); TOT PROT 6.2 g/dl (6.4-8.2)
--- NOTE | 2019-05-29 08:52 | PN ---
Progress Note, Physician - Current Medication List Current Medications: Active Medications Acetaminophen (Tylenol -) 650 mg PO Q6H PRN PRN Reason: PAIN 1-5 Last Admin: 05/29/19 03:38 Dose: 650 mg Albuterol Sulfate (Ventolin Hfa Inhaler -) 2 puff IH Q4H PRN PRN Reason: SHORT OF BREATH/WHEEZING Albuterol/Ipratropium (Duoneb -) 1 amp NEB Q6H PRN PRN Reason: SHORTNESS OF BREATH Amlodipine Besylate (Norvasc -) 5 mg PO DAILY [facility] Last Admin: 05/28/19 10:40 Dose: 5 mg Aspirin (Asa -) 81 mg PO DAILY [facility] Last Admin: 05/28/19 10:30 Dose: 81 mg Clotrimazole (Lotrisone Cream (Small Tube)) 1 applic TP BID [facility] Last Admin: 05/28/19 22:00 Dose: 1 applic Heparin Sodium (Porcine) (Heparin -) 5,000 unit SQ BID [facility] Last Admin: 05/28/19 21:59 Dose: 5,000 unit Levofloxacin (Levaquin 500 Mg Premixed Ivpb -) 500 mg in 100 mls @ 100 mls/hr IVPB DAILY [facility]; Protocol Last Admin: 05/28/19 10:33 Dose: 100 mls/hr Insulin Aspart (Novolog Vial Sliding Scale -) 1 vial SQ ACHS [facility]; Protocol Last Admin: 05/29/19 06:02 Dose: Not Given Lactic Acid (Lac-Hydrin 12) 1 applic TP DAILY PRN PRN Reason: xerosis Lactobacillus Acidophilus (Bacid -) 1 tab PO DAILY [facility] Lisinopril (Prinivil) 5 mg PO DAILY [facility] Last Admin: 05/28/19 10:41 Dose: 5 mg Lorazepam (Ativan Injection -) 1 mg IM TID PRN PRN Reason: ANXIETY Last Admin: 05/29/19 05:40 Dose: 1 mg Nicotine (Nicoderm Patch -) 14 mg TD DAILY [facility] Last Admin: 05/28/19 10:40 Dose: 14 mg Torsemide (Demadex -) 40 mg PO DAILY [facility] Last Admin: 05/28/19 10:30 Dose: 40 mg - Objective Vital Signs: Vital Signs Temperature 98 F 05/29/19 06:10 Pulse Rate 100 H 05/29/19 06:10 Respiratory Rate 22 H 05/29/19 06:10 Blood Pressure 156/91 05/29/19 06:10 O2 Sat by Pulse Oximetry (%) 94 L 05/28/19 21:00 Labs: CBC, BMP 05/29/19 07:47 05/29/19 07:47 INR, PTT INR 1.17 (0.83-1.09) H 05/24/19 18:50 Problem List - Problems (1) Diabetes Code(s): E11.9 - TYPE 2 DIABETES MELLITUS WITHOUT COMPLICATIONS Qualifiers: Diabetes mellitus type: type 2 Diabetes mellitus 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 (2) HLD (hyperlipidemia) Code(s): E78.5 - HYPERLIPIDEMIA, UNSPECIFIED (3) HTN (hypertension) Code(s): I10 - ESSENTIAL (PRIMARY) HYPERTENSION (4) Paranoid behavior Code(s): F22 - DELUSIONAL DISORDERS (5) Tobacco dependence due to cigarettes Code(s): F17.210 - NICOTINE DEPENDENCE, CIGARETTES, UNCOMPLICATED (6) Acute exacerbation of CHF (congestive heart failure) Code(s): I50.9 - HEART FAILURE, UNSPECIFIED Qualifiers: Heart failure type: unspecified Qualified Code(s): I50.9 - Heart failure, unspecified (7) Polycythemia Code(s): D75.1 - SECONDARY POLYCYTHEMIA (8) Homelessness Code(s): Z59.0 - HOMELESSNESS
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
[2019-05-29] MEDS: TORSEMIDE 20 MG TABLET (FP) PO SCH (09:46)
[2019-05-29] MEDS: ASPIRIN 81 MG CHEWABLE TABLETS PO SCH (09:46)
[2019-05-29] MEDS: CLOTRIMAZOLE/BETAMET DIPROP 15 GM TUBE TP SCH (09:46)
[2019-05-29] MEDS: amLODIPine BESYLATE 5 MG TABLET (FP) PO SCH (09:47)
[2019-05-29] MEDS: HEPARIN NA (PORCINE) 5,000 UNITS/ML 1ML VIAL SQ SCH (09:47)
[2019-05-29] MEDS: LISINOPRIL 5 MG TABLET (FP) PO SCH (09:47)
[2019-05-29] MEDS: NICOTINE 14 MG/24 HOURS TOPICAL PATCH TD SCH (09:47)
[2019-05-29] MEDS ORDERED: LACTOBACILLUS ACIDOPHILUS 1 TABLET PO SCH (10:00)
== END 2019-05-29 10:20 | disposition home or self-care (01) | DRG 194 ==
LOC: JER 11:00 → JERBED 14:06 → J4S 05-25 06:22 → J7W 05-27 20:30
PROVIDERS: ADMIT Family Medicine; ATTEND Family Medicine
PROC: 0HBRXZZ Excision of Toe Nail, External Approach (ICD-10-PCS; principal; 2019-05-26)
PROC: 0HBRXZZ Excision of Toe Nail, External Approach (ICD-10-PCS; 2019-05-26)
PROC: 0HBRXZZ Excision of Toe Nail, External Approach (ICD-10-PCS; 2019-05-26)
PROC: 0HBRXZZ Excision of Toe Nail, External Approach (ICD-10-PCS; 2019-05-26)
PROC: 0HBRXZZ Excision of Toe Nail, External Approach (ICD-10-PCS; 2019-05-26)
PROC: 0HBRXZZ Excision of Toe Nail, External Approach (ICD-10-PCS; 2019-05-26)
PROC: 0HBRXZZ Excision of Toe Nail, External Approach (ICD-10-PCS; 2019-05-26)
PROC: 0HBRXZZ Excision of Toe Nail, External Approach (ICD-10-PCS; 2019-05-26)
PROC: 0HBRXZZ Excision of Toe Nail, External Approach (ICD-10-PCS; 2019-05-26)
PROC: 0HBRXZZ Excision of Toe Nail, External Approach (ICD-10-PCS; 2019-05-26)
DX: I11.0 Hypertensive heart disease with heart failure (principal); J44.1 Chronic obstructive pulmonary disease with (acute) exacerbation; E78.00 Pure hypercholesterolemia, unspecified; F17.210 Nicotine dependence, cigarettes, uncomplicated; R94.31 Abnormal electrocardiogram [ECG] [EKG]; R00.0 Tachycardia, unspecified; D75.1 Secondary polycythemia; E11.9 Type 2 diabetes mellitus without complications; J45.909 Unspecified asthma, uncomplicated; E66.9 Obesity, unspecified; Z68.37 Body mass index [BMI] 37.0-37.9, adult; F60.9 Personality disorder, unspecified; F22 Delusional disorders; J96.22 Acute and chronic respiratory failure with hypercapnia; J96.21 Acute and chronic respiratory failure with hypoxia; L03.311 Cellulitis of abdominal wall; I27.20 Pulmonary hypertension, unspecified; G47.33 Obstructive sleep apnea (adult) (pediatric); I50.33 Acute on chronic diastolic (congestive) heart failure; B35.1 Tinea unguium; L85.3 Xerosis cutis; Z59.0 Homelessness; R19.7 Diarrhea, unspecified
CPT/HCPCS: 36415; 36600; 71045-TC-FY; 76700-TC; 76775-TC; 80048; 80053; 80061; 81003; 82375; 82550; 82553; 82668; 82803; 82962; 83036; 83050; 83721; 83735; 83880; 84100; 84443; 84484; 85025; 85027; 85610; 85730; 87086; 93005; 93010; 93306-TC; 94640; 97116-GP; 97161-GP; 99285-25; J0131; J1644

== ENCOUNTER 2020-01-08 14:39 | Inpatient (IN) | payer OTHER ==
[2020-01-08] MEDS ORDERED: ALBUTEROL SO4 2.5/IPRATROPIUM 0.5 INH SOL 3 ML VIAL.NEB. NEB ONE ×2 (14:48→14:59)
--- OUTSIDE RECORDS SUMMARY | 2020-01-08 14:52 | XMS ---
:1970 Author Organization [facility] Care Team Providers Name Role Phone [id number], [id number] Unavailable Unavailable [facility], [id number] Unavailable Unavailable Re-disclosure Warning The records that you are about to access may contain information from federally- assisted alcohol or drug abuse programs. If such information is present, then the following federally mandated warning applies: This information has been disclosed to you from records protected by federal confidentiality rules (42 CFR part 2). The federal rules prohibit you from making any further disclosure of this information unless further disclosure is expressly permitted by the written consent of the person to whom it pertains or as otherwise permitted by 42 CFR part 2. A general authorization for the release of medical or other information is NOT sufficient for this purpose. The Federal rules restrict any use of the information to criminally investigate or prosecute any alcohol or drug abuse patient.The records that you are about to access may contain highly sensitive health information, the redisclosure of which is protected by Article 27-F of the [place] Public Health law. If you continue you may haveaccess to information: Regarding HIV / AIDS; Provided by facilities licensed or operated by the [place] [facility] Office of Mental Health; or Provided by the [facility] Office for People With Developmental Disabilities. If such information is present, then the following [facility] mandated warning applies: This information has been disclosed to you from confidential records which are protected by state law. State law prohibits you from making any further disclosure of this information without the specific written consent of the person to whom it pertains, or as otherwise permitted by law. Any unauthorized further disclosure in violation of state law may result in a fine or residential sentence or both. A general authorization for the release of medical or other information is NOT sufficient authorization for further disclosure. Encounters Encounter Providers Location Date Indications Data Source(s ) Outpatient Attender: [id number] [facility] 01/02/2020 [facility] 04:02:13 PM [facility]) Patient admitted. Outpatient Attender: [id number] [facility] 10/29/2019 11:29:51 AM [facility] ([facility]) Patient admitted. Outpatient Attender: [id number] [facility] 06/17/2019 05:13:09 AM [facility] ([facility]) Patient admitted. Outpatient Attender: [id number] [facility] 03/03/2019 11:06:30 AM [facility] ([facility]) Patient admitted. Outpatient Attender: [id number] [facility] 03/03/2019 11:06:28 AM [facility] ([facility]) Patient admitted. Outpatient 02/03/2019 02:46:10 PM EST [facility] ([facility]) Patient admitted. Outpatient 02/03/2019 02:46:07 PM EST [facility] ([facility]) Patient admitted. Insurance Providers Payer name Policy type Policy ID Covered Covered libertarian's Policy P eulalio / Coverage libertarian ID relationship to [employer] Inf ormation type ascencio MEDICAID [id number] SP [id number] MEDICAID [id number] SP [id number] MEDICAID [id number] SP [id number] [facility] [place] [id number] [place] [id number] HMO SELF PAY SP INSURANCE PENDING SP EXCHANGE Results ID Date Data Source [id number] 08/01/2019 12:02:00 PM EDT [facility] Name Value Range Interpretation Description Data Sup porting Code Source(s) Document(s ) SARS [facility] CORONAVIRUS 2 RNA This lab was ordered by [facility] and reported by [facility]. Procedure
--- NOTE | 2020-01-08 15:21 | PDOC ---
Documentation entered by Gema Wallace SCRIBE, acting as scribe for Parviz Biswas MD. Parviz Biswas MD: This documentation has been prepared by the miracleibeMadison Sydney, SCRIBE, under my direction and personally reviewed by me in its entirety. I confirm that the documentation accurately reflects all work, treatment, procedures, and medical decision making performed by me. Attending Attestation - Resident Resident Name: June Hsieh - ED Attending Attestation I have performed the following: I have examined & evaluated the patient, The case was reviewed & discussed with the resident, I agree w/resident's findings & plan, Exceptions are as noted - HPI HPI: 01/08/20 14:53 49y M hx of htn, hld, dm, chf, COPD, BIBEMS for evaluation of SOB and wagner for the past 10 days. Pt states he typically has episodes of this where he startes feeling more sob. He denies any fever/chills. Endorses cough productive of whitish sputum. Does endorse b/l body pains such as chest pain/abd pain/leg pain. Notes this is similar in natuire. denies any n/v, diarrhea, dysuria. Pt does not take any medications. norecent travel social: active smoker - Physicial Exam PE: 01/08/20 15:03 GENERAL: The patient is awake, alert, and fully oriented, tachypenic, HEAD: Normocephalic, atraumatic. EYES: extraocular movements intact, sclera anicteric, conjunctiva clear. ENT: Normal voice, Moist mucous membranes. NECK: Normal range of motion, supple LUNGS:expiratory wheezing b/l, +scant rales at R base HEART: Regular rate and rhythm, normal S1 and S2 without murmur, rub or gallop. ABDOMEN: anasarcaic, no focal abd tenderness EXTREMITIES: Normal range of motion, b/l LE edema (R>L), no calf tenderness NEUROLOGICAL: No facial assymetry, Normal speech, PSYCH: Normal mood, normal affect. SKIN: Warm, Dry, normal turgor, - Critical Care Time Total Critical Care Time: 45 Critical Care Statement: The care of this patient involved high complexity decision making to prevent further life threatening deterioration of the patient's condition and/or to evaluate & treat vital organ system(s) failure or risk of failure. - Medical Decision Making 01/08/20 15:20 suspect copd vs chf exacerbation will obtian ekg/trop blood work to r/o anemia/metabolic derangement pt started on bipap 01/08/20 15:46 pts xray noted for sugestion of pna in the right base will treat with levaquin (allergy to pcn) awaiting cmp anticipate admission for further management clinical improvememt w/ bipap 01/08/20 17:18 lbas reviewd noted for eelvated bnp likely component of chf/copd/pna Heart Score/ECG Review - ECG Impressions Comment:: 01/08/20 17:18 Twelve-lead EKG was performed and reviewed by me. There is normal sinus rhythm with a normal rate. rate of 74 TWI om v1-v4 (present on prior ekg_ Q waves in avr/v1 Discharge - Discharge Information Problems reviewed: Yes Clinical Impression/Diagnosis: CHF (congestive heart failure) Qualifiers: Heart failure type: unspecified Heart failure chronicity: unspecified Qualified Code(s): I50.9 - Heart failure, unspecified COPD (chronic obstructive pulmonary disease) Qualifiers: COPD type: unspecified COPD Qualified Code(s): J44.9 - Chronic obstructive pulmonary disease, unspecified Condition: Guarded - Follow up/Referral - Patient Discharge Instructions - Post Discharge Activity
[2020-01-08 15:26] LABS: BASO % 0.9 % (0-2.0); EOS % 0.4 % (0-4.5); HEMATOCRIT 55.9 % (35.4-49); HEMOGLOBIN 18.9 GM/dL (11.7-16.9); LYMPH % 9.3 % (8-40); MCH 33.5 pg (25.7-33.7); MCHC 33.8 g/dl (32.0-35.9); MEAN CELL VOLUME 99.2 fl (80-96); MEAN PLT VOLUME 10.1 fl (7.5-11.1); MONO % 18.3 % (3.8-10.2); NEUT % 71.1 % (42.8-82.8); PLATELET COUNT 105 K/MM3 (134-434); RBC 5.63 M/mm3 (4.00-5.60); RDW 15.9 % (11.9-15.9)
[2020-01-08 15:34] LABS: INR 1.29 (0.83-1.09); PROTHROMBIN TIME (PATIENT) 15.1 SEC (9.7-13.0)
[2020-01-08 15:35] LABS: VENOUS O2 SATURATION 86.2 % (70-80); VENOUS PCO2 62.2 mmHg (38-52); VENOUS PH 7.312 (7.310-7.410)
--- NOTE | 2020-01-08 15:36 | PDOC ---
History of Present Illness - General Chief Complaint: Shortness of Breath Stated Complaint: SOB Time Seen by Provider: 01/08/20 14:44 - History of Present Illness Initial Comments: 01/08/20 14:51 HPI: 49 y/o non-med complaint M with hx of HTN, HLD, DM, Asthma, Polycythemia (never been worked up), MODESTA(does not have CPAP-moderate pHTN), and HFpEF (nml EF) BIBEMS from home with SOB [id number] worsening today. He reports his CHF acts up 1- 2x a year. He is SOB at rest and on exertion. Also reports clear sputum cough. He also reports diffuse discomfort and pain. Denies fever, chills, chest pain, abd pain, dysuria. PMHx: as noted above ROS: as noted SHx: Denies tobacco use; no alcohol use; no rec drugs Allergies: NKDA ROS: GENERAL/CONSTITUTIONAL: No fever or chills. No weakness. HEAD, EYES, EARS, NOSE AND THROAT: No change in vision. No ear pain or discharge. No sore throat. CARDIOVASCULAR: No chest pain; +shortness of breath RESPIRATORY: +cough, wheezing GASTROINTESTINAL: No nausea, vomiting, diarrhea or constipation. GENITOURINARY: No dysuria, frequency, or change in urination. MUSCULOSKELETAL: No joint or muscle swelling or pain. No neck or back pain. SKIN: No rash NEUROLOGIC: No headache, vertigo, loss of consciousness, or change in strength/sensation. ENDOCRINE: No increased thirst. No abnormal weight change HEMATOLOGIC/LYMPHATIC: No anemia, easy bleeding, or history of blood clots. ALLERGIC/IMMUNOLOGIC: No hives or skin allergy. PE: GENERAL: Awake, alert, and fully oriented, moderate acute resp distress HEAD: No signs of trauma, normocephalic, atraumatic EYES: EOMI, sclera anicteric, conjunctiva clear ENT: Auricles normal inspection, hearing grossly normal, nares patent, oropharynx clear without exudates. Moist mucosa NECK: Normal ROM, no lymphadenopathy LUNGS: tachypnea, +increased work of breathing, symmetrical chest rise, diffuse rhonchi BL and bibasilar rales and wheezes R>L HEART: Regular rate, regular rhythm, normal S1 and S2, no murmur, peripheral pulses 2+ and equal bilaterally. ABDOMEN: Obese, soft, with inferior abd skin changes, nondistended, nontender. No guarding, no rebound. No masses. No CVAT MUSCULOSKELETAL: FROM; right LE with erythema and 2+pitting edema NEUROLOGICAL: Cranial nerves II through XII grossly intact. Normal speech, stable gait, no focal sensorimotor deficits SKIN: Warm, Dry, normal turgor, no rashes or lesions noted Past History - Medical History Allergies/Adverse Reactions: Allergies Allergy/AdvReac Type Severity Reaction Status Date / Time Penicillins Allergy Hives Verified 01/08/20 14:41 strawberry Allergy Verified 01/08/20 14:41 Home Medications: Ambulatory Orders Albuterol Sulfate Inhaler - [Ventolin HFA Inhaler -] 2 puff IH Q4H PRN #1 inhaler 05/29/19 Ammonium Lactate Lotion [Lac-Hydrin 12] 1 applic TP DAILY PRN #1 bottle 05/29/19 Amlodipine Besylate [Norvasc -] 10 mg PO DAILY #30 tablet 08/08/19 Aspirin [ASA -] 81 mg PO DAILY #30 tab.chew 08/08/19 Atorvastatin Ca [Lipitor] 20 mg PO HS #30 tablet 08/08/19 Clindamycin [Cleocin -] 300 mg PO TID #24 capsule 08/08/19 Lactobacillus Acidophilus [Bacid -] 1 tab PO DAILY #7 tab 08/08/19 Lisinopril [Prinivil] 20 mg PO DAILY #30 tablet 08/08/19 Nicotine Patch [Nicoderm Patch -] 14 mg TD DAILY #30 patch 08/08/19 Torsemide [Demadex] 20 mg PO DAILY 30 Days #30 tablet 08/09/19 Anemia: No Asthma: No Cancer: No Cardiac Disorders: Yes CVA: No COPD: No CHF: Yes Dementia: No Diabetes: Yes GI Disorders: No Disorders: No HTN: Yes Hypercholesterolemia: Yes Liver Disease: No Seizures: No Thyroid Disease: No - Psycho-Social/Smoking History Smoking History: Current every day smoker Have you smoked in the past 12 months: Yes Number of Cigarettes Smoked Daily: 3 Cigars Per Day: 2 Information on smoking cessation initiated: No 'Breaking Loose' booklet given: 03/26/18 - Substance Abuse Hx (Audit-C & DAST Scrn) How often the patient has six or more drinks on one occasion: Never Score: In Men: 4 or > Positive; In Women: 3 or > Positive: 0 Screen Result (Pos requires Nsg. Audit-10AR): Negative In the last yr the pt used illegal drug/Rx for NonMed reason: No Score: Yes response is considered Positive: 0 Screen Result (Positive result requires Nsg. DAST-10): Negative *Physical Exam - Vital Signs Last Vital Signs Temp Pulse Resp BP Pulse Ox 99.8 F H 88 28 H 143/100 88 L 01/08/20 14:41 01/08/20 14:41 01/08/20 14:41 01/08/20 14:41 01/08/20 14:41 ED Treatment Course - LABORATORY CBC & Chemistry Diagram: 01/08/20 15:15 01/08/20 15:15 - RADIOLOGY Radiology Studies Ordered: Category Date Time Status CXRPORT [CHEST X-RAY PORTABLE*] [RAD] Stat Radiology 01/08/20 14:45 Ordered Medical Decision Making - Medical Decision Making 01/08/20 19:44 49 y/o non-med complaint M with hx of HTN, HLD, DM, Asthma, Polycythemia (never been worked up), MODESTA(does not have CPAP-moderate pHTN), and HFpEF (nml EF) BIBEMS from home with SOB [id number] worsening today. initial O2 90% on RA; PE no table tachypnea, +increased work of breathing, symmetrical chest rise, diffuse rhonchi BL and bibasilar rales and wheezes R>L DDx includes copd exac, chf exac, acs, pna, covid -cbc, cmp, card prof, coags, mg, phos, bnp, ekg, cxr, vbg -bipap -methyl pred, nebs 01/08/20 19:46 elevated bnp; 40mg iv lasix ekg uncahgned from previous ekg vbg with hypercarbia cxr with barrel chest and ?right LL infiltrate as well as increased vascular markings will admit for resp failure, copd exac, chf exac, pna Discharge - Discharge Information Problems reviewed: Yes Clinical Impression/Diagnosis: PNA (pneumonia), Acute hypercapnic respiratory failure CHF (congestive heart failure) Qualifiers: Heart failure type: unspecified Heart failure chronicity: unspecified Qualified Code(s): I50.9 - Heart failure, unspecified COPD (chronic obstructive pulmonary disease) Qualifiers: COPD type: unspecified COPD Qualified Code(s): J44.9 - Chronic obstructive pulmonary disease, unspecified Condition: Guarded - Follow up/Referral - Patient Discharge Instructions - Post Discharge Activity
[2020-01-08 15:37] LABS: ACTIVATED PTT 34.8 SECONDS (25.2-36.5)
[2020-01-08] MEDS ORDERED: AZITHROMYCIN IVPB 500 MG in DEXTROSE 5%-WATER - 250 ML IVPB ONE (15:42)
[2020-01-08] MEDS ORDERED: methylPREDNISolone NA SUCC 125 MG/2 ML VIAL IVPUSH ONE (15:42)
[2020-01-08] MEDS ORDERED: AZITHROMYCIN IVPB 500 MG/250 ML BAG IVPB ONE (15:52)
[2020-01-08] MEDS ORDERED: methylPREDNISolone NA SUCC 125 MG/2 ML VIAL ONE (15:52)
[2020-01-08 16:05] LABS: ALBUMIN 2.9 g/dl (3.4-5.0); BILIRUBIN,TOTAL 0.6 mg/dL (0.2-1); BLOOD UREA NITROGEN 19.3 mg/dL (7-18); CALCIUM 7.9 mg/dL (8.5-10.1); MAGNESIUM 2.2 mg/dL (1.8-2.4); N-TERMINAL BNP 4364.9 pg/ml (5-125); PHOSPHOROUS 4.4 mg/dL (2.5-4.9); POTASSIUM 4.8 mmol/L (3.5-5.1); TOT PROT 5.6 g/dl (6.4-8.2)
[2020-01-08] MEDS ORDERED: FUROSEMIDE 40 MG/4 ML INJECTABLE VIAL IVPUSH ONE (16:51)
[2020-01-08] MEDS ORDERED: FUROSEMIDE 40 MG/4 ML INJECTABLE VIAL ONE (17:12)
[2020-01-08] MEDS ORDERED: NITROGLYCERIN SUBLINGUAL 1/150 0.4 MG TAB SL ONE (17:17)
[2020-01-08] MEDS ORDERED: CEFTRIAXONE 1 GM in DEXTROSE 5%-WATER - 100 ML IVPB ONE (18:15)
--- NOTE | 2020-01-08 18:30 | PN ---
Teaching Attending Note Name of Resident: Zayra George ATTENDING PHYSICIAN STATEMENT I saw and evaluated the patient. I reviewed the resident's note and discussed the case with the resident. I agree with the resident's findings and plan as documented. SUBJECTIVE: 49 yo m w/ PMH htn, hld, dm, chf, COPD, MODESTA who was BIBEMS c/o progressive SOB for the past 10 days. Patient associates this SOB with a cough productive of white sputum. Pt also endorses generalized body aches as well. Denies fevers and chills, n/v diarrhea, dysuria. Pt states that he does not take any medications and does not follow up with any doctors. See resident note for full details. OBJECTIVE: Vital Signs Temperature 99.8 F H 01/08/20 14:41 Pulse Rate 80 01/08/20 15:15 Respiratory Rate 28 H 01/08/20 14:41 Blood Pressure 143/100 01/08/20 14:41 O2 Sat by Pulse Oximetry (%) 98 01/08/20 15:15 CBC, BMP 01/08/20 15:15 01/08/20 15:15 PE: Heart: rrr, s1, s2 heard no mgr Lungs: crackles and wheezes heard b/l in the mid lung peacock and at the bases. Abdomen: obese soft, nontender, not distended, hyperactive bowel sounds noted. NGT in place hooked to suction and draining well. Extremities: RLE erythematous and warm to the touch and larger than the left. 2+ pitting edema b/l. no ttp ASSESSMENT AND PLAN: 49 yo m w/ PMH htn, hld, dm, chf, COPD, MODESTA who was BIBEMS c/o progressive SOB for the past 10 days. #COPD exacerbation #CHF exacerbation #RLE swelling, r/o DVT #HLD #DM #HTN #MODESTA -Albuterol MDI q4h PRN while COVID pending; can switch to nebs if negative -azithromycin IV- (pt with reported PCN allergy, but pt states had hives as a child. pt had a cephalosporin during a previous admit w/o rxn) -pulmonology consult as pt w/ MODESTA w/o bipap and w/o pulm f/u -pt w/ SOB and body aches; will test flu -COVID pending -trend trop -daily EKGs as pt w/ prolonged QTc getting azithromycin and who had levaquin in ED -Lasix 40mg IV daily -daily weights, monitor I's and O's -PNA less likely based off XR read -Cardiology consult
--- OUTSIDE RECORDS SUMMARY | 2020-01-08 18:35 | XMS ---
:1970 Author Organization [facility] Care Team Providers Name Role Phone [facility], [...] is protected by Article 27-F of the [facility] Public Health law. If you continue you may haveaccess to information: Regarding HIV / AIDS; Provided by facilities licensed or operated by the [facility] Office of Mental Health; or Provided by the [facility] Office for People With Developmental Disabilities. If such information is present, then the following [facility] mandated warning applies: This information has been [...] law may result in a fine or group home sentence or both. A general authorization for the release of medical or other information is NOT sufficient authorization for further disclosure. Encounters Encounter Providers Location Date Indications Data Source(s ) Outpatient Attender: [id number] [facility] 01/02/2020 [facility] 04:02:13 PM [facility]) Patient admitted. Outpatient Attender: [id number] [facility] 10/29/2019 11:29:51 AM [facility] ([facility]) Patient admitted. Outpatient Attender: [id number] [facility] 06/17/2019 05:13:09 AM [facility] ([facility]) Patient admitted. Outpatient Attender: [id number] [facility] 03/03/2019 11:06:30 AM [facility] ([facility]) Patient admitted. Outpatient Attender: [id number] [facility] 03/03/2019 11:06:28 AM [facility] ([facility]) Patient admitted. Outpatient 02/03/2019 02:46:10 PM EST [facility] ([facility]) Patient admitted. Outpatient 02/03/2019 02:46:07 PM EST [facility] ([facility]) Patient admitted. Insurance Providers Payer name Policy type Policy ID Covered Covered alliance party's Policy P eulalio / Coverage alliance party ID relationship to [facility] ormation type ascencio SELF PAY SP INSURANCE MEDICAID [id number] SP [id number] MEDICAID [id number] SP [id number] MEDICAID [id number] SP [id number] P [place]ICA[place] [id number] [place] [id number] O PENDING SP EXCHANGE Results ID Date Data Source [id number] 08/01/2019 12:02:00 PM EDT [facility] Name Value Range Interpretation Description Data Sup porting Code Source(s) Document(s ) SARS [facility] CORONAVIRUS 2 RNA This lab was ordered by [facility] and reported by [facility]. Procedure
[2020-01-08] MEDS ORDERED: cefTRIAXone SODIUM 1 GM VIAL ONE (18:43)
[2020-01-08] MEDS ORDERED: ALBUTEROL SO4 HFA INHALER IH PRN (19:10)
--- NOTE | 2020-01-08 19:17 | HP ---
CHIEF COMPLAINT: shortness of breath PCP: Dr. Hu HISTORY OF PRESENT ILLNESS: Pt is 49 yo M with PMH HTN, HLD, DM, HFpEF (echo 04/2019 EF 60-65%), asthma, polycythemia, MODESTA presented to ED with worsening shortness of breath. Pt stated that he had progressively worsening shortness of breath over the last 10 days. Pt admits to feeling this before, but this was the worst he has ever felt. Pt attributes his symptoms to his CHF. Stated that due to microwaves and [employer] technology, his health has been declining. Pt stated that he feels like someone is "grabbing his guts" and this contributes to his SOB. In addition, he feels as if his heart was pounding out of his chest and metal was bouncing in his heart. Pt stated that the microwaves are reacting to the metal in his heart and causing his CHF. Pt is not compliant with his medications because he claims that it makes him sicker and that the government is trying to silence him. Admits to body aches, malaise and fatigue. Denies fevers, chills, c/p, changes in urinary pattern. ER course was notable for: (1) CXR with congestive changes, zithromax, solu-medrol 125mg, Levaquin x1 (2) Furosemide 40mg IV, 0.4mg Nitroglycerin (3) BNP 4364.9, VBG describing a chronic CO2 retention (4) Desat to 88%, placed on BiPAP, did not tolerate due to nausea. Placed on NRB with SpO2 99% Recent Travel: denies PAST MEDICAL HISTORY: PAST SURGICAL HISTORY: Social History: Smokin cigarettes a day Alcohol: denies Drugs: denies Allergies Penicillins Allergy (Verified 01/08/20 14:41) Hives strawberry Allergy (Verified 01/08/20 14:41) HOME MEDICATIONS: Home Medications Medication Instructions Recorded Albuterol Sulfate Inhaler - 2 puff IH Q4H PRN #1 inhaler 05/29/19 [Ventolin HFA Inhaler -] Ammonium Lactate Lotion 1 applic TP DAILY PRN #1 bottle 05/29/19 [Lac-Hydrin 12] Amlodipine Besylate [Norvasc -] 10 mg PO DAILY #30 tablet 08/08/19 Aspirin [ASA -] 81 mg PO DAILY #30 tab.chew 08/08/19 Atorvastatin Ca [Lipitor] 20 mg PO HS #30 tablet 08/08/19 Clindamycin [Cleocin -] 300 mg PO TID #24 capsule 08/08/19 Lactobacillus Acidophilus [Bacid -] 1 tab PO DAILY #7 tab 08/08/19 Lisinopril [Prinivil] 20 mg PO DAILY #30 tablet 08/08/19 Nicotine Patch [Nicoderm Patch -] 14 mg TD DAILY #30 patch 08/08/19 Torsemide [Demadex] 20 mg PO DAILY 30 Days #30 tablet 08/09/19 REVIEW OF SYSTEMS As per HPI PHYSICAL EXAMINATION GENERAL: Awake, alert. Unkempt. In moderate distress, likely due to preoccupation of microwaves and 5G. HEENT: NCAT, EOMI, dry mucus membranes. Scleral icterus. CARDIAC: RRR, S1, S2 present, no murmurs. PULMONARY: Scattered rhonchi b/l. No accessory muscle use. ABDOMEN: Obese, nondistended, nontender to palpation. Normoactive bowel sounds. EXTREMITIES: Warm, well-perfused. 2+ pitting edema b/l. SKIN: R leg erythematous. R leg warmer than L leg. Varicosities observed b/l. Laboratory Last Values WBC 7.0 K/mm3 (4.0-10.0) 01/08/20 15:15 RBC 5.63 M/mm3 (4.00-5.60) H 01/08/20 15:15 Hgb 18.9 GM/dL (11.7-16.9) H 01/08/20 15:15 Hct 55.9 % (35.4-49) H 01/08/20 15:15 MCV 99.2 fl (80-96) H 01/08/20 15:15 MCH 33.5 pg (25.7-33.7) D 01/08/20 15:15 MCHC 33.8 g/dl (32.0-35.9) 01/08/20 15:15 RDW 15.9 % (11.9-15.9) 01/08/20 15:15 Plt Count 105 K/MM3 (134-434) L 01/08/20 15:15 MPV 10.1 fl (7.5-11.1) 01/08/20 15:15 Absolute Neuts (auto) 5.0 K/mm3 (1.5-8.0) 01/08/20 15:15 Neutrophils % 71.1 % (42.8-82.8) 01/08/20 15:15 Lymphocytes % 9.3 % (8-40) D 01/08/20 15:15 Monocytes % 18.3 % (3.8-10.2) H 01/08/20 15:15 Eosinophils % 0.4 % (0-4.5) D 01/08/20 15:15 Basophils % 0.9 % (0-2.0) 01/08/20 15:15 Nucleated RBC % 0 % (0-0) 01/08/20 15:15 PT with INR 15.10 SEC (9.7-13.0) H 01/08/20 15:15 INR 1.29 (0.83-1.09) H 01/08/20 15:15 PTT (Actin FS) 34.8 SECONDS (25.2-36.5) 01/08/20 15:15 VBG pH 7.312 (7.310-7.410) 01/08/20 15:15 POC VBG pCO2 62.2 mmHg (38-52) H 01/08/20 15:15 POC VBG pO2 56.5 mmHg (28-48) H 01/08/20 15:15 VBG HCO3 30.8 mmol/L (23-29) H 01/08/20 15:15 VBG O2 Sat (Lyndon) 86.2 % (70-80) H 01/08/20 15:15 VBG Base Excess 2.0 mmol/L (-2-2) 01/08/20 15:15 Sodium 142 mmol/L (136-145) 01/08/20 15:15 Potassium 4.8 mmol/L (3.5-5.1) 01/08/20 15:15 Chloride 106 mmol/L (98-107) 01/08/20 15:15 Carbon Dioxide 32 mmol/L (21-32) 01/08/20 15:15 Anion Gap 3 MMOL/L (8-16) L 01/08/20 15:15 BUN 19.3 mg/dL (7-18) H 01/08/20 15:15 Creatinine 1.0 mg/dL (0.55-1.3) 01/08/20 15:15 Est GFR (CKD-EPI)AfAm 102.69 01/08/20 15:15 Est GFR (CKD-EPI)NonAf 88.61 01/08/20 15:15 Random Glucose 99 mg/dL (74-106) 01/08/20 15:15 Calcium 7.9 mg/dL (8.5-10.1) L 01/08/20 15:15 Phosphorus 4.4 mg/dL (2.5-4.9) 01/08/20 15:15 Magnesium 2.2 mg/dL (1.8-2.4) 01/08/20 15:15 Total Bilirubin 0.6 mg/dL (0.2-1) 01/08/20 15:15 AST 31 U/L (15-37) 01/08/20 15:15 ALT 26 U/L (13-61) 01/08/20 15:15 Alkaline Phosphatase 94 U/L (45-117) 01/08/20 15:15 Creatine Kinase 329 U/L (26-308) H 01/08/20 15:15 Creatine Kinase Index 1.4 % (0.0-5.0) 01/08/20 15:15 CK-MB (CK-2) 4.9 ng/mL (0.5-3.6) H 01/08/20 15:15 Troponin I 0.05 ng/ml (0.00-0.05) 01/08/20 15:15 B-Natriuretic Peptide 4364.9 pg/ml (5-125) H 01/08/20 15:15 Total Protein 5.6 g/dl (6.4-8.2) L 01/08/20 15:15 Albumin 2.9 g/dl (3.4-5.0) L 01/08/20 15:15 Active Medications Albuterol Sulfate (Ventolin Hfa Inhaler -) 2 puff IH Q4H PRN PRN Reason: SHORT OF BREATH/WHEEZING Enoxaparin Sodium (Lovenox -) 40 mg SQ DAILY CONY Furosemide (Lasix Injection -) 40 mg IVPUSH DAILY CONY Azithromycin (Zithromax 500mg Ivpb (Pre-Docked)) 500 mg in 250 mls @ 250 mls/hr IVPB DAILY CONY Methylprednisolone Sodium Succinate (Solu-Medrol -) 40 mg IVPUSH Q8H-IV CONY CXR 01/07 2 views of the chest reveal a large heart with congestive changes but no sign of infiltrate or pneumothorax. The bones and soft tissues are intact. The angles are sharp. Impression : Large heart. Congestive changes. ASSESSMENT/PLAN: Pt is 49 yo M with PMH HTN, HLD, DM, HFpEF (echo 04/2019 EF 60-65%), asthma, polycythemia, MODESTA presented to ED with worsening shortness of breath. Pt is admitted for COPD exacerbation vs. COPD exacerbation -c/w albuterol inhaler 2 puff q4H PRN, solumedrol 40mg IVP q8H, azithromycin 500mg IVPB qD (for anti-inflammation) -start duoneb q6H, pending negative COVID -pt with reported penicillin allergy with hives, but pt received ce phalosporin during previous admission without reaction. -Daily EKG, monitor Qtc, as it can be prolonged by azithromycin -supplemental O2, to keep SpO2 90%-95% -VBG with normal pH, but elevated CO2 (chronic CO2 retention). -CXR as above. -f/u flu test -Pulmonary consulted for eval of MODESTA. Pending recommendations. CHF exacerbation -BNP>4000, CK 329, CK-MB 4.9 -CXR as above. -c/w furosemide 40mg IV -monitor daily weights, I/O's -Cardio consulted. Pending recommendations. -Troponin 0.05, continue to trend RLE erythema and edema -duplex RLE negative for DVT Preoccupations and delusions -consider psych consult in the AM Ppx -DVT: lovenox FEN -No standing fluids due to CHF -monitor and replete lytes with goal of K+ of 4, and Mg++ of 2. -Low sodium diet Dispo: Admit to telemetry Family Medical History Family History: Unable to Obtain Visit type - Emergency Visit Emergency Visit: Yes ED Registration Date: 01/08/20 Care time: The patient presented to the Emergency Department on the above date and was hospitalized for further evaluation of their emergent condition. - New Patient This patient is new to me today: Yes Date on this admission: 01/08/20 - Critical Care Critical Care patient: No ATTENDING PHYSICIAN STATEMENT I saw and evaluated the patient. I reviewed the resident's note and discussed the case with the resident. I agree with the resident's findings and plan as documented. SUBJECTIVE: OBJECTIVE: ASSESSMENT AND PLAN:
[2020-01-08] MEDS ORDERED: ACETAMINOPHEN 1000 MG/100 ML VIAL (NON FORMULARY) IVPB ONE (23:51)
[2020-01-09 00:02] VITALS: BMI 42.0
[2020-01-09] MEDS: methylPREDNISolone NA SUCC 40 MG/1 ML VIAL IVPUSH SCH ×2 (02:18→10:45)
[2020-01-09 06:44] LABS: HEMATOCRIT 57.7 % (35.4-49); HEMOGLOBIN 19.2 GM/dL (11.7-16.9); MCHC 33.3 g/dl (32.0-35.9); MEAN CELL VOLUME 99.1 fl (80-96); MEAN PLT VOLUME 10.1 fl (7.5-11.1); PLATELET COUNT 107 K/MM3 (134-434); RBC 5.82 M/mm3 (4.00-5.60); RDW 15.6 % (11.9-15.9); WHITE BLOOD COUNT 5.8 K/mm3 (4.0-10.0)
[2020-01-09 07:16] LABS: BLOOD UREA NITROGEN 24.1 mg/dL (7-18); CALCIUM 7.9 mg/dL (8.5-10.1); CREATININE 1.2 mg/dL (0.55-1.3); MAGNESIUM 2.5 mg/dL (1.8-2.4); PHOSPHOROUS 5.3 mg/dL (2.5-4.9); POTASSIUM 5.9 mmol/L (3.5-5.1)
[2020-01-09] MEDS: ENOXAPARIN NA (PORCINE) 40 MG/0.4 ML DISP.SYRIN SQ SCH (10:45)
[2020-01-09] MEDS: FUROSEMIDE 40 MG/4 ML INJECTABLE VIAL IVPUSH SCH (10:45)
[2020-01-09] MEDS: AZITHROMYCIN IVPB 500 MG/250 ML BAG IVPB SCH (10:45)
[2020-01-09] MEDS: amLODIPine BESYLATE 10 MG TABLET (FP) PO SCH (10:45)
[2020-01-09] MEDS: CARVEDILOL 12.5 MG TABLET (FP) PO SCH ×2 (10:45→21:23)
--- NOTE | 2020-01-09 11:43 | EKG ---
Test Reason : Blood Pressure : / mmHG Vent. Rate : 066 BPM Atrial Rate : 066 BPM P-R Int : 156 ms QRS Dur : 114 ms QT Int : 460 ms P-R-T Axes : 046 135 -85 degrees QTc Int : 482 ms NORMAL SINUS RHYTHM POSSIBLE LEFT ATRIAL ENLARGEMENT INCOMPLETE RIGHT BUNDLE BRANCH BLOCK LEFT POSTERIOR FASCICULAR BLOCK PROLONGED QT ABNORMAL ECG WHEN COMPARED WITH ECG OF 08-JAN-2020 17:21, T WAVE VARIATION Confirmed by CINDY BELLO MD ([id number]) on 01/09/2020 11:42:50 AM Referred By: Confirmed By:CINDY BELLO MD
--- NOTE | 2020-01-09 11:50 | EKG ---
Test Reason : Blood Pressure : / mmHG Vent. Rate : 074 BPM Atrial Rate : 074 BPM P-R Int : 160 ms QRS Dur : 104 ms QT Int : 430 ms P-R-T Axes : 049 137 033 degrees QTc Int : 477 ms NORMAL SINUS RHYTHM POSSIBLE LEFT ATRIAL ENLARGEMENT INCOMPLETE RIGHT BUNDLE BRANCH BLOCK LEFT POSTERIOR FASCICULAR BLOCK ANTERIOR INFARCT (CITED ON OR BEFORE 08-JAN-2020) ABNORMAL ECG WHEN COMPARED WITH ECG OF 01-AUG-2019 11:49, PREMATURE VENTRICULAR COMPLEXES ARE NO LONGER PRESENT PREMATURE ATRIAL COMPLEXES ARE NO LONGER PRESENT Confirmed by CINDY BELLO MD ([id number]) on 01/09/2020 11:49:47 AM Referred By: Confirmed By:CINDY BELLO MD
--- NOTE | 2020-01-09 11:51 | CON.CARD ---
Cardiology Consult (text) - Consultation Consultation Note: cc: sob hpi: 49 m hx copd, dchf, sev phtn, tob use, here with sob. past 1-2 weeks with worsening moderate sob, le edema, pnd, orthopnea. Sob worse with exertion, no associated sxs. No cp palps dizy loc. pmh: per hpi psh: none social: +cigs fam: no premature cad, scd ros: per hpi; all others nl meds: Home Medications Medication Instructions Recorded Albuterol Sulfate Inhaler - 2 puff IH Q4H PRN #1 inhaler 05/29/19 [Ventolin HFA Inhaler -] Ammonium Lactate Lotion 1 applic TP DAILY PRN #1 bottle 05/29/19 [Lac-Hydrin 12] Amlodipine Besylate [Norvasc -] 10 mg PO DAILY #30 tablet 08/08/19 Aspirin [ASA -] 81 mg PO DAILY #30 tab.chew 08/08/19 Atorvastatin Ca [Lipitor] 20 mg PO HS #30 tablet 08/08/19 Clindamycin [Cleocin -] 300 mg PO TID #24 capsule 08/08/19 Lactobacillus Acidophilus [Bacid -] 1 tab PO DAILY #7 tab 08/08/19 Lisinopril [Prinivil] 20 mg PO DAILY #30 tablet 08/08/19 Nicotine Patch [Nicoderm Patch -] 14 mg TD DAILY #30 patch 08/08/19 Torsemide [Demadex] 20 mg PO DAILY 30 Days #30 tablet 08/09/19 pe: Vital Signs Period Temp Pulse Resp BP Sys/Garza Pulse Ox Last 24 Hr 97.2 F-99.8 F 62-88 24-28 141-180/83-108 86-100 nad no jvd rrr s1s2 no mrg +bl exp wheeze, nl eff aao3 1+le edema bl, no c/c abd nt nd pos bs, +abd wall edema no jaundice diaphoresis pos dp pt no carotid bruits Laboratory Last Values WBC 5.8 K/mm3 (4.0-10.0) 01/09/20 06:10 RBC 5.82 M/mm3 (4.00-5.60) H 01/09/20 06:10 Hgb 19.2 GM/dL (11.7-16.9) H 01/09/20 06:10 Hct 57.7 % (35.4-49) H 01/09/20 06:10 MCV 99.1 fl (80-96) H 01/09/20 06:10 MCH 33.0 pg (25.7-33.7) 01/09/20 06:10 MCHC 33.3 g/dl (32.0-35.9) 01/09/20 06:10 RDW 15.6 % (11.9-15.9) 01/09/20 06:10 Plt Count 107 K/MM3 (134-434) L 01/09/20 06:10 MPV 10.1 fl (7.5-11.1) 01/09/20 06:10 Absolute Neuts (auto) 5.0 K/mm3 (1.5-8.0) 01/08/20 15:15 Neutrophils % 71.1 % (42.8-82.8) 01/08/20 15:15 Lymphocytes % 9.3 % (8-40) D 01/08/20 15:15 Monocytes % 18.3 % (3.8-10.2) H 01/08/20 15:15 Eosinophils % 0.4 % (0-4.5) D 01/08/20 15:15 Basophils % 0.9 % (0-2.0) 01/08/20 15:15 Nucleated RBC % 0 % (0-0) 01/08/20 15:15 PT with INR 15.10 SEC (9.7-13.0) H 01/08/20 15:15 INR 1.29 (0.83-1.09) H 01/08/20 15:15 PTT (Actin FS) 34.8 SECONDS (25.2-36.5) 01/08/20 15:15 VBG pH 7.312 (7.310-7.410) 01/08/20 15:15 POC VBG pCO2 62.2 mmHg (38-52) H 01/08/20 15:15 POC VBG pO2 56.5 mmHg (28-48) H 01/08/20 15:15 VBG HCO3 30.8 mmol/L (23-29) H 01/08/20 15:15 VBG O2 Sat (Lyndon) 86.2 % (70-80) H 01/08/20 15:15 VBG Base Excess 2.0 mmol/L (-2-2) 01/08/20 15:15 Sodium 141 mmol/L (136-145) 01/09/20 06:10 Potassium 5.9 mmol/L (3.5-5.1) H 01/09/20 06:10 Chloride 102 mmol/L (98-107) 01/09/20 06:10 Carbon Dioxide 36 mmol/L (21-32) H 01/09/20 06:10 Anion Gap 3 MMOL/L (8-16) L 01/09/20 06:10 BUN 24.1 mg/dL (7-18) H 01/09/20 06:10 Creatinine 1.2 mg/dL (0.55-1.3) 01/09/20 06:10 Est GFR (CKD-EPI)AfAm 82.38 01/09/20 06:10 Est GFR (CKD-EPI)NonAf 71.08 01/09/20 06:10 Random Glucose 129 mg/dL (74-106) H 01/09/20 06:10 Calcium 7.9 mg/dL (8.5-10.1) L 01/09/20 06:10 Phosphorus 5.3 mg/dL (2.5-4.9) H 01/09/20 06:10 Magnesium 2.5 mg/dL (1.8-2.4) H 01/09/20 06:10 Total Bilirubin 0.6 mg/dL (0.2-1) 01/08/20 15:15 AST 31 U/L (15-37) 01/08/20 15:15 ALT 26 U/L (13-61) 01/08/20 15:15 Alkaline Phosphatase 94 U/L (45-117) 01/08/20 15:15 Creatine Kinase 329 U/L (26-308) H 01/08/20 15:15 Creatine Kinase Index 1.4 % (0.0-5.0) 01/08/20 15:15 CK-MB (CK-2) 4.9 ng/mL (0.5-3.6) H 01/08/20 15:15 Troponin I 0.02 ng/ml (0.00-0.05) 01/09/20 06:10 B-Natriuretic Peptide 4364.9 pg/ml (5-125) H 01/08/20 15:15 Total Protein 5.6 g/dl (6.4-8.2) L 01/08/20 15:15 Albumin 2.9 g/dl (3.4-5.0) L 01/08/20 15:15 mibi 07/2019: no ischemia echo 07/2019: lvh, nl lvef, mod rve, mod dec rv fcn, lolly, mild tr, sev phtn ecg: sr, irbbb, ant lat twis, no st changes, no sig change prior tele: SR cxr: +chf a/p: 49 m hx copd, dchf, sev phtn, tob use, here with sob. sob, acute diastolic chf, acute copd, pulm htn/cor pulmonale: -cont iv lasix, monitor daily chem7, wt -cont iv steroids per pulm. dianne testing. -no signs acs htn: -elevated here, will resume prior norvasc, monitor bp hld: -stable, cont home statin
--- NOTE | 2020-01-09 12:42 | PN ---
Teaching Attending Note Name of Resident: wTan Bray ATTENDING PHYSICIAN STATEMENT I saw and evaluated the patient. I reviewed the resident's note and discussed the case with the resident. I agree with the resident's findings and plan as documented. SUBJECTIVE: Seen and examined at bedside. Patient speaking in full sentences without BiPAP on. Patient exhibits multiple signs of psychosis, including delusions of grandeur, paranoid thoughts, and emotional lability. Discussion frequently became off topic to the government, 5G, and other conspiratorial topics. Patient made several threatening comments during the exam though it was unclear if they were targeted at the examining team or at "others". Patient will be placed on one-to-one and a psychiatric consult is ordered OBJECTIVE Last Vital Signs Temp Pulse Resp BP Pulse Ox 97.7 F 62 25 H 157/106 H 94 L 01/09/20 10:00 01/09/20 10:00 01/09/20 10:00 01/09/20 10:01/09/20 10:00 PE: Per resident note Labs/Imaging: reviewed ASSESSMENT/PLAN L with past medical history of HTN, HLD, DM, HFpEF, asthma, polycythemia, MODESTA who is noncompliant with his medications presented with worsening shortness of breath and was admitted for COPD/CHF exacerbation. Patient is also exhibiting signs of psychosis #Acute on chronic hypoxic/hypercarbic respiratory failure Secondary to combination of COPD and CHF exacerbations #COPD exacerbation Pulmonary on board: Appreciate recommendation Continue IV methylprednisolone Continue Zithromax Continue nebulizers BiPAP Oxygen #Acute on chronic diastolic CHF exacerbation In the setting of medication noncompliance IV Lasix 40 mg daily Started on carvedilol Cardiology on board: Appreciate recommendations #Uncontrolled hypertension Continue amlodipine Increase carvedilol from 12.5 twice daily to 25 twice daily Lasix Start MARY/ARB once patient is diuresed #Delusional thinking One-to-one Psychiatry consult #Hyperkalemia D50 plus insulin Kayexalate
--- NOTE | 2020-01-09 12:59 | CON.PULM ---
Consult Consult Specialty:: PULM/CCM Referred by:: Hospitalist Reason for Consultation:: SOB - History of Present Illness Chief Complaint: SOB History of Present Illness: 49 M, HTN, HLD, DM, HFpEF (echo 04/2019 EF 60-65%), "asthma", polycythemia, and MODESTA not on PAP therapy. Admitted via the ER due to progressive shortness of breath over the past 10 days. No travel history or sick contacts. No fever or chills. No hemoptysis or night sweats. No known COVID19 exposure. CXR: Cardiomegaly / Pulmonary vascular congestion. He was given Furosemide 40mg IV & 0.4mg Nitroglycerin in the ER with some improvement in his symptoms - History Source History Provided By: Patient Limitations to Obtaining History: No Limitations - Past Medical History Cardio/Vascular: Yes: CHF, HTN, Hyperlipdemia Pulmonary: Yes: Asthma, Bronchitis, COPD Psych: Yes: Anxiety, Depression, Other (anger issues) Endocrine: Yes: Diabetes Mellitus - Past Surgical History Past Surgical History: Yes: None - Alcohol/Substance Use Hx Alcohol Use: No - Smoking History Smoking history: Current every day smoker Have you smoked in the past 12 months: Yes Aproximately how many cigarettes per day: 3 - Social History Usual Living Arrangement: Alone History of Recent Travel: No Home Medications - Allergies Allergies/Adverse Reactions: Allergies Allergy/AdvReac Type Severity Reaction Status Date / Time Penicillins Allergy Hives Verified 01/08/20 14:41 strawberry Allergy Verified 01/08/20 14:41 - Home Medications Home Medications: Ambulatory Orders Albuterol Sulfate Inhaler - [Ventolin HFA Inhaler -] 2 puff IH Q4H PRN #1 inhaler 05/29/19 Ammonium Lactate Lotion [Lac-Hydrin 12] 1 applic TP DAILY PRN #1 bottle 05/29/19 Amlodipine Besylate [Norvasc -] 10 mg PO DAILY #30 tablet 08/08/19 Aspirin [ASA -] 81 mg PO DAILY #30 tab.chew 08/08/19 Atorvastatin Ca [Lipitor] 20 mg PO HS #30 tablet 08/08/19 Clindamycin [Cleocin -] 300 mg PO TID #24 capsule 08/08/19 Lactobacillus Acidophilus [Bacid -] 1 tab PO DAILY #7 tab 08/08/19 Lisinopril [Prinivil] 20 mg PO DAILY #30 tablet 08/08/19 Nicotine Patch [Nicoderm Patch -] 14 mg TD DAILY #30 patch 08/08/19 Torsemide [Demadex] 20 mg PO DAILY 30 Days #30 tablet 08/09/19 Review of Systems - Review of Systems Constitutional: reports: Malaise. denies: Chills, Fever, Night Sweats, Unintentional Wgt. Loss Eyes: reports: No Symptoms HENT: reports: No Symptoms Neck: reports: No Symptoms Cardiovascular: reports: Edema, Shortness of Breath. denies: Chest Pain, Palpitations Respiratory: reports: Cough, Orthopnea, PND, Snoring, SOB, SOB on Exertion. denies: Hemoptysis, Wheezing Gastrointestinal: reports: No Symptoms Genitourinary: reports: No Symptoms Breasts: reports: No Symptoms Reported Musculoskeletal: reports: No Symptoms Integumentary: reports: No Symptoms Neurological: reports: No Symptoms Endocrine: reports: No Symptoms Hematology/Lymphatic: reports: No Symptoms Psychiatric: reports: No Symptoms Physical Exam Vital Sings: Vital Signs Temperature 97.7 F 01/09/20 10:00 Pulse Rate 62 01/09/20 10:00 Respiratory Rate 25 H 01/09/20 10:00 Blood Pressure 157/106 H 01/09/20 10:00 O2 Sat by Pulse Oximetry (%) 94 L 01/09/20 10:00 Constitutional: Yes: No Distress, Obese Eyes: Yes: Conjunctiva Clear, EOM Intact HENT: Yes: Atraumatic, Normocephalic Neck: Yes: Supple, Trachea Midline Cardiovascular: Yes: Regular Rate and Rhythm Respiratory: Yes: Cough, Diminished, On Venti-Mask, Rhonchi, SOB on Exertion. No: Accessory Muscle Use, Rales, SOB, Stridor, Tachypnea, Wheezes ...Inspection: Yes: WNL ...Clubbing: No Gastrointestinal: Yes: Normal Bowel Sounds, Soft, Abdomen, Obese Renal/: Yes: WNL Musculoskeletal: Yes: WNL Extremities: Yes: WNL Edema: Yes Peripheral Pulses WNL: Yes Integumentary: Yes: WNL, Venous Stasis Changes Neurological: Yes: WNL, Alert, Oriented ...Motor Strength: WNL Psychiatric: Yes: WNL, Alert, Oriented Labs: CBC, BMP 01/09/20 06:10 01/09/20 06:10 Imaging - Results Chest X-ray: Report Reviewed, Image Reviewed Problem List - Problems (1) Sleep apnea Code(s): G47.30 - SLEEP APNEA, UNSPECIFIED (2) CHF (congestive heart failure) Code(s): I50.9 - HEART FAILURE, UNSPECIFIED Qualifiers: Heart failure type: unspecified Heart failure chronicity: unspecified Qualified Code(s): I50.9 - Heart failure, unspecified (3) COPD (chronic obstructive pulmonary disease) Code(s): J44.9 - CHRONIC OBSTRUCTIVE PULMONARY DISEASE, UNSPECIFIED Qualifiers: COPD type: unspecified COPD Qualified Code(s): J44.9 - Chronic obstructive pulmonary disease, unspecified (4) Diabetes Code(s): E11.9 - TYPE 2 DIABETES MELLITUS WITHOUT COMPLICATIONS Qualifiers: Diabetes mellitus type: type 2 Diabetes mellitus residential insulin use: without long wall shear operator use (5) HLD (hyperlipidemia) Code(s): E78.5 - HYPERLIPIDEMIA, UNSPECIFIED Qualifiers: Hyperlipidemia type: pure hypercholesterolemia Qualified Code(s): E78.00 - Pure hypercholesterolemia, unspecified; E78.0 - Pure hypercholesterolemia (6) HTN (hypertension) Code(s): I10 - ESSENTIAL (PRIMARY) HYPERTENSION Qualifiers: Hypertension type: essential hypertension Qualified Code(s): I10 - Essential (primary) hypertension (7) Polycythemia Code(s): D75.1 - SECONDARY POLYCYTHEMIA (8) Tobacco dependence due to cigarettes Code(s): F17.210 - NICOTINE DEPENDENCE, CIGARETTES, UNCOMPLICATED (9) Acute exacerbation of CHF (congestive heart failure) Code(s): I50.9 - HEART FAILURE, UNSPECIFIED Qualifiers: Heart failure type: combined systolic and diastolic Qualified Code(s): I50.43 - Acute on chronic combined systolic (congestive) and diastolic (congestive) heart failure Assessment/Plan IMP: Suspect Decompensated CHF rather than AE of Obstructive Airways : Do not suspect true Asthma but more likely COPD due to tobacco abuse Do Not suspect PNA R/O COVID19 : Low suspicion PLAN: IV Lasix Monitor of systemic steroids for now BD TX PRN Noted Zithromax : Can likely DC Daily weights No smoking was counseled Outpatient PFTs Sleep screen VTE prophylaxis Will follow Thank you. Dr Campa
--- NOTE | 2020-01-09 13:03 | PN ---
MODESTA Screen - MODESTA History Previously diagnosed with Sleep Apnea: Yes If Yes, currently using CPAP to treat your MODESTA: No - SNORING Do you snore loudly (enough to be heard thru closed doors)?: Yes - TIRED Do you often feel tired, fatigued, or sleepy during daytime?: Yes - OBSERVED Has anyone observed you stop breathing during your sleep?: Yes - BLOOD PRESSURE Do you have or are being treated for high blood pressure?: Yes - BMI Answer Y if weight exceeds amount listed for your height: Yes .: HEIGHT & WEIGHT (lbs): 4'10" 167lbs; 411" 175 lbs; 5'0" 179lbs;. 5'1" 185lbs; 5'2" 191lbs; 5'3" 197lbs;. 5'4" 204lbs; 5'5" 210lbs; 5'6" 216lbs;. 5'7" 223lbs; 5'8" 230lbs; 59" 237lbs;. 10" 243lbs; 11" 250lbs; 6' 258lbs;. 6'1" 265lbs; 6'2" 272lbs; 6'3" 279lbs;. 6'4" 287lbs; 6'5" 295lbs - AGE Is your age over 50 yrs old?: No - NECK CIRCUMFERENCE Neck Circumference 40cm: Yes - GENDER Male: Yes - SCORE Total Score: 7 Score Interpretation: High Risk of MODESTA .: Interpretation: Score 0-2: Low Risk MODESTA. Score 3-4: Intermediate Risk MODESTA. Score 5-8: High Risk MODESTA Problem List - Problems (1) Sleep apnea Code(s): G47.30 - SLEEP APNEA, UNSPECIFIED (2) CHF (congestive heart failure) Code(s): I50.9 - HEART FAILURE, UNSPECIFIED Qualifiers: Heart failure type: unspecified Heart failure chronicity: unspecified Qualified Code(s): I50.9 - Heart failure, unspecified (3) COPD (chronic obstructive pulmonary disease) Code(s): J44.9 - CHRONIC OBSTRUCTIVE PULMONARY DISEASE, UNSPECIFIED Qualifiers: COPD type: unspecified COPD Qualified Code(s): J44.9 - Chronic obstructive pulmonary disease, unspecified (4) Diabetes Code(s): E11.9 - TYPE 2 DIABETES MELLITUS WITHOUT COMPLICATIONS Qualifiers: Diabetes mellitus type: type 2 Diabetes mellitus exterminator insulin use: without exterminator use (5) HLD (hyperlipidemia) Code(s): E78.5 - HYPERLIPIDEMIA, UNSPECIFIED Qualifiers: Hyperlipidemia type: pure hypercholesterolemia Qualified Code(s): E78.00 - Pure hypercholesterolemia, unspecified; E78.0 - Pure hypercholesterolemia (6) HTN (hypertension) Code(s): I10 - ESSENTIAL (PRIMARY) HYPERTENSION Qualifiers: Hypertension type: essential hypertension Qualified Code(s): I10 - Essential (primary) hypertension (7) Polycythemia Code(s): D75.1 - SECONDARY POLYCYTHEMIA (8) Tobacco dependence due to cigarettes Code(s): F17.210 - NICOTINE DEPENDENCE, CIGARETTES, UNCOMPLICATED (9) Acute exacerbation of CHF (congestive heart failure) Code(s): I50.9 - HEART FAILURE, UNSPECIFIED Qualifiers: Heart failure type: combined systolic and diastolic Qualified Code(s): I50.43 - Acute on chronic combined systolic (congestive) and diastolic (conges tive) heart failure
--- NOTE | 2020-01-09 13:22 | PN ---
Physical Exam: SUBJECTIVE: Patient seen and examined at bedside. Exhibiting signs of psychosis including delusions of grandeur, paranoid thoughts, and emotional lability. OBJECTIVE: Vital Signs Period Temp Pulse Resp BP Sys/Garza Pulse Ox Last 24 Hr 97.2 F-99.8 F 62-88 24-28 141-180/83-108 86-100 Patient noncompliant with exam Laboratory Results - last 24 hr 01/08/20 01/08/20 01/08/20 15:00 15:15 15:15 WBC 7.0 RBC 5.63 H Hgb 18.9 H Hct 55.9 H MCV 99.2 H MCH 33.5 D MCHC 33.8 RDW 15.9 Plt Count 105 L MPV 10.1 Absolute Neuts (auto) 5.0 Neutrophils % 71.1 Lymphocytes % 9.3 D Monocytes % 18.3 H Eosinophils % 0.4 D Basophils % 0.9 Nucleated RBC % 0 PT with INR 15.10 H INR 1.29 H PTT (Actin FS) 34.8 VBG pH POC VBG pCO2 POC VBG pO2 VBG HCO3 VBG O2 Sat (Lyndon) VBG Base Excess Sodium Potassium Chloride Carbon Dioxide Anion Gap BUN Creatinine Est GFR (CKD-EPI)AfAm Est GFR (CKD-EPI)NonAf Random Glucose Calcium Phosphorus Magnesium Total Bilirubin AST ALT Alkaline Phosphatase Creatine Kinase Creatine Kinase Index CK-MB (CK-2) Troponin I B-Natriuretic Peptide Total Protein Albumin COVID-19 (OMEGA) Not detected 01/08/20 01/08/20 01/09/20 15:15 15:15 06:10 WBC 5.8 RBC 5.82 H Hgb 19.2 H Hct 57.7 H MCV 99.1 H MCH 33.0 MCHC 33.3 RDW 15.6 Plt Count 107 L MPV 10.1 Absolute Neuts (auto) Neutrophils % Lymphocytes % Monocytes % Eosinophils % Basophils % Nucleated RBC % PT with INR INR PTT (Actin FS) VBG pH 7.312 POC VBG pCO2 62.2 H POC VBG pO2 56.5 H VBG HCO3 30.8 H VBG O2 Sat (Lyndon) 86.2 H VBG Base Excess 2.0 Sodium 142 Potassium 4.8 Chloride 106 Carbon Dioxide 32 Anion Gap 3 L BUN 19.3 H Creatinine 1.0 Est GFR (CKD-EPI)AfAm 102.69 Est GFR (CKD-EPI)NonAf 88.61 Random Glucose 99 Calcium 7.9 L Phosphorus 4.4 Magnesium 2.2 Total Bilirubin 0.6 AST 31 ALT 26 Alkaline Phosphatase 94 Creatine Kinase 329 H Creatine Kinase Index 1.4 CK-MB (CK-2) 4.9 H Troponin I 0.05 B-Natriuretic Peptide 4364.9 H Total Protein 5.6 L Albumin 2.9 L COVID-19 (OMEGA) 01/09/20 06:10 WBC RBC Hgb Hct MCV MCH MCHC RDW Plt Count MPV Absolute Neuts (auto) Neutrophils % Lymphocytes % Monocytes % Eosinophils % Basophils % Nucleated RBC % PT with INR INR PTT (Actin FS) VBG pH POC VBG pCO2 POC VBG pO2 VBG HCO3 VBG O2 Sat (Lyndon) VBG Base Excess Sodium 141 Potassium 5.9 H Chloride 102 Carbon Dioxide 36 H Anion Gap 3 L BUN 24.1 H Creatinine 1.2 Est GFR (CKD-EPI)AfAm 82.38 Est GFR (CKD-EPI)NonAf 71.08 Random Glucose 129 H Calcium 7.9 L Phosphorus 5.3 H Magnesium 2.5 H Total Bilirubin AST ALT Alkaline Phosphatase Creatine Kinase Creatine Kinase Index CK-MB (CK-2) Troponin I 0.02 B-Natriuretic Peptide Total Protein Albumin COVID-19 (OMEGA) Active Medications Generic Name Dose Route Start Last Admin Trade Name Freq PRN Reason Stop Dose Admin Albuterol Sulfate 2 puff 01/08/20 19:10 Ventolin Hfa Inhaler - IH Q4H PRN SHORT OF BREATH/WHEEZING Amlodipine Besylate 10 mg 01/09/20 10:00 01/09/20 10:45 Norvasc - PO 10 mg DAILY CONY Administration Carvedilol 12.5 mg 01/09/20 10:00 01/09/20 10:45 Coreg - PO 12.5 mg BID CONY Administration Enoxaparin Sodium 40 mg 01/09/20 10:00 01/09/20 10:45 Lovenox - SQ 40 mg DAILY CONY Administration Furosemide 40 mg 01/09/20 10:00 01/09/20 10:45 Lasix Injection - IVPUSH 40 mg DAILY CONY Administration Azithromycin 500 mg in 250 mls @ 250 mls/hr 01/09/20 10:00 01/09/20 10:45 Zithromax 500mg Ivpb (Pre-Docked) IVPB 250 mls/hr DAILY CONY Administration ASSESSMENT/PLAN: Pt is 49 yo M with PMH HTN, HLD, DM, HFpEF (echo 04/2019 EF 60-65%), asthma, polycythemia, MODESTA presented to ED with worsening shortness of breath. #Shortness of breath 2/2 CHF exacerbation -BNP> 4000, CK 329, CK-MB 4.9 Echo 07/2019: lvh, nl lvef, mod rve, mod dec rv fcn, lolly, mild tr, sev phtn -CXR as above. -c/w furosemide 40mg IV -monitor daily weights, I/O's -Cardio consulted. Recs appreciated -Troponin downtrended #COPD -Examine by Pulm. Less likely Asthma. Patient's VBG shows CO2 elevation with HCO3 compensation. Likely from chronic CO2 retention 2/2 COPD. -Can monitor off of systemic steroids. #HTN -Coreg 12.5 BID -Norvasc 10 Daily #Delusions 2/2 underlying psychiatric disorder -Psych Consult. Recs appreciated #Hyperkalemia -Potassium 5.9 on admission -Will administer Insulin with d50 and recheck potassium. Ppx -DVT: Lovenox FEN -No Fluids -Monitor electrolytes -Low sodium diet Dispo: tele Visit type - Emergency Visit Emergency Visit: Yes ED Registration Date: 01/08/20 Care time: The patient presented to the Emergency Department on the above date and was hospitalized for further evaluation of their emergent condition. - New Patient This patient is new to me today: Yes Date on this admission: 01/09/20 - Critical Care Critical Care patient: No - Discharge Referral Referred to [facility] Med P.C.: No ATTENDING PHYSICIAN STATEMENT I saw and evaluated the patient. I reviewed the resident's note and discussed the case with the resident. I agree with the resident's findings and plan as documented. SUBJECTIVE: OBJECTIVE: ASSESSMENT AND PLAN:
[2020-01-09] MEDS ORDERED: INSULIN REGULAR HUMAN 100 UNITS/ML *VIAL IVPUSH ONE ×2 (14:11)
[2020-01-09] MEDS ORDERED: SODIUM POLYSTYRENE SULFONATE 15 GM/60 ML BOTTLE PO ONE (14:13)
[2020-01-09] MEDS ORDERED: DEXTROSE 50%-WATER - 25 GM/50 ML VIAL IVPUSH ONE (14:13)
[2020-01-09] MEDS ORDERED: DEXTROSE 50%-WATER - 25 GM/50 ML VIAL ONE (15:53)
[2020-01-09] MEDS ORDERED: ACETAMINOPHEN 500 MG TABLET (FP) PO PRN (18:54)
[2020-01-09] MEDS ORDERED: LORazepam 2 MG/ML SDV VIAL IVPUSH ONE (21:36)
[2020-01-09] MEDS ORDERED: MORPHINE SULFATE 2 MG/ML VIAL IVPUSH ONE (21:56)
[2020-01-10] MEDS ORDERED: MORPHINE SULFATE 2 MG/ML VIAL IVPUSH ONE (05:04)
[2020-01-10 07:18] LABS: HEMATOCRIT 56.3 % (35.4-49); HEMOGLOBIN 18.7 GM/dL (11.7-16.9); MCH 33.7 pg (25.7-33.7); MCHC 33.3 g/dl (32.0-35.9); MEAN CELL VOLUME 101.5 fl (80-96); MEAN PLT VOLUME 10.2 fl (7.5-11.1); PLATELET COUNT 102 K/MM3 (134-434); RBC 5.55 M/mm3 (4.00-5.60); RDW 15.4 % (11.9-15.9); WHITE BLOOD COUNT 10.3 K/mm3 (4.0-10.0)
--- NOTE | 2020-01-10 07:21 | PN ---
Progress Note, Physician History of Present Illness: pulmonary AWAKE,ALERT,CONFUSED,-RESP DISTRESS ON NASAL O2 - Current Medication List Current Medications: Active Medications Acetaminophen (Tylenol -) 1,000 mg PO Q6H PRN PRN Reason: PAIN LEVEL 1-5 Albuterol Sulfate (Ventolin Hfa Inhaler -) 2 puff IH Q4H PRN PRN Reason: SHORT OF BREATH/WHEEZING Amlodipine Besylate (Norvasc -) 10 mg PO DAILY [facility] Last Admin: 01/09/20 10:45 Dose: 10 mg Documented by: Carvedilol (Coreg -) 12.5 mg PO BID [facility] Last Admin: 01/09/20 21:23 Dose: 12.5 mg Documented by: Enoxaparin Sodium (Lovenox -) 40 mg SQ DAILY [facility] Last Admin: 01/09/20 10:45 Dose: 40 mg Documented by: Furosemide (Lasix Injection -) 40 mg IVPUSH DAILY [facility] Last Admin: 01/09/20 10:45 Dose: 40 mg Documented by: Azithromycin (Zithromax 500mg Ivpb (Pre-Docked)) 500 mg in 250 mls @ 250 mls/hr IVPB DAILY [facility] Last Admin: 01/09/20 10:45 Dose: 250 mls/hr Documented by: - Objective Vital Signs: Vital Signs Temperature 97.7 F 01/10/20 06:00 Pulse Rate 59 L 01/10/20 06:00 Respiratory Rate 18 01/10/20 06:00 Blood Pressure 135/84 01/10/20 06:00 O2 Sat by Pulse Oximetry (%) 93 L 01/10/20 06:00 Constitutional: Yes: Calm, Obese Eyes: Yes: WNL HENT: Yes: WNL Neck: Yes: WNL Cardiovascular: Yes: Regular Rate and Rhythm, S1, S2 Respiratory: Yes: Diminished Gastrointestinal: Yes: Normal Bowel Sounds, Soft, Abdomen, Obese Extremities: Yes: WNL Edema: Yes Labs: INR, PTT Assessment/Plan - Problems (1) Sleep apnea Code(s): G47.30 - SLEEP APNEA, UNSPECIFIED (2) CHF (congestive heart failure) Code(s): I50.9 - HEART FAILURE, UNSPECIFIED Qualifiers: Heart failure type: unspecified Heart failure chronicity: unspecified Qualified Code(s): I50.9 - Heart failure, unspecified (3) COPD (chronic obstructive pulmonary disease) Code(s): J44.9 - CHRONIC OBSTRUCTIVE PULMONARY DISEASE, UNSPECIFIED Qualifiers: COPD type: unspecified COPD Qualified Code(s): J44.9 - Chronic obstructive pulmonary disease, unspecified (4) Diabetes Code(s): E11.9 - TYPE 2 DIABETES MELLITUS WITHOUT COMPLICATIONS Qualifiers: Diabetes mellitus type: type 2 Diabetes mellitus terminal make up operator insulin use: without shelter use (5) HLD (hyperlipidemia) Code(s): E78.5 - HYPERLIPIDEMIA, UNSPECIFIED Qualifiers: Hyperlipidemia type: pure hypercholesterolemia Qualified Code(s): E78.00 - Pure hypercholesterolemia, unspecified; E78.0 - Pure hypercholesterolemia (6) HTN (hypertension) Code(s): I10 - ESSENTIAL (PRIMARY) HYPERTENSION Qualifiers: Hypertension type: essential hypertension Qualified Code(s): I10 - Essential (primary) hypertension (7) Polycythemia Code(s): D75.1 - SECONDARY POLYCYTHEMIA (8) Tobacco dependence due to cigarettes Code(s): F17.210 - NICOTINE DEPENDENCE, CIGARETTES, UNCOMPLICATED (9) Acute exacerbation of CHF (congestive heart failure) Code(s): I50.9 - HEART FAILURE, UNSPECIFIED Qualifiers: Heart failure type: combined systolic and diastolic Qualified Code(s): I50.43 - Acute on chronic combined systolic (congestive) and diastolic (congestive) heart failure 7, ACUTE ON CHRONIC HYPOXEMIC/HYPERCAPNEIC RESPIRATORY FAILURE Assessment/Plan IMP: Acute on chronic hypoxic/hypercapneic respiratory failure Suspect Decompensated CHF rather than AE of Obstructive Airways : Do not suspect true Asthma but more likely COPD due to tobacco abuse Do Not suspect PNA R/O COVID19 : Low suspicion PLAN: IV Lasix Monitor of systemic steroids for now BD TX PRN Daily weights No smoking was counseled Outpatient PFTs Sleep screen VTE prophylaxis monitor h+h ambulatory o2 sat prior to discharge DR WILDER
[2020-01-10 07:30] LABS: BLOOD UREA NITROGEN 25.9 mg/dL (7-18); CALCIUM 7.4 mg/dL (8.5-10.1); MAGNESIUM 2.4 mg/dL (1.8-2.4); PHOSPHOROUS 4.9 mg/dL (2.5-4.9); POTASSIUM 4.5 mmol/L (3.5-5.1)
[2020-01-10] MEDS: CARVEDILOL 12.5 MG TABLET (FP) PO SCH ×2 (09:29→22:09)
[2020-01-10] MEDS: amLODIPine BESYLATE 10 MG TABLET (FP) PO SCH (09:29)
[2020-01-10] MEDS: ENOXAPARIN NA (PORCINE) 40 MG/0.4 ML DISP.SYRIN SQ SCH (09:30)
[2020-01-10] MEDS: FUROSEMIDE 40 MG/4 ML INJECTABLE VIAL IVPUSH SCH ×2 (09:30→13:40)
[2020-01-10] MEDS: AZITHROMYCIN IVPB 500 MG/250 ML BAG IVPB SCH (09:31)
--- NOTE | 2020-01-10 12:21 | PN ---
Teaching Attending Note Name of Resident: Twan Bray ATTENDING PHYSICIAN STATEMENT I saw and evaluated the patient. I reviewed the resident's note and discussed the case with the resident. I agree with the resident's findings and plan as documented. SUBJECTIVE: OBJECTIVE: ASSESSMENT AND PLAN:
--- NOTE | 2020-01-10 12:23 | PN ---
Teaching Attending Note Name of Resident: Twan rBay ATTENDING PHYSICIAN STATEMENT I saw and evaluated the patient. I reviewed the resident's note and discussed the case with the resident. I agree with the resident's findings and plan as documented. SUBJECTIVE: Seen and examined at bedside. Mental status unchanged since yesterday. Patient continues to speak in full sentences with oxygen off. Lungs with bibasilar crackles and bilateral wheezes. Pending psychiatry evaluation OBJECTIVE Last Vital Signs Temp Pulse Resp BP Pulse Ox 97.5 F L 67 18 132/76 98 01/10/20 09:26 01/10/20 09:26 01/10/20 09:26 01/10/20 09:26 01/10/20 09:26 PE: Per resident note Labs/Imaging: reviewed ASSESSMENT/PLAN L with past medical history of HTN, HLD, DM, HFpEF, asthma, polycythemia, MODESTA who is noncompliant with his medications presented with worsening shortness of breath and was admitted for COPD/CHF exacerbation. Patient is also exhibiting signs of psychosis #Acute on chronic hypoxic/hypercarbic respiratory failure Secondary to combination of COPD and CHF exacerbations #COPD exacerbation Pulmonary on board: Appreciate recommendation Continue IV methylprednisolone Continue Zithromax Continue nebulizers BiPAP Oxygen #Acute on chronic diastolic CHF exacerbation In the setting of medication noncompliance IV Lasix 40 mg daily Started on carvedilol Cardiology on board: Appreciate recommendations #Uncontrolled hypertension Continue amlodipine cont carvedilolo 25 twice daily Lasix Start MARY/ARB once patient is diuresed #Delusional thinking One-to-one Psychiatry consult #Hyperkalemia: resolved D50 plus insulin Kayexalate
--- NOTE | 2020-01-10 12:37 | PN ---
Progress Note (short form) - Note Progress Note: cc: sob s: edema not improving, sob a little better. no chest pain, palps, dizziness. Current Medications Generic Name Dose Route Start Last Admin Trade Name Freq PRN Reason Stop Dose Admin Acetaminophen 1,000 mg 01/09/20 18:54 Tylenol - PO Q6H PRN PAIN LEVEL 1-5 Albuterol Sulfate 2 puff 01/08/20 19:10 Ventolin Hfa Inhaler - IH Q4H PRN SHORT OF BREATH/WHEEZING Amlodipine Besylate 10 mg 01/09/20 10:00 01/10/20 09:29 Norvasc - PO 10 mg DAILY CONY Administration Carvedilol 12.5 mg 01/09/20 10:00 01/10/20 09:29 Coreg - PO 12.5 mg BID CONY Administration Enoxaparin Sodium 40 mg 01/09/20 10:00 01/10/20 09:30 Lovenox - SQ 40 mg DAILY CONY Administration Furosemide 40 mg 01/10/20 14:00 Lasix Injection - IVPUSH BID@0600,1400 CONY Azithromycin 500 mg in 250 mls @ 250 mls/hr 01/09/20 10:00 01/10/20 09:31 Zithromax 500mg Ivpb (Pre-Docked) IVPB 250 mls/hr DAILY CONY Administration Vital Signs Period Temp Pulse Resp BP Sys/Garza Pulse Ox Last 24 Hr 97.5 F-98.5 F 59-75 18-22 132-157/76-98 93-100 nad no jvd rrr s1s2 no mrg +bl exp wheeze, nl eff aao3 1+ le edema bl, no c/c abd nt nd pos bs, +abd wall edema no jaundice diaphoresis pos dp pt no carotid bruits Laboratory Last Values WBC 10.3 K/mm3 (4.0-10.0) H 01/10/20 06:08 RBC 5.55 M/mm3 (4.00-5.60) 01/10/20 06:08 Hgb 18.7 GM/dL (11.7-16.9) H 01/10/20 06:08 Hct 56.3 % (35.4-49) H 01/10/20 06:08 MCV 101.5 fl (80-96) H 01/10/20 06:08 MCH 33.7 pg (25.7-33.7) 01/10/20 06:08 MCHC 33.3 g/dl (32.0-35.9) 01/10/20 06:08 RDW 15.4 % (11.9-15.9) 01/10/20 06:08 Plt Count 102 K/MM3 (134-434) L 01/10/20 06:08 MPV 10.2 fl (7.5-11.1) 01/10/20 06:08 Absolute Neuts (auto) 5.0 K/mm3 (1.5-8.0) 01/08/20 15:15 Neutrophils % 71.1 % (42.8-82.8) 01/08/20 15:15 Lymphocytes % 9.3 % (8-40) D 01/08/20 15:15 Monocytes % 18.3 % (3.8-10.2) H 01/08/20 15:15 Eosinophils % 0.4 % (0-4.5) D 01/08/20 15:15 Basophils % 0.9 % (0-2.0) 01/08/20 15:15 Nucleated RBC % 0 % (0-0) 01/08/20 15:15 PT with INR 15.10 SEC (9.7-13.0) H 01/08/20 15:15 INR 1.29 (0.83-1.09) H 01/08/20 15:15 PTT (Actin FS) 34.8 SECONDS (25.2-36.5) 01/08/20 15:15 VBG pH 7.312 (7.310-7.410) 01/08/20 15:15 POC VBG pCO2 62.2 mmHg (38-52) H 01/08/20 15:15 POC VBG pO2 56.5 mmHg (28-48) H 01/08/20 15:15 VBG HCO3 30.8 mmol/L (23-29) H 01/08/20 15:15 VBG O2 Sat (Lyndon) 86.2 % (70-80) H 01/08/20 15:15 VBG Base Excess 2.0 mmol/L (-2-2) 01/08/20 15:15 Sodium 140 mmol/L (136-145) 01/10/20 06:08 Potassium 4.5 mmol/L (3.5-5.1) 01/10/20 06:08 Chloride 102 mmol/L (98-107) 01/10/20 06:08 Carbon Dioxide 37 mmol/L (21-32) H 01/10/20 06:08 Anion Gap 2 MMOL/L (8-16) L 01/10/20 06:08 BUN 25.9 mg/dL (7-18) H 01/10/20 06:08 Creatinine 1.0 mg/dL (0.55-1.3) 01/10/20 06:08 Est GFR (CKD-EPI)AfAm 102.69 01/10/20 06:08 Est GFR (CKD-EPI)NonAf 88.61 01/10/20 06:08 Random Glucose 128 mg/dL (74-106) H 01/10/20 06:08 Calcium 7.4 mg/dL (8.5-10.1) L 01/10/20 06:08 Phosphorus 4.9 mg/dL (2.5-4.9) 01/10/20 06:08 Magnesium 2.4 mg/dL (1.8-2.4) 01/10/20 06:08 Total Bilirubin 0.6 mg/dL (0.2-1) 01/08/20 15:15 AST 31 U/L (15-37) 01/08/20 15:15 ALT 26 U/L (13-61) 01/08/20 15:15 Alkaline Phosphatase 94 U/L (45-117) 01/08/20 15:15 Creatine Kinase 329 U/L (26-308) H 01/08/20 15:15 Creatine Kinase Index 1.4 % (0.0-5.0) 01/08/20 15:15 CK-MB (CK-2) 4.9 ng/mL (0.5-3.6) H 01/08/20 15:15 Troponin I 0.02 ng/ml (0.00-0.05) 01/09/20 06:10 B-Natriuretic Peptide 4364.9 pg/ml (5-125) H 01/08/20 15:15 Total Protein 5.6 g/dl (6.4-8.2) L 01/08/20 15:15 Albumin 2.9 g/dl (3.4-5.0) L 01/08/20 15:15 COVID-19 (OMEGA) Not detected (Not Detected) 01/08/20 15:00 mibi 07/2019: no ischemia echo 07/2019: lvh, nl lvef, mod rve, mod dec rv fcn, lolly, mild tr, sev phtn ecg: sr, irbbb, ant lat twis, no st changes, no sig change prior tele: SR, PVCs cxr: +chf a/p: 49 m hx copd, dchf, sev phtn, tob use, here with sob. sob, acute diastolic chf, acute copd, pulm htn/cor pulmonale: - weight stable, edema unchanged per patient -inc iv lasix to 40 mg IV BID, monitor daily chem7, wt -cont iv steroids per pulm. dianne testing. -no signs acs htn: -improved, cont norvasc hld: -stable, cont home statin
--- NOTE | 2020-01-10 13:36 | EKG ---
Test Reason : Blood Pressure : / mmHG Vent. Rate : 064 BPM Atrial Rate : 064 BPM P-R Int : 164 ms QRS Dur : 112 ms QT Int : 460 ms P-R-T Axes : 042 115 060 degrees QTc Int : 474 ms NORMAL SINUS RHYTHM POSSIBLE LEFT ATRIAL ENLARGEMENT INCOMPLETE RIGHT BUNDLE BRANCH BLOCK LEFT POSTERIOR FASCICULAR BLOCK PROLONGED QT ABNORMAL ECG WHEN COMPARED WITH ECG OF 09-JAN-2020 09:50, NONSPECIFIC T WAVE ABNORMALITY HAS REPLACED INVERTED T WAVES IN INFERIOR LEADS T WAVE INVERSION NO LONGER EVIDENT IN LATERAL LEADS Confirmed by MD Marcelino, Vignesh ([id number]) on 01/10/2020 1:36:24 PM Referred By: JOSHUA DODD DR Confirmed By:Vignesh Benson MD
[2020-01-10] MEDS: MORPHINE SULFATE 2 MG/ML VIAL IVPUSH PRN (15:01)
--- NOTE | 2020-01-10 15:41 | PN ---
Physical Exam: SUBJECTIVE: Patient seen and examined at bedside. Easily agitated when questioned about his breathing. OBJECTIVE: Vital Signs Period Temp Pulse Resp BP Sys/Garza Pulse Ox Last 24 Hr 97.5 F-98.5 F 59-75 18-22 126-157/69-98 93-100 GENERAL: Distraught, bursts of anger and ranting HEAD: Normal with no signs of trauma. EYES: Proptosis when speaking LUNGS: Wheezing throughout all lung peacock. HEART: RRR S1S2 ABDOMEN: Obese NDNT EXTREMITIES: 2+ pitting edema bilateral lower extremities PSYCH: Delusional, Paranoid Laboratory Results - last 24 hr 01/09/20 01/10/20 01/10/20 17:25 06:08 06:08 WBC 10.3 H RBC 5.55 Hgb 18.7 H Hct 56.3 H MCV 101.5 H MCH 33.7 MCHC 33.3 RDW 15.4 Plt Count 102 L MPV 10.2 Sodium 140 Potassium 4.4 4.5 Chloride 102 Carbon Dioxide 37 H Anion Gap 2 L BUN 25.9 H Creatinine 1.0 Est GFR (CKD-EPI)AfAm 102.69 Est GFR (CKD-EPI)NonAf 88.61 Random Glucose 128 H Calcium 7.4 L Phosphorus 4.9 Magnesium 2.4 Active Medications Generic Name Dose Route Start Last Admin Trade Name Freq PRN Reason Stop Dose Admin Acetaminophen 1,000 mg 01/09/20 18:54 Tylenol - PO Q6H PRN PAIN LEVEL 1-5 Albuterol Sulfate 2 puff 01/08/20 19:10 Ventolin Hfa Inhaler - IH Q4H PRN SHORT OF BREATH/WHEEZING Amlodipine Besylate 10 mg 01/09/20 10:00 01/10/20 09:29 Norvasc - PO 10 mg DAILY CONY Administration Carvedilol 12.5 mg 01/09/20 10:00 01/10/20 09:29 Coreg - PO 12.5 mg BID CONY Administration Enoxaparin Sodium 40 mg 01/09/20 10:00 01/10/20 09:30 Lovenox - SQ 40 mg DAILY CONY Administration Furosemide 40 mg 01/10/20 14:00 01/10/20 13:40 Lasix Injection - IVPUSH 40 mg BID@0600,1400 CONY Administration Azithromycin 500 mg in 250 mls @ 250 mls/hr 01/09/20 10:00 01/10/20 09:31 Zithromax 500mg Ivpb (Pre-Docked) IVPB 250 mls/hr DAILY CONY Administration Morphine Sulfate 2 mg 01/10/20 14:45 01/10/20 15:01 Morphine Sulfate IVPUSH 2 mg Q6H PRN Administration PAIN LEVEL 7 - 10 ASSESSMENT/PLAN: Pt is 49 yo M with PMH HTN, HLD, DM, HFpEF (echo 04/2019 EF 60-65%), asthma, polycythemia, MODESTA presented to ED with worsening shortness of breath. #Shortness of breath 2/2 CHF exacerbation -BNP> 4000, CK 329, CK-MB 4.9 Echo 07/2019: lvh, nl lvef, mod rve, mod dec rv fcn, lolly, mild tr, sev phtn, Diastolic dysfunction -CXR large heart with congestive changes -c/w furosemide 40 BID IV -monitor daily weights, I/O's -Cardio consulted. Recs appreciated -Troponin downtrended #COPD -Examine by Pulm. Less likely Asthma. Patient's VBG shows CO2 elevation with HCO3 compensation. Likely from chronic CO2 retention 2/2 COPD. -Can monitor off of systemic steroids. #HTN -Coreg 12.5 BID. HR 50s-60s. -Norvasc 10 Daily #PAranoid type Delusional Disorder -Psych Dr Granados on board. Abilify 10 BID. D/C 1:1 Ppx -DVT: Lovenox FEN -No Fluids -Monitor electrolytes -Low sodium diet Dispo: tele Visit type - Emergency Visit Emergency Visit: Yes ED Registration Date: 01/08/20 Care time: The patient presented to the Emergency Department on the above date and was hospitalized for further evaluation of their emergent condition. - New Patient This patient is new to me today: No - Critical Care Critical Care patient: No - Discharge Referral Referred to [facility] Med P.C.: No ATTENDING PHYSICIAN STATEMENT I saw and evaluated the patient. I reviewed the resident's note and discussed the case with the resident. I agree with the resident's findings and plan as documented. SUBJECTIVE: OBJECTIVE: ASSESSMENT AND PLAN:
[2020-01-10] MEDS ORDERED: CARVEDILOL 12.5 MG TABLET (FP) PO SCH (15:51)
--- NOTE | 2020-01-10 17:38 | CON.PSY ---
Psychiatry Consult Chief Complaint: 49 Year old male admitted with CHF and other Medical conditions seen for Psych eval for Verbalising Suicidal thoughts. No delf dmagibtg behaviour.. Patient has beenm talking about 5 G tech interfering with his health.. There are 3 Barges in [facility] controllong his heaith.. Symptoms: reports: Grandiosity, Excessive Energy, Delusions, Paranoia, Conduct Problems - Previous Psychiatric Treatment Outpatient: None Inpatient: None - Previous Substance Abuse Treatment Outpatient: None Inpatient: None - Current Medications Current Medications: Active Medications Acetaminophen (Tylenol -) 1,000 mg PO Q6H PRN PRN Reason: PAIN LEVEL 1-5 Albuterol Sulfate (Ventolin Hfa Inhaler -) 2 puff IH Q4H PRN PRN Reason: SHORT OF BREATH/WHEEZING Amlodipine Besylate (Norvasc -) 10 mg PO DAILY [facility] Last Admin: 01/10/20 09:29 Dose: 10 mg Documented by: Carvedilol (Coreg -) 12.5 mg PO BID [facility] Enoxaparin Sodium (Lovenox -) 40 mg SQ DAILY [facility] Last Admin: 01/10/20 09:30 Dose: 40 mg Documented by: Furosemide (Lasix Injection -) 40 mg IVPUSH BID@0600,1400 [facility] Last Admin: 01/10/20 13:40 Dose: 40 mg Documented by: Azithromycin (Zithromax 500mg Ivpb (Pre-Docked)) 500 mg in 250 mls @ 250 mls/hr IVPB DAILY [facility] Last Admin: 01/10/20 09:31 Dose: 250 mls/hr Documented by: Morphine Sulfate (Morphine Sulfate) 2 mg IVPUSH Q6H PRN PRN Reason: PAIN LEVEL 7 - 10 Last Admin: 01/10/20 15:01 Dose: 2 mg Documented by: - Allergies Allergies: Allergies Allergy/AdvReac Type Severity Reaction Status Date / Time Penicillins Allergy Hives Verified 01/08/20 14:41 strawberry Allergy Verified 01/08/20 14:41 - Current Living Status Usual Living Arrangement: Alone - Current Mental Status Evaluation Appearance: Disheveled Attitude: Uncooperative - Affect Affect: Labile Appropriateness: Not Appropriate - Mood Mood: Euphoric - Speech/Language Expressive: Coherent Receptive: Age Appropriate Comprehension of Spoken Words - Psychomotor Activity Psychomotor Activity: Hyperactive - Thought Process Thought Process: Circumstantial - Thought Content Hallucinations: Absent Type: Grandiose, Being Controlled - Self Perception Self Perception: No Impairment - Cognition Attention: Alert Orientation: Time Memory, Immediate Recall: Intact Memory, Short Term: 3/3 Memory, Remote with Promptin/3 - Concentration Serial Sevens Intact: No Simple Calculations Intact: No - Abstraction Proverb Interpretation: [place] Judgement: Minimally Impaired - Insight Insight: Intact - Impulse Control Impulse Control: Minimally Impaired - Suicidal Ideation Suicidal Ideation: No - Homicidal Ideation Homicidal Ideation: No Problem List - Problems (1) Paranoid type delusional disorder Code(s): F22 - DELUSIONAL DISORDERS Assessment/Plan 1) d/c 1:1. 2) Abilify 10- mg po bid.
[2020-01-10] MEDS ORDERED: PT OWN MED DRAWER 7, Y5N ONE (22:00)
[2020-01-10] MEDS: ARIPiprazole 10 MG TABLET PO SCH (22:09)
[2020-01-11] MEDS: FUROSEMIDE 40 MG/4 ML INJECTABLE VIAL IVPUSH SCH ×3 (05:12→14:55)
[2020-01-11 07:37] LABS: HEMATOCRIT 57.3 % (35.4-49); HEMOGLOBIN 18.6 GM/dL (11.7-16.9); MCH 32.7 pg (25.7-33.7); MCHC 32.4 g/dl (32.0-35.9); MEAN CELL VOLUME 100.7 fl (80-96); MEAN PLT VOLUME 8.9 fl (7.5-11.1); PLATELET COUNT 99 K/MM3 (134-434); RBC 5.69 M/mm3 (4.00-5.60); RDW 15.8 % (11.9-15.9); WHITE BLOOD COUNT 6.4 K/mm3 (4.0-10.0)
[2020-01-11 08:14] LABS: BLOOD UREA NITROGEN 23.5 mg/dL (7-18); CALCIUM 7.8 mg/dL (8.5-10.1); CHLORIDE 95 mmol/L (98-107); CREATININE 1.1 mg/dL (0.55-1.3); GLUCOSE,RANDOM 111 mg/dL (74-106); MAGNESIUM 2.4 mg/dL (1.8-2.4); PHOSPHOROUS 3.6 mg/dL (2.5-4.9); SODIUM 143 mmol/L (136-145)
[2020-01-11 08:19] LABS: ANION GAP 3 MMOL/L (8-16); CO2 > 45 mmol/L (21-32)
[2020-01-11] MEDS: CARVEDILOL 12.5 MG TABLET (FP) PO SCH ×2 (10:01→22:31)
[2020-01-11] MEDS: ARIPiprazole 10 MG TABLET PO SCH ×2 (10:01→22:31)
[2020-01-11] MEDS: ENOXAPARIN NA (PORCINE) 40 MG/0.4 ML DISP.SYRIN SQ SCH (10:01)
[2020-01-11] MEDS: MORPHINE SULFATE 2 MG/ML VIAL IVPUSH PRN (10:02)
[2020-01-11] MEDS: amLODIPine BESYLATE 10 MG TABLET (FP) PO SCH (10:02)
[2020-01-11] MEDS: AZITHROMYCIN IVPB 500 MG/250 ML BAG IVPB SCH (10:03)
--- NOTE | 2020-01-11 10:05 | PN ---
Progress Note, Physician History of Present Illness: pulmonary awake on bipap,still c/o sob,o2 sat 87% on 50% o2 - Current Medication List Current Medications: Active Medications Acetaminophen (Tylenol -) 1,000 mg PO Q6H PRN PRN Reason: PAIN LEVEL 1-5 Albuterol Sulfate (Ventolin Hfa Inhaler -) 2 puff IH Q4H PRN PRN Reason: SHORT OF BREATH/WHEEZING Amlodipine Besylate (Norvasc -) 10 mg PO DAILY [facility] Last Admin: 01/11/20 10:02 Dose: 10 mg Documented by: Aripiprazole (Abilify) 10 mg PO BID [facility] Last Admin: 01/11/20 10:01 Dose: 10 mg Documented by: Carvedilol (Coreg -) 12.5 mg PO BID [facility] Last Admin: 01/11/20 10:01 Dose: 12.5 mg Documented by: Enoxaparin Sodium (Lovenox -) 40 mg SQ DAILY [facility] Last Admin: 01/11/20 10:01 Dose: 40 mg Documented by: Furosemide (Lasix Injection -) 40 mg IVPUSH BID@0600,1400 [facility] Last Admin: 01/11/20 05:12 Dose: 40 mg Documented by: Azithromycin (Zithromax 500mg Ivpb (Pre-Docked)) 500 mg in 250 mls @ 250 mls/hr IVPB DAILY [facility] Last Admin: 01/11/20 10:03 Dose: 250 mls/hr Documented by: Morphine Sulfate (Morphine Sulfate) 2 mg IVPUSH Q6H PRN PRN Reason: PAIN LEVEL 7 - 10 Last Admin: 01/11/20 10:02 Dose: 2 mg Documented by: - Objective Vital Signs: Vital Signs Temperature 98.2 F 01/11/20 06:00 Pulse Rate 63 01/11/20 06:00 Respiratory Rate 20 01/11/20 06:00 Blood Pressure 130/88 01/11/20 06:00 O2 Sat by Pulse Oximetry (%) 87 L 01/11/20 06:00 Constitutional: Yes: Mild Distress, Obese Eyes: Yes: WNL, Other Neck: Yes: WNL Cardiovascular: Yes: Regular Rate and Rhythm, S1, S2 Respiratory: Yes: On BiPap, Rhonchi, Wheezes (scattered rowan wheezes and rhonchi) Gastrointestinal: Yes: Normal Bowel Sounds, Abdomen, Obese Extremities: Yes: WNL Edema: Yes Labs: CBC, BMP 01/11/20 06:15 01/11/20 06:15 INR, PTT INR 1.29 (0.83-1.09) H 01/08/20 15:15 Assessment/Plan - Problems (1) Sleep apnea Code(s): G47.30 - SLEEP APNEA, UNSPECIFIED (2) CHF (congestive heart failure) Code(s): I50.9 - HEART FAILURE, UNSPECIFIED Qualifiers: Heart failure type: unspecified Heart failure chronicity: unspecified Qualified Code(s): I50.9 - Heart failure, unspecified (3) COPD (chronic obstructive pulmonary disease) Code(s): J44.9 - CHRONIC OBSTRUCTIVE PULMONARY DISEASE, UNSPECIFIED Qualifiers: COPD type: unspecified COPD Qualified Code(s): J44.9 - Chronic obstructive pulmonary disease, unspecified (4) Diabetes Code(s): E11.9 - TYPE 2 DIABETES MELLITUS WITHOUT COMPLICATIONS Qualifiers: Diabetes mellitus type: type 2 Diabetes mellitus mortgage assistant insulin use: without mortgage assistant use (5) HLD (hyperlipidemia) Code(s): E78.5 - HYPERLIPIDEMIA, UNSPECIFIED Qualifiers: Hyperlipidemia type: pure hypercholesterolemia Qualified Code(s): E78.00 - Pure hypercholesterolemia, unspecified; E78.0 - Pure hypercholesterolemia (6) HTN (hypertension) Code(s): I10 - ESSENTIAL (PRIMARY) HYPERTENSION Qualifiers: Hypertension type: essential hypertension Qualified Code(s): I10 - Essential (primary) hypertension (7) Polycythemia Code(s): D75.1 - SECONDARY POLYCYTHEMIA (8) Tobacco dependence due to cigarettes Code(s): F17.210 - NICOTINE DEPENDENCE, CIGARETTES, UNCOMPLICATED (9) Acute exacerbation of CHF (congestive heart failure) Code(s): I50.9 - HEART FAILURE, UNSPECIFIED Qualifiers: Heart failure type: combined systolic and diastolic Qualified Code(s): I50.43 - Acute on chronic combined systolic (congestive) and diastolic (congestive) heart failure 7, ACUTE ON CHRONIC HYPOXEMIC/HYPERCAPNEIC RESPIRATORY FAILURE Assessment/Plan IMP: Acute on chronic hypoxic/hypercapneic respiratory failure Suspect Decompensated CHF rather than AE of Obstructive Airways : Do not suspect true Asthma but more likely COPD due to tobacco abuse Do Not suspect PNA Severe Pulmonary Htn PLAN: IV Lasix short course of steroids BD TX PRN Daily weights No smoking was counseled Outpatient PFTs Sleep screen VTE prophylaxis monitor h+h home o2 DR WILDER
--- NOTE | 2020-01-11 10:33 | EKG ---
Test Reason : Blood Pressure : / mmHG Vent. Rate : 058 BPM Atrial Rate : 058 BPM P-R Int : 158 ms QRS Dur : 116 ms QT Int : 464 ms P-R-T Axes : 049 119 034 degrees QTc Int : 455 ms SINUS BRADYCARDIA POSSIBLE LEFT ATRIAL ENLARGEMENT INCOMPLETE RIGHT BUNDLE BRANCH BLOCK LEFT POSTERIOR FASCICULAR BLOCK ABNORMAL ECG WHEN COMPARED WITH ECG OF 10-JAN-2020 12:10, INVERTED T WAVES HAVE REPLACED NONSPECIFIC T WAVE ABNORMALITY IN INFERIOR LEADS INVERTED T WAVES HAVE REPLACED NONSPECIFIC T WAVE ABNORMALITY IN LATERAL LEADS Confirmed by MD Marcelino, Vignesh ([id number]) on 01/11/2020 10:33:03 AM Referred By: Confirmed By:Vignesh Benson MD
--- NOTE | 2020-01-11 11:51 | PN ---
Teaching Attending Note Name of Resident: Rubin Red ATTENDING PHYSICIAN STATEMENT I saw and evaluated the patient. I reviewed the resident's note and discussed the case with the resident. I agree with the resident's findings and plan as documented. SUBJECTIVE: Seen and examined at bedside. Patient started on Abilify last night. Remains fluid overloaded, states his breathing is slightly improved. Continues to have conspiratorial thinking and aggressive speech but behavior is controlled. Will increase dose of Lasix to 80 IV twice daily OBJECTIVE Last Vital Signs Temp Pulse Resp BP Pulse Ox 98.2 F 63 20 130/88 87 L 01/11/20 06:00 01/11/20 06:00 01/11/20 06:00 01/11/20 06:00 01/11/20 06:00 PE: Per resident note Labs/Imaging: reviewed ASSESSMENT/PLAN L with past medical history of HTN, HLD, DM, HFpEF, asthma, polycythemia, MODESTA who is noncompliant with his medications presented with worsening shortness of breath and was admitted for COPD/CHF exacerbation. Patient is also exhibiting signs of psychosis #Acute on chronic hypoxic/hypercarbic respiratory failure Secondary to combination of COPD and CHF exacerbations #COPD exacerbation -when patient's volume status is improve requires pre/post for home O2 testing Pulmonary on board: Appreciate recommendation monitoring off steroids for now Continue Zithromax Continue nebulizers BiPAP Oxygen prn #Acute on chronic diastolic CHF exacerbation -when patient's volume status is improve requires pre/post for home O2 testing -pt has diffuse anasarca in the setting of medication noncompliance increased to IV Lasix 80 mg bid Started on carvedilol Cardiology on board: Appreciate recommendations #Uncontrolled hypertension Continue amlodipine cont carvedilolo 25 twice daily Lasix Start MARY/ARB once patient is diuresed #Delusional thinking seen by psych: 1:1 discontinued -started on abilify #Hyperkalemia: resolved
--- NOTE | 2020-01-11 12:02 | PN ---
Progress Note (short form) - Note Progress Note: cc: sob s: no chest pain, palps, dizziness. Current Medications Generic Name Dose Route Start Last Admin Trade Name Freq PRN Reason Stop Dose Admin Acetaminophen 1,000 mg 01/09/20 18:54 Tylenol - PO Q6H PRN PAIN LEVEL 1-5 Albuterol Sulfate 2 puff 01/08/20 19:10 Ventolin Hfa Inhaler - IH Q4H PRN SHORT OF BREATH/WHEEZING Amlodipine Besylate 10 mg 01/09/20 10:00 01/11/20 10:02 Norvasc - PO 10 mg DAILY [facility]Y Administration Aripiprazole 10 mg 01/10/20 22:00 01/11/20 10:01 Abilify PO 10 mg BID CONY Administration Carvedilol 12.5 mg 01/10/20 22:00 01/11/20 10:01 Coreg - PO 12.5 mg BID CONY Administration Enoxaparin Sodium 40 mg 01/09/20 10:00 01/11/20 10:01 Lovenox - SQ 40 mg DAILY CONY Administration Furosemide 80 mg 01/11/20 12:00 Lasix Injection - IVPUSH BID@0600,1400 CONY Azithromycin 500 mg in 250 mls @ 250 mls/hr 01/09/20 10:00 01/11/20 10:03 Zithromax 500mg Ivpb (Pre-Docked) IVPB 250 mls/hr DAILY [facility]Y Administration Morphine Sulfate 2 mg 01/10/20 14:45 01/11/20 10:02 Morphine Sulfate IVPUSH 2 mg Q6H PRN Administration PAIN LEVEL 7 - 10 Vital Signs Period Temp Pulse Resp BP Sys/Agrza Pulse Ox Last 24 Hr 97.7 F-99.2 F 55-71 18-24 121-143/65-88 87-98 nad no jvd rrr s1s2 no mrg +bl exp wheeze, nl eff aao3 1+ le edema bl, no c/c abd nt nd pos bs, +abd wall edema no jaundice diaphoresis pos dp pt no carotid bruits Laboratory Last Values WBC 6.4 K/mm3 (4.0-10.0) 01/11/20 06:15 RBC 5.69 M/mm3 (4.00-5.60) H 01/11/20 06:15 Hgb 18.6 GM/dL (11.7-16.9) H 01/11/20 06:15 Hct 57.3 % (35.4-49) H 01/11/20 06:15 MCV 100.7 fl (80-96) H 01/11/20 06:15 MCH 32.7 pg (25.7-33.7) 01/11/20 06:15 MCHC 32.4 g/dl (32.0-35.9) 01/11/20 06:15 RDW 15.8 % (11.9-15.9) 01/11/20 06:15 Plt Count 99 K/MM3 (134-434) L 01/11/20 06:15 MPV 8.9 fl (7.5-11.1) D 01/11/20 06:15 Absolute Neuts (auto) 5.0 K/mm3 (1.5-8.0) 01/08/20 15:15 Neutrophils % 71.1 % (42.8-82.8) 01/08/20 15:15 Lymphocytes % 9.3 % (8-40) D 01/08/20 15:15 Monocytes % 18.3 % (3.8-10.2) H 01/08/20 15:15 Eosinophils % 0.4 % (0-4.5) D 01/08/20 15:15 Basophils % 0.9 % (0-2.0) 01/08/20 15:15 Nucleated RBC % 0 % (0-0) 01/08/20 15:15 PT with INR 15.10 SEC (9.7-13.0) H 01/08/20 15:15 INR 1.29 (0.83-1.09) H 01/08/20 15:15 PTT (Actin FS) 34.8 SECONDS (25.2-36.5) 01/08/20 15:15 VBG pH 7.312 (7.310-7.410) 01/08/20 15:15 POC VBG pCO2 62.2 mmHg (38-52) H 01/08/20 15:15 POC VBG pO2 56.5 mmHg (28-48) H 01/08/20 15:15 VBG HCO3 30.8 mmol/L (23-29) H 01/08/20 15:15 VBG O2 Sat (Lyndon) 86.2 % (70-80) H 01/08/20 15:15 VBG Base Excess 2.0 mmol/L (-2-2) 01/08/20 15:15 Sodium 143 mmol/L (136-145) 01/11/20 06:15 Potassium 4.0 mmol/L (3.5-5.1) 01/11/20 06:15 Chloride 95 mmol/L (98-107) L 01/11/20 06:15 Carbon Dioxide > 45 mmol/L (21-32) H 01/11/20 06:15 Anion Gap 3 MMOL/L (8-16) L 01/11/20 06:15 BUN 23.5 mg/dL (7-18) H 01/11/20 06:15 Creatinine 1.1 mg/dL (0.55-1.3) 01/11/20 06:15 Est GFR (CKD-EPI)AfAm 91.52 01/11/20 06:15 Est GFR (CKD-EPI)NonAf 78.96 01/11/20 06:15 Random Glucose 111 mg/dL (74-106) H 01/11/20 06:15 Calcium 7.8 mg/dL (8.5-10.1) L 01/11/20 06:15 Phosphorus 3.6 mg/dL (2.5-4.9) 01/11/20 06:15 Magnesium 2.4 mg/dL (1.8-2.4) 01/11/20 06:15 Total Bilirubin 0.6 mg/dL (0.2-1) 01/08/20 15:15 AST 31 U/L (15-37) 01/08/20 15:15 ALT 26 U/L (13-61) 01/08/20 15:15 Alkaline Phosphatase 94 U/L (45-117) 01/08/20 15:15 Creatine Kinase 329 U/L (26-308) H 01/08/20 15:15 Creatine Kinase Index 1.4 % (0.0-5.0) 01/08/20 15:15 CK-MB (CK-2) 4.9 ng/mL (0.5-3.6) H 01/08/20 15:15 Troponin I 0.02 ng/ml (0.00-0.05) 10/12/20 06:10 B-Natriuretic Peptide 4364.9 pg/ml (5-125) H 01/08/20 15:15 Total Protein 5.6 g/dl (6.4-8.2) L 01/08/20 15:15 Albumin 2.9 g/dl (3.4-5.0) L 01/08/20 15:15 COVID-19 (OMEGA) Not detected (Not Detected) 01/08/20 15:00 mibi 07/2019: no ischemia echo 07/2019: lvh, nl lvef, mod rve, mod dec rv fcn, lolly, mild tr, sev phtn ecg: sr, irbbb, ant lat twis, no st changes, no sig change prior tele: SR cxr: +chf a/p: 49 m hx copd, dchf, sev phtn, tob use, here with sob. sob, acute diastolic chf, acute copd, pulm htn/cor pulmonale: - weight down, edema unchanged per patient -inc iv lasix to 80 mg IV BID, monitor daily chem7, wt -cont iv steroids per pulm. dianne testing. -no signs acs htn: -improved, cont norvasc hld: -stable, cont home statin
[2020-01-11] MEDS: methylPREDNISolone NA SUCC 40 MG/1 ML VIAL IVPUSH SCH ×2 (13:03→18:44)
--- NOTE | 2020-01-11 16:45 | PN ---
Physical Exam: SUBJECTIVE: Patient seen and examined. Pt. highly concerned about 5G affecting his health. Pt. concenred about his breathing and adamant that he requires oxygen at home. Pt. agitated about his level of abdominal pain and overall health condition. Psych consult noted (Pt. agitated about needing Psych consult and with Psychiatrist). Upon presentation Pt. was up walking around in bedroom without O2, Bipap on standby. No overt SI or plans stated but Pt. states he is comfortable with just dying given his clinical condition. Pt. refusing telemetry monitoring OBJECTIVE: Vital Signs Period Temp Pulse Resp BP Sys/Garza Pulse Ox Last 24 Hr 96.2 F-99.2 F 57-71 18-24 121-146/65-88 87-98 GENERAL: The patient is awake, alert, and in psychiatric distress. HEAD: Normal with no signs of trauma. EYES: Extraocular movements intact, sclera anicteric, conjunctiva clear. ENT: Ears normal, nares patent, oropharynx clear without exudates, moist mucous membranes. LUNGS: Decreased breath sounds- limited given body habitus, no wheezes, no crackles, no accessory muscle use. HEART: Regular rate and rhythm, S1, S2 without murmur, rub or gallop. ABDOMEN: Soft, protuberant, obese, superficial abdominal tenderness in lower abdomen R>L, BS+ EXTREMITIES: 2+ pulses, warm, well-perfused, 2+ edema to knees NEUROLOGICAL: Normal speech, Normal not observed. PSYCH: Delusions, Paranoia, Anxious, Agitated SKIN: Warm, dry, anasaraca Laboratory Results - last 24 hr 01/11/20 01/11/20 06:15 06:15 WBC 6.4 RBC 5.69 H Hgb 18.6 H Hct 57.3 H MCV 100.7 H MCH 32.7 MCHC 32.4 RDW 15.8 Plt Count 99 L MPV 8.9 D Sodium 143 Potassium 4.0 Chloride 95 L Carbon Dioxide > 45 H Anion Gap 3 L BUN 23.5 H Creatinine 1.1 Est GFR (CKD-EPI)AfAm 91.52 Est GFR (CKD-EPI)NonAf 78.96 Random Glucose 111 H Calcium 7.8 L Phosphorus 3.6 Magnesium 2.4 Active Medications Generic Name Dose Route Start Last Admin Trade Name Freq PRN Reason Stop Dose Admin Acetaminophen 1,000 mg 01/09/20 18:54 Tylenol - PO Q6H PRN PAIN LEVEL 1-5 Albuterol Sulfate 2 puff 01/08/20 19:10 Ventolin Hfa Inhaler - IH Q4H PRN SHORT OF BREATH/WHEEZING Amlodipine Besylate 10 mg 01/09/20 10:00 01/11/20 10:02 Norvasc - PO 10 mg DAILY [facility] Administration Aripiprazole 10 mg 01/10/20 22:00 01/11/20 10:01 Abilify PO 10 mg BID CONY Administration Carvedilol 12.5 mg 01/10/20 22:00 01/11/20 10:01 Coreg - PO 12.5 mg BID CONY Administration Enoxaparin Sodium 40 mg 01/09/20 10:00 01/11/20 10:01 Lovenox - SQ 40 mg DAILY [facility] Administration Furosemide 80 mg 01/11/20 12:00 01/11/20 13:02 Lasix Injection - IVPUSH 80 mg BID@0600,1400 CONY Administration Azithromycin 500 mg in 250 mls @ 250 mls/hr 01/09/20 10:00 01/11/20 10:03 Zithromax 500mg Ivpb (Pre-Docked) IVPB 250 mls/hr DAILY [facility] Administration Methylprednisolone Sodium Succinate 40 mg 01/11/20 12:45 01/11/20 13:03 Solu-Medrol - IVPUSH 40 mg Q8H-IV CONY Administration Morphine Sulfate 2 mg 01/10/20 14:45 01/11/20 10:02 Morphine Sulfate IVPUSH 2 mg Q6H PRN Administration PAIN LEVEL 7 - 10 ASSESSMENT/PLAN: Pt is 49 yo M with PMH HTN, HLD, DM, HFpEF (echo 04/2019 EF 60-65%), asthma, polycythemia, MODESTA presented to ED with worsening shortness of breath. #Shortness of breath 2/2 CHF exacerbation AND COPD exacerbation -BNP> 4000, CK 329, CK-MB 4.9 Echo 07/2019: lvh, nl lvef, mod rve, mod dec rv fcn, lolly, mild tr, sev phtn, Diastolic dysfunction -CXR large heart with congestive changes -increased furosemide to 80 BID IV -monitor daily weights, I/O's -Cardio consulted. Recs appreciated -Troponin downtrended -Pulm. consult appreciated, started on Solu-Medrol 40 mg Q8H--> desaturating to 86% on room air this AM and C02 on BMP is greater than 45 indicating hypercepnea--->strongly encouraged to use BiPAP at night AND during day -Azithormycin 500mg (started 01/09/20)- for anti-inflammatory effect? EKG shows QTc: 455 -c/w Ventolin IH #HFpEF #HTN -Coreg 12.5 BID. HR 50s-60s. -Norvasc 10 Daily #Paranoid type Delusional Disorder -Psych consult appreciated -c/w Abilify 10 BID. D/C 1:1 Ppx -DVT: Lovenox FEN -No Fluids--> IVF restriction to 1L -Monitor electrolytes -Low sodium diet Dispo: tele Visit type - Emergency Visit Emergency Visit: Yes ED Registration Date: 01/08/20 Care time: The patient presented to the Emergency Department on the above date and was hospitalized for further evaluation of their emergent condition. - New Patient This patient is new to me today: Yes Date on this admission: 01/11/20 - Critical Care Critical Care patient: No - Discharge Referral Referred to [facility] Med P.C.: No ATTENDING PHYSICIAN STATEMENT I saw and evaluated the patient. I reviewed the resident's note and discussed the case with the resident. I agree with the resident's findings and plan as documented. SUBJECTIVE: OBJECTIVE: ASSESSMENT AND PLAN:
[2020-01-11] MEDS ORDERED: PT OWN MED DRAWER 7, Y5N ONE (21:40)
[2020-01-12] MEDS: methylPREDNISolone NA SUCC 40 MG/1 ML VIAL IVPUSH SCH ×2 (01:33→10:29)
[2020-01-12] MEDS: FUROSEMIDE 40 MG/4 ML INJECTABLE VIAL IVPUSH SCH ×2 (05:47→14:14)
[2020-01-12 06:40] LABS: HEMATOCRIT 56.3 % (35.4-49); HEMOGLOBIN 18.7 GM/dL (11.7-16.9); MCHC 33.3 g/dl (32.0-35.9); MEAN CELL VOLUME 99.2 fl (80-96); MEAN PLT VOLUME 9.4 fl (7.5-11.1); PLATELET COUNT 95 K/MM3 (134-434); RBC 5.67 M/mm3 (4.00-5.60); RDW 14.3 % (11.9-15.9); WHITE BLOOD COUNT 6.8 K/mm3 (4.0-10.0)
[2020-01-12 06:58] LABS: BLOOD UREA NITROGEN 20.6 mg/dL (7-18); CALCIUM 8.1 mg/dL (8.5-10.1); CREATININE 0.8 mg/dL (0.55-1.3); MAGNESIUM 2.4 mg/dL (1.8-2.4); POTASSIUM 4.4 mmol/L (3.5-5.1)
[2020-01-12] MEDS: CARVEDILOL 12.5 MG TABLET (FP) PO SCH ×2 (10:29→21:19)
[2020-01-12] MEDS: amLODIPine BESYLATE 10 MG TABLET (FP) PO SCH (10:29)
[2020-01-12] MEDS: ENOXAPARIN NA (PORCINE) 40 MG/0.4 ML DISP.SYRIN SQ SCH (10:29)
[2020-01-12] MEDS: ARIPiprazole 10 MG TABLET PO SCH ×2 (10:30→21:20)
[2020-01-12] MEDS: MORPHINE SULFATE 2 MG/ML VIAL IVPUSH PRN ×2 (10:43→21:31)
--- NOTE | 2020-01-12 11:08 | PN ---
Progress Note (short form) - Note Progress Note: cc: sob s: no chest pain, palps, dizziness. sob and le edema improving Current Medications Generic Name Dose Route Start Last Admin Trade Name Saud PRN Reason Stop Dose Admin Acetaminophen 1,000 mg 01/09/20 18:54 Tylenol - PO Q6H PRN PAIN LEVEL 1-5 Albuterol Sulfate 2 puff 01/08/20 19:10 Ventolin Hfa Inhaler - IH Q4H PRN SHORT OF BREATH/WHEEZING Amlodipine Besylate 10 mg 01/09/20 10:00 01/12/20 10:29 Norvasc - PO 10 mg DAILY CONY Administration Aripiprazole 10 mg 01/10/20 22:00 01/12/20 10:30 Abilify PO 10 mg BID CONY Administration Carvedilol 12.5 mg 01/10/20 22:00 01/12/20 10:29 Coreg - PO 12.5 mg BID CONY Administration Enoxaparin Sodium 40 mg 01/09/20 10:00 01/12/20 10:29 Lovenox - SQ 40 mg DAILY CONY Administration Furosemide 80 mg 01/11/20 12:00 01/12/20 05:47 Lasix Injection - IVPUSH 80 mg BID@0600,1400 CONY Administration Methylprednisolone Sodium Succinate 40 mg 01/11/20 12:45 01/12/20 10:29 Solu-Medrol - IVPUSH 40 mg Q8H-IV CONY Administration Morphine Sulfate 2 mg 01/10/20 14:45 01/12/20 10:43 Morphine Sulfate IVPUSH 2 mg Q6H PRN Administration PAIN LEVEL 7 - 10 Vital Signs Period Temp Pulse Resp BP Sys/Garza Pulse Ox Last 24 Hr 96.2 F-97.8 F 64-72 18-20 143-155/77-103 81-99 nad no jvd rrr s1s2 no mrg +bl exp wheeze, nl eff aao3 1+ le edema bl, no c/c abd nt nd pos bs, +abd wall edema no jaundice diaphoresis pos dp pt no carotid bruits CBC, BMP 01/12/20 06:00 01/12/20 06:00 mibi 07/2019: no ischemia echo 07/2019: lvh, nl lvef, mod rve, mod dec rv fcn, lolly, mild tr, sev phtn ecg: sr, irbbb, ant lat twis, no st changes, no sig change prior tele: SR cxr: +chf a/p: 49 m hx copd, dchf, sev phtn, tob use, here with sob. sob, acute diastolic chf, acute copd, pulm htn/cor pulmonale: - vol status improving, cr stable, cont same iv lasix - monitor daily chem7, wt -cont iv steroids per pulm. dianne testing. -no signs acs htn: - cont norvasc hld: -stable, cont home statin
--- NOTE | 2020-01-12 15:47 | PN ---
Teaching Attending Note Name of Resident: Twan Bray ATTENDING PHYSICIAN STATEMENT I saw and evaluated the patient. I reviewed the resident's note and discussed the case with the resident. I agree with the resident's findings and plan as documented. SUBJECTIVE: Patient without any events overnight. Refuses to wear telemetry monitoring. Upset with inability to get oxygen at home. Continue difficulty breathing with orthopnea and lower extremity edema. OBJECTIVE: Vital Signs Temperature 97.9 F 01/12/20 14:00 Pulse Rate 71 01/12/20 14:00 Respiratory Rate 18 01/12/20 14:00 Blood Pressure 144/92 01/12/20 14:00 O2 Sat by Pulse Oximetry (%) 96 01/12/20 09:00 LUNG: Diffuse rales throughout, no expiratory wheezing. NRB EXT: 2+ pitting edema to knees, chronic venous stasis changes rest of PE per resident note CBC, BMP 01/12/20 06:00 01/12/20 06:00 Active Medications Acetaminophen (Tylenol -) 1,000 mg PO Q6H PRN PRN Reason: PAIN LEVEL 1-5 Albuterol Sulfate (Ventolin Hfa Inhaler -) 2 puff IH Q4H PRN PRN Reason: SHORT OF BREATH/WHEEZING Amlodipine Besylate (Norvasc -) 10 mg PO DAILY [facility] Last Admin: 01/12/20 10:29 Dose: 10 mg Documented by: Aripiprazole (Abilify) 10 mg PO BID [facility] Last Admin: 01/12/20 10:30 Dose: 10 mg Documented by: Carvedilol (Coreg -) 12.5 mg PO BID [facility] Last Admin: 01/12/20 10:29 Dose: 12.5 mg Documented by: Enoxaparin Sodium (Lovenox -) 40 mg SQ DAILY [facility] Last Admin: 01/12/20 10:29 Dose: 40 mg Documented by: Furosemide (Lasix Injection -) 80 mg IVPUSH BID@0600,1400 [facility] Last Admin: 01/12/20 14:14 Dose: 80 mg Documented by: Methylprednisolone Sodium Succinate (Solu-Medrol -) 40 mg IVPUSH DAILY [facility] Morphine Sulfate (Morphine Sulfate) 2 mg IVPUSH Q6H PRN PRN Reason: PAIN LEVEL 7 - 10 Last Admin: 01/12/20 10:43 Dose: 2 mg Documented by: ASSESSMENT AND PLAN: Acute on chronic diastolic CHF exacerbation Acute on chronic hypoxic/hypercapneic respiratory distress 2/2 to COPD Uncontrolled HTN Delusions History of noncompliance Polycythemia Suspected MODESTA --Patient notable for medication noncompliance and continued delusional thinking which may be contributing to his noncompliance --Continue Abilify --Patient still with diffuse anasarca: continue Lasix 80mg IVP BID; monitor UO and daily weights --Taper off steroids as likely more volume overload contributing to symptoms: decrease to 40mg IVP daily and pulse to complete treatment --NIPPV and oxygen supplementation as tolerated to maintain 92% --Patient likely requires oxygen supplementation at home and would benefit from oxygen at home --Will need pre-/post when euvolemic --Sleep study performed and to be followed up --Completed Zithromax therapy today --Continue cardiac medications as above; will need ACEi/ARB when euvolemic --Cardiology and Pulmonology on board --Lovenox DVT PPX Dispo: Continue monitoring DO Brice Barber
--- NOTE | 2020-01-12 16:58 | PN ---
Physical Exam: SUBJECTIVE: Patient seen and examined at bedside. Complaining about his breathing and not being able to have access to home oxygen. OBJECTIVE: Vital Signs Period Temp Pulse Resp BP Sys/Garza Pulse Ox Last 24 Hr 97.3 F-97.9 F 66-72 18-20 143-155/77-103 81-99 GENERAL: Moderate distress, anxious HEAD: AT/NC EYES: EOMI Sclera Clear NECK: Trachea midline, full range of motion, supple. LUNGS: Rales both lung peacock HEART: RRR S1S2 ABDOMEN: Obese Soft NDNT EXTREMITIES: 2+ pitting edema b/l. NEUROLOGICAL: Cranial nerves II through XII grossly intact. PSYCH: Paranoid, delusional SKIN: Warm, dry, normal turgor, no rashes or lesions noted Laboratory Results - last 24 hr 01/12/20 01/12/20 06:00 06:00 WBC 6.8 RBC 5.67 H Hgb 18.7 H Hct 56.3 H MCV 99.2 H MCH 33.0 MCHC 33.3 RDW 14.3 Plt Count 95 L MPV 9.4 Sodium 141 Potassium 4.4 Chloride 95 L Carbon Dioxide 44 H Anion Gap 1 L BUN 20.6 H Creatinine 0.8 Est GFR (CKD-EPI)AfAm 122.43 Est GFR (CKD-EPI)NonAf 105.63 Random Glucose 155 H Calcium 8.1 L Magnesium 2.4 Active Medications Generic Name Dose Route Start Last Admin Trade Name Freq PRN Reason Stop Dose Admin Acetaminophen 1,000 mg 01/09/20 18:54 Tylenol - PO Q6H PRN PAIN LEVEL 1-5 Albuterol Sulfate 2 puff 01/08/20 19:10 Ventolin Hfa Inhaler - IH Q4H PRN SHORT OF BREATH/WHEEZING Amlodipine Besylate 10 mg 01/09/20 10:00 01/12/20 10:29 Norvasc - PO 10 mg DAILY CONY Administration Aripiprazole 10 mg 01/10/20 22:00 01/12/20 10:30 Abilify PO 10 mg BID CONY Administration Carvedilol 12.5 mg 01/10/20 22:00 01/12/20 10:29 Coreg - PO 12.5 mg BID CONY Administration Enoxaparin Sodium 40 mg 01/09/20 10:00 01/12/20 10:29 Lovenox - SQ 40 mg DAILY CONY Administration Furosemide 80 mg 01/11/20 12:00 01/12/20 14:14 Lasix Injection - IVPUSH 80 mg BID@0600,1400 CONY Administration Methylprednisolone Sodium Succinate 40 mg 01/11/20 12:45 01/12/20 10:29 Solu-Medrol - IVPUSH 40 mg Q8H-IV CONY Administration Morphine Sulfate 2 mg 01/10/20 14:45 01/12/20 10:43 Morphine Sulfate IVPUSH 2 mg Q6H PRN Administration PAIN LEVEL 7 - 10 ASSESSMENT/PLAN: Pt is 49 yo M with PMH HTN, HLD, DM, HFpEF (echo 04/2019 EF 60-65%), asthma, polycythemia, MODESTA presented to ED with worsening shortness of breath. #Shortness of breath 2/2 CHF exacerbation -BNP> 4000, CK 329, CK-MB 4.9 Echo 07/2019: lvh, nl lvef, mod rve, mod dec rv fcn, lolly, mild tr, sev phtn, Diastolic dysfunction -CXR large heart with congestive changes -c/w furosemide 80 BID IV -monitor daily weights, I/O's -Cardio consulted. Recs appreciated -Troponin downtrended #COPD - Decreased Solumedrol to 40 IV Daily #HTN -Coreg 12.5 BID. HR 50s-60s. -Norvasc 10 Daily #Paranoid type Delusional Disorder -Psych Dr Granados on board. Abilify 10 BID. D/C 1:1 Ppx -DVT: Lovenox FEN -No Fluids -Monitor electrolytes -Low sodium diet Dispo: tele Visit type - Emergency Visit Emergency Visit: Yes ED Registration Date: 01/08/20 Care time: The patient presented to the Emergency Department on the above date and was hospitalized for further evaluation of their emergent condition. - New Patient This patient is new to me today: No - Critical Care Critical Care patient: No ATTENDING PHYSICIAN STATEMENT I saw and evaluated the patient. I reviewed the resident's note and discussed the case with the resident. I agree with the resident's findings and plan as documented. SUBJECTIVE: OBJECTIVE: ASSESSMENT AND PLAN:
[2020-01-12] MEDS ORDERED: PT OWN MED DRAWER 7, Y5N ONE (21:15)
--- NOTE | 2020-01-13 06:01 | PN ---
Progress Note, Physician Chief Complaint: feels better weight down TELE: NSR , rare PVC History of Present Illness: CHF COPD Smoker. - Current Medication List Current Medications: Active Medications Acetaminophen (Tylenol -) 1,000 mg PO Q6H PRN PRN Reason: PAIN LEVEL 1-5 Albuterol Sulfate (Ventolin Hfa Inhaler -) 2 puff IH Q4H PRN PRN Reason: SHORT OF BREATH/WHEEZING Amlodipine Besylate (Norvasc -) 10 mg PO DAILY [facility] Last Admin: 01/12/20 10:29 Dose: 10 mg Documented by: Aripiprazole (Abilify) 10 mg PO BID [facility] Last Admin: 01/12/20 21:20 Dose: 10 mg Documented by: Carvedilol (Coreg -) 12.5 mg PO BID [facility] Last Admin: 01/12/20 21:19 Dose: 12.5 mg Documented by: Enoxaparin Sodium (Lovenox -) 40 mg SQ DAILY [facility] Last Admin: 01/12/20 10:29 Dose: 40 mg Documented by: Furosemide (Lasix Injection -) 80 mg IVPUSH BID@0600,1400 [facility] Last Admin: 01/12/20 14:14 Dose: 80 mg Documented by: Methylprednisolone Sodium Succinate (Solu-Medrol -) 40 mg IVPUSH DAILY [facility] Morphine Sulfate (Morphine Sulfate) 2 mg IVPUSH Q6H PRN PRN Reason: PAIN LEVEL 7 - 10 Last Admin: 01/12/20 21:31 Dose: 2 mg Documented by: - Objective Vital Signs: Vital Signs Temperature 97.7 F 01/13/20 02:00 Pulse Rate 54 L 01/13/20 02:00 Respiratory Rate 18 01/13/20 02:00 Blood Pressure 148/86 01/13/20 02:00 O2 Sat by Pulse Oximetry (%) 98 01/12/20 22:00 Constitutional: Yes: No Distress, Calm, Obese Eyes: Yes: EOM Intact HENT: Yes: Atraumatic, Normocephalic Neck: Yes: Supple, Trachea Midline Cardiovascular: Yes: Regular Rate and Rhythm Respiratory: Yes: Other (decreased breath sounds b/l no wheezing.) Gastrointestinal: Yes: Soft, Abdomen, Obese Edema: Yes Edema: LLE: 2+, RLE: 2+ Peripheral Pulses WNL: Yes Neurological: Yes: Alert, Oriented ...Motor Strength: WNL Psychiatric: Yes: WNL Labs: CBC, BMP 01/12/20 06:00 01/12/20 06:00 INR, PTT INR 1.29 (0.83-1.09) H 01/08/20 15:15 Selected Entries 01/13/20 06:00 Weight 285 lb 3.2 oz Laboratory Tests 01/08/20 01/13/20 01/13/20 15:15 06:35 06:35 WBC Pending Hgb Pending Plt Count Pending INR 1.29 H Sodium 140 Potassium 3.8 Creatinine 1.0 - ....Imaging EKG: Image Reviewed Assessment/Plan DATA: mibi 07/2019: no ischemia echo 07/2019: lvh, nl lvef, mod rve, mod dec rv fcn, lolly, mild tr, sev phtn cxr: +chf 49 m hx copd, dchf, sev phtn, tob use, here with sob. sob, acute diastolic chf, acute copd, pulm htn/cor pulmonale: - vol status improving, cr stable, cont same iv lasix - monitor daily chem7, wt -cont iv steroids per pulm. dianne testing. -no signs acs htn: stable - cont norvasc hld: -stable, cont home statin
[2020-01-13] MEDS: FUROSEMIDE 40 MG/4 ML INJECTABLE VIAL IVPUSH SCH ×2 (06:19→14:56)
[2020-01-13 07:06] LABS: HEMATOCRIT 57.7 % (35.4-49); MCH 32.6 pg (25.7-33.7); MCHC 32.9 g/dl (32.0-35.9); MEAN CELL VOLUME 99.1 fl (80-96); RBC 5.82 M/mm3 (4.00-5.60); RDW 14.5 % (11.9-15.9)
[2020-01-13 07:41] LABS: ALBUMIN 3.2 g/dl (3.4-5.0); BLOOD UREA NITROGEN 22.4 mg/dL (7-18); CALCIUM 8.3 mg/dL (8.5-10.1); CHLORIDE 90 mmol/L (98-107); GLUCOSE,RANDOM 106 mg/dL (74-106); MAGNESIUM 2.6 mg/dL (1.8-2.4); POTASSIUM 3.8 mmol/L (3.5-5.1); SODIUM 140 mmol/L (136-145)
[2020-01-13 07:44] LABS: ALK PHOS 70 U/L (45-117); SGOT/AST 24 U/L (15-37); SGPT/ALT 34 U/L (13-61); TOT PROT 6.2 g/dl (6.4-8.2)
[2020-01-13 08:32] LABS: ANION GAP 5 MMOL/L (8-16); CO2 > 45 mmol/L (21-32)
[2020-01-13] MEDS ORDERED: PT OWN MED DRAWER 7, Y5N ONE (09:14)
[2020-01-13] MEDS: ENOXAPARIN NA (PORCINE) 40 MG/0.4 ML DISP.SYRIN SQ SCH (09:34)
[2020-01-13] MEDS: ARIPiprazole 10 MG TABLET PO SCH (09:35)
[2020-01-13] MEDS: CARVEDILOL 12.5 MG TABLET (FP) PO SCH (09:35)
[2020-01-13] MEDS: amLODIPine BESYLATE 10 MG TABLET (FP) PO SCH (09:35)
[2020-01-13] MEDS ORDERED: methylPREDNISolone NA SUCC 40 MG/1 ML VIAL IVPUSH SCH (10:00)
--- NOTE | 2020-01-13 12:10 | PN ---
Teaching Attending Note Name of Resident: Twan Bray ATTENDING PHYSICIAN STATEMENT I saw and evaluated the patient. I reviewed the resident's note and discussed the case with the resident. I agree with the resident's findings and plan as documented. SUBJECTIVE: Patient states he is improved, but still needs oxygen He is still having the delusions about the 5G towers OBJECTIVE: Vital Signs Period Temp Pulse Resp BP Sys/Garza Pulse Ox Last 24 Hr 97.7 F-98.2 F 54-71 18-18 144-161/86-99 97-100 Please see resident note for Physical exam Patient examined during bedside rounds Labs/Imaging/Echo reviewed ASSESSMENT AND PLAN: 49 y/o M with Hx of Diastolic Heart failure, COPD, HTN, paranoid delusions who presents for shortness of breath and lower extremity edema Acute on chronic diastolic heart failure exacerbatio Continue IV Diuresis Strict I/O Daily Weight PRN O2 as needed, Keep O2 Sat >92% K> 4 Mg> 2 Unclear if patient is compliant with B Janki at home, should not continue given acute exacerbation. Restart when no longer in acute exacerbation Metabolic alkalosis Likely in setting of diuresisis (Contraction alkasosis) vs. chronic respiratory acidosis in setting of COPD Check ABG Continue to monitor Hx of COPD Taper Steroids cpnt nebs Paranoid Delusion Continue Abilify HTN cont amlodipine Ppx: Lovenox
[2020-01-13 12:42] LABS: WHITE BLOOD COUNT 8.9 K/mm3 (4.0-10.0)
--- NOTE | 2020-01-13 12:48 | PN ---
Progress Note (short form) - Note Progress Note: Pulmonary Awake/alert Subjective :No improvement Appears stable 146/99 afebrile Constitutional: chronically ill in appearance Eyes: Yes: WNL, Neck: Yes: WNL Cardiovascular: Yes: Regular Rate and Rhythm, S1, S2 Respiratory: Yes: scattered rowan wheezes and rhonchi mild Gastrointestinal: Yes: Normal Bowel Sounds, Abdomen, Obese Extremities: Yes: WNL Edema: Yes Labs/meds/notes/images reviewed IMP: Acute on chronic hypoxic/hypercapneic respiratory failure COPD due to tobacco abuse Do Not suspect PNA Severe Pulmonary Htn PLAN: IV Lasix short course of steroids Symbicort added Daily weights No smoking was counseled Outpatient PFTs Sleep screen VTE prophylaxis monitor h+h home o2 Adolfo MCCONNELL MD
[2020-01-13] MEDS ORDERED: BUDESONIDE/FORMETEROL FUMARATE 160/4.5 mcg INHALER IH ONE (13:15)
[2020-01-13 13:51] LABS: MEAN PLT VOLUME 9.2 fl (7.5-11.1); PLATELET COUNT 102 K/MM3 (134-434)
[2020-01-13 14:21] VITALS: BP 159/102; PULSE 66; TEMP 98
--- NOTE | 2020-01-13 16:34 | DS ---
Physical Exam: SUBJECTIVE: Patient seen and examined in AM. Complaining about not being able to breath and that 5G and weather manipulation are adversely affecting him. OBJECTIVE: Vital Signs Period Temp Pulse Resp BP Sys/Garza Pulse Ox Last 24 Hr 97.7 F-98.2 F 54-68 18-20 146-161/86-102 96-100 PHYSICAL EXAM GENERAL: Less anxious compared to yesterday. HEAD: AT/NC EYES: EOMI Sclera Clear LUNGS: Bilateral rhonchi HEART: RRR S1S2 ABDOMEN: Obese Soft NDNT EXTREMITIES: 2+ pitting edema b/l. NEUROLOGICAL: Cranial nerves II through XII grossly intact. PSYCH: Paranoid, delusional SKIN: Warm, dry, normal turgor, no rashes or lesions noted LABS Laboratory Results - last 24 hr 01/13/20 01/13/20 06:35 06:35 WBC 8.9 RBC 5.82 H Hgb 19.0 H Hct 57.7 H MCV 99.1 H MCH 32.6 MCHC 32.9 RDW 14.5 Plt Count 102 L MPV 9.2 Platelet Comment No clumping noted Sodium 140 Potassium 3.8 Chloride 90 L Carbon Dioxide > 45 H Anion Gap 5 L BUN 22.4 H Creatinine 1.0 Est GFR (CKD-EPI)AfAm 102.69 Est GFR (CKD-EPI)NonAf 88.61 Random Glucose 106 Calcium 8.3 L Phosphorus 3.0 Magnesium 2.6 H Total Bilirubin 2.0 H AST 24 ALT 34 Alkaline Phosphatase 70 Total Protein 6.2 L Albumin 3.2 L HOSPITAL COURSE: Date of Admission:01/08/20 Pt is 49 yo M with PMH HTN, HLD, DM, HFpEF (echo 04/2019 EF 60-65%), asthma, polycythemia, MODESTA presented to [facility] with worsening shortness of breath. CXR--> large heart with congestive changes. BNP > 4000. Echo performed 07/2019--> lvh, nl lvef, mod rve, mod dec rv fcn, lolly, mild tr, sev phtn, diastolic dysfunction. Patient was placed on IV steroids as well as IV Lasix as COPD exacerbation/CHF exacerbation were his differential diagnoses; patient was placed on BIPAP (was noncompliant with use). Patient was also hypertensive and was placed on Norvasc and Coreg. Furthermore, patient was placed on a 1:1 due to suicidal comments. Psychiatry evaluated patient and placed patient on Abilify. 1:1 was discontinued by Psychiatry. [employer]aker was microblogged by RN later in day that patient had eloped. Per RN, patient was smoking K2 in bathroom prior to his elopement. Date of Discharge: 01/13/20 Minutes to complete discharge: 35 Discharge Summary Problems reviewed: Yes Reason For Visit: SOB/CHRONIC CHF/PNEUMONIA/COPD Condition: Guarded - Instructions Referrals: Samuel Hu MD [Primary Care Provider] - Disposition: ELOPED - Home Medications Comprehensive Discharge Medication List: Ambulatory Orders Albuterol Sulfate Inhaler - [Ventolin HFA Inhaler -] 2 puff IH Q4H PRN #1 inhaler 05/29/19 Ammonium Lactate Lotion [Lac-Hydrin 12] 1 applic TP DAILY PRN #1 bottle 05/29/19 Amlodipine Besylate [Norvasc -] 10 mg PO DAILY #30 tablet 08/08/19 Aspirin [ASA -] 81 mg PO DAILY #30 tab.chew 08/08/19 Atorvastatin Ca [Lipitor] 20 mg PO HS #30 tablet 08/08/19 Clindamycin [Cleocin -] 300 mg PO TID #24 capsule 08/08/19 Lactobacillus Acidophilus [Bacid -] 1 tab PO DAILY #7 tab 08/08/19 Lisinopril [Prinivil] 20 mg PO DAILY #30 tablet 08/08/19 Nicotine Patch [Nicoderm Patch -] 14 mg TD DAILY #30 patch 08/08/19 Torsemide [Demadex] 20 mg PO DAILY 30 Days #30 tablet 08/09/19 This patient is new to me today: No Emergency Visit: Yes ED Registration Date: 01/08/20 Care time: The patient presented to the Emergency Department on the above date and was hospitalized for further evaluation of their emergent condition. Critical Care patient: No - Discharge Referral Referred to [facility] Med P.C.: No ATTENDING PHYSICIAN STATEMENT I saw and evaluated the patient. I reviewed the resident's note and discussed the case with the resident. I agree with the resident's findings and plan as documented. SUBJECTIVE: OBJECTIVE: ASSESSMENT AND PLAN:
--- NOTE | 2020-02-11 17:32 | PN ---
Progress Note (short form) - Note Progress Note: PULMONARY CHART REVIEWED FULL CONSULT TO FOLLOW BIPAP SETTINGS ORDERED R JAYESH BLANTON
== END 2020-01-13 15:58 | disposition left against medical advice (07) | DRG 291 ==
LOC: JER 14:39 → JERBED 18:11 → J4S 20:24
PROVIDERS: ADMIT Internal Medicine; ATTEND Internal Medicine
DX: I11.0 Hypertensive heart disease with heart failure (principal); J96.21 Acute and chronic respiratory failure with hypoxia; J96.22 Acute and chronic respiratory failure with hypercapnia; F23 Brief psychotic disorder; E87.3 Alkalosis; J44.1 Chronic obstructive pulmonary disease with (acute) exacerbation; I50.33 Acute on chronic diastolic (congestive) heart failure; E78.5 Hyperlipidemia, unspecified; J44.9 Chronic obstructive pulmonary disease, unspecified; G47.33 Obstructive sleep apnea (adult) (pediatric); D75.1 Secondary polycythemia; F17.210 Nicotine dependence, cigarettes, uncomplicated; J45.909 Unspecified asthma, uncomplicated; E11.9 Type 2 diabetes mellitus without complications; F22 Delusional disorders; E87.5 Hyperkalemia; I27.29 Other secondary pulmonary hypertension
CPT/HCPCS: 36415; 71045-TC-FY; 80048; 80053; 82550; 82553; 82803; 83735; 83880; 84100; 84132; 84484; 85025; 85027; 85610; 85730; 93005; 93010; 93971-TC; 94660; 99291; C9803; J0131; U0003

== ENCOUNTER 2020-02-11 10:38 | Inpatient (IN) | payer OTHER ==
[2020-02-11] MEDS ORDERED: FUROSEMIDE 40 MG/4 ML INJECTABLE VIAL IVPUSH ONE (11:20)
[2020-02-11] MEDS ORDERED: FUROSEMIDE 40 MG/4 ML INJECTABLE VIAL ONE (11:34)
[2020-02-11 12:15] LABS: BASO % 0.5 % (0-2.0); EOS % 1.9 % (0-4.5); HEMATOCRIT 58.3 % (35.4-49); HEMOGLOBIN 19.4 GM/dL (11.7-16.9); LYMPH % 17.8 % (8-40); MCH 32.3 pg (25.7-33.7); MCHC 33.2 g/dl (32.0-35.9); MEAN CELL VOLUME 97.2 fl (80-96); MEAN PLT VOLUME 9.1 fl (7.5-11.1); MONO % 10.2 % (3.8-10.2); NEUT % 69.6 % (42.8-82.8); PLATELET COUNT 83 K/MM3 (134-434); RDW 15.5 % (11.9-15.9); WHITE BLOOD COUNT 6.5 K/mm3 (4.0-10.0)
[2020-02-11 12:31] LABS: POTASSIUM 3.9 mmol/L (3.5-5.1)
[2020-02-11 12:35] LABS: BLOOD UREA NITROGEN 9.8 mg/dL (7-18); CALCIUM 7.6 mg/dL (8.5-10.1); MAGNESIUM 2.1 mg/dL (1.8-2.4)
[2020-02-11 12:40] LABS: BILIRUBIN,TOTAL 0.9 mg/dL (0.2-1); TOT PROT 5.4 g/dl (6.4-8.2)
[2020-02-11 12:43] LABS: N-TERMINAL BNP 7179.2 pg/ml (5-125)
[2020-02-11] MEDS ORDERED: ALBUTEROL SO4 2.5/IPRATROPIUM 0.5 INH SOL 3 ML VIAL.NEB. NEB PRN (16:40)
[2020-02-11] MEDS ORDERED: ACETAMINOPHEN 1000 MG/100 ML VIAL (NON FORMULARY) IVPB PRN (16:49)
[2020-02-11] MEDS ORDERED: ALBUTEROL SO4 HFA INHALER IH PRN (17:03)
[2020-02-11 18:53] VITALS: BMI 39.8
[2020-02-11] MEDS: ATORVASTATIN CA 40 MG TABLET (FP) PO SCH (21:21)
[2020-02-11] MEDS: FUROSEMIDE 40 MG/4 ML INJECTABLE VIAL IVPUSH SCH (21:22)
[2020-02-11] MEDS: HEPARIN NA (PORCINE) 5,000 UNITS/ML 1ML VIAL SQ SCH (21:22)
[2020-02-11] MEDS: amLODIPine BESYLATE 10 MG TABLET (FP) PO SCH (21:57)
[2020-02-12] MEDS: HEPARIN NA (PORCINE) 5,000 UNITS/ML 1ML VIAL SQ SCH ×3 (05:50→21:23)
[2020-02-12] MEDS: FUROSEMIDE 40 MG/4 ML INJECTABLE VIAL IVPUSH SCH ×2 (09:59→21:25)
[2020-02-12] MEDS: amLODIPine BESYLATE 10 MG TABLET (FP) PO SCH (09:59)
[2020-02-12] MEDS: LISINOPRIL 5 MG TABLET PO SCH (09:59)
[2020-02-12] MEDS: ASPIRIN COATED 81 MG TABLET.EC PO SCH (09:59)
[2020-02-12] MEDS ORDERED: amLODIPine BESYLATE 10 MG TABLET (FP) PO SCH (10:00)
[2020-02-12] MEDS: ATORVASTATIN CA 40 MG TABLET (FP) PO SCH (21:22)
[2020-02-13] MEDS: HEPARIN NA (PORCINE) 5,000 UNITS/ML 1ML VIAL SQ SCH ×3 (05:15→22:45)
[2020-02-13 08:43] LABS: BASO % 0.5 % (0-2.0); HEMATOCRIT 57.8 % (35.4-49); HEMOGLOBIN 18.6 GM/dL (11.7-16.9); LYMPH % 17.3 % (8-40); MCH 31.3 pg (25.7-33.7); MCHC 32.2 g/dl (32.0-35.9); MEAN CELL VOLUME 97.3 fl (80-96); MEAN PLT VOLUME 9.6 fl (7.5-11.1); MONO % 8.3 % (3.8-10.2); NEUT % 70.9 % (42.8-82.8); PLATELET COUNT 82 K/MM3 (134-434); RBC 5.94 M/mm3 (4.00-5.60); RDW 15.8 % (11.9-15.9); WHITE BLOOD COUNT 5.6 K/mm3 (4.0-10.0)
[2020-02-13 09:05] LABS: POTASSIUM 3.8 mmol/L (3.5-5.1)
[2020-02-13 09:13] LABS: CALCIUM 8.1 mg/dL (8.5-10.1)
[2020-02-13 09:14] LABS: ALBUMIN 3.3 g/dl (3.4-5.0); BLOOD UREA NITROGEN 13.9 mg/dL (7-18); MAGNESIUM 2.3 mg/dL (1.8-2.4)
[2020-02-13 09:17] LABS: CREATININE 1.1 mg/dL (0.55-1.3)
[2020-02-13 09:19] LABS: BILIRUBIN,TOTAL 1.1 mg/dL (0.2-1); TOT PROT 5.8 g/dl (6.4-8.2)
[2020-02-13] MEDS: FUROSEMIDE 40 MG/4 ML INJECTABLE VIAL IVPUSH SCH ×2 (09:28→22:45)
[2020-02-13] MEDS: LISINOPRIL 5 MG TABLET PO SCH (09:28)
[2020-02-13] MEDS: ASPIRIN COATED 81 MG TABLET.EC PO SCH (09:28)
[2020-02-13] MEDS: amLODIPine BESYLATE 10 MG TABLET (FP) PO SCH (09:28)
[2020-02-13] MEDS: ARIPiprazole 10 MG TABLET PO SCH ×2 (14:05→22:43)
[2020-02-13] MEDS: ATORVASTATIN CA 40 MG TABLET (FP) PO SCH (22:43)
[2020-02-14] MEDS: HEPARIN NA (PORCINE) 5,000 UNITS/ML 1ML VIAL SQ SCH ×3 (05:40→21:15)
[2020-02-14 08:56] LABS: BASO % 0.7 % (0-2.0); EOS % 2.6 % (0-4.5); HEMATOCRIT 56.7 % (35.4-49); HEMOGLOBIN 18.4 GM/dL (11.7-16.9); LYMPH % 19.6 % (8-40); MCH 31.5 pg (25.7-33.7); MCHC 32.5 g/dl (32.0-35.9); MEAN CELL VOLUME 96.9 fl (80-96); MEAN PLT VOLUME 9.5 fl (7.5-11.1); MONO % 9.4 % (3.8-10.2); NEUT % 67.7 % (42.8-82.8); PLATELET COUNT 91 K/MM3 (134-434); RBC 5.86 M/mm3 (4.00-5.60); RDW 15.2 % (11.9-15.9); WHITE BLOOD COUNT 5.4 K/mm3 (4.0-10.0)
[2020-02-14] MEDS: FUROSEMIDE 40 MG/4 ML INJECTABLE VIAL IVPUSH SCH ×2 (09:18→21:15)
[2020-02-14 09:19] LABS: POTASSIUM 3.8 mmol/L (3.5-5.1)
[2020-02-14] MEDS: ARIPiprazole 10 MG TABLET PO SCH ×2 (09:19→21:14)
[2020-02-14] MEDS: ASPIRIN COATED 81 MG TABLET.EC PO SCH (09:20)
[2020-02-14] MEDS: LISINOPRIL 5 MG TABLET PO SCH (09:20)
[2020-02-14] MEDS: amLODIPine BESYLATE 10 MG TABLET (FP) PO SCH (09:20)
[2020-02-14 09:21] LABS: ALBUMIN 3.3 g/dl (3.4-5.0); BLOOD UREA NITROGEN 12.6 mg/dL (7-18)
[2020-02-14 09:22] LABS: MAGNESIUM 2.2 mg/dL (1.8-2.4)
[2020-02-14 09:25] LABS: CREATININE 0.9 mg/dL (0.55-1.3)
[2020-02-14 09:26] LABS: TOT PROT 6.1 g/dl (6.4-8.2)
[2020-02-14] MEDS: ATORVASTATIN CA 40 MG TABLET (FP) PO SCH (21:14)
[2020-02-15] MEDS: HEPARIN NA (PORCINE) 5,000 UNITS/ML 1ML VIAL SQ SCH ×3 (06:31→21:20)
[2020-02-15 08:05] LABS: BASO % 0.7 % (0-2.0); HEMATOCRIT 56.8 % (35.4-49); HEMOGLOBIN 18.6 GM/dL (11.7-16.9); LYMPH % 16.6 % (8-40); MCH 32.1 pg (25.7-33.7); MCHC 32.8 g/dl (32.0-35.9); MEAN CELL VOLUME 97.8 fl (80-96); MEAN PLT VOLUME 9.6 fl (7.5-11.1); MONO % 9.8 % (3.8-10.2); NEUT % 69.9 % (42.8-82.8); PLATELET COUNT 83 K/MM3 (134-434); RBC 5.81 M/mm3 (4.00-5.60); RDW 15.1 % (11.9-15.9); WHITE BLOOD COUNT 5.3 K/mm3 (4.0-10.0)
[2020-02-15 08:21] LABS: POTASSIUM 3.6 mmol/L (3.5-5.1)
[2020-02-15 08:30] LABS: BLOOD UREA NITROGEN 9.5 mg/dL (7-18); MAGNESIUM 2.4 mg/dL (1.8-2.4)
[2020-02-15 08:31] LABS: CREATININE 0.9 mg/dL (0.55-1.3)
[2020-02-15 08:32] LABS: ALBUMIN 3.3 g/dl (3.4-5.0); BILIRUBIN,TOTAL 1.1 mg/dL (0.2-1); TOT PROT 5.8 g/dl (6.4-8.2)
[2020-02-15 08:34] LABS: CALCIUM 8.4 mg/dL (8.5-10.1)
[2020-02-15] MEDS: ARIPiprazole 10 MG TABLET PO SCH ×2 (09:37→21:21)
[2020-02-15] MEDS: FUROSEMIDE 40 MG/4 ML INJECTABLE VIAL IVPUSH SCH ×2 (09:37→21:20)
[2020-02-15] MEDS: ASPIRIN COATED 81 MG TABLET.EC PO SCH (09:37)
[2020-02-15] MEDS: amLODIPine BESYLATE 10 MG TABLET (FP) PO SCH (09:38)
[2020-02-15] MEDS: LISINOPRIL 5 MG TABLET PO SCH (09:38)
[2020-02-15] MEDS: ATORVASTATIN CA 40 MG TABLET (FP) PO SCH (21:20)
[2020-02-16] MEDS: HEPARIN NA (PORCINE) 5,000 UNITS/ML 1ML VIAL SQ SCH ×3 (05:54→21:05)
[2020-02-16 08:28] LABS: BASO % 0.5 % (0-2.0); EOS % 2.5 % (0-4.5); HEMATOCRIT 59.5 % (35.4-49); HEMOGLOBIN 19.3 GM/dL (11.7-16.9); LYMPH % 19.5 % (8-40); MCH 31.2 pg (25.7-33.7); MCHC 32.4 g/dl (32.0-35.9); MEAN CELL VOLUME 96.2 fl (80-96); MONO % 11.2 % (3.8-10.2); NEUT % 66.3 % (42.8-82.8); PLATELET COUNT 99 K/MM3 (134-434); RBC 6.19 M/mm3 (4.00-5.60); RDW 15.4 % (11.9-15.9); WHITE BLOOD COUNT 5.6 K/mm3 (4.0-10.0)
[2020-02-16 09:06] LABS: POTASSIUM 3.7 mmol/L (3.5-5.1)
[2020-02-16 09:23] LABS: ALBUMIN 3.4 g/dl (3.4-5.0); BLOOD UREA NITROGEN 14.7 mg/dL (7-18); CALCIUM 8.3 mg/dL (8.5-10.1); MAGNESIUM 2.3 mg/dL (1.8-2.4)
[2020-02-16 09:27] LABS: CREATININE 0.9 mg/dL (0.55-1.3)
[2020-02-16] MEDS: LISINOPRIL 5 MG TABLET PO SCH (09:27)
[2020-02-16] MEDS: ASPIRIN COATED 81 MG TABLET.EC PO SCH (09:27)
[2020-02-16] MEDS: amLODIPine BESYLATE 10 MG TABLET (FP) PO SCH (09:27)
[2020-02-16] MEDS: FUROSEMIDE 40 MG/4 ML INJECTABLE VIAL IVPUSH SCH (09:27)
[2020-02-16 09:28] LABS: BILIRUBIN,TOTAL 1.4 mg/dL (0.2-1); TOT PROT 6.4 g/dl (6.4-8.2)
[2020-02-16] MEDS: ARIPiprazole 10 MG TABLET PO SCH ×2 (09:28→21:06)
[2020-02-16] MEDS: ATORVASTATIN CA 40 MG TABLET (FP) PO SCH (21:05)
[2020-02-17] MEDS: HEPARIN NA (PORCINE) 5,000 UNITS/ML 1ML VIAL SQ SCH ×3 (05:46→21:40)
[2020-02-17] MEDS ORDERED: FUROSEMIDE 40 MG TABLET (FP) PO SCH (06:00)
[2020-02-17 09:25] LABS: BASO % 0.5 % (0-2.0); EOS % 2.5 % (0-4.5); HEMATOCRIT 60.5 % (35.4-49); HEMOGLOBIN 19.8 GM/dL (11.7-16.9); MCH 31.9 pg (25.7-33.7); MCHC 32.8 g/dl (32.0-35.9); MEAN CELL VOLUME 97.2 fl (80-96); MEAN PLT VOLUME 9.2 fl (7.5-11.1); MONO % 9.8 % (3.8-10.2); NEUT % 66.2 % (42.8-82.8); PLATELET COUNT 99 K/MM3 (134-434); RBC 6.22 M/mm3 (4.00-5.60); RDW 15.3 % (11.9-15.9); WHITE BLOOD COUNT 5.4 K/mm3 (4.0-10.0)
[2020-02-17 09:45] LABS: POTASSIUM 3.6 mmol/L (3.5-5.1)
[2020-02-17 09:50] LABS: CALCIUM 8.7 mg/dL (8.5-10.1)
[2020-02-17 09:51] LABS: ALBUMIN 3.6 g/dl (3.4-5.0); BLOOD UREA NITROGEN 16.8 mg/dL (7-18); MAGNESIUM 2.3 mg/dL (1.8-2.4)
[2020-02-17 09:55] LABS: CREATININE 0.9 mg/dL (0.55-1.3)
[2020-02-17 09:57] LABS: BILIRUBIN,TOTAL 1.2 mg/dL (0.2-1); TOT PROT 6.4 g/dl (6.4-8.2)
[2020-02-17] MEDS: amLODIPine BESYLATE 10 MG TABLET (FP) PO SCH (10:33)
[2020-02-17] MEDS: LISINOPRIL 5 MG TABLET PO SCH (10:34)
[2020-02-17] MEDS: ASPIRIN COATED 81 MG TABLET.EC PO SCH (10:34)
[2020-02-17] MEDS: ARIPiprazole 10 MG TABLET PO SCH ×2 (10:37→21:39)
[2020-02-17] MEDS ORDERED: POTASSIUM CHLORIDE TABS 20 MEQ TABLET.ER (FP) PO ONE (12:43)
[2020-02-17] MEDS: FUROSEMIDE 40 MG TABLET (FP) PO SCH (15:22)
[2020-02-17] MEDS ORDERED: BISACODYL 10 MG SUPP.RECT PR PRN (18:35)
[2020-02-17] MEDS: ATORVASTATIN CA 40 MG TABLET (FP) PO SCH (21:39)
[2020-02-18] MEDS: FUROSEMIDE 40 MG TABLET (FP) PO SCH ×2 (05:27→13:56)
[2020-02-18] MEDS: HEPARIN NA (PORCINE) 5,000 UNITS/ML 1ML VIAL SQ SCH ×2 (05:33→13:58)
[2020-02-18 09:03] LABS: BASO % 0.8 % (0-2.0); EOS % 2.8 % (0-4.5); HEMATOCRIT 61.7 % (35.4-49); LYMPH % 20.2 % (8-40); MCH 31.8 pg (25.7-33.7); MCHC 32.8 g/dl (32.0-35.9); MONO % 11.1 % (3.8-10.2); NEUT % 65.1 % (42.8-82.8); PLATELET COUNT 111 K/MM3 (134-434); RBC 6.36 M/mm3 (4.00-5.60); RDW 15.5 % (11.9-15.9); WHITE BLOOD COUNT 6.1 K/mm3 (4.0-10.0)
[2020-02-18 09:20] LABS: POTASSIUM 3.8 mmol/L (3.5-5.1)
[2020-02-18 09:23] LABS: HEMOGLOBIN 20.2 GM/dL (11.7-16.9)
[2020-02-18 09:24] LABS: CALCIUM 8.8 mg/dL (8.5-10.1)
[2020-02-18 09:25] LABS: ALBUMIN 3.8 g/dl (3.4-5.0); BLOOD UREA NITROGEN 14.5 mg/dL (7-18); MAGNESIUM 2.3 mg/dL (1.8-2.4)
[2020-02-18 09:28] LABS: CREATININE 0.9 mg/dL (0.55-1.3)
[2020-02-18 09:29] LABS: BILIRUBIN,TOTAL 1.6 mg/dL (0.2-1); TOT PROT 6.6 g/dl (6.4-8.2)
[2020-02-18] MEDS: LISINOPRIL 5 MG TABLET PO SCH (10:25)
[2020-02-18] MEDS: ASPIRIN COATED 81 MG TABLET.EC PO SCH (10:25)
[2020-02-18] MEDS: ARIPiprazole 10 MG TABLET PO SCH (10:25)
[2020-02-18] MEDS: amLODIPine BESYLATE 10 MG TABLET (FP) PO SCH (10:25)
[2020-02-18 15:04] VITALS: BP 148/78; PULSE 67; TEMP 99
== END 2020-02-18 15:58 | DRG 292 ==
LOC: JER 10:38 → JERBED 12:03 → J5S 16:03
PROVIDERS: ATTEND Nurse Practitioner Acute Care
DX: I11.0 Hypertensive heart disease with heart failure (principal); F20.0 Paranoid schizophrenia; L03.115 Cellulitis of right lower limb; I50.33 Acute on chronic diastolic (congestive) heart failure; J44.9 Chronic obstructive pulmonary disease, unspecified; E78.5 Hyperlipidemia, unspecified; G47.33 Obstructive sleep apnea (adult) (pediatric); E66.01 Morbid (severe) obesity due to excess calories; F17.210 Nicotine dependence, cigarettes, uncomplicated; D75.1 Secondary polycythemia; E11.9 Type 2 diabetes mellitus without complications; I27.20 Pulmonary hypertension, unspecified; I27.81 Cor pulmonale (chronic); Z68.34 Body mass index [BMI] 34.0-34.9, adult; Z88.0 Allergy status to penicillin; Z59.0 Homelessness
CPT/HCPCS: 36415; 71045-TC-FY; 80053; 80307; 82024; 82533; 82550; 83003; 83036; 83690; 83735; 83880; 84146; 84305; 84443; 84484; 85025; 87804; 93005; 93010; 93971-TC; 94761; 97116-GP; 97161-GP; 99285-25; C9803; J0131; J1644; U0003